=== PATIENT | female | born 1935 | race Caucasian/White ===

== ENCOUNTER 2022-02-28 10:48 | Outpatient (CLI) | payer OTHER, SELFPAY ==
[2022-02-28 15:10] LABS: RBC Urine 25-50 (0-2)
== END 2022-02-28 10:49 | disposition home or self-care (01) ==
PROVIDERS: PCP Family Medicine; Visit Provider Family Medicine
DX: R31.9 Hematuria, unspecified (principal)
CPT/HCPCS: 81015; 87086

== ENCOUNTER 2022-03-13 13:07 | Outpatient (CLI) | payer OTHER, SELFPAY | END 2022-03-13 13:08 | disposition home or self-care (01) | LOC: LONREF 13:08 | PROVIDERS: PCP Family Medicine; Visit Provider Family Medicine | DX: R31.9 Hematuria, unspecified (principal) | CPT/HCPCS: 87086 ==

== ENCOUNTER 2022-03-15 10:27 | Outpatient (CLI) | payer OTHER, SELFPAY ==
--- NOTE | 2022-03-15 10:45 | CRLHL7_ITS ---
For Patients: As a result of the Century Cures Act, medical imaging exams and procedure reports are released immediately into your electronic medical record. You may view this report before your referring provider. If you have questions, please contact your health care provider. CLINICAL HISTORY: Hematuria COMPARISON: none TECHNIQUE: Aleman scale and color Doppler images were acquired of the kidneys and urinary bladder. FINDINGS: Right hydronephrosis is present with the right renal pelvis measuring 1.8 cm. No solid renal mass. Bilobed cyst pole left kidney considered benign measuring 3.1 x 1.9 x 2.6 cm. Renal cortex is normal bilaterally. Right kidney measures 10.0 cm and left kidney measures 11.1 cm. Lobular hyperechoic and vascular bladder masses are present measuring 3.7 x 2.7 x 2.7 cm on the right and 2.0 x 1.9 x 1.7 cm on the left. IMPRESSION: Lobular bladder masses. Urology consultation recommended. Associated right hydronephrosis. Dictated by Anders England MD @ 03/15/2022 12:09:43 PM (Electronically Signed)
== END 2022-03-15 10:28 | disposition home or self-care (01) ==
PROVIDERS: PCP Family Medicine; Visit Provider Family Medicine
DX: R31.9 Hematuria, unspecified (principal); R22.2 Localized swelling, mass and lump, trunk; N13.30 Unspecified hydronephrosis
CPT/HCPCS: 76770

== ENCOUNTER 2022-04-06 10:37 | Outpatient (CLI) | payer OTHER, SELFPAY ==
--- OUTSIDE RECORDS SUMMARY | 2022-04-06 10:51 | XMS_ITS | Encounter Summary ---
:1935 Author Organization [facility] Address [facility] [place] [address] Care Team Providers Name Role Phone Mario Reynolds MD Primary Care Provider Reason for Visit Auth/Cert - Closed Specialty Diagnoses / Procedures Referred By Contact Refer red To Contact Surgery Diagnoses NASAL LACRIMAL OBSTRUCTION Sh Periop Services Procedures DACRYOCYSTORHINOSTOMY DACRYOCYSTORHINOSTOMY [address] [place] [phone] Phone: Referral ID Status Reason Start Date Expiration Date Visits Requ ested Visits Authorized [id number] Closed 1 1 Encounter Details Date Type Department Care Team Description 06/10/2013 Anesthesia Event [facility] Nick Almazan [place] [facility] Claudio truong MD [address] [place] [address] [place] [id number] (Wo rk) Anesthesia Record Procedure Summary Procedure Name Responsible Anesthesia Start Anesthesia Stop Anesthesiologist Time Time RIGHT DACROCYSTORHINOSTOMY Nick Almazan MD 06/10/13 1441 06/10/13 1536 WITH MITOMYCIN (Right Eye) Events Date Time Event Comment 06/10/2013 1259 1441 An Start 1444 An Start Data 1457 AN INCISION 1501 Quick Note O2 off for caute ry 1533 an stop data 1536 An Stop Electronically s igned by Mykel Lozano CRNA on June 10, 2013 3:36 PM Name Total fentaNYL 50 mcg/mL 100 mcg midazolam 1 mg/mL 2 mg ondansetron 2 mg/mL 4 mg propofol 10 mg/mL 30 mg LR 500 mL Agents Name O2 O2 Auxiliary Blood No blood administrations on file. Lines, Drains, and Airways Type Details Placement Removal Peripheral IV 10/24/12; 1117; 22 G; 10/24/12 1117 by Left; Hand; Julianna Plaza RN Chlorhexidine; None; Tolerated well Incision/Surgical Site Bilateral; Eye 10/24/12 1333 by Peripheral IV 06/10/13; 1444; 20 G; 06/10/13 1444 by 06/10/13 1609 by Right; Hand; Alcohol; LozanoMykel, Pam Ward, Injectable; Tolerated ALL AROUND PRESSER JUNIOR COPYWRITER RN well documented in this encounter Social History Tobacco Use Types Packs/Day Years Used Date Never Smoker Alcohol Use Standard Drinks/Week Comments No 0 (1 standard drink = 0.6 oz pure alcoho l) Sex Assigned at Date Recorded Not on file documented as of this encounter OR Notes Anesthesia Postprocedure Evaluation - Nick Almazan MD - 06/10/2013 3:39 PM CST Anesthesia Post-Evaluation Note Patient: Johana Barton Patient location: PACU Procedure(s) Performed: Procedure(s) with comments: DACRYOCYSTORHINOSTOMY - RIGHT DACROCYSTORHINOSTOMY WITH MITOMYCIN Anesthesia type: MAC Post Op Diagnosis: * No post-op diagnosis entered *. Post Op Diagnosis Additional Comments:No value filed. Patient Condition Respiratory Function (RR / SpO2 / Airway Patency): Satisfactory Cardiac Function (HR / Rhythm / BP): Satisfactory Mental Status: Satisfactory Temperature: Satisfactory Pain Control: Satisfactory PONV: None Beta-Ro Therapy: None indicated Hydration Status: Satisfactory Last Vitals: Filed Vitals: 06/10/13 1244 BP: 142/76 Temp: 35.9 ??C (96.6 ??F) Resp: 16 SpO2: 96% Additional Comments: KSHAFT BALANCER Anesthesia Preprocedure Evaluation - Nick Almazan MD - 06/10/2013 12:20 PM CST Anesthesia Evaluation . Pt has had prior anesthetic. No history of anesthetic complications ROS/MED HX ENT/Pulmonary: Neurologic: Cardiovascular: METS/Exercise Tolerance: Hematologic: Musculoskeletal: (+) other musculoskeletal (cervicalgia)- GI/Hepatic: Renal/Genitourinary: Endo: Psychiatric: Infectious Disease: Malignancy: Other: Physical Exam Airway Mallampati: II Neck ROM: limited Dental Cardiovascular Rhythm and rate: regular and normal Pulmonary breath sounds clear to auscultation Anesthesia Plan ASA Score: 2 . Plan for MAC - Routine analgesia and antiemetics to be used for post-operative care. Anesthetic plan, risks, benefits and alternatives discussed with: patient or sales support representative. History & Physical Review History and physical reviewed; no interval change. . DPreop diagnosis: NASAL LACRIMAL OBSTRUCTION Procedure(s): DACRYOCYSTORHINOSTOMY No Known Allergies Current Outpatient Prescriptions on File Prior to Visit: MELOXICAM Active 15 mg daily. multivitamin, therapeutic with minerals (THERA-VIT-M) TABS Active Take 1 tablet by mouth daily. vitamin B complex with vitamin C (VITAMIN B COMPLEX) TABS Active Take 1 tablet by mouth daily. GLUCOSAMINE SULFATE PO Active Take by mouth daily. No results found for this basename: hgb, inr, potassium KSHAFT BALANCER documented in this encounter Miscellaneous Notes Anesthesia Care Transfer Note - Mykel Lozano APRN CRNA - 06/10/2013 3:36 PM CST Anesthesia Care Transfer Note Patient: Johana Barton Transferred to: PACU Patient vital signs: stable Airway: none KSHAFT BALANCER documented in this encounter Plan of Treatment Not on filedocumented as of this encounter Visit Diagnoses Not on filedocumented in this encounter Administered Medications Inactive Administered Medications - up to 3 most recent administrations Medication Order MAR Action Action Date Dose Rate Site fentaNYL (SUBLIMAZE) injection Given 06/10/2013 3:12 PM CRANKSHAFT BALANCER 25 mcg PRN, moderate to severe pain, Starting on Sat06/10/13 at 1446, Anesthesia Intra-op Given 06/10/2013 3:00 PM CRANKSHAFT BALANCER 25 mcg Given 06/10/2013 2:46 PM CRANKSHAFT BALANCER 50 mcg lactated ringers infusion New Bag 06/10/2013 2:44 PM CRANKSHAFT BALANCER mL Intravenous, CONTINUOUS PRN, Anesthesia Intra-op, Starting on Sat06/10/13 at 1444, Until Sat06/10/13 at 1536 midazolam (VERSED) injection Given 06/10/2013 2:45 PM CRANKSHAFT BALANCER 2 mg PRN, anxiety, Starting on Sat06/10/13 at 1445, Anesthesia Intra-op ondansetron (ZOFRAN) injection Given 06/10/2013 2:59 PM CRANKSHAFT BALANCER 4 mg PRN, nausea, vomiting, Administer over 2-5 Minutes, Starting on Sat06/10/13 at 1459, Anesthesia Intra-op propofol (DIPRIVAN) injection Given 06/10/2013 2:46 PM CRANKSHAFT BALANCER 30 mg PRN, Starting on Sat06/10/13 at 1446, Anesthesia Intra-op documented in this encounter Care Teams Machine Printer Hose Relationship Specialty Start Date End Date Mario Reynolds MD PCP - General Family Practice 10/14/12 [facility] [address] [place] [address] documented as of this encounter
--- OUTSIDE RECORDS SUMMARY | 2022-04-06 10:51 | XMS_ITS | Encounter Summary ---
:1935 Author Organization [facility] Address [address] [place] [address]. [place] [address] Care Team Providers Name Role Phone Mario Reynolds MD Primary Care Provider Reason for Visit Rehab Therapy Integrated Services (Routine) - Closed Specialty Diagnoses / Procedures Referred By Contact Refer red To Contact Procedures [facility] [address] [facility] [place] [phone] Phone: Fax: Referral ID Status Reason Start Date Expiration Date Visits V isits Requested Authorized [facility] - Closed 07/26/2017 07/07/2018 365 365 PT/OT/CAB STARTER ([id number]) Encounter Details Date Type Department Care Team Description 08/07/2017 Hospital Encounter [facility] Brennen Hernandez MD [facility] [address] [facility] [address] [place] [address] Rehabilitation Sharri Camacho, CAB STARTER [address] [place], [place] [address] [address] [place] [address] [address] [place] [phone] Social History Tobacco Use Types Packs/Day Years Used Date Never Smoker Alcohol Use Standard Drinks/Week Comments No 0 (1 standard drink = 0.6 oz pure alcoho l) Sex Assigned at Date Recorded Not on file documented as of this encounter Medications at Time of Discharge Medication Sig Dispensed Refills Start Date End Date GLUCOSAMINE SULFATE PO Take by mouth daily. 0 MELOXICAM 15 mg daily. 0 multivitamin, therapeutic Take 1 tablet by 0 with minerals mouth daily. (THERA-VIT-M) TABS vitamin B complex with Take 1 tablet by 0 vitamin C (VITAMIN B mouth daily. COMPLEX) TABS documented as of this encounter Plan of Treatment Not on filedocumented as of this encounter Visit Diagnoses Not on filedocumented in this encounter Care Teams Double Cut Off Saw Operator Relationship Specialty Start Date End Date Mario Reynolds MD PCP - General Family Practice 10/14/12 [facility] [address] [place] [address] documented as of this encounter
--- OUTSIDE RECORDS SUMMARY | 2022-04-06 10:51 | XMS_ITS | Encounter Summary ---
:1935 Author Organization [facility] Address [address] [place] [address]. [place] [address] Care Team Providers Name Role Phone Mario Reynolds MD Primary Care Provider Reason for Visit Rehab Therapy Integrated Services (Routine) - Closed Specialty Diagnoses / Procedures Referred By Contact Refer red To Contact Procedures [facility] [address] [facility] [place] [phone] Phone: Fax: Referral ID Status Reason Start Date Expiration Date Visits V isits Requested Authorized [facility] - Closed 07/26/2017 07/07/2018 365 365 PT/OT/TRUCK RENTAL SERVICE ATTENDANT ([id number]) Encounter Details Date Type Department Care Team Description 08/15/[address] [facility] Brennen Hernandez MD [facility] [address] [facility] [address] [place] [address] Rehabilitation Sharri Camacho, TRUCK RENTAL SERVICE ATTENDANT [address] [place], [place] [address] [address] [place] [address] [address] [place] [phone] Social History Tobacco [...] on filedocumented in this encounter Care Teams Mortgage Or Loan Underwriter Relationship Specialty Start Date End Date Mario Reynolds MD PCP - General Family Practice 10/14/12 [facility] [address] [place] [address] documented as of this encounter
--- OUTSIDE RECORDS SUMMARY | 2022-04-06 10:51 | XMS_ITS | Encounter Summary ---
:1935 Author Organization [place] Address [address] [address] Care Team Providers Name Role Phone Mario Reynolds MD Primary Care Provider Reason for Visit Auth/Cert - Closed Specialty Diagnoses / Procedures Referred By Contact Refer red To Contact Surgery Diagnoses NASAL LACRIMAL OBSTRUCTION Sh Periop Services Procedures DACRYOCYSTORHINOSTOMY DACRYOCYSTORHINOSTOMY [address], [address] [place] [address] Phone: Referral ID Status Reason Start Date Expiration Date Visits Requ ested Visits Authorized [id number] Closed 1 1 Encounter Details Date Type Department Care Team Description 06/10/2013 Hospital Encounter [facility] [place] Phase II [address] [place] OPHTHALMIC PLAST [place] [address] SURG [phone] [address] [place] [address] (Wo rk) Social History Tobacco Use Types Packs/Day Years Used Date Never Smoker Alcohol Use Standard Drinks/Week Comments No 0 (1 standard drink = 0.6 oz pure alcoho l) Sex Assigned at Date Recorded Not on file documented as of this encounter Last Filed Vital Signs Vital Sign Reading Time Taken Comments Blood Pressure 168/97 06/10/2013 4:08 PM [employer] SUPPORT LEAD Pulse - - Temperature 35.9 ??C (96.6 ??F) 06/10/2013 12:44 PM [employer]PPORT [employer]AD Respiratory Rate 16 06/10/2013 4:08 PM [employer] SUPPORT [employer]AD Oxygen Saturation 99% 06/10/2013 4:08 PM [employer]AD Inhaled Oxygen Concentration - - Weight 66.4 kg (146 lb 6.4 oz) 06/10/2013 12:44 PM [employer]PPORT LEAD Height 154.9 cm (5' 1) 06/10/2013 12:44 PM [employer] SUPPORT LEAD Body Mass Index 27.66 06/10/2013 12:44 PM APPLICATION SUPPORT LEAD documented in this encounter Discharge Instructions Discharge InstructionsPam Ward RN - 06/10/2013 3:46 PM CST Images from the original note were not included. Same Day Surgery Discharge Instructions For Sedation and General Anesthesia 1. It is not unusual to feel dizzy, light-headed, or faint, up to 24 hours after surgery or while taking pain medication. If you have these symptoms; sit for a few minutes before standing and have someone assist you when you get up to walk or use bathroom. 2. You should rest and relax for the next 24 hours and must make arrangements to have someone stay with you for at least 24 hours after your discharge. Avoid hazardous and strenuous activities. 3. DO NOT DRIVE any vehicle or operate mechanical equipment for 24 hours following the end of your surgery. Even though you feel normal, your reactions may be affected by the medication you have received. 4. Do not drink alcoholic beverages for 24 hours following your surgery. 5. It is not unusual to feel nauseated and/or vomit after receiving anesthesia. If you develop thesesymptoms, drink clear liquids (apple juice, venecia karissa, broth, 7-up etc.) until you feel better. Slowly progress to your regular diet as you feel able. If your nausea and vomiting persists for 24 hours, please notify your surgeon. 6. All narcotic pain medications, along with inactivity and anesthesia, can cause constipation. Drinking plenty of liquids and increasing fiber intake will help. 7. Any questions of a medical nature, call your physician. 8. Do not make important decisions for 24 hours. 9. You may have a sore throat for a couple of days related to the breathing tube used during surgery. You may use Cepacol lozenges to help with this discomfort. If it worsens or if you develop a fever, contact your surgeon. IC[employer] SUPPORT LEAD documented in this encounter Medications at Time of Discharge Medication Sig Dispensed Refills Start Date End Date GLUCOSAMINE SULFATE PO Take by mouth daily. 0 MELOXICAM 15 mg daily. 0 multivitamin, therapeutic Take 1 tablet by 0 with minerals mouth daily. (THERA-VIT-M) TABS vitamin B complex with Take 1 tablet by 0 vitamin C (VITAMIN B mouth daily. COMPLEX) TABS documented as of this encounter H&P Notes [place] Provider - 06/08/2013 8:09 AM CST IC[employer] SUPPORT LEAD documented in this encounter Nursing Notes Pam Ward RN - 06/10/2013 4:[address] Ang called regarding eye drops that came from surgery with her. Suellen from Dr. Ang's office called back. She is to put in a drop in her right eye 4 times per day for 1 week. ICATION SUPPORT LEAD Pam Ward RN - 06/10/2013 4:[address] Lindsey informed of elevated BP. No tx ordered. ICATION SUPPORT LEAD documented in this encounter Miscellaneous Notes Op Note - Sierra Ang MD - 06/10/2013 3:38 PM CST PREOPERATIVE DIAGNOSIS: Right acquired nasolacrimal duct obstruction. POSTOPERATIVE DIAGNOSIS: Right acquired nasolacrimal duct obstruction. PROCEDURE: Right dacryocystorhinostomy with mitomycin. ANESTHESIA: Local monitored. COMPLICATIONS: None. INDICATIONS FOR PROCEDURE: Johana Barton has a history of right dacryocystorhinostomy for chronic tearing. The patient developed a secondary obstruction and presents for right dacryocystorhinostomy with mitomycin. PROCEDURE: The patient was taken to the operating room and was placed under general anesthesia. The proposed skin incision lines were outlined with a marking pen from approximately 1/2 cm above the medial canthal tendon to approximately 1 cm below the medial canthal tendon. This area was injected with 1% lidocaine with 1:100,000 epinephrine with Wydase. Additional anesthetic was injected through the caruncle into the ethmoid sinuses. The patient was then prepped and draped in the usual sterile fashion. #15 blade was used to incise the skin and then curved Pace scissors were used to bluntly dissect tissue down to the level of the periosteum. Cutting cautery was then used to fully expose the underlying bone and then a [place] elevator was used to lift the periosteum away from the lacrimal fossa. The bone of the lacrimal fossa was then perforated with a curved hemostat and the opening was enlargedwith various sized Kerrison rongeurs until a hole the size of a dime was created. The nasal mucosa was then opened with cutting cautery and an opening was created that was also approximately the size of a dime. A Mccrary probe was then passed through the canaliculus and used to tent up the lacrimal sac. Lacrimal sac was opened with a Barber blade and then the medial wall was removed with Mitali scissors. A Higuera probe and tubing was then passed through the canalicular system into the nose and out through the nares. A second Higuera probe was passed through the inferior canaliculus in a similarfashion. A 1/4 inch Ronen drain was drawn up into the lacrimal sac and sutured in place with two 5-0 Vicryl sutures. The deep tissues were then closed with interrupted 5-0 Vicryl sutures and the subcu ticular tissue was also closed with interrupted 5-0 Vicryl suture. The skin was closed with a running 6-0 chromic suture. The tubing was then spliced and the internal suture was tied on itself and thenthe tubing was tied to the lateral wall of the nose with a 5-0 Prolene suture. At the end of the procedure, there was good hemostasis and a Rhino Rocket was then passed into the area of surgery. A nasal sling was then placed over the nares and a dental roll was applied to the DCR incision site, after Bacitracin ointment had been applied. The dental roll was taped in place. The patient had received 2 gm of Ancef at the beginning of the case and 4 mg of Decadron. The patient left the operating room instable condition. ADDITION: After completion of the ostomy, a pledget soaked in 0.4 mg per mL of mitomycin was appliedto the ostomy for 4 minutes. The area was then irrigated thoroughly. SIERRA ANG MD MT: [id number] Name: JOHANA BARTON Account: [id number] : 1935 Procedure Date: 06/10/2013 Document: [id number] [employer] SUPPORT LEAD Brief Op Note - Sierra Ang MD - 06/10/2013 3:35 PM CST [facility] Brief Operative Note Pre-operative diagnosis: NASAL LACRIMAL OBSTRUCTION Post-operative diagnosis * No post-op diagnosis entered * Procedure: Procedure(s) with comments: DACRYOCYSTORHINOSTOMY - RIGHT DACROCYSTORHINOSTOMY WITH MITOMYCIN Surgeon(s): Surgeon(s) and Role: * Sierra Ang MD - Primary Estimated blood loss: * No values recorded between 06/10/2013 2:57 PM and 06/10/2013 3:33 PM * Specimens: * No specimens in log * Findings: ICATION SUPPORT LEAD documented in this encounter Plan of Treatment Not on filedocumented as of this encounter Procedures Procedure Name Priority Date/Time Associated Diagnosis Comme nts DACRYOCYSTORHINOSTOMY 06/10/2013 2:36 PM APPLICATION SUPPORT LEAD NASAL LAC RIMAL OBSTRUCTION documented in this encounter Visit Diagnoses Not on filedocumented in this encounter Active and Recently Administered Medications Times are shown in APPLICATION SUPPORT LEAD. PRN Medication Order 06/08/2013 06/09/2013 06/10/2013 cocaine 4 % external solution (CANCELED) 1508 (Given - Provider: Sierra Ang MD) PRN, other, Starting Sat06/10/13 at 1508, Apply to , Intra-pr ocedure lidocaine 2%-EPINEPHrine 1:200,000 injection (CANCELED) 1508 (Given - Provider: Sierra Ang MD) PRN, Starting Sat06/10/13 at 1508, Intra-procedure mitoMYcin 2 mg/mL topical solution (CANCELED) 1507 (Given - Provider: Sierra Ang MD - Comment: rinsed with BSS) PRN, Starting Sat06/10/13 at 1507, Intra-procedure meimosag-mqlgdeutw-ngvhdtrtyhiid (MAXITROL) ophthalmic suspensio n (CANCELED) 1508 (Given - Provider: Sierra Ang MD) PRN, Starting Sat06/10/13 at 1508, Intra-procedure documented in this encounter Care Teams Special Education Resource Teacher Relationship Specialty Start Date End Date Mario Reynolds MD PCP - General Family Practice 10/14/12 [facility] [address] [place] [address] documented as of this encounter
--- OUTSIDE RECORDS SUMMARY | 2022-04-06 10:51 | XMS_ITS | Encounter Summary ---
:1935 Author Organization [place] Address [address] [facility] 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, RIGHT UPPER LID LESION, RIGHT NASO Sh Periop Services Procedures REPAIR PTOSIS BILATERAL EXCISE LESION EYELID DACRYOCYSTORHINOSTOMY [address] [place] [address] Phone: Referral ID Status Reason Start Date Expiration Date Visits Requ ested Visits Authorized [id number] Closed 1 1 Encounter Details Date Type Department Care Team Description 10/24/2012 Surgery [facility] Sierra Ang BILATERAL UPPER LID PTOSIS [place] [facility] MD [place] AND MECHANICAL PTOSIS REPAIR, Services [place] OPHTHALMIC EXCISION LEFT UPPER LID [address] PLAST SURG LESION, RIGHT [address] DACRYOCYSTORHINOSTOMY [place] [facility] [address] [id number] [place] [phone] Surgery Details Date/Time Status Location OR Service Patient Case Case Traum a Class Class Type Case? 10/24/12 12:30 Posted EC R [facility] PM Panel 1 Procedure [facility]RB Anes Op Region Wound Class Commen ts BILATERAL UPPER LID PTOSIS AND Bilateral MAC Eye I-Juliano an BILATERAL UPPER MECHANICAL PTOSIS REPAIR, LID PTOSIS AND EXCISION LEFT UPPER LID M ECHANICAL PTOSIS LESION, RIGHT REPAIR, EXC ISION DACRYOCYSTORHINOSTOMY LEF T UPPER LID LESION, RIGHT DACRYOCYSTORHI NOST ANDREW EXCISION, LESION, EYELID Left MAC Eye I-Clean Panel 2 Procedure LRB Anes Op Region Wound Class Commen ts DACRYOCYSTORHINOSTOMY Right MAC Eye I-Clean Surgeon Surgeon Role Service Panel Sierra Ang MD Primary Ophthalmology 1 Sierra Ang MD Primary Ophthalmology 2 documented in this encounter Social History Tobacco Use Types Packs/Day Years Used Date Never Smoker Alcohol Use Standard Drinks/Week Comments No 0 (1 standard drink = 0.6 oz pure alcoho l) Sex Assigned at Date Recorded Not on file documented as of this encounter Last Filed Vital Signs Vital Sign Reading Time Taken Comments Blood Pressure 155/85 10/24/2012 4:00 PM CDT Pulse - - Temperature 36.5 ??C (97.7 ??F) 10/24/2012 11:05 AM CDT Respiratory Rate 18 10/24/2012 4:00 PM CDT Oxygen Saturation 99% 10/24/2012 4:00 PM CDT Inhaled Oxygen Concentration - - Weight 69.4 kg (153 lb) 10/24/2012 11:05 AM CDT Height 157.5 cm (5' 2) 10/23/2012 2:00 PM CDT Body Mass Index 27.98 10/23/2012 2:00 PM CDT documented in this encounter Discharge Instructions Discharge InstructionsNadine Ambriz, MATEO - 10/24/2012 4:01 PM CDT [facility] Discharge Instructions Anesthesia ([facility]) Adult Discharge Instructions For 24 hours after surgery 1. Get plenty of rest. Make arrangements to have a responsible adult stay with you for at least 6 hours after you leave the hospital. 2. Do not drive or use heavy equipment for 24 hours. 3. Do not drink alcohol for 24 hours. 4. Do not sign legal documents or make important decisions for 24 hours. 5. Avoid strenuous or risky activities. You may feel lightheaded. If so, sit for a few minutes before standing. Have someone help you get up. 6. Conscious sedation patients may resume a regular diet.. 7. Any questions of medical nature, call your physician. [facility] Dacryocystorhinostomy Discharge Instructions [facility] Provider SIERRA ANG M.D. [facility] [address] [place], [place] [address] Things to avoid: You should avoid blowing the nose vigorously or sneezing vigorously after silicone intubation. The silicone tubing is frequently left in for as long as six months and care should be taken to avoid blowing the nose vigorously during this time. It is also helpful to close the eyes during sneezing or gentle nose blowing. The tubing may be tied to the side of the nose, and therefore care should be taken to avoid manipulating this area in the nose. It is acceptable to apply a little Vaseline to the inside of the nose if there is any drying or discomfort. You will see a tiny end of the silicone tubing extruding from the cornea of your operated eye(s). Becareful not to disturb this area. The yellow rubber tube inside your nose should fall out on its own in about 4-6 weeks. If it does not, call the office and the doctor can remove it in the office. Activity: Please avoid heavy lifting or vigorous exercise for seven days after surgery. You may resume regularactivities as tolerated. You may carefully shower on the second day after surgery. Medication: If the doctor has given you some medications to take after surgery, please take these according to the instructions on the bottle. Pain medications may make you drowsy so do not drive, operate heavy machinery or use alcohol while taking pain medications. Bleeding: It is normal to have some bloody discharge from the nose after this procedure. This will subside over the first one to two days after surgery. Please contact the doctor if there is excessive bleeding which does not respond to simple pressure on the nose. Questions: Please feel free to contact the office should any questions come up which are not answered above. The phone number is [phone]. [facility] Eyelid/Orbital Surgery Discharge Instructions Sierra Ang M.D. & Francisco Holbrook M.D. ICE COMPRESSES Immediately following surgery, you should begin to apply ice compresses. Apply a cold gel pack, which can be purchased at your drug store, or wrap a clean washcloth around a cup of crushed ice in a plastic bag (a bag of frozen peas also works well) and hold the cold compresses directly against the closed eyelid (s). Do this at least six times per day for 15 minutes, but not while sleeping. Continue cold compresses for the first three days after surgery, or longer if swelling persists. HOT COMPRESSES Starting on the fourth day following surgery or after your swelling has gone down, hot compresses should be applied. Take a clean washcloth and wring it out in hot water (as warm as you can tolerate comfortably). Hold this warm compress against the closed eyelid(s) six times per day for 15 minutes. This should be continued for about two weeks. OINTMENT You may be given some ointment when you leave the hospital. Apply this ointment to the suture line(s) twice a day. Expect some blurring of vision from the ointment. Eye drops Maxitrol one drop each eyethree times a day ACTIVITY Avoid heavy lifting or vigorous exercise for one week after surgery. You may resume regular activities as tolerated. You may shower and wash your hair on the day after surgery; be careful to avoid getting shampoo in your eyes. MEDICATION If the doctor has given you some medications to take after surgery, please take these according to the instructions on the bottle. Pain medications may make you drowsy so do not drive, operate heavy machinery, or use alcohol while taking it. When you feel that you do not need the prescription pain medication, you may substitute Extra Strength Tylenol for mild pain. WHAT TO EXPECT You should expect some slight oozing of blood from the incision site over the first two to three days after surgery. Swelling and bruising will occur for one to two weeks or longer. You may also experience itching and tearing during the first several weeks after surgery. This is part of the normal healing process QUESTIONS Please feel free to contact the office, should you have any questions that are not answered above. The phone number is . Please call immediately if you are unable to establish vision in the operative eye, or if you are experiencing heavy bleeding that will not stop with gentle pressure. [facility] [address] [place] [address] documented in this encounter Medications at Time of Discharge Medication Sig Dispensed Refills Start Date End Date GLUCOSAMINE SULFATE PO Take by mouth daily. 0 MELOXICAM 15 mg daily. 0 multivitamin, Take 1 tablet by mouth 0 therapeutic with daily. minerals (THERA-VIT-M) TABS vitamin B complex with Take 1 tablet by mouth 0 vitamin C (VITAMIN B daily. COMPLEX) TABS HYDROcodone-acetaminop Take 1 tablet by mouth 10 tablet 0 0 10/24/2012 06/10/2013 hen 5-325 MG per every 6 hours as needed tabletIndications: for pain. Maximum of Post-op pain 4000 mg of acetaminophen in 24 hours. documented as of this encounter H&P Notes Sierra Ang MD - 10/23/2012 6:49 AM CDT documented in this encounter Nursing Notes Beata Diehl RN - 10/24/2012 1:[address] ANG EXCISED THE LESION ON THE LEFT UPPER EYELID AND IT WAS DISCARDED PER DR. ANG documented in this encounter Miscellaneous Notes Op Note - Sierra Ang MD - 10/24/2012 3:04 PM CDT Preoperative Diagnosis: Bilateral Upper Eyelid Ptosis Post Operative Diagnosis: Bilateral Upper Eyelid Ptosis and Mechanical Ptosis Operation: Bilateral Upper Lid Ptosis repair and Mechanical Ptosis repair Anesthesia: Local Monitored Complications: None Indications for surgery: Patient has bilateral upper lid ptosis,obstructing the vision and interfering with daily activities. Patient also has excessive skin overhanging the upper eyelids contributing the visual obstruction. Procedure: The patient was taken to the operating room and the upper eyelid creases were marked witha marking pen. The upper eyelids were injected with 2% Lidocaine along both upper eyelid creases. The patient was prepped and draped in the usual sterile fashion. The planned skin incision was outlinedwith a fine tipped marking pen. The incision was then made along the previously marked area. A moderate amount of skin was excised taking care to allow adequate closure and avoid lagophthalmos. A small benign appearing cystic lesion was excised from the left upper eyelid margin. Preoperative Diagnosis Right nasal lacrimal duct obstru ction Postoperative Diagnosis: same Operation Right dacryocystorhinostomy Anesthesia: General Complications: None Indications for Surgery: The patient has had history of dacryocystitis. The patient presented for dacryocystorhinostomy Procedure: The patient was taken to the operating room and was placed under general anesthesia. The proposed skin incision lines were outlined with a marking pen from approximately 1/2 cm above the medial canthal tendon to approximately 1cm below the medical canthal tendon. This area was injected with 1% Lidocaine with 1:100,000 epinephrine with Wydase. Additional anesthetic [...] expose the underlying bone and then a Francis elevator was used to lift the periosteum away from the lacrimal fossa. Abowman probe was then passed through the canaliculus and used to tent up the lacrimal sac. Lacrimal sac was opened with a nuiqsut blade and then the medial wall was removed with mitali scissors.The bone of the lacrimal fossa was then perforated with a curved hermostat and the opening was enlarged with various sized Kerrison rongeurs until a hole the size of a dime was created.The nasal mucosa was then opened with cutting cautery and an opening was created that was also approximately the size of a dime. A villafana probe and tubing was then passed through the canalicular system into the nose and outthrough the nares. A second villafana probe was passed through the inferior canaliculus in the similar fashion. A 1/4 inch earle drain was drawn up into the lacrimal sac and sutured in place with a two 5-0 Vicryl sutures. The deep tissues were then close with a interrupted 5- 0 Vicryl sutures and the subcuticular tissue was also closed with interrupted 5- 0 Vicryl suture. The skin was closed with a running 6-0 chromic suture. The tubing was then spliced and the internal suture was tied on itself and then the tubing was tied to the lateral wall of the nose with a 5-0 Prolene suture. At the end of theprocedure there was good hemostasis. A nasal sling was then placed over the nares and erythromycin ointment was applied. There was no evidence of tumor. The patient had received 1 gm of Ancef at the beginning of the case. The patient left the operating room in stable condition. Mitali scissors were then used to develop a plane over the septum. The septum was opened and a small amount of orbital fatwas removed. Levator aponeurosis was then disinserted from the tarsus and a plane was developed between th aponeurosis and the underlying tarsus and barriga's muscle. A 5-0 Mersilene suture was then passed through the tarsus in a lamellar fashion and externalized through the levator aponeurosis. This was tied off in a temporary fashion and the patient was asked to sit up and the eyelids height and contour evaluated. This was repeated until a satisfactory height and contour were obtained,and two additional sutures were placed lateral to the initial suture.This resulted in a normal contour and heightto the upper eyelids. Attempted overcorrection of 0.5mm was obtained. The redundant levator aponeurosis was then excised and the skin was then closed with running 6-0 fast absorbing suture. The patientleft the operating room in stable condition. Preoperative Diagnosis Right nasal lacrimal duct obstruction Postoperative Diagnosis: same Operation Right dacryocystorhinostomy Anesthesia: General Complications: None Indications for Surgery: The patient has had history of dacryocystitis. The patient presented for dacryocystorhinostomy Procedure: The patient was taken to the operating room and was placed under general anesthesia. The proposed skin incision lines were outlined with a marking pen from approximately 1/2 cm above the medial canthal tendon to approximately 1cm below the medical canthal tendon. This area was injected with 1% Lidocaine with 1:100,000 epinephrine with Wydase. Additional anesthetic [...] expose the underlying bone and then a Francis elevator was used to lift the periosteum away from the lacrimal fossa. Abowman probe was then passed through the canaliculus and used to tent up the lacrimal sac. Lacrimal sac was opened with a nuiqsut blade and then the medial wall was removed with mitali scissors.The bone of the lacrimal fossa was then perforated with a curved hermostat and the opening was enlarged with various sized Kerrison rongeurs until a hole the size of a dime was created.The nasal mucosa was then opened with cutting cautery and an opening was created that was also approximately the size of a dime. A villafana probe and tubing was then passed through the canalicular system into the nose and outthrough the nares. A second villafana probe was passed through the inferior canaliculus in the similar fashion. A 1/4 inch earle drain was drawn up into the lacrimal sac and sutured in place with a two 5-0 Vicryl sutures. The deep tissues were then close with a interrupted 5- 0 Vicryl sutures and the subcuticular tissue was also closed with interrupted 5- 0 Vicryl suture. The skin was closed with a running 6-0 chromic suture. The tubing was then spliced and the internal suture was tied on itself and then the tubing was tied to the lateral wall of the nose with a 5-0 Prolene suture. At the end of theprocedure there was good hemostasis. A nasal sling was then placed over the nares and erythromycin ointment was applied. There was no evidence of tumor. The patient had received 1 gm of Ancef at the beginning of the case. The patient left the operating room in stable condition. documented in this encounter Plan of Treatment Not on filedocumented as of this encounter Procedures Procedure Name Priority Date/Time Associated Diagnosis Comme nts DACRYOCYSTORHINOSTOMY 10/24/2012 12:49 PM BILATERAL UP PER LID CDT PTOSIS AND MECHANICAL PTOSIS, RIGHT UPPER LID LESION, RIGHT NASOLACRIMAL DUCT OBSTRUCTION EXCISION, LESION, EYELID 10/24/2012 12:49 PM BILATERAL UPPER LID CDT PTOSIS AND MECHANICAL PTOSIS, RIGHT UPPER LID LESION, RIGHT NASOLACRIMAL DUCT OBSTRUCTION REPAIR, PTOSIS, BILATERAL 10/24/2012 12:49 PM BILATERA L UPPER LID CDT PTOSIS AND MECHANICAL PTOSIS, RIGHT UPPER LID LESION, RIGHT NASOLACRIMAL DUCT OBSTRUCTION documented in this encounter Visit Diagnoses Not on filedocumented in this encounter Administered Medications Inactive Administered Medications - up to 3 most recent administrations Medication Order MAR Action Action Date Dose Rate Site cocaine 4 % external Given 10/24/2012 1:22 PM 5 mLs Operative solution CDT Site/Surgical S ite PRN, other, Starting on Sat10/24/12 at 1322, Apply to , Intra-procedure erythromycin (ROMYCIN) ophthalmic ointme nt Given 10/24/2012 1:23 PM CDT 1 inch PRN, Starting on Sat10/24/12 at 1323, Apply within 1 hour of . May be delayed until after first ., Intra-procedure lactated ringers infusion New Bag 10/24/2012 2:30 PM CDT mL at 75-100 mL/hr, Intravenous, CONTINUOUS, UNLESS otherwise indicated., Pre-procedure, Starting on Sat10/24/12 at 1045, Until Sat10/24/12 at 1804 New Bag 10/24/2012 11:18 AM CDT 1,000 mLs 75 mL/hr lidocaine 2%-EPINEPHrine Given 10/24/2012 2:15 PM 8 mLs Operative Site/Surgical 1:200,000 injection CDT Site PRN, Starting on Sat10/24/12 at 1323, Intra-procedure Given 10/24/2012 1:58 PM CDT 2 mLs Opera tive Site/Surgical Site Given 10/24/2012 1:23 PM CDT 10 mLs Opera tive Site/Surgical Site lidocaine-EPINEPHrine 1 Given 10/24/2012 2:33 PM 2 mLs Operative %-1:100,000 injection CDT Site/Surgical S ite PRN, Starting on Sat10/24/12 at 1433, Intra-procedure cnakcgmv-seeibsmqr-yhcfluzoggvbg (MAXITROL) Given 10/24/2012 2:35 PM CDT 1 drop ophthalmic suspension PRN, Starting on Sat10/24/12 at 1435, Intra-procedure tetracaine (PONTOCAINE) 0.5 % ophthalmic Given 10/24/2012 1:23 P M CDT 2 drops solution PRN, Starting on Sat10/24/12 at 1323, Intra-procedure documented in this encounter Active and Recently Administered Medications Times are shown in CDT. Continuous Medication Order 10/22/2012 10/23/2012 10/24/2012 lactated ringers infusion (CANCELED) 1118 (New Bag - Provider: Julianna Plaza RN)1259 (Anesthesia Volume Adjustment - Provider: Pham Kelly APRN HEALTH SAFETY INSTRUCTOR)1430 (New Bag - Provider: Pham Kelly APRN HEALTH SAFETY INSTRUCTOR) at 75-100 mL/hr, Intravenous, CONTINUOUS , UNLESS otherwise indicated., Pre-procedure 1454 (Stopped - Prov ider: Pham Kelly APRN HEALTH SAFETY INSTRUCTOR) PRN Medication Order 10/22/2012 10/23/2012 10/24/2012 cocaine 4 % external solution (CANCELED) 1322 (Given - Provider: Sierra Ang MD) PRN, other, Starting Sat10/24/12 at 1322, Apply to , Intra-pr ocedure erythromycin (ROMYCIN) ophthalmic ointment (CANCELED) 1323 (Given - Provider: Sierra Ang MD) PRN, Starting Sat10/24/12 at 1323, Apply within 1 hour of . May be delayed until after first ., Intra-procedure lidocaine 2%-EPINEPHrine 1:200,000 injection (CANCELED) 1323 (Given - Provider: Sierra Ang MD)1358 (Given - Provider: Sierra Ang MD)1415 (Given - Provider: Sierra Ang MD) PRN, Starting Sat10/24/12 at 1323, Intra-procedure lidocaine-EPINEPHrine 1 %-1:100,000 injection (CANCELED) 1433 (Given - Provider: Sierra Ang MD) PRN, Starting Sat10/24/12 at 1433, Intra-procedure gufbbatk-dwrkxvlfw-gmbsrneqejrht (MAXITROL) ophthalmic suspensio n (CANCELED) 1435 (Given - Provider: Sierra Ang MD) PRN, Starting Sat10/24/12 at 1435, Intra-procedure tetracaine (PONTOCAINE) 0.5 % ophthalmic solution (CANCELED) 1323 (Given - Provider: Beata Diehl RN) PRN, Starting Sat10/24/12 at 1323, Intra-procedure documented in this encounter Care Teams Office Copy Selector Relationship Specialty Start Date End Date Mario Reynolds MD PCP - General Family Practice 10/14/12 [facility] [address] [place] [id number] documented as of this encounter
--- OUTSIDE RECORDS SUMMARY | 2022-04-06 10:51 | XMS_ITS | Encounter Summary ---
:1935 Author Organization [place] Address [address] [facility] 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, RIGHT UPPER LID LESION, RIGHT NASO Sh Periop Services Procedures REPAIR PTOSIS BILATERAL EXCISE LESION EYELID DACRYOCYSTORHINOSTOMY [address], [address] [place] [address] Phone: Referral ID Status Reason Start Date Expiration Date Visits Requ ested Visits Authorized [id number] Closed 1 1 Encounter Details Date Type Department Care Team Description 10/24/2012 Anesthesia Event [facility] Smith Arroyo MD [facility] ANESTHESIOLOGIS [address] [place] [id number] [facility] PeriOP Pedro Hickman MD [facility] ANESTHESIOLOGY [address] [place] [address] Services [address], [address] [place] [address] Anesthesia Record Procedure Summary Procedure Name Responsible Anesthesia Start Anesthesia Stop Anesthesiologist Time Time BILATERAL UPPER LID PTOSIS Stanislaw Arroyo MD 10/24/12 1259 10/24/12 1458 AND MECHANICAL PTOSIS REPAIR, EXCISION LEFT UPPER LID LESION, RIGHT DACRYOCYSTORHINOSTOMY (Bilateral Eye) Events Date Time Event Comment 10/24/2012 1135 1259 An Start 1302 An Start Data 1310 Quick Note ETCO2 waveform m onitored throughout the procedure. O2 off intermittent ly while cautery in use. 1456 an stop data 1458 An Stop Electronically s igned by Pham Kelly CRNA on October 3:08 PM Name Total fentaNYL 50 mcg/mL 100 mcg midazolam 1 mg/mL 6 mg ondansetron 2 mg/mL 4 mg propofol 10 mg/mL 30 mg No abx ordered pre-op 1 each lactated ringers infusion 1,050 mL Agents Name O2 Blood No blood administrations on file. Lines, Drains, and Airways Type Details Placement Removal Peripheral IV 10/24/12; 1117; 22 G; Left; 10/24/12 1117 by Susy moeller, Julianna Hand; Chlorhexidine; None; L, RN Tolerated well Incision/Surgical Site Bilateral; Eye 10/24/12 1333 by documented in this encounter Social History Tobacco Use Types Packs/Day Years Used Date Never Smoker Alcohol Use Standard Drinks/Week Comments No 0 (1 standard drink = 0.6 oz pure alcoho l) Sex Assigned at Date Recorded Not on file documented as of this encounter OR Notes Anesthesia Postprocedure Evaluation - Stanislaw Arroyo MD - 10/24/2012 3:12 PM CDT Anesthesia Post-Evaluation Note Patient: Johana Barton Patient location: PACU Procedure(s) Performed: Procedure(s) with comments: REPAIR PTOSIS BILATERAL - BILATERAL UPPER LID PTOSIS AND MECHANICAL PTOSIS REPAIR, EXCISION LEFT UPPER LID LESION, RIGHT DACRYOCYSTORHINOSTOMY EXCISE LESION EYELID DACRYOCYSTORHINOSTOMY Anesthesia type: MAC Patient Condition Respiratory Function (RR / SpO2 / Airway Patency): Satisfactory Cardiac Function (HR / Rhythm / BP): Satisfactory Mental Status: Satisfactory Temperature: Satisfactory Pain Control: Satisfactory PONV: None Beta-Or Therapy: None indicated Hydration Status: Satisfactory Last Vitals: Filed Vitals: 10/24/12 1105 BP: 135/86 Temp: 36.5 ??C (97.7 ??F) Resp: 16 SpO2: 99% Additional Comments: Anesthesia Preprocedure Evaluation - Pedro Hickman MD - 10/24/2012 11:35 AM CDT Anesthesia Evaluation . Pt has had prior anesthetic. No history of anesthetic complications ROS/MED HX Pulmonary: (-) sleep apnea Neurologic: Cardiovascular: METS/Exercise Tolerance: Hematologic: Musculoskeletal: GI/Hepatic: (-) GERD Renal: Endo: Psychiatric: Infectious Disease: Other: Comment: ptosis Physical Exam Normal systems: cardiovascular, pulmonary and dental Airway Mallampati: II TM distance: >3 FB Neck ROM: full Dental Cardiovascular Pulmonary Anesthesia Plan ASA Score 1 . Plan for MAC Routine analgesia and antiemetics to be used for post-operative care. Anesthetic plan, risks, benefits and alternatives discussed with: patient or signs and displays sales representative. History & Physical Review History and physical reviewed; no interval change. . documented in this encounter Miscellaneous Notes Anesthesia Care Transfer Note - Pham Kelly APRN CRNA - 10/24/2012 2:58 PM CDT Anesthesia Care Transfer Note Patient: Johana Barton Transferred to: PACU Patient vital signs: stable Airway: none VSS on room air. Alert with no complaints of pain. Report given to RN. documented in this encounter Plan of Treatment Not on filedocumented as of this encounter Visit Diagnoses Not on filedocumented in this encounter Administered Medications Inactive Administered Medications - up to 3 most recent administrations Medication Order MAR Action Action Date Dose Rate Site fentaNYL (SUBLIMAZE) injection Given 10/24/2012 1:28 PM CDT 25 mcg PRN, moderate to severe pain, Starting on Sat10/24/12 at 1304, Anesthesia Intra-op Given 10/24/2012 1:19 PM CDT 25 mcg Given 10/24/2012 1:04 PM CDT 50 mcg lactated ringers infusion New Bag 10/24/2012 2:30 PM CDT mL at 75-100 mL/hr, Intravenous, CONTINUOUS, UNLESS otherwise indicated., Pre-procedure, Starting on Sat10/24/12 at 1045, Until Sat10/24/12 at 1804 New Bag 10/24/2012 11:18 AM CDT 1,000 mLs 75 mL/hr midazolam (VERSED) injection Given 10/24/2012 2:42 PM CDT 0.5 mg PRN, anxiety, Starting on Sat10/24/12 at 1301, Anesthesia Intra-op Given 10/24/2012 2:39 PM CDT 0.5 mg Given 10/24/2012 2:35 PM CDT 1 mg No abx ordered pre-op Given 10/24/2012 12:59 PM CDT 1 each PRN, Starting on Sat10/24/12 at 1259, Until Sat10/24/12 at 1508, No antibiotics ordered pre-op by surgeon, Anesthesia Intra-op ondansetron (ZOFRAN) injection Given 10/24/2012 1:17 PM CDT 4 mg PRN, nausea, vomiting, Administer over 2-5 Minutes, Starting on Sat10/24/12 at 1317, Anesthesia Intra-op propofol (DIPRIVAN) injection Given 10/24/2012 1:08 PM CDT 10 mg PRN, Starting on Sat10/24/12 at 1308, Anesthesia Intra-op Given 10/24/2012 1:07 PM CDT 20 mg documented in this encounter Care Teams Gasoline Service Attendant Relationship Specialty Start Date End Date Mario Reynolds MD PCP - General Family Practice 10/14/12 [facility] [address] [place] [address] documented as of this encounter
--- OUTSIDE RECORDS SUMMARY | 2022-04-06 10:51 | XMS_ITS | Encounter Summary ---
:1935 Author Organization [place] Address [address] [place] [address]. [place] [address] Care Team Providers Name Role Phone Mario Reynolds MD Primary Care Provider Reason for Visit Rehab Therapy Integrated Services (Routine) - Closed Specialty Diagnoses / Procedures Referred By Contact Refer red To Contact Procedures [facility] [address] [facility] [address] [place] [address] Phone: Fax: Referral ID Status Reason Start Date Expiration Date Visits V isits Requested Authorized [facility] - Closed 07/26/2017 07/07/2018 365 365 PT/OT/STONER HAND ([id number]) Encounter Details Date Type Department Care Team Description 08/13/2017 Hospital Encounter [facility] Brennen Hernandez MD [facility] [address] [facility] [address] [place] [address] Rehabilitation Sharri Camacho, STONER HAND [address] [place], [place] [address] [address] [place] [address] [address] [place] [phone] Social History Tobacco [...] on filedocumented in this encounter Care Teams Unix Analyst Relationship Specialty Start Date End Date Mario Reynolds MD PCP - General Family Practice 10/14/12 [facility] [address] [place] [address] documented as of this encounter
--- OUTSIDE RECORDS SUMMARY | 2022-04-06 10:51 | XMS_ITS | Encounter Summary ---
:1935 Author Organization [place] Address [address] [place] [address]. [place] [address] Care Team Providers Name Role Phone Mario Reynolds MD Primary Care Provider Reason for Visit Rehab Therapy Integrated Services (Routine) - Closed Specialty Diagnoses / Procedures Referred By Contact Refer red To Contact Procedures [facility] [address] [facility] [address] [place] [address] Phone: Fax: Referral ID Status Reason Start Date Expiration Date Visits V isits Requested Authorized [facility] - Closed 07/26/2017 07/07/2018 365 365 PT/OT/MACHINE HAND ([id number]) Encounter Details Date Type Department Care Team Description 08/06/2017 Hospital Encounter [facility] Brennen Hernandez MD [facility] [address] [facility] [address] [place] [address] Rehabilitation Sharri Camacho, MACHINE HAND [address] [place], [place] [address] [address] [place] [address] [address] [place] [phone] Social History Tobacco Use Types Packs/Day Years Used Date Never Smoker Alcohol Use Standard Drinks/Week Comments No 0 (1 standard drink = 0.6 oz pure alcoho l) Sex Assigned at Date Recorded Not on file documented as of this encounter [facility]charge Instructions [facility] Sharri E, MACHINE HAND - 08/06/2017 3:12 PM CST Voice Therapy 08/06/17 ??? Deep, belly/diaphragmatic breathing o Abdomen should inflate when you breathe in and deflate when you breathe out ??? Cup and bubbles exercise (tissue mobilization) o Put 1 in. of water in a cup o Start just blowing bubbles through the straw WITHOUT voice - It should feel easy in your throat o Add voice at a comfortable pitch, making sure that the bubbles stay continuous and your throat is still relaxed o Toggle between two pitches o Do gentle glides o Do repeated accents, like you???re revving the engine of a car o Sing the tune of Happy Birthday or other songs ??? Spacious Speech o For airflow: - Relaxed, belly breath into a yawn space - Breathe out on a sigh, using the different sounds o Pair with gentle massage of the throat (laryngeal massage on the massage sheet) - Focus the massage on the area around the Faizan???s apple (this area will elevate in your throat when you swallow and descend in your throat when you yawn) - Do circles and then horizontal/upii-qu-mera movements - Hold larynx in the downward position as you start to sigh after you yawn - As voice quality starts to improve, phase out the massage while still maintaining the relaxed voice o This should feel relaxed in your throat o Then, try to say the phrases using regular speech, but trying to maintain the same amount of airflow and relaxed feeling in your throat, staying in your optimal pitch range ON PRESSER documented in this encounter Medications at Time [...] on filedocumented in this encounter Care Teams Air Duct Mechanic Relationship Specialty Start Date End Date Mario Reynolds MD PCP - General Family Practice 10/14/12 [facility] MEDICAL [facility] [address] [place] [address] documented as of this encounter
--- OUTSIDE RECORDS SUMMARY | 2022-04-06 10:51 | XMS_ITS | Encounter Summary ---
:1935 Author Organization [place] Address [address] [place] [address] Care Team Providers Name Role Phone Mario Reynolds MD Primary Care Provider Reason for Visit Auth/Cert - Closed Specialty Diagnoses / Procedures Referred By Contact Refer red To Contact Surgery Diagnoses NASAL LACRIMAL OBSTRUCTION Sh Periop Services Procedures DACRYOCYSTORHINOSTOMY DACRYOCYSTORHINOSTOMY [address] [place] [address] Phone: Referral ID Status Reason Start Date Expiration Date Visits Requ ested Visits Authorized [id number] Closed 1 1 Encounter Details Date Type Department Care Team Description 06/10/2013 Surgery [facility] Sierra Ang RIGHT DACR OCYSTORHINOSTOMY [facility] PeriOP MD Antwon WITH MITOMYCIN Services [place] OPHTHALMIC PLAST [address] [place] [address] [address] [place] [phone] (Wo rk) Surgery Details Date/Time Status Location OR Service Patient Case Case Traum a Class Class Type Case? 06/10/13 2:00 Posted Z SH SD SD 22 Ophthalmology Same Day PM Surgery Panel 1 Procedure LRB Anes Op Region Wound Class Commen ts RIGHT DACROCYSTORHINOSTOMY Right MAC Eye I-Clean RIGHT DACROCYSTORHINOSTOMY WITH MITOMYCIN WITH MITOM YCIN Surgeon Surgeon Role Service Panel Sierra Ang MD Primary Ophthalmology 1 documented in this encounter Social History Tobacco Use Types Packs/Day Years Used Date Never Smoker Alcohol Use Standard Drinks/Week Comments No 0 (1 standard drink = 0.6 oz pure alcoho l) Sex Assigned at Date Recorded Not on file documented as of this encounter Last Filed Vital Signs Vital Sign Reading Time Taken Comments Blood Pressure 142/76 06/10/2013 12:44 PM BUTCHER APPRENTICE Pulse - - Temperature 35.9 ??C (96.6 ??F) 06/10/2013 12:44 PM BUTCHER APPRENTICE Respiratory Rate 16 06/10/2013 12:44 PM BUTCHER APPRENTICE Oxygen Saturation 96% 06/10/2013 12:44 PM BUTCHER APPRENTICE Inhaled Oxygen Concentration - - Weight 66.4 kg (146 lb 6.4 oz) 06/10/2013 12:44 PM BUTCHER APPRENTICE Height 154.9 cm (5' 1) 06/10/2013 12:44 PM BUTCHER APPRENTICE Body Mass Index 27.66 06/10/2013 12:44 PM BUTCHER APPRENTICE documented in this encounter Discharge Instructions Discharge [...] you develop a fever, contact your surgeon. HER APPRENTICE documented in this encounter Medications at Time [...] documented as of this encounter H&P Notes Aidan Haynes - 06/08/2013 8:09 AM CST HER APPRENTICE documented in this encounter Nursing Notes Pam Ward RN - 06/10/2013 4:[address] Ang called regarding eye drops that came from surgery with her. Suellen from Dr. Ang's office called back. She is to put in a drop in her right eye 4 times per day for 1 week. HER APPRENTICE Pam Ward RN - 06/10/2013 4:[address] Lindsey informed of elevated BP. No tx ordered. HER APPRENTICE documented in this encounter Miscellaneous Notes Op [...] expose the underlying bone and then a [place] elevator was used to lift the periosteum [...] sac. Lacrimal sac was opened with a [place] blade and then the medial wall was [...] then irrigated thoroughly. SIERRA ANG MD MT: [id number] Name: JOHANA BARTON Account: [id number] : 1935 Procedure Date: 06/10/2013 Document: [id number] HER APPRENTICE Brief Op Note - Sierra Ang MD - 06/10/2013 3:35 PM CST [facility] Brief Operative Note Pre-operative diagnosis: NASAL LACRIMAL OBSTRUCTION Post-operative diagnosis * No post-op diagnosis entered * Procedure: Procedure(s) with comments: DACRYOCYSTORHINOSTOMY - RIGHT DACROCYSTORHINOSTOMY WITH MITOMYCIN Surgeon(s): Surgeon(s) and Role: * Sierra Ang MD - Primary Estimated blood loss: * No values recorded between 06/10/2013 2:57 PM and 06/10/2013 3:33 PM * Specimens: * No specimens in log * Findings: HER APPRENTICE documented in this encounter Plan of Treatment Not on filedocumented as of this encounter Procedures Procedure Name Priority Date/Time Associated Diagnosis Comme nts DACRYOCYSTORHINOSTOMY 06/10/2013 2:36 PM BUTCHER APPRENTICE NASAL LAC RIMAL OBSTRUCTION documented in this encounter Visit Diagnoses Not on filedocumented in this encounter Administered Medications Inactive Administered Medications - up to 3 most recent administrations Medication Order MAR Action Action Date Dose Rate Site cocaine 4 % external Given 06/10/2013 3:08 PM 4 mLs Operative solution BUTCHER APPRENTICE Site/Surgical S ite PRN, other, Starting on Sat06/10/13 at 1508, Apply to , Intra-procedure lidocaine 2%-EPINEPHrine Given 06/10/2013 3:08 PM 2 mLs Operative Site/Surgical 1:200,000 injection BUTCHER APPRENTICE Site PRN, Starting on Sat06/10/13 at 1508, Intra-procedure mitoMYcin 2 mg/mL topical Given 06/10/2013 3:07 PM 1 mL Operative Site/Surgical solution BUTCHER APPRENTICE Site PRN, Starting on Sat06/10/13 at 1507, Intra-procedure ietdhkuc-uwdscmalb-igoilifaivjlt (MAXITROL) Given 06/10/2013 3:08 PM BUTCHER APPRENTICE 1 drop ophthalmic suspension PRN, Starting on Sat06/10/13 at 1508, Intra-procedure documented in this encounter Active and Recently Administered Medications Times are shown in BUTCHER APPRENTICE. PRN Medication Order 06/08/2013 06/09/2013 06/10/2013 cocaine [...] BSS) PRN, Starting Sat06/10/13 at 1507, Intra-procedure flltjkpf-zkduxgpgi-cmvzbvckekpcq (MAXITROL) ophthalmic suspensio n (CANCELED) 1508 (Given - Provider: Sierra Ang MD) PRN, Starting Sat06/10/13 at 1508, Intra-procedure documented in this encounter Care Teams Blade Filer Relationship Specialty Start Date End Date Mario Reynolds MD PCP - General Family Practice 10/14/12 [facility] [address] [place] [address] documented as of this encounter
--- OUTSIDE RECORDS SUMMARY | 2022-04-06 10:51 | XMS_ITS | Clinical Summary ---
:1935 Author Organization [place] Address [address] [place] [address] Care Team Providers Name Role Phone Mario Reynolds MD Primary Care Provider Allergies No known active allergies Medications Medication Sig Dispensed Refills Start Date End Date Status MELOXICAM 15 mg daily. 0 Active multivitamin, Take 1 tablet by 0 Active therapeutic with mouth daily. minerals (THERA-VIT-M) TABS vitamin B complex with Take 1 tablet by 0 Active vitamin C (VITAMIN B mouth daily. COMPLEX) TABS GLUCOSAMINE SULFATE PO Take by mouth 0 Active daily. Social History Tobacco Use Types Packs/Day Years Used Date Never Smoker Alcohol Use Standard Drinks/Week Comments No 0 (1 standard drink = 0.6 oz pure alcoho l) Sex Assigned at Date Recorded Not on file Last Filed Vital Signs Vital Sign Reading Time Taken Comments Blood Pressure 168/97 06/10/2013 4:08 PM BLOWER FEEDER DYED RAW STOCK Pulse - - Temperature 35.9 ??C (96.6 ??F) 06/10/2013 12:44 PM BLOWER FEEDER DYED RAW STOCK Respiratory Rate 16 06/10/2013 4:08 PM BLOWER FEEDER DYED RAW STOCK Oxygen Saturation 99% 06/10/2013 4:08 PM BLOWER FEEDER DYED RAW STOCK Inhaled Oxygen Concentration - - Weight 66.4 kg (146 lb 6.4 oz) 06/10/2013 12:44 PM BLOWER FEEDER DYED RAW STOCK Height 154.9 cm (5' 1) 06/10/2013 12:44 PM BLOWER FEEDER DYED RAW STOCK Body Mass Index 27.66 06/10/2013 12:44 PM BLOWER FEEDER DYED RAW STOCK Plan of Treatment Health Maintenance Due Date Last Done Comments ADVANCE CARE PLANNING 1935 ANNUAL REVIEW OF HM ORDERS 1935 DEXA 1935 COVID-19 Vaccine (#1) 04/17/1936 ZOSTER IMMUNIZATION (1 of 2) 10/17/1987 FALL RISK ASSESSMENT 2002 MEDICARE ANNUAL WELLNESS 2002 VISIT DTAP/TDAP/TD IMMUNIZATION (1 09/25/2003 09/24/2003 - Tdap) PHQ-2 (once per calendar 07/08/2021 year) INFLUENZA VACCINE (#1) 2022 06/18/2017 HEPATITIS B IMMUNIZATION Aged Out 03/14/2004, No long er eligible based 09/24/2003, on patient's age to 08/23/2003 complete this to pic Pneumococcal Vaccine: 65+ Completed 03/13/2016, Years 12/04/2007 IPV IMMUNIZATION Aged Out No longer eligi ble based on patient's age to complete this to pic MENINGITIS IMMUNIZATION Aged Out No longe r eligible based on patient's age to complete this to pic Medical Devices Implanted Type Area Chairman And Ceo Device Shelf Model / Identifier Expiration Serial / Date Lot Eye Kit Lacrimal Intubation Stent [id number] Right: [employer], 07/06/2015 [id number] / Implanted: Qty: 1 on 10/24/2012 by Kael Jansen MD at [facility] [employer] / Duct [id number] Eye Kit Lacrimal Intubation Stent [id number] 10/06/2015 [id number] / Implanted: Qty: 1 on 06/10/2013 by Kael Jansen MD at [facility] / [id number] Insurance Payer Benefit Plan / Subscriber ID Effective Dates Phone Addre ss Type Group HUMANA HUMANA MEDICARE [id number] 2017-Present [address] [address] [place] [address] Care Teams Shot Peen Operator Relationship Specialty Start Date End Date Mario Reynolds MD PCP - General Family Practice 10/14/12 [facility] [address] [place] [address]
--- OUTSIDE RECORDS SUMMARY | 2022-04-06 10:51 | XMS_ITS | Encounter Summary ---
:1935 Author Organization [place] Address [address] [place] [address]. [place] [address] Care Team Providers Name Role Phone Mario Reynolds MD Primary Care Provider Reason for Visit Rehab Therapy Integrated Services (Routine) - Closed Specialty Diagnoses / Procedures Referred By Contact Refer red To Contact Procedures [facility] [address] [facility] [place] [address] Phone: Fax: Referral ID Status Reason Start Date Expiration Date Visits V isits Requested Authorized [facility]SH - Closed 07/26/2017 07/07/2018 365 365 PT/OT/SHIP'S SURVEYOR ([id number]) Encounter Details Date Type Department Care Team Description 08/20/2017 Hospital Encounter [facility] Brennen Hernandez MD [facility] [address] [facility] [address] [place] [address] Rehabilitation Sharri Camacho, SHIP'S SURVEYOR [address] [place], [place] [address] [address] [place] [address] [address] [place] [phone] Social History Tobacco [...] COMPLEX) TABS documented as of this encounter Progress Notes Sharri Delvalle, SHIP'S SURVEYOR - 08/20/2017 11:59 PM CST Outpatient Speech Language Pathology Discharge Note Patient: Johana Barton : 1935 Beginning/End Dates of Reporting Period: 07/31/2017 to 09/02/2017; 6 therapy sessions since evaluation Referring Provider: Dr. Ponce Therapy Diagnosis: Dysphonia Client Self Report: Patient called the clinic on 09/02/2017 to cancel her follow- up appointment, reporting that her voice was doing well and she did not feel that she needed a follow-up. Objective Measurements: not available, patient did not attend a final session Goals: Goal Identifier Massage Goal Description Patient will learn, demonstrate, and implement use of circumlaryngeal massage exercises independently 1-2x per day, every other day, in order to promote reduced laryngeal discomfort and tension. Target Date 10/29/17 Date Met Progress: not available, patient did not attend a final session Goal Identifier Generalization Goal Description Patient will report a week of typical activities in which dysphonia and effort do not exceed a level of 2 out of 10, 90% of the time, so that patient is able to meet her vocal demands. Target Date 12/28/17 Date Met Progress: not available, patient did not attend a final session Goal Identifier Voice quality/volume Goal Description In a 20-minute conversation task, patient will demonstrate appropriate volume with roughness vs glottal cazares, breathiness, and strain that do not exceed a level of 2 out of 10, 90% of the time by SHIP'S SURVEYOR judgment, so that patient is able to meet her voice quality demands. Target Date 12/28/17 Date Met Progress: not available, patient did not attend a final session Progress Toward Goals: Not assessed this period. At her last attended session on 08/20/17, patient was demonstrating a voicequality characterized by intermittent mild-moderate strain and roughness, which worsened with voice use and improved with attention to vocal technique. This represents a significant improvement over her voice quality at her initial evaluation, which was nearly aphonic. Patient feels that she has had significant voice improvement with therapy, and is choosing to discharge from therapy without a follow-up session at this time. Plan: Discharge from therapy. Discharge: Reason for Discharge: Patient chooses to discontinue therapy. Medicare G-code: Patient did not attend a final scheduled session prior to discharge. Unable to determine discharge functional status. Discharge Plan: Patient to continue home program. Sharri Arroyo B.A. (simi)Binu, [facility]-SHIP'S SURVEYOR Speech-Language Pathologist Certificate of Vocology [facility] [phone] ITION SETTER documented in this encounter Plan of Treatment Not on filedocumented as of this encounter Visit Diagnoses Not on filedocumented in this encounter Care Teams Lockmaker Relationship Specialty Start Date End Date Mario Reynolds MD PCP - General Family Practice 10/14/12 [facility] [address] [place] [address] documented as of this encounter
--- OUTSIDE RECORDS SUMMARY | 2022-04-06 10:51 | XMS_ITS | Encounter Summary ---
:1935 Author Organization [facility] Address [address] [place] [address]. [place] [address] Care Team Providers Name Role Phone Mario Reynolds MD Primary Care Provider Reason for Visit Rehab Therapy Integrated Services (Routine) - Closed Specialty Diagnoses / Procedures Referred By Contact Refer red To Contact Procedures [facility] [address] [facility] [place] [address] Phone: Fax: Referral ID Status Reason Start Date Expiration Date Visits V isits Requested Authorized [facility] - Closed 07/26/2017 07/07/2018 365 365 PT/OT/FLOOR RENOVATOR ([id number]) Encounter Details Date Type Department Care Team Description 07/31/2017 Hospital Encounter [facility] Brennen Hernandez MD [facility] [address] [facility] [place] [address] [place] [address] Rehabilitation Sharri Camacho, FLOOR RENOVATOR [address] [place], [place] [id number] [address] [place] [address] [address] [place] [address] Social History Tobacco [...] of this encounter Progress Notes Sharri Delvalle, FLOOR RENOVATOR - 07/31/2017 1:52 PM CST Images from the original note were not included. [facility] OUTPATIENT SPEECH LANGUAGE PATHOLOGY VOICE EVALUATION PLAN OF TREATMENT FOR OUTPATIENT REHABILITATION (COMPLETE FOR INITIAL CLAIMS ONLY) Patient's Last Name, First Name, M.I. Date of : 1935 Johana Barton Provider???s Name: [facility] Onset Date: 07/16/2017 (order date) Start of Care Date: 07/31/2017 Type: ___PT __OT _X_SLP Medical Diagnosis: Dysphonia Speech Language Pathology Diagnosis: Dysphonia Visits from SOC: 1 _ Plan of Treatment/Functional Goals: Voice Goals 1. Goal Identifier: Massage Goal Description: Patient will learn, demonstrate, and implement use of circumlaryngeal massage exercises independently 1-2x per day, every other day, in order to promote reduced laryngeal discomfort and tension. Target Date: 10/29/17 2. Goal Identifier: Generalization Goal Description: Patient will report a week of typical activities in which dysphonia and effort donot exceed a level of 2 out of 10, 90% of the time, so that patient is able to meet her vocal demands. Target Date: 12/28/17 3. Goal Identifier: Voice quality/volume Goal Description: In a 20-minute conversation task, patient will demonstrate appropriate volume with roughness vs glottal cazares, breathiness, and strain that do not exceed a level of 2 out of 10, 90% ofthe time by FLOOR RENOVATOR judgment, so that patient is able to meet her voice quality demands. Target Date: 12/28/17 Frequency and Duration: 2x/week for 2 weeks, then 1x/week for 2 weeks with 3 monthly follow-ups. SUMMER Rosado I CERTIFY THE NEED FOR THESE SERVICES FURNISHED UNDER THIS PLAN OF TREATMENT AND WHILE UNDER MY CARE . Physician Signature Date X Certification Date From: 07/31/17 Certification Date To: 10/29/17 Referring Provider: Brennen Ponce MD Initial Assessment See Epic Evaluation Start of Care ER Sharri Delvalle SLP - 07/31/2017 1:47 PM CST Marianna WOODARD FLOOR RENOVATOR Voice Evaluation 07/31/17 0845 General Information Type Of Visit Initial Start Of Care Date 07/31/17 Referring Physician Brennen Ponce MD (ENT) Orders Evaluate And Treat Medical Diagnosis Functional dysphonia Onset Of Illness/injury Or Date Of Surgery 07/16/17 (Order date) Precautions/Limitations no known precautions/limitations Hearing WFL for 1:1 conversation in session Avocational voice uses Pt 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 She has been unable to participate since the onset of her voice problems. Surgical/Medical history reviewed Yes Pertinent History Of Current Problem 81yo female with Hx of recurring episodes of voice loss throughout her life presenting with voice loss since June 2017. Symptoms began with a cold and bad cough. URI symptoms resolved after a week, but voice remains weak. Pt reports her voice is extremely soft even when trying to project, and that her voice will fatigue and become hoarse with use. Phonation isvery effortful, and her throat will become tired with use, almost feeling like it is swollen. Swallowing is also effortful. She has been clearing her throat a little this past week due to the throat discomfort. She has been having difficulty catching her breath in exertion and at rest during this curre nt dysphonia episode, and she will have to remind herself to breathe deeply. Pt does take medicationfor reflux, but does not feel that her voice symptoms are related to the reflux, as the medication has not helped to improve her voice. She has tried a course of Prednisone, which also did not improve her voice. Voice problems are very frustrating and a source of stress for her, as she is missing out on her social events because of her voice. Pt reports that she did not leave her home for a 2 week period because of her voice. Prior Level of Functioning Same problem relapsing/remitting. Prior Level Of Function Comment Previous dysphonia episodes lasted a few days on average and no longer than 3 weeks; episodes would spontaneously resolve. Patient Role/employment History Retired Living environment [facility] (With support from family) General Observations Pt was accompanied by her daughter, Ora. Pt reports that her voice sounds more hoarse than normal today. Patient/family Goals To get her voice back, to be easily understood by others in her social activities. Personal Rating / Voice Use Rating Describe the amount of typical non-work voice use Moderate Describe the intensity of typical non-work voice use Moderate Comments Pt reports that she is a socially active, talkative person. People have difficulty understanding her because of her voice, especially in background noise and on the phone. Voice problems are very upsetting and frustrating, and she has had to significantly limit her social activities because of her voice. VHI-10: 34/40. Evaluation Results Voice Observations VISIBLE TENSION: neck. PALPATION OF THYROHYOID REGION: firm musculature with reduced thyrohyoid space at rest and additional closure of the thyrohyoid space on phonation. Pt reports tenderness of the right thyrohyoid space and right SCM. Voice Profile during conversation, 1 min monologue and paragraph reading Voice Quality Thin;Airy;Phonation gap;Glottal cazares Voice quality comments SPEECH: Consistent moderate strain with intermittent mild-moderate breathiness, moderate roughness vs glottal cazares, and phonation breaks. Volume is significantly reduced. SINGING:soft volume with consistent mild breathiness and strain, but pt is able to maintain consistent, sustained phonation. VOWEL PROLONGATION: comfortable pitch /a/: Bb3, soft volume and difficulty sustaining, with consistent strain; high pitch /a/: F#4, less strained and effortful, soft volume; low pitch /a/: A3, consistent strain, soft volume, difficulty sustaining. THERAPY PROBES: consistent, less strained voicing achieved with flow mode and semi-occluded vocal tract probes. Voice quality severity rating continuum (1=Severe, 7=WNL) 3 (CAPE-V Overall Severity: 65/100) Breath control Irregular Breath Control comments Excessive thoracic muscle use pattern on inhalation, with shoulder involvement with cued deep inhalation. Inspirations for speech are shallow and occasionally mildly audible. Breath control severity rating continuum (1=Severe, 7=WNL) 4 Voice Use / Effort Pinched / squeezed larynx;Contraction of neck muscles;Throat push Voice Use / Effort comments Pt rates her phonatory effort for speech as 7/10 (10 is maximum effort). Voice use / Effort severity rating continuum (1=Severe, 7=WNL) 4 Fundamental frequency (Hz) (Centered around Ab3) Pitch / Frequency comments Habitual pitch is WNL. Lower pitches are more dysphonic. Pitch / Frequency severity rating continuum (1=Severe, 7=WNL) 5 Volume Too quiet Volume comments Volume for conversational speech is moderately-severely reduced, almost a whisper. Awhisper is normal. Soft phonation is essentially the same as conversational speech, with strain and intermittent roughness. Attempts at loud phonation were higher in pitch, with no significant volume change, and were less strained and rough than conversational speech. Volume severity rating continuum (1=Severe, 7=WNL) 3 Neuromuscular Control Other Neuromuscular Control severity rating continuum (1=Severe, 7=WNL) 6 Neuromuscular comments See adduction/abuction function measure below. Resonance WNL Resonance severity rating continuum (1=Severe, 7=WNL) 7 Comments Moderate-severe dysphonia characterized by strain, breathiness, roughness vs glottal cazares, significantly reduced volume and dynamic range, poor respiratory/phonatory coordination, increased phonatory effort, and tight laryngeal musculature with neck involvement in phonation. Adduction /Abduction Function Laryngeal diadokinetic speed (Slow) Laryngeal diadokinetic strength (Strained and rough) Laryngeal diadokinetic consistency Regular Adduction / Abduction function scale Age 66+, norm per sec: 4 Function of Lengtheners / Shorteners (CT and TA Muscles) Pitch glides Lower pitches more dysphonic;Upper register present (Lowest: F3 into glottal cazares; Highest: C5) Videostroboscopy / Endoscopy Other observations Laryngoscopy completed by Dr. Ponce on 07/16/2017. Significant findings, per report: ...she is abducting her vocal cords during speech but is able to bring them together easily with a cough. Videostroboscopy ordered, will be completed at a future session, PRN. General Therapy Interventions Planned Therapy Interventions Voice Voice Breath flow to sound flow;Voice quality/pitch or volume tasks;Resonant voice techniques;No larynx effort practice Impressions and Recommendations Communication Diagnosis Dysphonia Summary Ms. Barton presents with Moderate-severe dysphonia characterized by strain, breathiness, roughness vs glottal cazares, significantly reduced volume and dynamic range, poor respiratory/phonatory coordination, increased phonatory effort, and tight laryngeal musculature with neck involvement in phonation. Based on laryngoscopy with ENT, dysphonia is accounted for by the hyperfunction and imbalance in the intrinsic and extrinsic laryngeal musculature during phonation characteristic of a muscle tension dysphonia. The pattern of tension described by ENT is consistent with a laryngeal isometric pattern of engagement between the laryngeal adductors and abductors. Dysphonia is very upsetting to Ms. Barton, and is preventing her from engaging in her social activities, as others have significant difficulty understanding her because of her voice. Recommendations A course of skilled speech therapy is recommended in order to optimize vocal technique, improve voice quality and volume, and reduce fatigue, discomfort, and effort so that patient is able to resume her social activities and meet her vocal demands. Videostroboscopy has been ordered andwill be conducted PRN at a future session to obtain additional information regarding vibratory characteristics of the vocal folds if pt does not demonstrate adequate improvement with therapy techniquesfor muscle tension dysphonia. Frequency and Duration 2x/week for 2 weeks, then 1x/week for 2 weeks with 3 monthly follow-ups. Prognosis Good with intervention Risks and Benefits of Treatment have been explained. Yes Patient & /or Caregiver in agreement with plan of care Yes Patient Education FLOOR RENOVATOR provided written and verbal education regarding muscle tension dysphonia causes, mechanism, symptoms, and treatment to pt and daughter. Therapy initiated today. Educational Assessment Barriers to Learning No barriers Preferred Learning Style Listening;Reading;Demonstration;Pictures / Video Voice Goals Voice Goals 1;2;3 Voice Goal 1 Goal Identifier Massage Goal Description Patient will learn, demonstrate, and implement use of circumlaryngeal massage exercises independently 1-2x per day, every other day, in order to promote reduced laryngeal discomfort and tension. Target Date 10/29/17 Voice Goal 2 Goal Identifier Generalization Goal Description Patient will report a week of typical activities in which dysphonia and effort do not exceed a level of 2 out of 10, 90% of the time, so that patient is able to meet her vocal demands. Target Date 12/28/17 Voice Goal 3 Goal Identifier Voice quality/volume Goal Description In a 20-minute conversation task, patient will demonstrate appropriate volume with roughness vs glottal cazares, breathiness, and strain that do not exceed a level of 2 out of 10, 90% of the time by FLOOR RENOVATOR judgment, so that patient is able to meet her voice quality demands. Target Date 12/28/17 Total Session Time Total Session Time 70 Total Evaluation Time 60 Therapy Certification Certification date from 07/31/17 Certification date to 10/29/17 Medical Diagnosis Dysphonia Certification I certify the need for these services furnished under this plan of treatment and whileunder my care. (Physician co-signature of this document indicates review and certification of the therapy plan). Thank you for the referral of this patient. Sharri Arroyo B.A. (simi)Binu, [facility] Speech-Language Pathologist Certificate of Vocology [facility] [phone] ER documented in this encounter Plan of Treatment Not on filedocumented as of this encounter Visit Diagnoses Not on filedocumented in this encounter Care Teams Concessions Manager Relationship Specialty Start Date End Date Mario Reynolds MD PCP - General Family Practice 10/14/12 [facility] [address] [place] [address] documented as of this encounter
--- OUTSIDE RECORDS SUMMARY | 2022-04-06 10:52 | XMS_ITS | Encounter Summary ---
:1935 Author Care Team Providers Name Role Phone Dawit Reynolds MD Primary Care Provider [phone] Reason for Visit Bladder Mass Assessment and Plan 1. Mass of urinary bladder ? urinalysis, dipstick ? transurethral resection of bladder tu mor (SURG) 2. Bill hematuria ? CT, urogram - CT A/P with and without contrast 3. Hydronephrosis Discussion Note Multiple bladder tumors discovered on c ystoscopy, and has right hydro on US. Will need CT urogram and scheduling of TURBT (large), in the OR, with paralysis. We reviewed the goals, risks and limitat ions of this plan, all questions were answered, including daughters who were present. Patient educational handouts: No information available. Plan of Care Reminders Provider Appointments Ct Scan 30 04/09/2022 Ct 11:00AM ? Hospital 90 04/10/2022 [facility] 11:55AM MD [facility] Urinalysis, Dipstick 03/30/2022 [facility] Referral None recorded. ? ? Procedures None recorded. ? ? Surgeries Transurethral Resection of 03/30/2022 ? Bladder Tumor (SURG) Imaging CT, Urogram 03/30/2022 [facility] Medications Name Start Date ? ? famotidine 20 mg tablet ? Take 1 tablet twice a day by oral route. meloxicam 15 mg tablet ? TAKE 1 TABLET BY MOUTH DAILY omeprazole 20 mg capsule,delayed release ? TAKE 1 CAPSULE BY MOUTH DAILY Medications Administered None recorded. Vitals Height Weight BMI 5 ft 140 lbs 27.3 kg/m2 Results Lab Results Date Name Specimen Result Interpretation Description Value Range Status Address ? 03/30/2022 Urinalysis, Urine ? Color-Status Red ? ? [facility]: [address], [place] ? ? Urine ? Clarity-Status Turbid ? ? [facility]: [address], [place] ? ? Urine ? Glucose-Status Negative ? ? [facility]: [address], [place] ? ? Urine ? Bilirubin-Stat Negative ? ? [facility]: [address], [place] ? ? Urine ? Ketones-Status Negative ? ? [facility]: [address], [place] ? ? Urine ? Nitrates-Statu negative ? ? [facility]: [address], [place] ? ? Urine ? Blood-Status Large ? ? [facility] [address], [place] ? ? Urine ? Leuko-Status Negative ? ? [facility]: [address], [place] Allergies Code Code System Name Reaction Severity Onset NKDA ? ? ? Problems None recorded. Procedures Date Name Performed by ? 03/30/2022 CT, Urogram [facility] [address] [place] [address] (Work Place) Vaccine List None recorded. Social History None recorded. Functional Status Unknown. Past Encounters 03/30/2022 Mass of Urinary Bladder; Bill Hematuria ; Hydronephrosis Justino Edwards MD: [address], [place] [address], Ph. History of Present Illness Note: <div>86F with 6 weeks of GH, intermittent, painless, no UTIs detected in interim. RBUS shows mild right hydronephrosis, and filling defects x 2 in bladder, both of which feature an internal flowthat can be detected on Doppler. </div><div>
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 Comprehensive General Adult ROS Reported By: Patient Constitutional: Constitutional: no fever, no chills Eyes: Eyes: no dry eyes, no vision change, no irritation Endocrine: Endocrine: no fatigue, no in creased thirst Cardiovascular: Cardiovascular: no chest luana n, no palpitations Integumentary: Skin: no rashes, no change i n skin color Respiratory: Respiratory: no wheezing, no cough, no shortness of breath Gastrointestinal: Gastrointestinal: GERD Musculoskeletal: Musculoskeletal: no neck luana n, no back pain Neurologic: Neurologic: no tremor, no di zziness, no numbness, no headaches Genitourinary: Genitourinary: no incontinen ce, no difficulty urinating Hematologic/Lymphatic: Hematologic/Lymphatic no swo llen glands, no excessive bleeding Psychiatric: Psych: no hallucinations, (n ormal) sleep disturbances: mismatch of sleep / wake francy edule with lifestyle needs Physical Exam ? Notes: <div>General: No acute distr ess, well developed/well nourished
HEENT: Intact hearing, eyes track s ymmetrically, normal pupil response to light, external features of nose, i ncluding nares are normal
Resp: respirations non labored, no audible whee ze, symmetric expansion
MSK: no gross deformities, ambulatory
N euro: moving all extremities, grossly non focal
Psych: normal mo od and affect, no confusion</div><div>Abd: soft/NT/ND</div><div>
</d iv><div>Preoperative Diagnosis: Gross hematuria
Postoperative D iagnosis: Same
Procedure: Flexible cystoscopy, diagnostic
Surgeon: Eugenie Edwards MD
Female Secretary Specialist: Yes, for entirety of encounter
Ane sthesia: local with 2% lidocaine jelly instilled into urethra

Descript ion of the procedure in detail: After thoroughly explaining the risks and gerardo efits of the procedure, including but not limited to bleeding, infection, and damage to the urethra and/or bladder, informed consent was obtained. The pa tient was placed in the supine position and then prepped and draped in the us ual sterile fashion. 2% lidocaine jelly was instilled into the urethra. I inserted the flexible cystoscope into the urethra and carefully perfor med a full survey.

Findings:
Urethra: Normal urethra, no diverticu la or stenosis encountered
Bladder Neck: Normal
Bladder Wall / Muc carrillo: Three separate pedunculated, but broad based bladder tumors, malignant ap pearing, one encroaching upon the right UO
Ureteral Orifices: Rig ht UO obscured by tumor

The cystoscope was removed without trauma. A mo dified / pelvic exam was formed.

Findings: Normal ext ernal features, atrophic mucosa, non-tender urethra, no anterior vaginal wall masses

Please note, a deep, bimanual adnexal exam was no t performed.

The patient tolerated the procedure well and without c omplication.

Findings: Multifocal discrete bladder tumors

Compli cations: none
EBL: minimal</div>
--- OUTSIDE RECORDS SUMMARY | 2022-04-06 10:52 | XMS_ITS ---
:1935 Author Care Team Providers Name Role Phone ROYA CURRAN MD Primary Care Provider [phone] Allergies Code Code System Name Reaction Severity Status Onset NKDA ? Medications Name Status Start Date Stop Date ? ? ciprofloxacin 250 mg tablet Completed ? 03/09 famotidine 20 mg tablet Active ? Not avai lable Take 1 tablet twice a day by oral route. meloxicam 15 mg tablet Active ? Not avail able omeprazole 20 mg capsule,delayed release Active ? Not available prednisone 20 mg tablet Completed ? 03/30/20 22 TAKE 1 TABLET BY MOUTH DAILY sulfamethoxazole 800 mg-trimethoprim 160 mg tablet Completed ? 03/30/2022 Problems None recorded. Procedures Date Name Performed by ? 03/30/2022 CT, Urogram [facility] [address] [place] [address] (Work Place) Results Lab Results Date Name Specimen Result [...] Urine ? Blood-Status Large ? ? [facility] [address], [place] ? ? Urine ? Leuko-Status Negative ? ? [facility]: [address], [place] Past Encounters 03/30/2022 Mass of Urinary Bladder; Bill Hematuria ; Hydronephrosis Justino Edwards MD: [address], [place] [address], Ph. Social History None recorded. Vaccine List None recorded. Plan of Care Reminders Provider Appointments None recorded. ? ? Lab None recorded. ? ? Referral None recorded. ? ? Procedures None recorded. ? ? Surgeries None recorded. ? ? Imaging None recorded. ? ? Vitals Height Weight BMI 5 ft 140 lbs 27.3 kg/m2
--- OUTSIDE RECORDS SUMMARY | 2022-04-06 10:52 | XMS_ITS | Encounter Summary ---
:1935 Author Organization [place] Address [address] [facility] 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, RIGHT UPPER LID LESION, RIGHT NASO Sh Periop Services Procedures REPAIR PTOSIS BILATERAL EXCISE LESION EYELID DACRYOCYSTORHINOSTOMY [address] [place] [address] Phone: Referral ID Status Reason Start Date Expiration Date Visits Requ ested Visits Authorized [id number] Closed 1 1 Encounter Details Date Type Department Care Team Description 10/24/2012 Hospital Encounter M [facility] Sierra Angeles Post -op pain Bin Kapoor MD (Primary Dx) Preop/Phase II [facility] [address] PLAST SURG [place], [place] [address] [address] [address] [place] [address] Social History Tobacco Use Types Packs/Day Years [...] Ambriz, MATEO - 10/24/2012 4:01 PM CDT [facility] Discharge Instructions [...] questions of medical nature, call your physician. [facility] Dacryocystorhinostomy Discharge Instructions [place] [facility] Supervisor Maintenance And Custodians SIERRA ANGELES M.D. [facility] [address] [place] [address] [address] [place], [place] [address] Things to avoid: You should avoid blowing [...] not answered above. The phone number is [phone]. [facility] Eyelid/Orbital Surgery Discharge Instructions Sierra Angeles M.D. & Francisco Holbrook M.D. ICE COMPRESSES [...] that will not stop with gentle pressure. [place] [facility] [place] [address] [place], [place] [address] documented in this encounter Medications at Time [...] as of this encounter H&P Notes Sierra Angeles MD - 10/23/2012 6:49 AM CDT documented in this encounter Nursing Notes Beata Diehl RN - 10/24/2012 1:[address] ANGELES EXCISED THE LESION ON THE LEFT UPPER EYELID AND IT WAS DISCARDED PER DR. ANGELES documented in this encounter Miscellaneous Notes Op Note - Sierra Angeles MD - 10/24/2012 3:04 PM CDT Preoperative [...] expose the underlying bone and then a [place] elevator was used to lift the periosteum away from the lacrimal fossa. Abowman probe was then passed through the canaliculus and used to tent up the lacrimal sac. Lacrimal sac was opened with a ak chin blade and then the medial wall was [...] expose the underlying bone and then a [place] elevator was used to lift the periosteum away from the lacrimal fossa. Abowman probe was then passed through the canaliculus and used to tent up the lacrimal sac. Lacrimal sac was opened with a ak chin blade and then the medial wall was [...] OBSTRUCTION documented in this encounter Visit Diagnoses Diagnosis Post-op pain - Primary Other acute postoperative pain documented in this encounter Administered Medications Inactive Administered Medications - up to 3 most recent administrations Medication Order MAR Action Action Date Dose Rate Site lactated ringers infusion New Bag 10/24/2012 2:30 PM CDT mL at 75-100 mL/hr, Intravenous, CONTINUOUS, UNLESS otherwise indicated., Pre-procedure, Starting on Sat10/24/12 at 1045, Until Sat10/24/12 at 1804 New Bag 10/24/2012 11:18 AM CDT 1,000 mLs 75 mL/hr documented in this encounter Active and Recently Administered Medications Times are shown in CDT. Continuous Medication Order 10/22/2012 10/23/2012 10/24/2012 lactated ringers infusion (CANCELED) 1118 (New Bag - Provider: Julianna Plaza RN)1259 (Anesthesia Volume Adjustment - Provider: Pham Kelly APRN METAL LEAF LAYER)1430 (New Bag - Provider: Pham Kelly APRN CRNA) at 75-100 mL/hr, Intravenous, CONTINUOUS , UNLESS otherwise indicated., Pre-procedure 1454 (Stopped - Prov ider: Pham Kelly APRN CRNA) PRN Medication Order 10/22/2012 10/23/2012 10/24/2012 cocaine 4 % external solution (CANCELED) 1322 (Given - Provider: Sierra Angeles MD) PRN, other, Starting Sat10/24/12 at 1322, Apply to , Intra-pr ocedure erythromycin (ROMYCIN) ophthalmic ointment (CANCELED) 1323 (Given - Provider: Sierra Angeles MD) PRN, Starting Sat10/24/12 at 1323, Apply within 1 hour of . May be delayed until after first ., Intra-procedure lidocaine 2%-EPINEPHrine 1:200,000 injection (CANCELED) 1323 (Given - Provider: Sierra Angeles MD)1358 (Given - Provider: Sierra Angeles MD)1415 (Given - Provider: Sierra Angeles MD) PRN, Starting Sat10/24/12 at 1323, Intra-procedure lidocaine-EPINEPHrine 1 %-1:100,000 injection (CANCELED) 1433 (Given - Provider: Sierra Angeles MD) PRN, Starting Sat10/24/12 at 1433, Intra-procedure ajarlesb-ektjhhegv-frvzazxaxxpri (MAXITROL) ophthalmic suspensio n (CANCELED) 1435 (Given - Provider: Sierra Angeles MD) PRN, Starting Sat10/24/12 at 1435, Intra-procedure tetracaine (PONTOCAINE) 0.5 % ophthalmic solution (CANCELED) 1323 (Given - Provider: Beata Diehl, MATEO) PRN, Starting Sat10/24/12 at 1323, Intra-procedure documented in this encounter Care Teams Foster Care Worker Relationship Specialty Start Date End Date Mario Reynolds MD PCP - General Family Practice 10/14/12 [facility] [address] [place] [address] documented as of this encounter
[2022-04-06 15:12] LABS: SARS PCR* Negative SARS-CoV-2 (Negative)
[2022-04-06 17:38] LABS: Chloride* 103 mmol/L (96-114); Potassium* 4.7 mmol/L (3.6-5.1); Sodium* 137 mmol/L (135-149)
[2022-04-06 17:41] LABS: Blood Urea Nitrogen* 22 mg/dL (7-30); Calcium* 9.4 mg/dL (8.4-10.6); Carbon Dioxide* 24 mmol/L (20-32); Creatinine* 1.1 mg/dL (0.5-1.5); Estimated Glomerular Filt Rate 50 ml/min; Glucose* 85 mg/dL (60-115)
== END 2022-04-06 10:38 | disposition home or self-care (01) ==
PROVIDERS: PCP Family Medicine; Visit Provider Family Medicine
DX: Z01.818 Encounter for other preprocedural examination (principal); Z20.822 Contact with and (suspected) exposure to COVID-19
CPT/HCPCS: 80048; 87086; 87635

== ENCOUNTER 2022-05-21 08:53 | Outpatient (CLI) | payer OTHER, SELFPAY ==
--- OUTSIDE RECORDS SUMMARY | 2022-05-21 08:55 | XMS_ITS | Encounter Summary ---
:1935 Author Organization [place] Address [address] [place] [address]. [place] [address] Care Team Providers Name Role Phone Mario Reynolds MD Primary Care Provider Reason for Visit Rehab Therapy Integrated Services (Routine) - Closed Specialty Diagnoses / Procedures Referred By Contact Refer red To Contact Procedures [facility] [address] [facility] [place] [address] Phone: Fax: Referral ID Status Reason Start Date Expiration Date Visits V isits Requested Authorized FSH - Closed 07/26/2017 07/07/2018 365 365 PT/OT/MECHANICAL DEVELOPER [place] ([id number]) Encounter Details Date Type Department Care Team Description 08/13/2017 Hospital Encounter [facility] Brennen Hernandez MD [facility] [address] [facility] [address] [place] [address] Rehabilitation Sharri Camacho, MECHANICAL DEVELOPER [place] [address] [place], [place] [address] [address] [place] [address] [address] [place] [address] Social History Tobacco Use Types Packs/Day Years Used Date Smoking Tobacco: Never Alcohol Use Standard Drinks/Week Comments No 0 [...] on filedocumented in this encounter Care Teams Imaging Administrator Relationship Specialty Start Date End Date Mario Reynolds MD PCP - General Family Practice 10/14/12 [facility] [address] [place] [address] documented as of this encounter
--- OUTSIDE RECORDS SUMMARY | 2022-05-21 08:55 | XMS_ITS | Encounter Summary ---
:1935 Author Organization [place] Address [address] [facility] 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, RIGHT UPPER LID LESION, RIGHT NASO Sh Periop Services Procedures REPAIR PTOSIS BILATERAL EXCISE LESION EYELID DACRYOCYSTORHINOSTOMY [address] [place] [address] Phone: Referral ID Status Reason Start Date Expiration Date Visits Requ ested Visits Authorized [id number] Closed 1 1 Encounter Details Date Type Department Care Team Description 10/24/2012 Surgery [facility] Sierra Ang BILATERAL UPPER LID PTOSIS [place] [facility] MD Antwon AND MECHANICAL PTOSIS REPAIR, Services [place] OPHTHALMIC EXCISION LEFT UPPER LID [address] PLAST SURG LESION, RIGHT [address] DACRYOCYSTORHINOSTOMY [place] [facility] [address] [address] [place] [phone] [address] Surgery Details Date/Time Status Location OR Service Patient Case Case Traum a Class Class Type Case? 10/24/12 12:30 Posted [facility] PM Panel [...] in this encounter Discharge Instructions Discharge InstructionsNadine Ambriz RN - 10/24/2012 4:01 PM CDT [facility] Discharge Instructions Anesthesia [...] questions of medical nature, call your physician. [facility] Dacryocystorhinostomy Discharge Instructions [place] [facility] Spindle Carver SIERRA ANG M.D. [facility] [address] [place], [place] [address] Things to avoid: You should avoid blowing [...] not answered above. The phone number is [phone]. [facility] Eyelid/Orbital Surgery Discharge Instructions Sierra Ang M.D. [...] that will not stop with gentle pressure. [place] [facility] [place] [address] [place], [place] [address] documented in this encounter Medications at Time [...] the underlying bone and then a [place] elevator was used to lift the periosteum away from the lacrimal fossa. Abowman probe was then passed through the canaliculus and used to tent up the lacrimal sac. Lacrimal sac was opened with a cold springs blade and then the medial wall was [...] the underlying bone and then a [place] elevator was used to lift the periosteum away from the lacrimal fossa. Abowman probe was then passed through the canaliculus and used to tent up the lacrimal sac. Lacrimal sac was opened with a cold springs blade and then the medial wall was [...] PRN, Starting on Sat10/24/12 at 1433, Intra-procedure wimaohlw-jdvdrpesh-fitwipshdpcns (MAXITROL) Given 10/24/2012 2:35 PM CDT 1 [...] Volume Adjustment - Provider: Pham Kelly APRN DIRECTOR WORK)1430 (New Bag - Provider: Pham Kelly APRN DIRECTOR WORK) at 75-100 mL/hr, Intravenous, CONTINUOUS , UNLESS [...] MD) PRN, Starting Sat10/24/12 at 1433, Intra-procedure xhhekbrk-uthzoykuz-bumrchfdqtmal (MAXITROL) ophthalmic suspensio n (CANCELED) 1435 (Given - Provider: Sierra Ang MD) PRN, Starting Sat10/24/12 at 1435, Intra-procedure tetracaine (PONTOCAINE) 0.5 % ophthalmic solution (CANCELED) 1323 (Given - Provider: Beata Diehl RN) PRN, Starting 10/24/12 at 1323, Intra-procedure documented in this encounter Care Teams Tool And Cutter Grinder Relationship Specialty Start Date End Date Mario Reynolds MD PCP - General Family Practice 10/14/12 [facility] [address] [place] [address] documented as of this encounter
--- OUTSIDE RECORDS SUMMARY | 2022-05-21 08:55 | XMS_ITS | Encounter Summary ---
:1935 Author Organization [place] Address [address] [place] [address]. [place] [address] Care Team Providers Name Role Phone Mario Reynolds MD Primary Care Provider Reason for Visit Rehab Therapy Integrated Services (Routine) - Closed Specialty Diagnoses / Procedures Referred By Contact Refer red To Contact Procedures [facility] [address] [facility] [place] [address] Phone: Fax: Referral ID Status Reason Start Date Expiration Date Visits V isits Requested Authorized FSH - Closed 07/26/2017 07/07/2018 365 365 PT/OT/SAP SECURITY ARCHITECT ([id number]) Encounter Details Date Type Department Care Team Description 08/20/2017 Hospital Encounter [facility] Brennen Hernandez MD [facility] [address] [facility] [address] [place] [address] Rehabilitation Sharri Camacho, SAP SECURITY ARCHITECT [address] [place], [place] [address] [address] [place] [address] [address] [place] [phone] Social History Tobacco [...] of this encounter Progress Notes Sharri Delvalle, SAP SECURITY ARCHITECT - 08/20/2017 11:59 PM CST Outpatient Speech [...] of 10, 90% of the time by SAP SECURITY ARCHITECT judgment, so that patient is able to [...] continue home program. Sharri Arroyo B.A. (simi)Binu, [facility]-SAP SECURITY ARCHITECT Speech-Language Pathologist Certificate of Vocology [facility] [phone] RN ARCHITECT documented in this encounter Plan of Treatment Not on filedocumented as of this encounter Visit Diagnoses Not on filedocumented in this encounter Care Teams Wildlife Biology Internship Relationship Specialty Start Date End Date Mario Reynolds MD PCP - General Family Practice 10/14/12 [facility] [address] [place] [address] documented as of this encounter
--- OUTSIDE RECORDS SUMMARY | 2022-05-21 08:55 | XMS_ITS | Encounter Summary ---
:1935 Author Organization [place] Address [address] [place] [address]. [place] [address] Care Team Providers Name Role Phone Mario Reynolds MD Primary Care Provider Reason for Visit Rehab Therapy Integrated Services (Routine) - Closed Specialty Diagnoses / Procedures Referred By Contact Refer red To Contact Procedures [facility] [address] [facility] [place] [address] Phone: Fax: Referral ID Status Reason Start Date Expiration Date Visits V isits Requested Authorized FSH - Closed 07/26/2017 07/07/2018 365 365 PT/OT/SUPERINTENDENT RENTING MANAGING ([id number]) Encounter Details Date Type Department Care Team Description 08/07/2017 Hospital Encounter [facility] Brennen Hernandez MD [facility] [address] [facility] [address] [place] [address] Rehabilitation Sharri Camacho, SUPERINTENDENT RENTING MANAGING [address] [place], [place] [address] [address] [place] [address] [address] [place] [phone] Social History Tobacco [...] on filedocumented in this encounter Care Teams Openstack Developer Relationship Specialty Start Date End Date Mario Reynolds MD PCP - General Family Practice 10/14/12 [facility] [address] [place] [address] documented as of this encounter
--- OUTSIDE RECORDS SUMMARY | 2022-05-21 08:55 | XMS_ITS | Encounter Summary ---
:1935 Author Organization [place] Address [facility] [place] [address] Care Team Providers Name Role Phone Mario Reynolds MD Primary Care Provider Reason for Visit Auth/Cert - Closed Specialty Diagnoses / Procedures Referred By Contact Refer red To Contact Surgery Diagnoses NASAL LACRIMAL OBSTRUCTION Sh Periop Services Procedures DACRYOCYSTORHINOSTOMY DACRYOCYSTORHINOSTOMY [address] [place] [address] Phone: Referral ID Status Reason Start Date Expiration Date Visits Requ ested Visits Authorized [id number] Closed 1 1 Encounter Details Date Type Department Care Team Description 06/10/2013 Surgery [facility] Sierra Ang RIGHT DACR OCYSTORHINOSTOMY [place] [facility] MD [place]tw[place] WITH MITOMYCIN Services [place] OPHTHALMIC PLAST [address] [place] [address] [address] [place] [phone] [address] (Wo rk) Surgery Details Date/Time Status [...] Comments Blood Pressure 142/76 06/10/2013 12:44 PM DIRECTOR ON AIR Pulse - - Temperature 35.9 ??C (96.6 ??F) 06/10/2013 12:44 PM DIRECTOR ON AIR Respiratory Rate 16 06/10/2013 12:44 PM DIRECTOR ON AIR Oxygen Saturation 96% 06/10/2013 12:44 PM DIRECTOR ON AIR Inhaled Oxygen Concentration - - Weight 66.4 kg (146 lb 6.4 oz) 06/10/2013 12:44 PM DIRECTOR ON AIR Height 154.9 cm (5' 1) 06/10/2013 12:44 PM DIRECTOR ON AIR Body Mass Index 27.66 06/10/2013 12:44 PM DIRECTOR ON AIR documented in this encounter Discharge Instructions Discharge [...] you develop a fever, contact your surgeon. CTOR ON AIR documented in this encounter Medications at Time [...] Aidan Haynes - 06/08/2013 8:09 AM CST CTOR ON AIR documented in this encounter Nursing Notes Pam Ward RN - 06/10/2013 4:[address] Ang called regarding eye drops that came from surgery with her. Suellen from Dr. Ang's office called back. She is to put in a drop in her right eye 4 times per day for 1 week. CTOR ON AIR Pam Ward RN - 06/10/2013 4:[address] Lindsey informed of elevated BP. No tx ordered. CTOR ON AIR documented in this encounter Miscellaneous Notes Op [...] expose the underlying bone and then a [place] elevator was used to lift the periosteum [...] sac. Lacrimal sac was opened with a [place] blade and then the medial wall was [...] then irrigated thoroughly. SIERRA ANG MD MT: #[id number] Name: JOHANA BARTON Account: [id number] : 1935 Procedure Date: 06/10/2013 Document: [id number] CTOR ON AIR Brief Op Note - Sierra Ang MD - 06/10/2013 3:35 PM CST [facility] Brief Operative Note Pre-operative diagnosis: NASAL LACRIMAL OBSTRUCTION Post-operative diagnosis * No post-op diagnosis entered * Procedure: Procedure(s) with comments: DACRYOCYSTORHINOSTOMY - RIGHT DACROCYSTORHINOSTOMY WITH MITOMYCIN Surgeon(s): Surgeon(s) and Role: * Sierra Ang MD - Primary Estimated blood loss: * No values recorded between 06/10/2013 2:57 PM and 06/10/2013 3:33 PM * Specimens: * No specimens in log * Findings: CTOR ON AIR documented in this encounter Plan of Treatment Not on filedocumented as of this encounter Procedures Procedure Name Priority Date/Time Associated Diagnosis Comme nts DACRYOCYSTORHINOSTOMY 06/10/2013 2:36 PM DIRECTOR ON AIR NASAL LAC RIMAL OBSTRUCTION documented in this encounter Visit Diagnoses Not on filedocumented in this encounter Administered Medications Inactive Administered Medications - up to 3 most recent administrations Medication Order MAR Action Action Date Dose Rate Site cocaine 4 % external Given 06/10/2013 3:08 PM 4 mLs Operative solution DIRECTOR ON AIR Site/Surgical S ite PRN, other, Starting on Sat06/10/13 at 1508, Apply to , Intra-procedure lidocaine 2%-EPINEPHrine Given 06/10/2013 3:08 PM 2 mLs Operative Site/Surgical 1:200,000 injection DIRECTOR ON AIR Site PRN, Starting on Sat06/10/13 at 1508, Intra-procedure mitoMYcin 2 mg/mL topical Given 06/10/2013 3:07 PM 1 mL Operative Site/Surgical solution DIRECTOR ON AIR Site PRN, Starting on Sat06/10/13 at 1507, Intra-procedure dbzrncbn-rbtykpmdb-xylkrmijakhud (MAXITROL) Given 06/10/2013 3:08 PM DIRECTOR ON AIR 1 drop ophthalmic suspension PRN, Starting on Sat06/10/13 at 1508, Intra-procedure documented in this encounter Active and Recently Administered Medications Times are shown in DIRECTOR ON AIR. PRN Medication Order 06/08/2013 06/09/2013 06/10/2013 cocaine [...] BSS) PRN, Starting Sat06/10/13 at 1507, Intra-procedure dojuaaxz-kporjvrhe-roxsaaaxozhxs (MAXITROL) ophthalmic suspensio n (CANCELED) 1508 (Given - Provider: Sierra Ang MD) PRN, Starting Sat06/10/13 at 1508, Intra-procedure documented in this encounter Care Teams Radar Mechanic Relationship Specialty Start Date End Date Mario Reynolds MD PCP - General Family Practice 10/14/12 [facility] [address] [place] [address] documented as of this encounter
--- OUTSIDE RECORDS SUMMARY | 2022-05-21 08:55 | XMS_ITS | Encounter Summary ---
:1935 Author Organization [place] Address [address] [place] [address] Care Team Providers Name Role Phone Mario Reynolds MD Primary Care Provider Reason for Visit Auth/Cert - Closed Specialty Diagnoses / Procedures Referred By Contact Refer red To Contact Surgery Diagnoses NASAL LACRIMAL OBSTRUCTION Sh Periop Services Procedures DACRYOCYSTORHINOSTOMY DACRYOCYSTORHINOSTOMY [address] [place] [address] Phone: Referral ID Status Reason Start Date Expiration Date Visits Requ ested Visits Authorized [id number] Closed 1 1 Encounter Details Date Type Department Care Team Description 06/10/2013 Anesthesia Event [facility] Nick Almazan [place] [facility] Claudio truong MD [address] [address] [place] [id number] (Wo rk) Anesthesia Record Procedure Summary Procedure Name Responsible Anesthesia Start Anesthesia Stop Anesthesiologist Time Time RIGHT DACROCYSTORHINOSTOMY Nick Almazan MD 06/10/13 1441 06/10/13 1536 WITH MITOMYCIN (Right: Eye) Events Date Time Event Comment 06/10/2013 [...] by 06/10/13 1609 by Right; Hand; Alcohol; LozanoMykel Frandle, Pamela J, Injectable; Tolerated FISHERMAN HELPER JE RN well documented in this encounter Social [...] ??F) Resp: 16 SpO2: 96% Additional Comments: ELECTRONICS ENGINEER Anesthesia Preprocedure Evaluation - Nick Almazan MD [...] benefits and alternatives discussed with: patient or claims representative. History & Physical Review History and [...] found for this basename: hgb, inr, potassium ELECTRONICS ENGINEER documented in this encounter Miscellaneous Notes Anesthesia Care Transfer Note - Mykel Lozano APRN CRNA - 06/10/2013 3:36 PM CST Anesthesia Care Transfer Note Patient: Johana Barton Transferred to: PACU Patient vital signs: stable Airway: none ELECTRONICS ENGINEER documented in this encounter Plan of Treatment Not on filedocumented as of this encounter Visit Diagnoses Not on filedocumented in this encounter Administered Medications Inactive Administered Medications - up to 3 most recent administrations Medication Order MAR Action Action Date Dose Rate Site fentaNYL (SUBLIMAZE) injection Given 06/10/2013 3:12 PM NANOELECTRONICS ENGINEER 25 mcg PRN, moderate to severe pain, Starting on Sat06/10/13 at 1446, Anesthesia Intra-op Given 06/10/2013 3:00 PM NANOELECTRONICS ENGINEER 25 mcg Given 06/10/2013 2:46 PM NANOELECTRONICS ENGINEER 50 mcg lactated ringers infusion New Bag 06/10/2013 2:44 PM NANOELECTRONICS ENGINEER mL Intravenous, CONTINUOUS PRN, Anesthesia Intra-op, Starting on Sat06/10/13 at 1444, Until Sat06/10/13 at 1536 midazolam (VERSED) injection Given 06/10/2013 2:45 PM NANOELECTRONICS ENGINEER 2 mg PRN, anxiety, Starting on Sat06/10/13 at 1445, Anesthesia Intra-op ondansetron (ZOFRAN) injection Given 06/10/2013 2:59 PM NANOELECTRONICS ENGINEER 4 mg PRN, nausea, vomiting, Administer over 2-5 Minutes, Starting on Sat06/10/13 at 1459, Anesthesia Intra-op propofol (DIPRIVAN) injection Given 06/10/2013 2:46 PM NANOELECTRONICS ENGINEER 30 mg PRN, Starting on Sat06/10/13 at 1446, Anesthesia Intra-op documented in this encounter Care Teams Clinical Research Spec Relationship Specialty Start Date End Date Mario Reynolds MD PCP - General Family Practice 10/14/12 [facility] [address] [place] [address] documented as of this encounter
--- OUTSIDE RECORDS SUMMARY | 2022-05-21 08:55 | XMS_ITS | Encounter Summary ---
:1935 Author Organization [place] Address [address] [place] [address]. [place] [address] Care Team Providers Name Role Phone Mario Reynolds MD Primary Care Provider Reason for Visit Rehab Therapy Integrated Services (Routine) - Closed Specialty Diagnoses / Procedures Referred By Contact Refer red To Contact Procedures [facility] [address] [facility] [place] [address] Phone: Fax: Referral ID Status Reason Start Date Expiration Date Visits V isits Requested Authorized FSH - Closed 07/26/2017 07/07/2018 365 365 PT/OT/PSYCHOLOGICAL TESTS SALES AGENT ([id number]) Encounter Details Date Type Department Care Team Description 08/15/2017 Hospital Encounter [facility] Brennen Hernandez MD [facility] E[facility] [address] [facility] [address] [place] [address] Rehabilitation Sharri Camacho, PSYCHOLOGICAL TESTS SALES AGENT [address] [place], [place] [address] [address] [place] [address] [address] [place] [phone] Social History Tobacco [...] on filedocumented in this encounter Care Teams Digital Coordinator Relationship Specialty Start Date End Date Mario Reynolds MD PCP - General Family Practice 10/14/12 [facility] [address] [place] [address] documented as of this encounter
--- OUTSIDE RECORDS SUMMARY | 2022-05-21 08:55 | XMS_ITS | Encounter Summary ---
:1935 Author Organization [place] Address [address] [place] [address]. [place] [address] Care Team Providers Name Role Phone Mario Reynolds MD Primary Care Provider Reason for Visit Rehab Therapy Integrated Services (Routine) - Closed Specialty Diagnoses / Procedures Referred By Contact Refer red To Contact Procedures [facility] [address] [facility] [place] [phone] Phone: Fax: Referral ID Status Reason Start Date Expiration Date Visits V isits Requested Authorized [facility] - Closed 07/26/2017 07/07/2018 365 365 PT/OT/CONTINUOUS WAVE OPERATOR ([id number]) Encounter Details Date Type Department Care Team Description 07/31/[address] [facility] Brennen Hernandez MD [facility] [address] [facility] [address] [place] [address] Rehabilitation Sharri Camacho, CONTINUOUS WAVE OPERATOR [address] [place], [place] [address] [address] [place] [address] [address] [place] [phone] Social History Tobacco [...] of this encounter Progress Notes Sharri Delvalle, CONTINUOUS WAVE OPERATOR - 07/31/2017 1:52 PM CST Images from the original note were not included. [facility] OUTPATIENT SPEECH LANGUAGE PATHOLOGY VOICE EVALUATION PLAN OF TREATMENT FOR OUTPATIENT REHABILITATION (COMPLETE FOR INITIAL CLAIMS ONLY) Patient's Last Name, First Name, M.I. Date of : 1935 Johana Barton Provider???s Name: [facility] Onset Date: 07/16/2017 (order date) Start of [...] out of 10, 90% ofthe time by CONTINUOUS WAVE OPERATOR judgment, so that patient is able to [...] Assessment See Epic Evaluation Start of Care MENTAL MACHINE OPERATOR Sharri Delvalle SLP - 07/31/2017 1:47 PM CST [employer] CONTINUOUS WAVE OPERATOR Voice Evaluation 07/31/17 0845 General Information Type Of Visit Initial Start Of Care Date 07/31/17 Referring Physician Brennen Ponce MD (ENT) Orders Evaluate And Treat Medical Diagnosis Functional dysphonia Onset Of Illness/injury Or Date Of Surgery 07/16/17 (Order date) Precautions/Limitations no known precautions/limitations Hearing WFL for 1:1 conversation in session Avocational voice uses 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 She has been unable to participate since [...] resolve. Patient Role/employment History Retired Living environment [facility] (With support from family) General Observations Pt [...] with plan of care Yes Patient Education CONTINUOUS WAVE OPERATOR provided written and verbal education regarding muscle [...] of 10, 90% of the time by CONTINUOUS WAVE OPERATOR judgment, so that patient is able to [...] of this patient. Sharri Arroyo B.A. (simi)Binu, [facility]-CONTINUOUS WAVE OPERATOR Speech-Language Pathologist Certificate of Vocology [facility] [phone] MENTAL MACHINE OPERATOR documented in this encounter Plan of Treatment Not on filedocumented as of this encounter Visit Diagnoses Not on filedocumented in this encounter Care Teams Cooking Chef Relationship Specialty Start Date End Date Mario Reynolds MD PCP - General Family Practice 10/14/12 [facility] [address] [place] [address] documented as of this encounter
--- OUTSIDE RECORDS SUMMARY | 2022-05-21 08:55 | XMS_ITS | Encounter Summary ---
:1935 Author Organization [place] Address [address] [place] [address]. [place] [address] Care Team Providers Name Role Phone Mario Reynolds MD Primary Care Provider Reason for Visit Rehab Therapy Integrated Services (Routine) - Closed Specialty Diagnoses / Procedures Referred By Contact Refer red To Contact Procedures [facility] [address] [facility] [place] [address] Phone: Fax: Referral ID Status Reason Start Date Expiration Date Visits V isits Requested Authorized [facility]SH - Closed 07/26/2017 07/07/2018 365 365 PT/OT/CLINICAL RESEARCH MANAGEMENT ASSOCIATE ([id number]) Encounter Details Date Type Department Care Team Description 08/06/2017 Hospital Encounter [facility] Brennen Hernandez MD [facility] [address] [facility] [address] [place] [address] Rehabilitation Sharri Camacho, CLINICAL RESEARCH MANAGEMENT ASSOCIATE [address] [place], [place] [address] [address] [place] [address] [address] [place] [phone] Social History Tobacco Use Types Packs/Day Years Used Date Smoking Tobacco: Never Alcohol Use Standard Drinks/Week Comments No 0 (1 standard drink = 0.6 oz pure alcoho l) Sex Assigned at Date Recorded Not on file documented as of this encounter Discharge Instructions Discharge InstructionsSharri Delvalle, CLINICAL RESEARCH MANAGEMENT ASSOCIATE - 08/06/2017 3:12 PM CST Voice Therapy [...] you yawn) - Do circles and then horizontal/rbzj-mr-oviq movements - Hold larynx in the downward [...] throat, staying in your optimal pitch range ERY MATER documented in this encounter Medications at Time [...] on filedocumented in this encounter Care Teams Pottery Decoration Designer Relationship Specialty Start Date End Date Rodolfo, Mario C, MD PCP - General Family Practice 10/14/12 [facility] [address] [place] [address] documented as of this encounter
--- OUTSIDE RECORDS SUMMARY | 2022-05-21 08:55 | XMS_ITS | Clinical Summary ---
:1935 Author Organization [place] Address [address] [place] [address] Care Team Providers Name Role Phone Mario [...] Comments Blood Pressure 168/97 06/10/2013 4:08 PM WAX BALL KNOCK OUT WORKER Pulse - - Temperature 35.9 ??C (96.6 ??F) 06/10/2013 12:44 PM WAX BALL KNOCK OUT WORKER Respiratory Rate 16 06/10/2013 4:08 PM WAX BALL KNOCK OUT WORKER Oxygen Saturation 99% 06/10/2013 4:08 PM WAX BALL KNOCK OUT WORKER Inhaled Oxygen Concentration - - Weight 66.4 kg (146 lb 6.4 oz) 06/10/2013 12:44 PM WAX BALL KNOCK OUT WORKER Height 154.9 cm (5' 1) 06/10/2013 12:44 PM WAX BALL KNOCK OUT WORKER Body Mass Index 27.66 06/10/2013 12:44 PM WAX BALL KNOCK OUT WORKER Plan of Treatment Health Maintenance Due Date Last Done Comments ADVANCE CARE PLANNING 1935 ANNUAL REVIEW OF HM ORDERS 1935 DEXA 1935 COVID-19 Vaccine (#1) 04[birth year]17/1936 ZOSTER IMMUNIZATION (1 of 2) 10/17/1987 FALL RISK ASSESSMENT 2002 MEDICARE ANNUAL WELLNESS 2002 VISIT DTAP/TDAP/TD IMMUNIZATION (1 09/25/2003 09/24/2003 - Tdap) PHQ-2 (once per calendar 07/08/2021 year) INFLUENZA VACCINE (#1) 2022 06/18/2017 HEPATITIS B IMMUNIZATION Completed 03/14/2004, 09/24/2003, 08/23/2003 Pneumococcal Vaccine: 65+ Completed 03/13/2016, Years 12/04/2007 IPV IMMUNIZATION Aged Out No longer eligi ble based on patient's age to complete this to pic MENINGITIS IMMUNIZATION Aged Out No longe r eligible based on patient's age to complete this to pic Medical Devices Implanted Type Area Tester Waste Disposal Leakage Device Shelf Model / Identifier Expiration Serial / Date Lot Eye Kit Lacrimal Intubation Stent [id number] Right: [employer], 07/06/2015 [id number] / Implanted: Qty: 1 on 10/24/2012 by Kael Jansen MD at [facility] [employer] / Duct [id number] Eye Kit Lacrimal Intubation Stent [id number] 10/06/2015 [id number] / Implanted: Qty: 1 on 06/10/2013 by Kael Jansen MD at [facility] / [id number] Insurance Payer Benefit Plan / Subscriber ID Effective Dates Phone Addre ss Type Group HUMANA HUMANA MEDICARE [id number] 2017-Present [address] [address] [place] [address] Care Teams Welfare Director Relationship Specialty Start Date End Date Mario Reynolds MD PCP - General Family Practice 10/14/12 [facility] [address] [place] [address]
--- OUTSIDE RECORDS SUMMARY | 2022-05-21 08:55 | XMS_ITS | Clinical Summary ---
:1935 Author Organization [employer] [facility] [place] [address] Care Team Providers Name Role Phone Dawit Reynolds MD Primary Care Provider Allergies No known active allergies Medications Medication Sig Dispensed Refills Start Date End Date Status B-complex with vitamin Take 1 Capsule by 0 Active C (VITAMIN B COMPLEX mouth once daily. WITH C ORAL) famotidine (PEPCID) 20 Take 20 mg by 0 Active mg tablet mouth at bedtime. ferrous sulfate 325 mg Take 325 mg by 0 Active delayed release tablet mouth once every other day. Glucosamine HCl 500 mg Take by mouth. 0 Active tablet meloxicam 15 mg tablet Take 15 mg by 0 Active mouth once daily. multivitamin (MVI) Take 1 Tablet by 0 Active tablet mouth once daily. omeprazole (PRILOSEC) Take 20 mg by 0 Active 20 mg Delayed-Release mouth once daily capsule before a meal. trimethoprim-sulfametho Take 1 Tablet by 0 Active xazole, 160-800 mg, mouth two times (BACTRIM DS, SEPTRA DS) daily. tab Active Problems No known active problems Encounters Date Type Specialty Care Team Description 04/10/2022 Surgery Justino Edwards CYSTOSCO PY, TRANSURETHRAL MD Stanislaw RESECTION OF BL ADDER TUMOR,BILATERAL URETERAL STENT PLACEMENT . 04/10/2022 Anesthesia Event Justino Tovar MD Beulke, Steven William, JE 04/10/2022 Hospital Encounter Justino Edwards MD 04/10/2022 Travel 04/09/2022 Travel from Last 3 Months Social History Tobacco Use Types Packs/Day Years Used Date Never Smoker Smokeless Tobacco: Never Used Alcohol Use Standard Drinks/Week Comments Yes 0 (1 standard drink = 0.6 oz pure alcoho l) 1x per month Alcohol Habits Answer Date Recorded How often do you have a drink containing alcohol? Not asked How many drinks containing alcohol do you have on a Not aske d typical day when you are drinking? How often do you have six or more drinks on one occasion? No t asked Comment: 1x per month 04/09/2022 Sex Assigned at Date Recorded Not on file Obstetrics History Last Filed Vital Signs Vital Sign Reading Time Taken Comments Blood Pressure 154/87 04/10/2022 3:00 PM CDT Pulse 106 04/10/2022 3:00 PM CDT Temperature 36.2 ??C (97.2 ??F) 04/10/2022 1:26 PM CDT Respiratory Rate 16 04/10/2022 1:26 PM CDT Oxygen Saturation 96% 04/10/2022 3:00 PM CDT Inhaled Oxygen Concentration - - Weight 62.4 kg (137 lb 9.6 oz) 04/10/2022 9:30 AM CDT Height 152.4 cm (5') 04/10/2022 9:30 AM CDT Body Mass Index 26.87 04/10/2022 9:30 AM CDT Plan of Treatment Upcoming Encounters Date Type Specialty Care Team Description 05/23/2022 Hospital Encounter Justino Edwards MD [address] [place] [address] (Wo rk) 05/23/2022 Surgery Justino Edwards CYSTOSCO PY AND MD [place] TRANSURETHRAL RESECTION [address] BLADDER TUMOR [place] [address] (Wo rk) Scheduled Procedures Name Priority Associated Diagnoses Date/Time CYSTOSCOPY RESECTION Elective BLADDER TUMOR 05/23/2022 9:00 AM FURNACE HAND TRANSURETHRA BLADDER TUMOR Health Maintenance Due Date Last Done Comments COVID-19 vaccine series (#1) 04/17/1936 Tdap 1948 Depression screening for age 12+ 1949 BMI (ht and wt on same day) for age 18+ 10/17/1955 Tetanus booster 1957 Zoster (shingles) series for age 50+ (1 of 2) 10/17/1987 DEXA/DXA scan for age 65+ 2002 Pneumococcal series for age 65+ (1 - PCV) 2002 Influenza for age 65+ 03/08/2022 Medical Devices Implanted Type Area Solid Tire Tuber Machine Operator Device Shelf Model / Identifier Expiration Serial / Lot Date Stent Uret [id number] Contour - [id number] Left: BSC Urolo gy 01/25/2025 [id number] / Implanted: Qty: 1 on 04/10/2022 by Justino Modi MD at [facility] [employer]ter / [id number] Procedures Procedure Name Priority Date/Time Associated Comments Diagnosis SCAN CORRESP-EKG 05/21/2022 5:23 Results for this RESULTS AM FURNACE HAND procedure are i n the results section. EKG 12 LEAD STAT 04/10/2022 2:03 Results for this PM CDT procedure are i n the results section. PATH TISSUE EXAM Today 04/10/2022 12:08 Results for this PM CDT procedure are i n the results section. XR RETROGRADE Routine 04/10/2022 11:59 Results fo r this PYELOGRAM W/WO KUB AM CDT procedure are in the results section. ENDOTRACHEAL TUBE Routine 04/10/2022 11:13 Result s for this AM CDT procedure are i n the results section. ENDOTRACHEAL TUBE Routine 04/10/2022 11:13 Result s for this AM CDT procedure are i n the results section. SUPRAGLOTTIC-LMA Routine 04/10/2022 11:04 Results for this AM CDT procedure are i n the results section. PLACEMENT URETERAL Class E Urgent 04/10/2022 10:30 Mass of urinary STENT AM CDT bladder CYSTOSCOPY RESECTION Class E Urgent 04/10/2022 10:30 Mass of urinar y TRANSURETHRA BLADDER AM CDT bladder TUMOR SCAN-CARDIAC STRIP 04/10/2022 12:00 Resul ts for this AM CDT procedure are i n the results section. SCAN 04/09/2022 12:00 Results for this CORRESP-LABORATORY AM CDT procedure are in RESULTS the results section. SCAN 04/09/2022 12:00 Results for this CORRESP-LABORATORY AM CDT procedure are in RESULTS the results section. SCAN 04/09/2022 12:00 Results for this CORRESP-LABORATORY AM CDT procedure are in RESULTS the results section. SCAN 04/09/2022 12:00 Results for this CORRESP-LABORATORY AM CDT procedure are in RESULTS the results section. SCAN 04/09/2022 12:00 Results for this CORRESP-LABORATORY AM CDT procedure are in RESULTS the results section. from Last 3 Months Results SCAN CORRESP-EKG RESULTS (05/21/2022 5:23 AM FURNACE HAND) Narrative 05/21/2022 5:23 AM FURNACE HAND This result has an attachment that is no t available. Ordered by an unspecified provider. Other Clinical Staff OTHER EKG 12 LEAD (04/10/2022 2:03 PM CDT) Component Value Ref Range Test Analysis Performed [facility] t Method Time At [facility] Interpretation Sinus rhythm with frequent P remature ventricular complexes in a pattern of BEYOND NOW bigeminy Nonspecific ST and T wave abnormality Prolonged QT Abnormal ECG No previous ECGs available Ventricular Rate 73 BPM BEYOND NOW Atrial Rate 73 BPM BEYOND NOW P-R Interval 160 ms BEYOND NOW QRS Duration 74 ms BEYOND NOW QT 438 ms BEYOND NOW QTc 482 ms BEYOND NOW P Union 70 degrees BEYOND NOW R Union -24 degrees BEYOND NOW T Union 35 degrees BEYOND NOW Specimen Anatomical Collection Method Collection Time Receive d Time (Source) Location / / Volume Laterality 04/10/2022 2:03 PM 5:16 CDT PM CDT Justino Tovar MD EKG ORD Performing Organization Address City/State/ZIP Code Phon e Number [place], [place] PATH TISSUE EXAM (04/10/2022 12:08 PM CDT) Component Value Ref Test Analysis Performed At [facility] gist Range Method Time Signature Case Report Pathology Report ?Case: [id number] ? 04/12/2022 JOVANA Authorizing Provider: ??Over Justino rodriguez ?Collected: ? 04/10/2022 1208 ? 12:55 PM HEAL TH ? MD Stanislaw ? CDT LABORATORY-C Ordering Location: ? [facility] ?Received: ?04/10/2022 1234 ? EN TRAL ? Hospital ? LABORATORY Pathologist: ? Abdiaziz Bah MD ? Specimen: ?Bladder, Blad derrick tumor ? Final A) URINARY BLADDER, MULTIPLE SITES, TRANSURETHRAL RESECTIO N: 04/12/2022 [facility] Electronically Diagnosis 1. Invasive urothelial carcinoma, high grade 12:55 PM HEALTH signed by Taras, ?? a. Depth of invasion: Lamina propria CDT LABORATORY-C Yuan Alvarez, ?? b. Scant muscularis propria is present and is negative f or tumor ENTRAL MD for ?? c. Angio-lymphatic invasion: Absent LABORATORY Tadavarthy, Abdiaziz 2. Associated carcinoma in situ: Absent MD Issa on 3. 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 Focal invasion into the lamina propria is noted. 04/12/2022 [facility] 12:55 PM HEALTH Case seen in consultation with Dr. Grajead. CDT LABORATORY-C ENTRAL LABORATORY Clinical Bladder tumor 04/12/2022 [facility] Information 12:55 PM HEALTH CDT LABORATORY-C ENTRAL LABORATORY Gross A) Received fresh, labeled w ith the patient's name and bladder tumor, is a 2 x 1.8 x 0.6 cm aggregate of multiple brice-pink, cauterized, friable tissue fragments. ??The specimen is wrapped and entirely submitted in 1 cassette. 04/12/2022 [facility] Description 12:55 PM HEALTH Time and date in formalin: 1245 on 04/10/2022 CDT LABORATORY-C ENTRAL RAL 04/10/2022 LABORATORY Microscopic The final 04/12/2022 [facility] Description diagnosis is 12:55 PM HEALTH based on CDT LABORATORY-C microscopic ENTRAL examination of LABORATORY appropriate sections of all specimens. Additional 04/12/2022 [facility] Information Interpreted at [facility] [employer], Central Laboratory - [address], [place] [address] 12:55 PM HEALTH CDT LABORATORY-C ENTRAL LABORATORY Specimen Anatomical Collection Method Collection Time Receive d Time (Source) Location / / Volume Laterality Tissue SPECIMEN FROM 04/10/2022 12:08 04/10/2022 URINARY BLADDER / PM CDT 12:34 PM C DT Unknown Justino Edwards MD PATHOLOGY/CYTOLOGY Performing Organization Address City/State/ZIP Code Phon e Number Veronica [address] [place] [address] LABORATORY-CENTRAL 2000 LABORATORY XR RETROGRADE PYELOGRAM W/WO KUB (04/10/2022 11:59 AM CDT) Anatomical Region Laterality Modality KIDNEYS, Abdomen Digital Radiography Specimen (Source) Anatomical Location Collection Method / Collectio n Time Received Time / Laterality Volume Narrative 04/10/2022 12:00 PM CDT 31 seconds fluoroscopy time was provided. ??See operative/procedure report for further information. Justino Edwards MD GENERAL IMAGING HCHG TUBE PR1, HCHG STYLET PR1 (04/10/2022 11:13 AM CDT) Narrative Luis Shi CRNA - 2 11:13 AM CDT Luis Shi CRNA ? 04/10/2022 11:16 AM Procedure: ETT Patient location during procedure: OR ETT Properties Mask Ventilation: easy Final Technique: direct laryngoscopy Type: straight Location: oral Cuffed: yes Tube Size: 6.5 mm Stylet: yes Laryngoscope Blade: Moody Blade Size: 2 Cormack-Lehane Grade View: 2 Insertion Attempts: 1 Placement Verification: auscultation, en d tidal CO2 and symmetrical chest wall movement Assessment: pharynx clear, atraumatic an d dentition unchanged Secured at: 21 Measured From: lips Difficulty: 0 (not difficult) Electronically signed by Luis Shi CRNA ? Justino Tovar MD ANESTHESIA PX NOTE ORDERABLE S HCHG MASK PR5 (04/10/2022 11:04 AM CDT) Narrative Luis Shi CRNA - 2 11:04 AM CDT Luis Shi CRNA ? 04/10/2022 11:04 AM Procedure: Supraglottic Patient location during procedure: OR Supraglottic Airway Properties Mask Ventilation: easy Type: unique Tube Size: 4 Insertion Attempts: 1 and 2 Placement Verification: auscultation and CO2 detection Assessment Assessment: atraumatic and dentition unc hanged Airway Intervention: secured Electronically signed by Luis Shi CRNA ? Justino Tovar MD ANESTHESIA PX NOTE ORDERABLE S SCAN-CARDIAC STRIP (04/10/2022 12:00 AM CDT) Narrative 04/10/2022 12:00 AM CDT This result has an attachment that is no t available. Ordered by an unspecified provider. Other Clinical Staff OTHER SCAN CORRESP-LABORATORY RESULTS (04/09/2022 12:00 AM CDT)Only the most recent of 5 resultswithin the time period is included. Narrative 04/09/2022 12:00 AM CDT This result has an attachment that is no t available. Ordered by an unspecified provider. Other Clinical Staff OTHER from Last 3 Months Insurance Payer Benefit Plan / Subscriber ID Effective Dates Phone Addre ss Type Group MEDICARE PART A MEDICARE PART A [id number] 2002-Present ATTN: CLAIMS - HB USE ONLY HB ONLY [address] [place] [address] HUMANA GOLD [place] HUMANA CHOICE [id number] 2020-Present [address] [address] [place] [address] Advance Directives Latest Code Status on File Code Status Date Activated Date Inactivated Comments Full Code 04/10/2022 9:03 AM 04/10/2022 6:41 PM Code Status Discussion: Unable to Assess Preferences, Provid er to review later Care Teams Brusher Relationship Specialty Start Date End Date Dawit Reynolds MD PCP - General Family Practice 04/10/22 [address] [facility] [place] [address]
--- OUTSIDE RECORDS SUMMARY | 2022-05-21 08:55 | XMS_ITS | Encounter Summary ---
:1935 Author Organization [place] Address [address] [place] [address] Care Team Providers Name Role Phone Mario Reynolds MD Primary Care Provider Reason for Visit Auth/Cert - Closed Specialty Diagnoses / Procedures Referred By Contact Refer red To Contact Surgery Diagnoses NASAL LACRIMAL OBSTRUCTION Sh Periop Services Procedures DACRYOCYSTORHINOSTOMY DACRYOCYSTORHINOSTOMY [address] [place] [address] Phone: Referral ID Status Reason Start Date Expiration Date Visits Requ ested Visits Authorized [id number] Closed 1 1 Encounter Details Date Type Department Care Team Description 06/10/2013 Hospital Encounter [facility] Sierra Ang [place] Phase II [address] [place] OPHTHALMIC PLAST [place] [address] SURG [phone] [address] [place] [address] [...] Comments Blood Pressure 168/97 06/10/2013 4:08 PM SCRUM PRODUCT OWNER Pulse - - Temperature 35.9 ??C (96.6 ??F) 06/10/2013 12:44 PM SCRUM PRODUCT OWNER Respiratory Rate 16 06/10/2013 4:08 PM SCRUM PRODUCT OWNER Oxygen Saturation 99% 06/10/2013 4:08 PM S[employer]UM PRODUCT OWNER Inhaled Oxygen Concentration - - Weight 66.4 kg (146 lb 6.4 oz) 06/10/2013 12:44 PM SCRUM PRODUCT OWNER Height 154.9 cm (5' 1) 06/10/2013 12:44 PM SCRUM PRODUCT OWNER Body Mass Index 27.66 06/10/2013 12:44 PM SCRUM PRODUCT OWNER documented in this encounter Discharge Instructions Discharge [...] you develop a fever, contact your surgeon. M PRODUCT OWNER documented in this encounter Medications at Time [...] [place] Provider - 06/08/2013 8:09 AM CST M PRODUCT OWNER documented in this encounter Nursing Notes Pam Ward RN - 06/10/2013 4:[address] Ang called regarding eye drops that came from surgery with her. Suellen from Dr. Ang's office called back. She is to put in a drop in her right eye 4 times per day for 1 week. M PRODUCT OWNER Pam Ward RN - 06/10/2013 4:[address] Lindsey informed of elevated BP. No tx ordered. M PRODUCT OWNER documented in this encounter Miscellaneous Notes Op [...] expose the underlying bone and then a [place] elevator was used to lift the periosteum [...] sac. Lacrimal sac was opened with a [place] blade and then the medial wall was removed with Mitali scissors. A Higu[place] probe and tubing was then passed through the canalicular system into the nose and out through the nares. A second Higuera probe was passed through the inferior canaliculus in a similarfashion. A 1/4 inch [place] drain was drawn up into the lacrimal [...] ANG MD MT: [id number] Name: JOHANA BARTON MRN: [id number] Account: [id number] : 1935 Procedure Date: 06/10/2013 Document: [id number] M PRODUCT OWNER Brief Op Note - Sierra Ang MD - 06/10/2013 3:35 PM CST [facility] Brief Operative Note Pre-operative diagnosis: NASAL LACRIMAL OBSTRUCTION Post-operative diagnosis * No post-op diagnosis entered * Procedure: Procedure(s) with comments: DACRYOCYSTORHINOSTOMY - RIGHT DACROCYSTORHINOSTOMY WITH MITOMYCIN Surgeon(s): Surgeon(s) and Role: * Sierra Ang MD - Primary Estimated blood loss: * No values recorded between 06/10/2013 2:57 PM and 06/10/2013 3:33 PM * Specimens: * No specimens in log * Findings: M PRODUCT OWNER documented in this encounter Plan of Treatment Not on filedocumented as of this encounter Procedures Procedure Name Priority Date/Time Associated Diagnosis Comme nts DACRYOCYSTORHINOSTOMY 06/10/2013 2:36 PM SCRUM PRODUCT OWNER NASAL LAC RIMAL OBSTRUCTION documented in this encounter Visit Diagnoses Not on filedocumented in this encounter Active and Recently Administered Medications Times are shown in SCRUM PRODUCT OWNER. PRN Medication Order 06/08/2013 06/09/2013 06/10/2013 cocaine 4 % external solution (CANCELED) 1508 (Given - Provider: Sierra Agn MD) PRN, other, Starting Sat06/10/13 at 1508, Apply to , Intra-pr ocedure lidocaine 2%-EPINEPHrine 1:200,000 injection (CANCELED) 1508 (Given - Provider: Sierra Ang MD) PRN, Starting Sat06/10/13 at 1508, Intra-procedure mitoMYcin 2 mg/mL topical solution (CANCELED) 1507 (Given - Provider: Sierra Ang MD - Comment: rinsed with BSS) PRN, Starting Sat06/10/13 at 1507, Intra-procedure wqjkrync-lmbiahggp-fntbqkrvnwjrh (MAXITROL) ophthalmic suspensio n (CANCELED) 1508 (Given - Provider: Sierra Ang MD) PRN, Starting Sat06/10/13 at 1508, Intra-procedure documented in this encounter Care Teams Cook Box Filler Relationship Specialty Start Date End Date Mario Reynolds MD PCP - General Family Practice 10/14/12 [facility] [address] [place] [address] documented as of this encounter
--- OUTSIDE RECORDS SUMMARY | 2022-05-21 08:55 | XMS_ITS | Encounter Summary ---
:1935 Author Organization [place] Address [facility] [place] [address] Care Team Providers Name Role Phone Mario Reynolds MD Primary Care Provider Reason for Visit Auth/Cert - Closed Specialty Diagnoses / Procedures Referred By Contact Refer red To Contact Surgery Diagnoses BILATERAL UPPER LID PTOSIS AND MECHANICAL PTOSIS, RIGHT UPPER LID LESION, RIGHT NASO Sh Periop Services Procedures REPAIR PTOSIS BILATERAL EXCISE LESION EYELID DACRYOCYSTORHINOSTOMY [address], [address] [place] [address] Phone: Referral ID Status Reason Start Date Expiration Date Visits Requ ested Visits Authorized [id number] Closed 1 1 Encounter Details Date Type Department Care Team Description 10/24/2012 Anesthesia Event [facility] Smith Arroyo MD [facility] ANESTHESIOLOGIS [address] [place] [id number] [facility] PeriOP Pedro Hickman MD [facility] ANESTHESIOLOGY [address] [place] [id number] Services [address], [address] [place] [address] Anesthesia Record Procedure Summary Procedure Name Responsible Anesthesia Start Anesthesia Stop Anesthesiologist Time Time BILATERAL UPPER LID PTOSIS Stanislaw Arroyo MD 10/24/12 1259 10/24/12 1458 AND MECHANICAL PTOSIS REPAIR, EXCISION LEFT UPPER LID LESION, RIGHT DACRYOCYSTORHINOSTOMY (Bilateral: Eye) Events Date Time Event Comment 10/24/2012 [...] benefits and alternatives discussed with: patient or renewals representative. History & Physical Review History and [...] mg documented in this encounter Care Teams Planishing Press Operator Relationship Specialty Start Date End Date Mario Reynolds MD PCP - General Family Practice 10/14/12 [facility] [address] [place] [address] documented as of this encounter
--- OUTSIDE RECORDS SUMMARY | 2022-05-21 08:56 | XMS_ITS | Encounter Summary ---
:1935 Author Organization [place] Address [facility] [place] [address] Care Team Providers Name Role Phone Mario Reynolds MD Primary Care Provider Reason for Visit Auth/Cert - Closed Specialty Diagnoses / Procedures Referred By Contact Refer red To Contact Surgery Diagnoses BILATERAL UPPER LID PTOSIS AND MECHANICAL PTOSIS, RIGHT UPPER LID LESION, RIGHT NASO Sh Periop Services Procedures REPAIR PTOSIS BILATERAL EXCISE LESION EYELID DACRYOCYSTORHINOSTOMY [address] [place] [address] Phone: Referral ID Status Reason Start Date Expiration Date Visits Requ ested Visits Authorized [id number] Closed 1 1 Encounter Details Date Type Department Care Team Description 10/24/2012 Hospital Encounter [facility] Sierra Angeles Post -op pain Bin Kapoor MD (Primary Dx) Preop/Phase II [place]PH[place] [address] PLAST SURG [place], [place] [address] [address] [address] [place] [address] Social History Tobacco Use Types [...] this encounter Discharge Instructions Discharge InstructionsNadine Ambriz, RN - 10/24/2012 4:01 PM CDT [facility] Discharge [...] questions of medical nature, call your physician. [facility] Dacryocystorhinostomy Discharge Instructions [facility] [employer] SIERRA ANGELES M.D. [facility] [address] [place], [place] [address] Things to avoid: You should avoid blowing [...] not answered above. The phone number is [phone]. [facility] Eyelid/Orbital Surgery Discharge Instructions Sierra Angeles M.D. [...] that will not stop with gentle pressure. [facility] [address] [place], [place] [address] documented in this encounter Medications at Time [...] expose the underlying bone and then a [place] elevator was used to lift the periosteum away from the lacrimal fossa. [place] probe was then passed through the canaliculus and used to tent up the lacrimal sac. Lacrimal sac was opened with a kiowa tribe blade and then the medial wall was [...] expose the underlying bone and then a [place] elevator was used to lift the periosteum away from the lacrimal fossa. [place] probe was then passed through the canaliculus and used to tent up the lacrimal sac. Lacrimal sac was opened with a kiowa tribe blade and then the medial wall was [...] Volume Adjustment - Provider: Pham Kelly APRN COPY ROOM TECHNICIAN)1430 (New Bag - Provider: Pham Kelly APRN COPY ROOM TECHNICIAN) at 75-100 mL/hr, Intravenous, CONTINUOUS , UNLESS [...] MD) PRN, Starting Sat10/24/12 at 1433, Intra-procedure ioabtlnj-uresvmheb-sksyormjrwggi (MAXITROL) ophthalmic suspensio n (CANCELED) 1435 (Given - Provider: Sierra Angeles MD) PRN, Starting Sat10/24/12 at 1435, Intra-procedure tetracaine (PONTOCAINE) 0.5 % ophthalmic solution (CANCELED) 1323 (Given - Provider: Beata Diehl, MATEO) PRN, Starting Sat10/24/12 at 1323, Intra-procedure documented in this encounter Care Teams Oim Consultant Relationship Specialty Start Date End Date Mario Reynolds MD PCP - General Family Practice 10/14/12 [facility] [address] [place] [address] documented as of this encounter
--- OUTSIDE RECORDS SUMMARY | 2022-05-21 08:56 | XMS_ITS | Encounter Summary ---
:1935 Author Care Team Providers Name Role Phone Dawit Reynolds MD Primary Care Provider [phone] Reason for Visit None recorded. Assessment and Plan 1. Malignant tumor of urinary bladder ? transurethral resection of bladder tu mor (SURG) Discussion Note Pathology report reviewed in detail todomenic orozco. I recommend re-staging TURBT given that I suspect she could harbor MIBC that was n ot demonstrated on first resection. Will aim for deep margin bites, as well as aggres sive debulking given diagnosis and age, unclear what her best course of action i f MIBC is detected, debulking will be important. Patient educational handouts: No information available. Plan of Care Reminders Provider Appointments [place] [phone] 05/23/2022 uJstino Dover 9:30AM MD [facility] None recorded. ? ? Referral None recorded. ? ? Procedures None recorded. ? ? Surgeries Transurethral Resection of 04/19/2022 ? Bladder Tumor (SURG) Imaging None recorded. ? ? Medications Name Start Date ? ? famotidine 20 mg tablet ? Take 1 tablet twice a day by oral route. meloxicam 15 mg tablet ? TAKE 1 TABLET BY MOUTH DAILY omeprazole 20 mg capsule,delayed release ? TAKE 1 CAPSULE BY MOUTH DAILY sulfamethoxazole 800 mg-trimethoprim 160 mg tablet ? Medications Administered None recorded. Vitals Height Weight BMI 5 ft 140 lbs 27.3 kg/m2 Results Lab Results None recorded. Allergies Code Code System Name Reaction Severity Onset NKDA ? ? ? Problems None recorded. Procedures Date Name Performed by ? 03/30/2022 CT, Urogram [facility] [address] [place] [address] (Work Place) Vaccine List None recorded. Social History Tobacco Smoking Status Never Smoker What is your level of alcohol consumption? None Has tobacco cessation counseling been provided? N Preferred Language Omani What was the date of your most recent tobacco screening? Ethnicity Not / What is your level of caffeine consumption? None Do you or have you ever used any other forms of tobacco or N nicotine? Do you use any illicit or recreational drugs? N Race white Functional Status Unknown. Past Encounters 04/19/2022 Malignant Tumor of Urinary Bladder Justino Edwards MD: [address], [address], [place] [address], Ph. 03/30/2022 Mass of Urinary Bladder; Bill Hematuria ; Hydronephrosis Justino Edwards MD: [address], [place] [address], Ph. History of Present Illness Note: <div>86F with multifocal bladder tumors found on workup, now 1 week s/p large volume TURBT, bilateral stent placement, due today for Smith removal.</div><div>
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
</div><div>
</div> Review of Systems ? Comprehensive General Adult [...] cough, no shortness of breath Gastrointestinal: Gastrointestinal: no abdomin al pain, no nausea, no vomiting, no constipation, no GERD Musculoskeletal: Musculoskeletal: no neck luana n, no back pain Neurologic: Neurologic: no tremor, no di zziness, no numbness, no headaches Genitourinary: Genitourinary: no incontinen ce, no difficulty urinating; bladder spasms, urge to urin ate with catheter ENMT: Ears: no ear pain. Mouth/Thr oat: no sore throat Allergic/Immunologic: Allergy/Immunologic: no itch ing, no hives Hematologic/Lymphatic: Hematologic/Lymphatic no swo llen glands, no [...]
Psych: normal mo od and affect, no confusion</div>
--- OUTSIDE RECORDS SUMMARY | 2022-05-21 08:56 | XMS_ITS | Encounter Summary ---
:1935 Author Care Team Providers Name Role Phone Dawit Reynolds MD Primary Care Provider [phone] Reason for Visit Bladder Mass Assessment and [...] available. Plan of Care Reminders Provider Appointments [place] [phone] 05/23/2022 Justino Dover 9:30AM MD [facility] Urinalysis, Dipstick 03/30/2022 [facility] Referral None recorded. ? ? Procedures None recorded. ? ? Surgeries Transurethral Resection of 03/30/2022 ? Bladder Tumor (SURG) Imaging CT, Urogram 03/30/2022 Nader Chan Medications Name Start Date ? ? famotidine [...] Name Performed by ? 03/30/2022 CT, Urogram [facility] [address] [place] [address] (Work Place) Vaccine List None recorded. Social History Tobacco Smoking Status Never Smoker What is your level of alcohol consumption? None Has tobacco cessation counseling been provided? N Preferred Language Ugandan What was the date of your most recent tobacco screening? Ethnicity Not / What is your level of caffeine consumption? None Do you or have you ever used any other forms of tobacco or N nicotine? Do you use any illicit or recreational drugs? N Race white Functional Status Unknown. Past Encounters 03/30/2022 Mass of Urinary Bladder; Bill Hematuria ; Hydronephrosis Justino Edwards MD: [address], [place] [address], Ph. History of Present Illness Note: <div>86F with 6 weeks of GH, intermittent, painless, no UTIs detected in interim. RBUS shows mild right hydronephrosis, and filling defects x 2 in bladder, both of which feature an internal flowthat can be detected on Doppler. </div><div>
</div><div>No prior GUhistory, no /HAND WORKER care since her last child was born.</div> [...] cystoscopy, diagnostic
Surgeon: Eugenie Edwards MD
Female Greeter: Yes, for entirety of encounter
Ane sthesia: [...]
--- OUTSIDE RECORDS SUMMARY | 2022-05-21 08:56 | XMS_ITS ---
:1935 Author Care Team Providers Name Role Phone ROYA CURRAN MD Primary Care Provider [phone] Allergies Code Code System Name Reaction Severity [...] DAILY sulfamethoxazole 800 mg-trimethoprim 160 mg tablet Active ? Not available Problems None recorded. Procedures Date Name Performed by ? 03/30/2022 CT, Urogram [facility] [address] [place] [id number] (Work Place) Results Lab Results Date Name [...] [address], Mic s 03/30/2022 Urinalysis, ? No observation ? ? ? Dipstick recorded. Past Encounters 04/19/2022 Malignant Tumor of Urinary Bladder Justino Edwards MD: [address] [facility] [place] [facility], [address], [place] [address], Ph. 03/30/2022 Mass of Urinary Bladder; Bill Hematuria ; Hydronephrosis Justino Edwards MD: [address], [place] [address], Ph. Social History Tobacco Smoking Status Never Smoker Vaccine List None recorded. Plan of Care Reminders Provider Appointments None recorded. ? ? Lab None recorded. ? ? Referral None recorded. ? ? Procedures None recorded. ? ? Surgeries None recorded. ? ? Imaging None recorded. ? ? Vitals 04/19/2022 10:30AM ESTABLISHED 10 Height Weight BMI 5 ft 140 lbs 27.3 kg/m2 03/30/2022 09:30AM NEW PATIENT 20 Height Weight BMI 5 ft 140 lbs 27.3 kg/m2
[2022-05-21 14:13] LABS: SARS PCR* Negative SARS-CoV-2 (Negative)
== END 2022-05-21 08:54 | disposition home or self-care (01) ==
LOC: LONREF 08:53
PROVIDERS: PCP Family Medicine; Visit Provider Family Medicine
DX: Z20.822 Contact with and (suspected) exposure to COVID-19 (principal)
CPT/HCPCS: 87635

== ENCOUNTER 2022-05-24 01:43 | Emergency (ER) | payer OTHER, SELFPAY ==
[2022-05-24 01:53] VITALS: BP 201/106; PULSE 81; RESP 16; O2SAT 96; BMI 26.4
--- NOTE | 2022-05-24 02:27 | ED.FEMALEGU ---
HPI - Female Genitourinary General Chief complaint: Urogenital Problems, Female Stated complaint: post surgery - blood clot Time Seen by Provider: 05/24/22 02:10 History of Present Illness HPI Narrative: 86-year-old woman presents with 2 daughters helping as caregivers with concern of catheter malfunction and lower abdominal discomfort. Today had resection once again of bladder tumor after initial apparently 6 weeks ago. Evidently this was a rather extensive procedure taking longer than anticipated with more ?scraping? than hoped. Has been having bypassing or flowing around the catheter. Increasing lower abdominal discomfort/pain. No fever. By the time I am seeing Ms. Barton nursing has swapped tubing and cleared catheter of large clots. Ms. Barton feels better. Related Data Home Medications Medication Instructions Recorded Confirmed B-complex with vitamin C 1 cap PO QDAY 03/05/22 04/06/22 ferrous sulfate 325 mg (65 mg 325 mg PO .Everyother Day 03/05/22 04/06/22 iron) tablet glucosamine HCl 500 mg tablet 500 mg PO QDAY 03/05/22 04/06/22 meloxicam 15 mg tablet 15 mg PO DAILY 03/05/22 04/06/22 multivitamin (Multiple Vitamins 1 tab PO QDAY 03/05/22 04/06/22 tablet) omeprazole 20 mg capsule,delayed 20 mg PO DAILY 03/05/22 04/06/22 release Previous Rx's Medication Instructions Recorded famotidine 20 mg tablet 20 mg PO .Bedtime #30 tabs 05/04/22 Allergies Allergy/AdvReac Type Severity Reaction Status Date / Time No Known Allergies Allergy Unknown Unverified 04/06/22 10:36 Review of Systems Status of ROS: Reports: 6 or more systems reviewed and unremarkable except as noted in History and below [facility] Medical History Health care directive on file Surgical History Status post blepharoplasty Status post bunionectomy (10/12/09) Status post cystoscopy Status post tonsillectomy Social History Smoking Status: Never smoker How often do you have a drink containing alcohol: never AUDIT-C Alcohol total score: 0 Non-prescribed substance use: denies use Exam Narrative: Exam Narrative: Very pleasant. Breathing easily. Talkative. Cardiovascular with regular rate and rhythm. Abdomen is soft without peritoneal signs. Sensitive suprapubic area. Dark red urine in Smith. Urine flowing. Normoactive bowel sounds. Moving all extremities without difficulty. Well perfused. No edema. Const: Vital Signs, click to edit/add: Vital Signs - 24 hr 05/24/22 01:53 05/24/22 03:10 Pulse Rate [Left P ulse Oximeter] 81 68 Respiratory Rate 16 16 Blood Pressure [Le ft Upper Arm] 201/106 H 166/94 H Pulse Oximetry 96 Oxygen Delivery Me thod Room Air Documenting provider has reviewed patient's vital signs: yes Course Vital Signs Vital signs: Initial Vital Signs Temperature Source Temporal Artery Scan 05/24/22 01:53 Pulse Rate 81 05/24/22 01:53 Pulse Rhythm 05/24/22 01:53 Respiratory Rate 16 05/24/22 01:53 Blood Pressure 201/106 H 05/24/22 01:53 Blood Pressure Mean 137 05/24/22 01:53 Blood Pressure Position Sitting 05/24/22 01:53 Pulse Oximetry 96 05/24/22 01:53 Oxygen Delivery Method 05/24/22 01:53 Vital Signs Pulse Rate 81 05/24/22 01:53 Respiratory Rate 16 05/24/22 01:53 Blood Pressure 201/106 H 05/24/22 01:53 Pulse Oximetry 96 05/24/22 01:53 Oxygen Delivery Method 05/24/22 01:53 Pulse Rate 68 05/24/22 03:10 Respiratory Rate 16 05/24/22 03:10 Blood Pressure 166/94 H 05/24/22 03:10 Pulse Oximetry 96 05/24/22 01:53 Oxygen Delivery Method 05/24/22 01:53 MDM - Female Genitourinary MDM Narrative Medical decision making narrative: Assisted with catheter management. Degree of bleeding appears to be expected at this time. No secondary signs of excessive blood loss. Blood pressure improved on recheck. Medical Records Attestation: I reviewed the patient's medical records. Discharge Plan Discharge Clinical Impression: Smith catheter problem Patient Disposition: Home w/ Parent or Adult Condition: Improved Additional Instructions: Have your feeling better. Flush/irrigate and strip tubing as demonstrated. Follow-up as needed. Report any fever. Prescriptions: No Action omeprazole 20 mg capsule,delayed release(DR/EC) 20 mg PO DAILY meloxicam 15 mg tablet 15 mg PO DAILY multivitamin [Multiple Vitamins] Tablet 1 tab PO QDAY ferrous sulfate 325 mg (65 mg iron) tablet 325 mg PO .Everyother Day Rx Instructions: Only takes when donating blood. glucosamine HCl 500 mg tablet 500 mg PO QDAY Rx Instructions: administer with a meal B-complex with vitamin C Capsule 1 cap PO QDAY famotidine 20 mg tablet 20 mg PO .Bedtime Qty: 30 0RF Follow Up/Referrals: Dawit Reynolds MD [Primary Care Provider] - Stand Alone Forms: [employer] Info Instructions
--- OUTSIDE RECORDS SUMMARY | 2022-05-24 02:37 | XMS_ITS | Encounter Summary ---
:1935 Author Organization [place] Address [facility] [place] [address] Care Team Providers Name Role Phone Mario Reynolds MD Primary Care Provider Reason for Visit Auth/Cert - Closed Specialty Diagnoses / Procedures Referred By Contact Refer red To Contact Surgery Diagnoses NASAL LACRIMAL OBSTRUCTION Sh Periop Services Procedures DACRYOCYSTORHINOSTOMY DACRYOCYSTORHINOSTOMY [address] [place] [address] Phone: Referral ID Status Reason Start Date Expiration Date Visits Requ ested Visits Authorized [id number] Closed 1 1 Encounter Details Date Type Department Care Team Description 06/10/2013 Surgery [facility] Sierra Ang RIGHT DACR OCYSTORHINOSTOMY [place] PeriOP MD [place] WITH MITOMYCIN Services [place] OPHTHALMIC PLAST [address] [place] [address] [address] [place] [phone] (Wo rk) Surgery Details Date/Time Status [...] Comments Blood Pressure 142/76 06/10/2013 12:44 PM NECKTIE MAKER Pulse - - Temperature 35.9 ??C (96.6 ??F) 06/10/2013 12:44 PM NECKTIE MAKER Respiratory Rate 16 06/10/2013 12:44 PM NECKTIE MAKER Oxygen Saturation 96% 06/10/2013 12:44 PM NECKTIE MAKER Inhaled Oxygen Concentration - - Weight 66.4 kg (146 lb 6.4 oz) 06/10/2013 12:44 PM NECKTIE MAKER Height 154.9 cm (5' 1) 06/10/2013 12:44 PM NECKTIE MAKER Body Mass Index 27.66 06/10/2013 12:44 PM NECKTIE MAKER documented in this encounter Discharge Instructions Discharge [...] you develop a fever, contact your surgeon. TIE MAKER documented in this encounter Medications at Time [...] Aidan Haynes - 06/08/2013 8:09 AM CST TIE MAKER documented in this encounter Nursing Notes Pam Ward RN - 06/10/2013 4:[address] Ang called regarding eye drops that came from surgery with her. Suellen from Dr. Ang's office called back. She is to put in a drop in her right eye 4 times per day for 1 week. TIE MAKER Pam Ward RN - 06/10/2013 4:[address] Lindsey informed of elevated BP. No tx ordered. TIE MAKER documented in this encounter Miscellaneous Notes Op [...] expose the underlying bone and then a [place] elevator was used to lift the periosteum [...] sac. Lacrimal sac was opened with a Cranberry blade and then the medial wall was [...] MD MT: #[id number] Name: JOHANA BARTON Account: [id number] : 1935 Procedure Date: 06/10/2013 Document: [id number] TIE MAKER Brief Op Note - Sierra Ang MD - 06/10/2013 3:35 PM CST [facility] Brief Operative Note Pre-operative diagnosis: NASAL LACRIMAL OBSTRUCTION Post-operative diagnosis * No post-op diagnosis entered * Procedure: Procedure(s) with comments: DACRYOCYSTORHINOSTOMY - RIGHT DACROCYSTORHINOSTOMY WITH MITOMYCIN Surgeon(s): Surgeon(s) and Role: * Sierra Ang MD - Primary Estimated blood loss: * No values recorded between 06/10/2013 2:57 PM and 06/10/2013 3:33 PM * Specimens: * No specimens in log * Findings: TIE MAKER documented in this encounter Plan of Treatment Not on filedocumented as of this encounter Procedures Procedure Name Priority Date/Time Associated Diagnosis Comme nts DACRYOCYSTORHINOSTOMY 06/10/2013 2:36 PM NECKTIE MAKER NASAL LAC RIMAL OBSTRUCTION documented in this encounter Visit Diagnoses Not on filedocumented in this encounter Administered Medications Inactive Administered Medications - up to 3 most recent administrations Medication Order MAR Action Action Date Dose Rate Site cocaine 4 % external Given 06/10/2013 3:08 PM 4 mLs Operative solution NECKTIE MAKER Site/Surgical S ite PRN, other, Starting on Sat06/10/13 at 1508, Apply to , Intra-procedure lidocaine 2%-EPINEPHrine Given 06/10/2013 3:08 PM 2 mLs Operative Site/Surgical 1:200,000 injection NECKTIE MAKER Site PRN, Starting on Sat06/10/13 at 1508, Intra-procedure mitoMYcin 2 mg/mL topical Given 06/10/2013 3:07 PM 1 mL Operative Site/Surgical solution NECKTIE MAKER Site PRN, Starting on Sat06/10/13 at 1507, Intra-procedure cgqkgcjk-jarmtlhka-zforweumsntrh (MAXITROL) Given 06/10/2013 3:08 PM NECKTIE MAKER 1 drop ophthalmic suspension PRN, Starting on Sat06/10/13 at 1508, Intra-procedure documented in this encounter Active and Recently Administered Medications Times are shown in NECKTIE MAKER. PRN Medication Order 06/08/2013 06/09/2013 06/10/2013 cocaine [...] BSS) PRN, Starting Sat06/10/13 at 1507, Intra-procedure liykkntw-dsbfqiwwu-pflsjwzemhepf (MAXITROL) ophthalmic suspensio n (CANCELED) 1508 (Given - Provider: Sierra Ang MD) PRN, Starting Sat06/10/13 at 1508, Intra-procedure documented in this encounter Care Teams Side Seam Envelope Machine Operator Relationship Specialty Start Date End Date Mario Reynolds MD PCP - General Family Practice 10/14/12 [facility] [address] [place] [address] documented as of this encounter
--- OUTSIDE RECORDS SUMMARY | 2022-05-24 02:37 | XMS_ITS | Encounter Summary ---
:1935 Author Organization [place] Address [address] [place] [address]. [place] [address] Care Team Providers Name Role Phone Mario Reynolds MD Primary Care Provider Reason for Visit Rehab Therapy Integrated Services (Routine) - Closed Specialty Diagnoses / Procedures Referred By Contact Refer red To Contact Procedures [facility] [address] [facility] [place] [address] Phone: Fax: Referral ID Status Reason Start Date Expiration Date Visits V isits Requested Authorized [facility] - Closed 07/26/2017 07/07/2018 365 365 PT/OT/TIME BROKER ([id number]) Encounter Details Date Type Department Care Team Description 08/06/2017 Hospital Encounter [facility] Brennen Hernandez MD [facility] [address] [facility] [address] [place] [address] Rehabilitation Sharri Camacho, TIME BROKER [address] [place], [place] [address] [address] [place] [address] [address] [place] [phone] Social History Tobacco Use Types Packs/Day Years Used Date Smoking Tobacco: Never Alcohol Use Standard Drinks/Week Comments No 0 (1 standard drink = 0.6 oz pure alcoho l) Sex Assigned at Date Recorded Not on file documented as of this encounter Discharge Instructions Discharge InstructionsSharri Delvalle, TIME BROKER - 08/06/2017 3:12 PM CST Voice Therapy [...] you yawn) - Do circles and then horizontal/ezye-us-uvjt movements - Hold larynx in the downward [...] throat, staying in your optimal pitch range S FLOOR MANAGER documented in this encounter Medications at Time [...] on filedocumented in this encounter Care Teams Form Tamper Relationship Specialty Start Date End Date Rodolfo, Mario C, MD PCP - General Family Practice 10/14/12 [facility] [address] [place] [address] documented as of this encounter
--- OUTSIDE RECORDS SUMMARY | 2022-05-24 02:37 | XMS_ITS | Encounter Summary ---
:1935 Author Care Team Providers Name Role Phone Dawit Reynolds MD Primary Care Provider [phone] Reason for Visit None recorded. Assessment and [...] available. Plan of Care Reminders Provider Appointments None recorded. ? ? Lab None recorded. ? ? Referral None recorded. ? ? Procedures None recorded. ? ? Surgeries Transurethral Resection of Bladder Tumor 04/19 ? (SURG) Imaging None recorded. ? ? Medications [...] Name Performed by ? 03/30/2022 CT, [facility] [address] [place], [place] [address] (Work Place) Vaccine List None recorded. Social History Tobacco Smoking Status Never Smoker What is your level of alcohol consumption? None Has tobacco cessation counseling been provided? N Preferred Language Thai What was the date of your most recent tobacco screening? Ethnicity Not / What is your level of caffeine consumption? None Do you or have you ever used any other forms of tobacco or N nicotine? Do you use any illicit or recreational drugs? N Race white Functional Status Unknown. Past Encounters 04/19/2022 Malignant Tumor of Urinary Bladder Justino Edwards MD: [address], [address], [place] [address], Ph. 03/30/2022 Mass of Urinary Bladder; Bill Hematuria ; Hydronephrosis Justino Edwards MD: [address], [place] [address], Ph. History of Present Illness Note: <div>86F [...]
--- OUTSIDE RECORDS SUMMARY | 2022-05-24 02:37 | XMS_ITS | Encounter Summary ---
:1935 Author Organization [place] Address [facility] 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, RIGHT UPPER LID LESION, RIGHT NASO Sh Periop Services Procedures REPAIR PTOSIS BILATERAL EXCISE LESION EYELID DACRYOCYSTORHINOSTOMY [address] [place] [address] Phone: Referral ID Status Reason Start Date Expiration Date Visits Requ ested Visits Authorized [id number] Closed 1 1 Encounter Details Date Type Department Care Team Description 10/24/2012 Anesthesia Event [facility] Smith Arroyo MD [facility] ANESTHESIOLOGIS [address] [place] [address] [facility] PeriOP Pedro Hickman MD [facility] ANESTHESIOLOGY [address] [place] [id number] Services [address] [place] [...] benefits and alternatives discussed with: patient or office services representative. History & Physical Review History and [...] mg documented in this encounter Care Teams Agile Scrum Coach Relationship Specialty Start Date End Date Mario Reynolds MD PCP - General Family Practice 10/14/[address] [facility] [facility] [address] [place] [address] documented as of this encounter
--- OUTSIDE RECORDS SUMMARY | 2022-05-24 02:37 | XMS_ITS | Encounter Summary ---
:1935 Author Organization [place] Address [address] [place] [address]. [place] [address] Care Team Providers Name Role Phone Mario Reynolds MD Primary Care Provider Reason for Visit Rehab Therapy Integrated Services (Routine) - Closed Specialty Diagnoses / Procedures Referred By Contact Refer red To Contact Procedures [facility] [address] [facility] [place] [address] Phone: Fax: Referral ID Status Reason Start Date Expiration Date Visits V isits Requested Authorized [facility] - Closed 07/26/2017 07/07/2018 365 365 PT/OT/MINI BAR ATTENDANT ([id number]) Encounter Details Date Type Department Care Team Description 07/31/2017 Hospital Encounter [facility] Brennen Hernandez MD [facility] [address] [facility] [address] [place] [address] Rehabilitation Sharri Camacho, MINI BAR ATTENDANT [address] [place], [place] [address] [address] [place] [address] [address] [place] [phone] Social History Tobacco [...] of this encounter Progress Notes Sharri Delvalle, MINI BAR ATTENDANT - 07/31/2017 1:52 PM CST Images from the original note were not included. [facility] OUTPATIENT SPEECH LANGUAGE PATHOLOGY VOICE EVALUATION PLAN OF TREATMENT FOR OUTPATIENT REHABILITATION (COMPLETE FOR INITIAL CLAIMS ONLY) Patient's Last Name, First Name, M.I. Date of : 1935 Johana Barton Provider???s Name: [facility] Onset Date: 07/16/2017 (order date) Start of [...] out of 10, 90% ofthe time by MINI BAR ATTENDANT judgment, so that patient is able to [...] Assessment See Epic Evaluation Start of Care RECORD CLERK Sharri Delvalle SLP - 07/31/2017 1:47 PM CST [facility] MINI BAR ATTENDANT Voice Evaluation 07/31/17 0845 General Information Type Of Visit Initial Start Of Care Date 07/31/17 Referring Physician Brennen Ponce MD (ENT) Orders Evaluate And Treat Medical Diagnosis Functional dysphonia Onset Of Illness/injury Or Date Of Surgery 07/16/17 (Order date) Precautions/Limitations no known precautions/limitations Hearing WFL for 1:1 conversation in session Avocational voice uses Pt sings in a 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 She has been unable to participate since [...] resolve. Patient Role/employment History Retired Living environment [facility] (With support from family) General Observations [...] with plan of care Yes Patient Education MINI BAR ATTENDANT provided written and verbal education regarding muscle [...] of 10, 90% of the time by MINI BAR ATTENDANT judgment, so that patient is able to [...] Sharri Arroyo B.A. (simi)Binu, [facility]-MINI BAR ATTENDANT Speech-Language Pathologist Certificate of Vocology [facility] Services [phone] RECORD CLERK documented in this encounter Plan of Treatment Not on filedocumented as of this encounter Visit Diagnoses Not on filedocumented in this encounter Care Teams Helminthologist Relationship Specialty Start Date End Date Mario Reynolds MD PCP - General Family Practice 10/14/12 [facility] [address] [place] [address] documented as of this encounter
--- OUTSIDE RECORDS SUMMARY | 2022-05-24 02:37 | XMS_ITS | Clinical Summary ---
:1935 Author Organization [facility] [place] [address] Care Team Providers Name Role Phone Dawit Reynolds MD Primary Care Provider Allergies No known active allergies Medications Medication Sig Dispensed Refills Start Date End Date Status B-complex with Take 1 Capsule by 0 Active vitamin C (VITAMIN mouth once daily. B COMPLEX WITH C ORAL) famotidine (PEPCID) Take 20 mg by mouth 0 Active 20 mg tablet at bedtime. ferrous sulfate 325 Take 325 mg by 0 Active mg delayed release mouth once every tablet other day. Glucosamine HCl 500 Take by mouth. 0 Active mg tablet meloxicam 15 mg Take 15 mg by mouth 0 Active tablet once daily. multivitamin (MVI) Take 1 Tablet by 0 Active tablet mouth once daily. omeprazole Take 20 mg by mouth 0 Active (PRILOSEC) 20 mg once daily before a Delayed-Release meal. capsule trimethoprim-sulfam Take 1 Tablet by 0 Active ethoxazole, 160-800 mouth two times mg, (BACTRIM DS, daily. SEPTRA DS) tab HYDROcodone-acetami Take 1 Tablet by 12 Tablet 0 05/23/2022 Active nophen (NORCO) mouth every 6 hours 5-325 mg per if needed for Pain. tabletIndications: Max acetaminophen Malignant neoplasm dose: 4000 mg in 24 of urinary bladder, hrs. unspecified site (HC) cephalexin (KEFLEX) Take 1 Capsule (500 21 Capsule 0 2 05/30/2022 Active 500 mg mg) by mouth three capsuleIndications: times daily for 7 Malignant neoplasm days. of urinary bladder, unspecified site (HC) Active Problems No known active problems Encounters Date Type Specialty Care Team Description 05/23/2022 Anesthesia Event Gunnar Santacruz MD Etten, Jocelyn, CRNA Student 05/23/2022 Surgery Justino Edwards CYSTOSCO PY AND MD [place] TRANSURETHRAL R ESECTION BLADDER TUMOR 05/23/2022 Hospital Encounter Justino Edwards Ma lignant neoplasm of MD [place] urinary bladder , unspecified sit e (HC) (Primary Dx) 05/23/2022 Travel 04/10/2022 Surgery Justino Edwards CYSTOSCO PY, TRANSURETHRAL MD [place] RESECTION OF BL ADDER TUMOR,BILATERAL URETERAL STENT PLACEMENT . 04/10/2022 Anesthesia Event Justino Tovar MD Beulke, Steven William, CRNA 04/10/2022 Hospital Encounter Justino Edwards MD 04/10/2022 Travel 04/09/2022 Travel from Last 3 Months Immunizations Name Administration Dates Next Due COVID-19 vaccine (Quibb 06/26/2021, 09/06/2020, 30mcg/0.3mL) PFMDV Social History Tobacco Use Types Packs/Day Years Used Date Never Smoker Smokeless Tobacco: Never Used Alcohol Use Standard Drinks/Week Comments Yes 0 (1 standard drink = 0.6 oz pure alcoho l) rare Alcohol Habits Answer Date Recorded How often do you have a drink containing alcohol? Not asked How many drinks containing alcohol do you have on a typical Not asked day when you are drinking? How often do you have six or more drinks on one occasion? No t asked Comment: rare 05/22/2022 Sex Assigned at Date Recorded Not on file Travel History Travel Start Travel End [place] 05/11/2022 05/18/2022 COVID-19 Exposure Response Date Recorded In the last 10 days, have you been in contact with No / Unsu re 05/23/2022 7:04 AM ADVERTISING OPERATIONS MANAGER someone who was confirmed or suspected to have Coronavirus/COVID-19? Obstetrics History Last Filed Vital Signs Vital Sign Reading Time Taken Comments Blood Pressure 158/97 05/23/2022 12:33 PM ADVERTISING OPERATIONS MANAGER Pulse 75 05/23/2022 12:33 PM ADVERTISING OPERATIONS MANAGER Temperature 36.1 ??C (97 ??F) 05/23/2022 12:33 PM ADVERTISING OPERATIONS MANAGER Respiratory Rate 16 05/23/2022 12:33 PM ADVERTISING OPERATIONS MANAGER Oxygen Saturation 99% 05/23/2022 12:33 PM ADVERTISING OPERATIONS MANAGER Inhaled Oxygen Concentration - - Weight 61.8 kg (136 lb 4.8 oz) 05/23/2022 8:30 AM ADVERTISING OPERATIONS MANAGER Height 152.4 cm (5') 05/23/2022 8:30 AM ADVERTISING OPERATIONS MANAGER Body Mass Index 26.62 05/23/2022 8:30 AM ADVERTISING OPERATIONS MANAGER Plan of Treatment Health Maintenance Due Date Last Done Comments Tdap 1948 Depression screening for age 12+ 1949 BMI (ht and wt on same day) for age 0410/17/1955 18+ Tetanus booster 1957 Zoster (shingles) series for age 50+ 10/17/1987 (1 of 2) DEXA/DXA scan for age 65+ 2002 Pneumococcal series for age 65+ (1 - 2002 PCV) COVID-19 vaccine series (4 - Booster 08/21/2021 06/26/2021, 09/06/2020, for Pfizer series) 08/16/2020 Influenza for age 65+ 03/08/2022 Medical Devices Implanted Type Area Legal Billing Coordinator Device Shelf Model / Identifier Expiration Serial / Lot Date Stent Uret [id number] Contour - [id number] Left: BSC Urolo gy 01/25/2025 [id number] / Implanted: Qty: 1 on 04/10/2022 by Justino Modi MD at [facility] Ureter / [id number] Procedures Procedure Name Priority Date/Time Associated Comments Diagnosis ENDOTRACHEAL TUBE Routine 05/23/2022 9:26 Results for this AM ADVERTISING OPERATIONS MANAGER procedure are i n the results section. ENDOTRACHEAL TUBE Routine 05/23/2022 9:26 Results for this AM ADVERTISING OPERATIONS MANAGER procedure are i n the results section. ENDOTRACHEAL TUBE Routine 05/23/2022 9:26 Results for this AM ADVERTISING OPERATIONS MANAGER procedure are i n the results section. TYPE & SCREEN Today 05/23/2022 8:54 Results for this AM ADVERTISING OPERATIONS MANAGER procedure are i n the results section. SCAN CORRESP-EKG 05/22/2022 10:47 Results for this RESULTS AM ADVERTISING OPERATIONS MANAGER procedure are i n the results section. SCAN 05/22/2022 12:00 Results for this CORRESP-LABORATORY AM ADVERTISING OPERATIONS MANAGER procedure are in RESULTS the results section. SCAN CORRESP-EKG 05/21/2022 5:23 Results for this RESULTS AM ADVERTISING OPERATIONS MANAGER procedure are i n the results section. [...] results section. from Last 3 Months Results HCHG TUBE PR1, HCHG INSTRUMENT DISP PR10, HCHG STYLET PR1 (05/23/2022 9:26 AM ADVERTISING OPERATIONS MANAGER) Narrative Cheyenne Raymond CRNA - 05/23/2022 9:26 AM ADVERTISING OPERATIONS MANAGER Cheyenne Raymond CRNA ? 05/23/2022 ??9:26 AM Procedure: ETT Patient location during procedure: OR ETT Properties Mask Ventilation: easy Final Technique: video laryngoscopy Type: straight Location: oral Cuffed: yes Tube Size: 7.0 mm Stylet: yes Laryngoscope Blade: Glidescope Blade Size: 3 Cormack-Lehane Grade View: 1 Insertion Attempts: 1 Placement Verification: auscultation, en d tidal CO2, symmetrical chest wall movement, fiber optic visualization and cuff palpation Assessment: dentition unchanged, atrauma tic and pharynx clear Secured at: 22 Measured From: teeth Difficulty: 0 (not difficult) Electronically signed by Torie Raymond CRNA ? Gunnar Santacruz MD ANESTHESIA PX NOTE ORDERABLE S TYPE & SCREEN (05/23/2022 8:54 AM ADVERTISING OPERATIONS MANAGER) [facility] gist Method Time Signature ABORH A Rh 05/23/2022 [facility] Positive 9:42 AM ADVERTISING OPERATIONS MANAGER LAB-CENTRAL LAB BLOOD BANK ANTIBODY Negative Negative 05/23/2022 [employer] [employer] Sales SCREEN 9:42 AM ADVERTISING OPERATIONS MANAGER LAB-CENTRAL LAB BLOOD BANK SPECIMEN 05/26/22 05/23/2022 [employer] EXPIRATION 23:59 9:42 AM ADVERTISING OPERATIONS MANAGER LAB-CENTRAL DATE/TIME LAB BLOOD BANK Specimen Anatomical Collection Method / Collection Time Recei mark Time (Source) Location / Volume Laterality Blood BLOOD SPECIMEN / Venipuncture / 05/23/2022 8:54 2021 9:01 Unknown Unknown AM ADVERTISING OPERATIONS MANAGER AM ADVERTISING OPERATIONS MANAGER Giovanni [facility] BLOOD BANK Performing Organization Address City/State/ZIP Code Phon e Number [facility] LAB-CENTRAL LAB [address] [place] [address] [phone] BLOOD BANK SCAN CORRESP-EKG RESULTS (05/22/2022 10:47 AM ADVERTISING OPERATIONS MANAGER)Only the most recent of2 resultswithin the time period is included. Narrative 05/22/2022 10:47 AM ADVERTISING OPERATIONS MANAGER This result has an attachment that is no t available. Ordered by an unspecified provider. Other Clinical Staff OTHER SCAN CORRESP-LABORATORY RESULTS (05/22/2022 12:00 AM ADVERTISING OPERATIONS MANAGER)Only the most recent of 6 resultswithin the time period is included. Narrative 05/22/2022 12:00 AM ADVERTISING OPERATIONS MANAGER This result has an attachment that is no t available. Ordered by an unspecified provider. Other Clinical Staff OTHER EKG 12 LEAD (04/10/2022 2:03 PM CDT) Component Value Ref Range Test Analysis Performed Pathologis t Method Time At Signature Interpretation Sinus rhythm with frequent P remature [...] NOW QTc 482 ms BEYOND NOW P [place] 70 degrees BEYOND NOW R [place] -24 degrees BEYOND NOW T [place] 35 degrees BEYOND NOW Specimen Anatomical Collection Method Collection Time Receive d Time (Source) Location / / Volume Laterality 04/10/2022 2:03 PM 2 5:16 CDT PM CDT Justino Tovar MD EKG ORD Performing Organization Address City/State/ZIP Code Phon e Number BEYOND NOW [place], [place] PATH TISSUE EXAM (04/10/2022 12:08 PM CDT) Component Value Ref Test Analysis Performed At [facility] gist Range Method Time Signature Case Report Pathology Report ?Case: [id number] ? 04/12/2022 JOVANA Authorizing Provider: ??Over Justino rodriguez ?Collected: ? 04/10/2022 1208 ? 12:55 PM HEAL TH ? MD [place] ? CDT LABORATORY-C Ordering Location: ? [facility] [place] [facility] ?Received: ?04/10/2022 1234 ? EN [...] for ?? c. Angio-lymphatic invasion: Absent LABORATORY Abdiaziz Bah 2. Associated carcinoma in situ: Absent MD Issa on 3. 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 Focal invasion into the lamina propria is noted. 04/12/2022 [facility] 12:55 PM HEALTH Case seen in consultation with Dr. Grajeda. CDT LABORATORY-C ENTRAL LABORATORY Clinical Bladder tumor [...] specimens. Additional 04/12/2022 [facility] Information Interpreted at [facility], Central Laboratory - [address], [place] [address] 12:55 PM HEALTH CDT LABORATORY-C ENTRAL LABORATORY Specimen Anatomical Collection Method Collection Time Receive d Time (Source) Location / / Volume Laterality Tissue SPECIMEN FROM 04/10/2022 12:08 04/10/2022 URINARY BLADDER / PM CDT 12:34 PM C DT Unknown Justino Edwards MD PATHOLOGY/CYTOLOGY Performing Organization Address City/State/ZIP Code Phon e Number [facility] [address] [place] [address] LABORATORY-CENTRAL 2000 LABORATORY XR RETROGRADE PYELOGRAM W/WO [...] Group MEDICARE PART A MEDICARE PART A [id number] 2002-Present ATTN: CLAIMS - HB USE ONLY HB ONLY [address] [place] [address] [employer] GOLD [employer] CHOICE [id number] 2020-Present [address] [address] [place] [address] Advance Directives Latest Code Status on File Code Status Date Activated Date Inactivated Comments Full Code 05/23/2022 8:25 AM 05/23/2022 4:11 PM Code Status Discussion: Unable to Assess Preferences, Provid er to review later Full Code 04/10/2022 9:03 AM 04/10/2022 6:41 PM Code Status Discussion: Unable to Assess Preferences, Provid er to review later Care Teams Chairman & Ceo Relationship Specialty Start Date End Date Dawit Reynolds MD PCP - General Family Practice 04/10/[address] [place] [address]
--- OUTSIDE RECORDS SUMMARY | 2022-05-24 02:37 | XMS_ITS | Encounter Summary ---
:1935 Author Organization [place] Address [address] [place] [address]. [place] [address] Care Team Providers Name Role Phone Mario Reynolds MD Primary Care Provider Reason for Visit Rehab Therapy Integrated Services (Routine) - Closed Specialty Diagnoses / Procedures Referred By Contact Refer red To Contact Procedures [facility] [address] [facility] [place] [address] Phone: Fax: Referral ID Status Reason Start Date Expiration Date Visits V isits Requested Authorized [facility] - Closed 07/26/2017 07/07/2018 365 365 PT/OT/CRIMPER OPERATOR ([id number]) Encounter Details Date Type Department Care Team Description 08/13/2017 Hospital Encounter [facility] Brennen Hernandez MD [facility] [address] [facility] [address] [place] [address] Rehabilitation Sharri Camacho, CRIMPER OPERATOR [address] [place], [place] [address] [address] [place] [address] [address] [place] [phone] Social History Tobacco Use Types [...] on filedocumented in this encounter Care Teams Marketing Writer Relationship Specialty Start Date End Date Mario Reynolds MD PCP - General Family Practice 10/14/12 [facility] [address] [place] [address] documented as of this encounter
--- OUTSIDE RECORDS SUMMARY | 2022-05-24 02:37 | XMS_ITS | Encounter Summary ---
:1935 Author Organization [place] Address [address] [place] [address]. [place] [address] Care Team Providers Name Role Phone Mario Reynolds MD Primary Care Provider Reason for Visit Rehab Therapy Integrated Services (Routine) - Closed Specialty Diagnoses / Procedures Referred By Contact Refer red To Contact Procedures [facility] [address] [facility] [place] [address] Phone: Fax: Referral ID Status Reason Start Date Expiration Date Visits V isits Requested Authorized [facility]SH - Closed 07/26/2017 07/07/2018 365 365 PT/OT/RAIL WALKER ([id number]) Encounter Details Date Type Department Care Team Description 08/15/2017 Hospital Encounter [facility] Brennen Hernandez MD G[facility]ARD [facility] E[facility] [address] [facility] [address] [place] [address] Rehabilitation Sharri Camacho, RAIL WALKER [address] [place], [place] [address] [address] [place] [address] [address] [place] [phone] Social History Tobacco [...] on filedocumented in this encounter Care Teams Powerhouse Helper Relationship Specialty Start Date End Date Mario Reynolds MD PCP - General Family Practice 10/14/12 [facility] [address] [place] [address] documented as of this encounter
--- OUTSIDE RECORDS SUMMARY | 2022-05-24 02:37 | XMS_ITS | Encounter Summary ---
:1935 Author Organization [place] Address [address] [facility] [place] [address] Care Team Providers Name Role Phone Mario Reynolds MD Primary Care Provider Reason for Visit Auth/Cert - Closed Specialty Diagnoses / Procedures Referred By Contact Refer red To Contact Surgery Diagnoses NASAL LACRIMAL OBSTRUCTION Sh Periop Services Procedures DACRYOCYSTORHINOSTOMY DACRYOCYSTORHINOSTOMY [address] [place] [address] Phone: Referral ID Status Reason Start Date Expiration Date Visits Requ ested Visits Authorized [id number] Closed 1 1 Encounter Details Date Type Department Care Team Description 06/10/2013 Hospital Encounter [facility] Sierra Ang [place] Phase II [address] [place] OPHTHALMIC [place]LAST [place] [phone] SURG [phone] [address] [place] [address] [...] Comments Blood Pressure 168/97 06/10/2013 4:08 PM BRANCH SERVICE LEADER Pulse - - Temperature 35.9 ??C (96.6 ??F) 06/10/2013 12:44 PM BRANCH SERVICE LEADER Respiratory Rate 16 06/10/2013 4:08 PM BRANCH SERVICE LEADER Oxygen Saturation 99% 06/10/2013 4:08 PM BRANCH SERVICE LEADER Inhaled Oxygen Concentration - - Weight 66.4 kg (146 lb 6.4 oz) 06/10/2013 12:44 PM BRANCH SERVICE LEADER Height 154.9 cm (5' 1) 06/10/2013 12:44 PM BRANCH SERVICE LEADER Body Mass Index 27.66 06/10/2013 12:44 PM BRANCH SERVICE LEADER documented in this encounter Discharge Instructions Discharge [...] you develop a fever, contact your surgeon. CH SERVICE LEADER documented in this encounter Medications at Time [...] [place] Provider - 06/08/2013 8:09 AM CST CH SERVICE LEADER documented in this encounter Nursing Notes Pam Ward RN - 06/10/2013 4:[address] Ang called regarding eye drops that came from surgery with her. Suellen from Dr. Ang's office called back. She is to put in a drop in her right eye 4 times per day for 1 week. CH SERVICE LEADER Pam Ward RN - 06/10/2013 4:[address] Lindsey informed of elevated BP. No tx ordered. CH SERVICE LEADER documented in this encounter Miscellaneous Notes Op [...] expose the underlying bone and then a Blanchard elevator was used to lift the periosteum [...] sac. Lacrimal sac was opened with a Native blade and then the medial wall was removed with Mitali scissors. A Higuera probe and tubing was then passed through the canalicular system into the nose and out through the nares. A second Higuera probe was passed through the inferior canaliculus in a similarfashion. A 1/4 inch [place] drain was drawn up into the lacrimal [...] JIM#[id number] Name: JOHANA BARTON MRN: [id number] Account: [id number] : 1935 Procedure Date: 06/10/2013 Document: [id number] CH SERVICE LEADER Brief Op Note - Sierra Ang MD - 06/10/2013 3:35 PM CST [facility] Brief Operative Note Pre-operative diagnosis: NASAL LACRIMAL OBSTRUCTION Post-operative diagnosis * No post-op diagnosis entered * Procedure: Procedure(s) with comments: DACRYOCYSTORHINOSTOMY - RIGHT DACROCYSTORHINOSTOMY WITH MITOMYCIN Surgeon(s): Surgeon(s) and Role: * Sierra Ang MD - Primary Estimated blood loss: * No values recorded between 06/10/2013 2:57 PM and 06/10/2013 3:33 PM * Specimens: * No specimens in log * Findings: CH SERVICE LEADER documented in this encounter Plan of Treatment Not on filedocumented as of this encounter Procedures Procedure Name Priority Date/Time Associated Diagnosis Comme nts DACRYOCYSTORHINOSTOMY 06/10/2013 2:36 PM BRANCH SERVICE LEADER NASAL LAC RIMAL OBSTRUCTION documented in this encounter Visit Diagnoses Not on filedocumented in this encounter Active and Recently Administered Medications Times are shown in BRANCH SERVICE LEADER. PRN Medication Order 06/08/2013 06/09/2013 06/10/2013 cocaine [...] BSS) PRN, Starting Sat06/10/13 at 1507, Intra-procedure gdggrljk-opvaueqzq-kuaicsuzmmhzv (MAXITROL) ophthalmic suspensio n (CANCELED) 1508 (Given - Provider: Sierra Ang MD) PRN, Starting Sat06/10/13 at 1508, Intra-procedure documented in this encounter Care Teams Marketing Finance Specialist Relationship Specialty Start Date End Date Mario Reynolds MD PCP - General Family Practice 10/14/12 [facility] [address] [place] [address] documented as of this encounter
--- OUTSIDE RECORDS SUMMARY | 2022-05-24 02:37 | XMS_ITS | Encounter Summary ---
:1935 Author Organization [place] Address [facility] 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, RIGHT UPPER LID LESION, RIGHT NASO Sh Periop Services Procedures REPAIR PTOSIS BILATERAL EXCISE LESION EYELID DACRYOCYSTORHINOSTOMY [address] [place] [address] Phone: Referral ID Status Reason Start Date Expiration Date Visits Requ ested Visits Authorized [id number] Closed 1 1 Encounter Details Date Type Department Care Team Description 10/24/2012 Hospital Encounter [facility] Sierra [place] Post -op pain Bin Kapoor MD (Primary Dx) Preop/Phase II [place] [facility] [address] PLAST SURG [place], [place] [address] [phone] [address] [place] [address] Social History Tobacco Use Types [...] Ambriz, RN - 10/24/2012 4:01 PM CDT [facility] Discharge [...] questions of medical nature, call your physician. [facility] Dacryocystorhinostomy Discharge Instructions [facility] SIERRA ANGELES M.D. [facility] [address] [place], [place] [address] Things to avoid: You should avoid blowing [...] not answered above. The phone number is [phone]. [facility] Eyelid/Orbital Surgery Discharge Instructions Sierra Angeles M.D. [...] that will not stop with gentle pressure. [facility] [address] [place], [place] [address] documented in this encounter Medications at Time [...] expose the underlying bone and then a Onyx elevator was used to lift the periosteum away from the lacrimal fossa. Abowman probe was then passed through the canaliculus and used to tent up the lacrimal sac. Lacrimal sac was opened with a [place] blade and then the medial wall was [...] expose the underlying bone and then a Onyx elevator was used to lift the periosteum away from the lacrimal fossa. Abowman probe was then passed through the canaliculus and used to tent up the lacrimal sac. Lacrimal sac was opened with a [place] blade and then the medial wall was [...] Volume Adjustment - Provider: Pham Kelly APRN SALES AMBASSADOR)1430 (New Bag - Provider: Pham Kelly APRN SALES AMBASSADOR) at 75-100 mL/hr, Intravenous, CONTINUOUS , UNLESS [...] MD) PRN, Starting Sat10/24/12 at 1433, Intra-procedure hjfrlovj-emncvimjf-epuphlwvrtpuz (MAXITROL) ophthalmic suspensio n (CANCELED) 1435 (Given - Provider: Sierra Angeles MD) PRN, Starting Sat10/24/12 at 1435, Intra-procedure tetracaine (PONTOCAINE) 0.5 % ophthalmic solution (CANCELED) 1323 (Given - Provider: Beata Diehl, MATEO) PRN, Starting Sat10/24/12 at 1323, Intra-procedure documented in this encounter Care Teams Quality Control Lead Relationship Specialty Start Date End Date Mario Reynolds MD PCP - General Family Practice 10/14/12 [facility] [address] [place] [address] documented as of this encounter
--- OUTSIDE RECORDS SUMMARY | 2022-05-24 02:37 | XMS_ITS | Encounter Summary ---
:1935 Author Organization [place] Address [address] [place] [address]. [place] [address] Care Team Providers Name Role Phone Mario Reynolds MD Primary Care Provider Reason for Visit Rehab Therapy Integrated Services (Routine) - Closed Specialty Diagnoses / Procedures Referred By Contact Refer red To Contact Procedures [facility] [address] [facility] [place] [address] Phone: Fax: Referral ID Status Reason Start Date Expiration Date Visits V isits Requested Authorized FSH - Closed 07/26/2017 07/07/2018 365 365 PT/OT/ENGINEERING TECHNOLOGY INSTRUCTOR ([id number]) Encounter Details Date Type Department Care Team Description 08/20/2017 Hospital Encounter [facility] Brennen Hernandez MD [facility] [address] [facility] [address] [place] [address] Rehabilitation Sharri Camacho, ENGINEERING TECHNOLOGY INSTRUCTOR [address] [place], [place] [address] [address] [place] [address] [address] [place] [phone] Social History Tobacco [...] of this encounter Progress Notes Sharri Delvalle, ENGINEERING TECHNOLOGY INSTRUCTOR - 08/20/2017 11:59 PM CST Outpatient Speech [...] of 10, 90% of the time by ENGINEERING TECHNOLOGY INSTRUCTOR judgment, so that patient is able to [...] continue home program. Sharri Arroyo B.A. (simi)Binu, [facility]-ENGINEERING TECHNOLOGY INSTRUCTOR Speech-Language Pathologist Certificate of Vocology [facility] [phone] PLANNER documented in this encounter Plan of Treatment Not on filedocumented as of this encounter Visit Diagnoses Not on filedocumented in this encounter Care Teams Paper Cone Machine Tender Relationship Specialty Start Date End Date Mario Reynolds MD PCP - General Family Practice 10/14/12 [facility] [address] [place] [address] documented as of this encounter
--- OUTSIDE RECORDS SUMMARY | 2022-05-24 02:37 | XMS_ITS ---
:1935 Author Care Team Providers Name Role Phone ROYA CURRAN MD Primary Care Provider [phone] Allergies Code Code System Name Reaction Severity [...] Name Performed by ? 03/30/2022 CT, Urogram [facility] [address] [place] [phone] (Work Place) Results Lab Results Date Name [...] Tumor of Urinary Bladder Justino Edwards MD: [address] [facility], [address], [place] [address], Ph. 03/30/2022 Mass of Urinary Bladder; Bill Hematuria ; Hydronephrosis Justino Edwards MD: [address] [place] [address], Ph. Social History Tobacco Smoking Status Never [...]
--- OUTSIDE RECORDS SUMMARY | 2022-05-24 02:37 | XMS_ITS | Encounter Summary ---
:1935 Author Organization [place] Address [address] [place] [address]. [place] [address] Care Team Providers Name Role Phone Mario Reynolds MD Primary Care Provider Reason for Visit Rehab Therapy Integrated Services (Routine) - Closed Specialty Diagnoses / Procedures Referred By Contact Refer red To Contact Procedures [facility] [address] [facility] [place] [address] Phone: Fax: Referral ID Status Reason Start Date Expiration Date Visits V isits Requested Authorized [facility] - Closed 07/26/2017 07/07/2018 365 365 PT/OT/CHECKER/STOCKER ([id number]) Encounter Details Date Type Department Care Team Description 08/07/2017 Hospital Encounter [facility] Brennen Hernandez MD [facility] [address] [facility] [address] [place] [address] Rehabilitation Sharri Camacho, CHECKER/STOCKER [address] [place], [place] [address] [address] [place] [address] [address] [place] [address] Social History Tobacco [...] on filedocumented in this encounter Care Teams Flat Surfacer Relationship Specialty Start Date End Date Mario Reynolds MD PCP - General Family Practice 10/14/12 [facility] [address] [place] [address] documented as of this encounter
--- OUTSIDE RECORDS SUMMARY | 2022-05-24 02:37 | XMS_ITS | Encounter Summary ---
:1935 Author Organization [place] Address [address] [place] [address] Care Team Providers Name Role Phone Mario Reynolds MD Primary Care Provider Reason for Visit Auth/Cert - Closed Specialty Diagnoses / Procedures Referred By Contact Refer red To Contact Surgery Diagnoses NASAL LACRIMAL OBSTRUCTION Sh Periop Services Procedures DACRYOCYSTORHINOSTOMY [facility] [address] [place] [address] Phone: Referral ID Status Reason Start Date Expiration Date Visits Requ ested Visits Authorized [id number] Closed 1 1 Encounter Details Date Type Department Care Team Description 06/10/2013 Anesthesia Event M [facility] Nick Almazan [facility] [facility] Claudio truong MD [address] [address] [place] [id number] (Wo rk) Anesthesia Record Procedure Summary Procedure [...] Alcohol; LozanoMykel Frandle, Pamela J, Injectable; Tolerated CHILDCARE ADMINISTRATOR JE RN well documented in this encounter [...] ??F) Resp: 16 SpO2: 96% Additional Comments: MAKER Anesthesia Preprocedure Evaluation - Nick Almazan MD [...] benefits and alternatives discussed with: patient or dairy supplies sales representative. History & Physical Review History [...] found for this basename: hgb, inr, potassium MAKER documented in this encounter Miscellaneous Notes Anesthesia Care Transfer Note - Mykel Lozano APRN CRNA - 06/10/2013 3:36 PM CST Anesthesia Care Transfer Note Patient: Johana Barton Transferred to: PACU Patient vital signs: stable Airway: none MAKER documented in this encounter Plan of Treatment Not on filedocumented as of this encounter Visit Diagnoses Not on filedocumented in this encounter Administered Medications Inactive Administered Medications - up to 3 most recent administrations Medication Order MAR Action Action Date Dose Rate Site fentaNYL (SUBLIMAZE) injection Given 06/10/2013 3:12 PM FRIT MAKER 25 mcg PRN, moderate to severe pain, Starting on Sat06/10/13 at 1446, Anesthesia Intra-op Given 06/10/2013 3:00 PM FRIT MAKER 25 mcg Given 06/10/2013 2:46 PM FRIT MAKER 50 mcg lactated ringers infusion New Bag 06/10/2013 2:44 PM FRIT MAKER mL Intravenous, CONTINUOUS PRN, Anesthesia Intra-op, Starting on Sat06/10/13 at 1444, Until Sat06/10/13 at 1536 midazolam (VERSED) injection Given 06/10/2013 2:45 PM FRIT MAKER 2 mg PRN, anxiety, Starting on Sat06/10/13 at 1445, Anesthesia Intra-op ondansetron (ZOFRAN) injection Given 06/10/2013 2:59 PM FRIT MAKER 4 mg PRN, nausea, vomiting, Administer over 2-5 Minutes, Starting on Sat06/10/13 at 1459, Anesthesia Intra-op propofol (DIPRIVAN) injection Given 06/10/2013 2:46 PM FRIT MAKER 30 mg PRN, Starting on Sat06/10/13 at 1446, Anesthesia Intra-op documented in this encounter Care Teams Library Director Relationship Specialty Start Date End Date Mario Reynolds MD PCP - General Family Practice 10/14/12 [facility] [address] [place] [address] documented as of this encounter
--- OUTSIDE RECORDS SUMMARY | 2022-05-24 02:37 | XMS_ITS | Encounter Summary ---
:1935 Author Organization [place] Address [address] [facility] 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, RIGHT UPPER LID LESION, RIGHT NASO Sh Periop Services Procedures REPAIR PTOSIS BILATERAL EXCISE LESION EYELID DACRYOCYSTORHINOSTOMY [address] [place] [address] Phone: Referral ID Status Reason Start Date Expiration Date Visits Requ ested Visits Authorized [id number] Closed 1 1 Encounter Details Date Type Department Care Team Description 10/24/2012 Surgery [facility] Sierra Ang BILATERAL UPPER LID PTOSIS [place] [facility] MD Antwon AND MECHANICAL PTOSIS REPAIR, Services [place] OPHTHALMIC EXCISION LEFT UPPER LID [address] PLAST SURG LESION, RIGHT [address] DACRYOCYSTORHINOSTOMY [place] [facility] [address] [address] [place] [phone] Surgery Details Date/Time Status Location OR Service Patient Case Case Traum a Class Class Type Case? 10/24/12 12:30 Posted [facility] PM Panel [...] Ambriz RN - 10/24/2012 4:01 PM CDT [facility] Discharge Instructions [...] questions of medical nature, call your physician. [facility] Dacryocystorhinostomy Discharge Instructions [place] [facility] SIERRA ANG M.D. [facility] [address] [place], [place] [address] Things to avoid: You should avoid blowing [...] not answered above. The phone number is [phone]. [facility] Eyelid/Orbital Surgery Discharge Instructions Sierra Ang M.D. [...] that will not stop with gentle pressure. [facility] [place] [address] [place], [place] [address] documented in this encounter Medications at Time [...] expose the underlying bone and then a [place] elevator was used to lift the periosteum away from the lacrimal fossa. Abowman probe was then passed through the canaliculus and used to tent up the lacrimal sac. Lacrimal sac was opened with a atka blade and then the medial wall was [...] expose the underlying bone and then a [place] elevator was used to lift the periosteum away from the lacrimal fossa. Abowman probe was then passed through the canaliculus and used to tent up the lacrimal sac. Lacrimal sac was opened with a atka blade and then the medial wall was [...] PRN, Starting on Sat10/24/12 at 1433, Intra-procedure denugygm-ryqdimlyd-ditvcyqkgmezo (MAXITROL) Given 10/24/2012 2:35 PM CDT 1 [...] Volume Adjustment - Provider: Pham Kelly APRN PUMP OILER)1430 (New Bag - Provider: Pham Kelly APRN PUMP OILER) at 75-100 mL/hr, Intravenous, CONTINUOUS , UNLESS [...] MD) PRN, Starting Sat10/24/12 at 1433, Intra-procedure viloaxlw-gphxsrver-kcguerenetwqm (MAXITROL) ophthalmic suspensio n (CANCELED) 1435 (Given - Provider: Sierra Ang MD) PRN, Starting Sat10/24/12 at 1435, Intra-procedure tetracaine (PONTOCAINE) 0.5 % ophthalmic solution (CANCELED) 1323 (Given - Provider: Beata Diehl RN) PRN, Starting 10/24/12 at 1323, Intra-procedure documented in this encounter Care Teams Political Consultant Relationship Specialty Start Date End Date Mario Reynolds MD PCP - General Family Practice 10/14/12 [facility] [address] [place] [address] documented as of this encounter
--- OUTSIDE RECORDS SUMMARY | 2022-05-24 02:37 | XMS_ITS | Clinical Summary ---
:1935 Author Organization [place] Address [address] [place] [address] Care Team Providers Name Role Phone Mario [...] Comments Blood Pressure 168/97 06/10/2013 4:08 PM COLORS CUSTODIAN Pulse - - Temperature 35.9 ??C (96.6 ??F) 06/10/2013 12:44 PM COLORS CUSTODIAN Respiratory Rate 16 06/10/2013 4:08 PM COLORS CUSTODIAN Oxygen Saturation 99% 06/10/2013 4:08 PM COLORS CUSTODIAN Inhaled Oxygen Concentration - - Weight 66.4 kg (146 lb 6.4 oz) 06/10/2013 12:44 PM COLORS CUSTODIAN Height 154.9 cm (5' 1) 06/10/2013 12:44 PM COLORS CUSTODIAN Body Mass Index 27.66 06/10/2013 12:44 PM COLORS CUSTODIAN Plan of Treatment Health Maintenance Due Date [...] to pic Medical Devices Implanted Type Area Cadastral Engineer Device Shelf Model / Identifier Expiration Serial / Date Lot Eye Kit Lacrimal Intubation Stent [id number] Right: [employer], 07/06/2015 [id number] / Implanted: Qty: 1 on 10/24/2012 by Kael Jansen MD at [facility] [employer] / Duct [id number] Eye Kit Lacrimal Intubation Stent [id number] 10/06/2015 [id number] / Implanted: Qty: 1 on 06/10/2013 by Kael Jansen MD at [facility] / [id number] Insurance Payer Benefit Plan / Subscriber ID Effective Dates Phone Addre ss Type Group HUMANA HUMANA MEDICARE [id number] 2017-Present [address] [address] [place] [address] Care Teams Feed In Worker Relationship Specialty Start Date End Date Mario Reynolds MD PCP - General Family Practice 10/14/12 [facility] [address] [place] [address]
--- OUTSIDE RECORDS SUMMARY | 2022-05-24 02:38 | XMS_ITS | Encounter Summary ---
:1935 Author Care Team Providers Name Role Phone Dawit Reynolds MD Primary Care Provider [phone] Reason for Visit Bladder Mass Assessment and [...] Provider Appointments None recorded. ? ? Lab Urinalysis, Dipstick 03/30/2022 [facility] Referral None recorded. ? ? Procedures None recorded. ? ? Surgeries Transurethral Resection of 03/30/2022 ? Bladder Tumor (SURG) Imaging CT, Urogram 03/30/2022 [facility] Medications Name Start Date ? ? famotidine [...] [address] [place] [address] (Work Place) Vaccine List None recorded. Social History Tobacco Smoking Status Never Smoker What is your level of alcohol consumption? None Has tobacco cessation counseling been provided? N Preferred Language Ethiopian What was the date of your most [...] Edwards MD: [address], [place] [address], Ph. History of Present Illness Note: <div>86F with 6 weeks of GH, intermittent, painless, no UTIs detected in interim. RBUS shows mild right hydronephrosis, and filling defects x 2 in bladder, both of which feature an internal flowthat can be detected on Doppler. </div><div>
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
Surgeon: Eugenie Edwards MD
Female Personnel Representative: Yes, for entirety of encounter
Ane sthesia: [...]
[2022-05-24 03:10] VITALS: BP 166/94; PULSE 68; RESP 16
--- NOTE | 2022-05-24 05:12 | ED.NURSE ---
pt catheter leaking around outside, bladder scanned for 200cc, flushed 20cc saline into cath, large clot evacuated, urine 200cc dark blood flowing. MD thrasher updated. prior to discharge education on flushing catheter with luer lock, 10NS flushes sent with pt and etoh wipes, pt family demonstrated back appropriately.
== END 2022-05-24 03:10 | disposition home or self-care (01) ==
LOC: ED 02:35
PROVIDERS: Emergency Provider Family Medicine; PCP Family Medicine
DX: T83.098A Other mechanical complication of other urinary catheter, initial encounter (principal)
CPT/HCPCS: 99283

== ENCOUNTER 2022-07-13 09:26 | Outpatient (CLI) | payer OTHER, SELFPAY | END 2022-07-13 09:27 | disposition home or self-care (01) | LOC: AMB 10:40 | PROVIDERS: PCP Family Medicine; Visit Provider Family Medicine | DX: M25.551 Pain in right hip (principal); R10.9 Unspecified abdominal pain | CPT/HCPCS: A0425; A0427 ==

== ENCOUNTER 2022-07-13 10:03 | Emergency (ER) | payer OTHER, SELFPAY ==
[2022-07-13] VITALS (29 sets, daily range): BP systolic 140–239; BP diastolic 87–119; PULSE 66–116; RESP 20; TEMP 36.3; O2SAT 96–99; BMI 27.3
--- NOTE | 2022-07-13 11:00 | ED.NURSE ---
pt was requesting a catheter due to having pain with any movement. daughter is very concerned and active in her cares and is anxious about them. did place a #14 [place] with egress of dilute urine. initially tried a #16 and this was not able to place-vaginal orifice. scant blood noted when removed ,
--- NOTE | 2022-07-13 11:27 | CRLHL7_ITS ---
For Patients: As a result of the 21st Century Cures Act, medical imaging exams and procedure reports are released immediately into your electronic medical record. You may view this report before your referring provider. If you have questions, please contact your health care provider. Indication: Bladder cancer, back pain Technique: Noncontrast axial CT of the lumbar spine with coronal and sagittal reformats. Comparison: No relevant comparison studies available at this institution. Findings: Thoracolumbar levo curvature, apex at approximately L1. Preserved lordosis. Grade 1 retrolisthesis at T11-12. No acute fracture. No suspicious lytic or blastic osseous lesion. Unremarkable SI joints. No suspicious findings in the prevertebral or paraspinal soft tissues. However, approximately 2 cm hypodense lesion within the right hepatic lobe, incompletely assessed. Aortoiliac atherosclerosis. Bilateral ureteral stents. T11-T12: Retrolisthesis, disc bulge, facet arthropathy. Mild right foraminal narrowing. No left foraminal or spinal canal stenosis. T12-L1: Facet arthropathy. No significant foraminal or spinal canal stenosis. L1-L2: Disc-osteophyte complex, facet arthropathy. Mild right foraminal narrowing. No left foraminal or spinal canal stenosis. L2-L3: Disc-osteophyte complex, facet arthropathy. Moderate left foraminal stenosis. No right foraminal stenosis. Mild spinal canal narrowing. L3-L4: Disc bulge, facet arthropathy. Mild-moderate left foraminal narrowing. No right foraminal stenosis. Mild spinal canal narrowing. L4-L5: Disc-osteophyte complex, facet arthropathy. No significant foraminal or spinal canal stenosis. L5-S1: Disc-osteophyte complex, facet arthropathy. Mild-moderate right, moderate left foraminal stenosis. No spinal canal stenosis. Impression: 1. No evidence of acute osseous abnormality. No suspicious bone lesions to suggest osseous metastases. 2. Lumbar spondylosis, with thoracolumbar levocurvature, and degenerative grade 1 retrolisthesis at T11-12. 3. At L2-3, moderate left foraminal stenosis and mild spinal canal narrowing. 4. At L3-4, mild-moderate left foraminal narrowing and mild spinal canal narrowing. 5. At L5-S1, mild-moderate right and moderate left foraminal stenosis. 6. Nonspecific hypodense 2 cm lesion within the right hepatic lobe, possibly a cyst but incompletely assessed. Please note that all CT scans at this facility use dose modulation, iterative reconstruction, and/or weight-based dosing when appropriate to reduce radiation dose to as low as reasonably achievable. Dictated by Lay Miles MD @ 07/13/2022 1:29:27 PM (Electronically Signed)
[2022-07-13 12:01] LABS: Basophils Absolute Auto 0.01 K/uL (0.00-0.30); Basophils Percent Auto 0.1 % (0.0-3.0); Hematocrit 42.1 % (33.0-51.0); Hemoglobin* 14.1 gm/dL (12.0-16.0); Immature Granulocytes Abs Auto 0.01 K/uL (0.00-0.30); Immature Granulocytes Pct Auto 0.1 %; Mean Corpuscular HGB Conc 34 gm/dL (32-36); Mean Corpuscular Hemoglobin 28 pg (26-34); Mean Corpuscular Volume 84 fL (80-100); Monocytes Percent Auto 5.3 % (0.0-11.0); Neutrophils Percent Auto 84.5 % (42.0-72.0); Platelet Count* 225 K/uL (140-440); RDW Coefficient of Variation % 14.3 % (11.5-15.5); Red Blood Count 5.04 m/uL (4.00-5.20); White Blood Count* 7.89 K/uL (4.50-11.00)
[2022-07-13 12:03] LABS: Slide Review Reflex No
[2022-07-13] MEDS: HYDROCODONE-ACETAMIN 5-325 MG 1 TAB PO (12:27)
[2022-07-13 12:29] LABS: Appearance Urine Clear (Clear); Bilirubin Urine Negative (Negative); Blood Urine 2+ (Negative); Color Urine Yellow (Yellow); Glucose Urine Negative (Negative); Ketones Urine Negative (Negative); Leukocyte Esterase Urine Trace (Negative); Nitrite Urine Negative (Negative); Protein Urine Trace (Negative); Specific Gravity Urine 1.025 (1.000-1.030); Urobilinogen Urine 0.2 (0.2-1.0)
[2022-07-13 12:49] LABS: Albumin* 4.6 g/dL (3.3-5.0); Chloride* 106 mmol/L (96-114)
[2022-07-13 12:50] LABS: Potassium* 4.8 mmol/L (3.6-5.1); Sodium* 138 mmol/L (135-149)
[2022-07-13 12:52] LABS: Aspartate Amino Transferase* 28 U/L (12-35); Bilirubin Direct* 0.3 mg/dL (0.0-0.5); Bilirubin Total* 0.6 mg/dL (0.1-1.5); Carbon Dioxide* 25 mmol/L (20-32); Creatinine* 0.7 mg/dL (0.5-1.5); Est. Creatinine Clearance* 30.08; Estimated Glomerular Filt Rate 85 ml/min; Total Protein* 8.1 g/dL (6.0-8.3)
[2022-07-13 12:53] LABS: Alanine Aminotransferase* 18 U/L (4-35); Alkaline Phosphatase* 88 U/L (40-150); Blood Urea Nitrogen* 16 mg/dL (7-30); Calcium* 9.3 mg/dL (8.4-10.6); Glucose* 93 mg/dL (60-115)
[2022-07-13 12:55] LABS: C Reactive Protein* 0.8 mg/dL (0.5-1.0)
[2022-07-13 13:00] LABS: Bacteria Urine Few; Squamous Epithelial Cell Urine Few (None-Few)
[2022-07-13 13:01] LABS: Erythrocyte SedimentationRate* 13 mm/hr (2-20)
--- NOTE | 2022-07-13 13:08 | ED_ITS ---
HPI - General Adult General Date Seen: 07/13/22 Chief complaint: Hip Injury/Pain Stated complaint: Right hip pain Time Seen by Provider: 07/13/22 11:01 Source: patient and family History of Present Illness HPI narrative: Patient is an 86-year-old here with her daughter for evaluation of pain in her right hip and right back which has been getting worse for the past couple of weeks. Of note, she is getting BCG treatments for bladder cancer. She was told to expect some pain with this treatment, and that it would get worse over time. She just had her 4th of 6 treatments. She has not tried anything at home for pain. She has had problems with back pain for quite some time but nothing like this current pain. She sees a chiropractor and adjustments typically help but in the past couple of days nothing has been helping. She was not able to get up today and almost called the ambulance but then called her daughter. She does have Vicodin at home from after her recent bladder surgery but has not used any today. She has not had significant dysuria but has had some mild dysuria as is to be expected with the BCG treatment. She has not had any fever or significant radicular pain. She has not had any new weakness or numbness. She has not had significant abdominal pain. No vomiting but she did have some nausea today and tried to make herself vomit unsuccessfully. She had an ultrasound for bladder initially, and is scheduled to get a CT urogram apparently in September, but has not had other imaging according to her daughter. Related Data Home Medications Medication Instructions Recorded Confirmed B-complex with vitamin C 1 cap PO QDAY 03/05/22 07/13/22 glucosamine HCl 500 mg tablet 500 mg PO QDAY 03/05/22 07/13/22 meloxicam 15 mg tablet 15 mg PO DAILY 03/05/22 07/13/22 multivitamin (Multiple Vitamins 1 tab PO QDAY 03/05/22 04/06/22 tablet) Previous Rx's Medication Instructions Recorded famotidine 20 mg tablet 20 mg PO .Bedtime #30 tabs 05/04/22 omeprazole 20 mg capsule,delayed See Rx Instructions .Route 06/04/22 release .COMPLEX #60 caps Allergies Allergy/AdvReac Type Severity Reaction Status Date / Time No Known Allergies Allergy Unknown Unverified 04/06/22 10:36 Review of Systems Status of ROS: Reports: 10 or more systems reviewed and unremarkable except as noted in History and below [facility] Medical History Health care directive on file Surgical History Status post blepharoplasty Status post bunionectomy (10/12/09) Status post cystoscopy Status post tonsillectomy Social History Smoking Status: Never smoker Do you use any of these nicotine containing products: None How often do you have a drink containing alcohol: never AUDIT-C Alcohol total score: 0 Non-prescribed substance use: denies use Exam Narrative: Exam Narrative: Vital signs as noted above. In general, an alert, nontoxic elderly woman. She looks comfortable lying in bed. Head: Normocephalic, atraumatic. Eyes: Pupils are equal reactive. Extraocular movements are full. Conjunctivae are normal. ENT: Mucous membranes are moist. Throat is normal. Neck: Supple without lymphadenopathy. Heart: Regular rate and rhythm. No murmur or rub. Lungs: Clear bilaterally. No increased work of breathing, crackles or wheezes. Abdomen: Soft and nontender. No organomegaly. Back: Nontender to palpation. Atraumatic. She was not able to sit up in bed due to pain in her back/hip, but is able to roll to the side. Extremities: Well perfused. No edema. No calf tenderness. Pulses intact. Free range of motion of the right hip, nontender to palpation over the trochanter and lateral hip. No pain with range of motion. Neurologic: Patient is alert and oriented to person and place. Speech is fluent. Face is symmetric. Moves all extremities equally. Affect: Normal. Skin: Warm and dry. Well perfused. Const: Vital Signs, click to edit/add: Vital Signs - 24 hr 07/13/22 10:10 07/13/22 10:34 07/13/22 10:35 Temperature 97.3 F L Pulse Rate 75 85 Pulse Rate [Pulse Oximeter] 74 Respiratory Rate 20 Blood Pressure 180/102 H Blood Pressure [Ri ght Upper Arm] 199/110 H Pulse Oximetry 98 97 97 Oxygen Delivery Me thod Room Air 07/13/22 10:45 07/13/22 11:00 07/13/22 11:02 Temperature Pulse Rate 76 90 89 Pulse Rate [Pulse Oximeter] Respiratory Rate Blood Pressure 239/119 H Blood Pressure [Ri ght Upper Arm] Pulse Oximetry [address]od 07/13/22 11:08 07/13/22 11:15 07/13/22 11:30 Temperature Pulse Rate 83 82 80 Pulse Rate [Pulse Oximeter] Respiratory Rate Blood Pressure 217/109 H Blood Pressure [Ri ght Upper Arm] Pulse Oximetry [address] thod 07/13/22 11:32 07/13/22 11:45 07/13/22 12:00 Temperature Pulse Rate 74 87 79 Pulse Rate [Pulse Oximeter] Respiratory Rate Blood Pressure 176/109 H Blood Pressure [Ri ght Upper Arm] Pulse Oximetry 97 98 [facility] 12[facility]02 07/13/22 12:20 07/13/22 12:30 Temperature Pulse Rate 82 84 87 Pulse Rate [Pulse Oximeter] Respiratory Rate Blood Pressure 159/89 H Blood Pressure [Ri ght Upper Arm] Pulse Oximetry 96 96 98 [facility] 07[facility]22 12:32 07/13/22 12:45 07/13/22 13:00 Temperature Pulse Rate 88 66 74 Pulse Rate [Pulse Oximeter] Respiratory Rate Blood Pressure 176/97 H Blood Pressure [Ri ght Upper Arm] Pulse Oximetry 97 97 98 [facility] 07[facility] 13:02 07/13/22 13:15 07/13/22 13:30 Temperature Pulse Rate 73 99 Pulse Rate [Pulse Oximeter] Respiratory Rate Blood Pressure 171/95 H Blood Pressure [Ri ght Upper Arm] Pulse Oximetry 96 97 [facility] 07/[facility]/22 13:32 07/13/22 13:45 07/13/22 14:00 Temperature Pulse Rate 90 116 H 95 Pulse Rate [Pulse Oximeter] Respiratory Rate Blood Pressure 140/87 H Blood Pressure [Ri ght Upper Arm] Pulse Oximetry 97 98 97 [facility] 07/13/22 14:02 07/13/22 14:15 07/13/22 14:30 Temperature Pulse Rate 88 97 67 Pulse Rate [Pulse Oximeter] Respiratory Rate Blood Pressure 184/95 H Blood Pressure [Ri ght Upper Arm] Pulse Oximetry 97 98 96 [facility] 07/13/22 14:32 07/13/22 14:45 Temperature Pulse Rate 72 81 Pulse Rate [Pulse Oximeter] Respiratory Rate Blood Pressure 176/105 H Blood Pressure [Ri ght Upper Arm] Pulse Oximetry 98 97 Oxygen Delivery Me thod Documenting provider has reviewed patient's vital signs: yes Course Course Hospital Course: I elected to image her back given the history of bladder cancer and lack of previous imaging. Labs show normal white blood cell count, platelets of [id number], normal hemoglobin. LFTs are normal, metabolic panel is entirely within normal limits. Urinalysis says here is a cath specimen as she was not able to get up to go to the bathroom at the beginning of her stay. This showed 2-5 red cells and 2-5 white cells, I think fairly unremarkable given the current treatment. Sed rate is 13, CRP is pending at this time. CRP was likewise normal. Patient felt significantly better after Vicodin and was able to be ambulatory. Catheter was discontinued. CT lumbar spine was read as follows: Grade 1 retrolisthesis at T11-12. No acute fracture. No suspicious lytic or blastic osseous lesion. Unremarkable SI joints. No suspicious findings in the prevertebral or paraspinal soft tissues. However, approximately 2 cm hypodense lesion within the right hepatic lobe, incompletely assessed. Aortoiliac atherosclerosis. Bilateral ureteral stents. T11-T12: Retrolisthesis, disc bulge, facet arthropathy. Mild right foraminal narrowing. No left foraminal or spinal canal stenosis. T12-L1: Facet arthropathy. No significant foraminal or spinal canal stenosis. L1-L2: Disc-osteophyte complex, facet arthropathy. Mild right foraminal narrowing. No left foraminal or spinal canal stenosis. L2-L3: Disc-osteophyte complex, facet arthropathy. Moderate left foraminal stenosis. No right foraminal stenosis. Mild spinal canal narrowing. L3-L4: Disc bulge, facet arthropathy. Mild-moderate left foraminal narrowing. No right foraminal stenosis. Mild spinal canal narrowing. L4-L5: Disc-osteophyte complex, facet arthropathy. No significant foraminal or spinal canal stenosis. L5-S1: Disc-osteophyte complex, facet arthropathy. Mild-moderate right, moderate left foraminal stenosis. No spinal canal stenosis. In review of the possible side effects of her BCG treatment, both online and in the paperwork that they were given, significant arthralgias and myalgias can be noted. Given that these symptoms have been progressive over the past couple of weeks, in the time frame that she has been getting these treatments, I think that her pain is probably related to side effects from her treatment, and retrospectively, her daughter thinks this is probably the case as well. She did have Vicodin at home, but apparently her other daughter who is a police and fire dispatcher through these away when she finished her recovery from her surgery. I will go ahead and prescribe more these for her. I think for the next week or so while she is completing her treatment she may need to treat this pain with stronger pain medications. Return at any time for severe uncontrolled pain, or new symptoms such as fever, vomiting, etc.. CT scan also shows a 2 cm hypodense lesion in the right hepatic lobe, incompletely assessed. Unclear to me whether this requires further evaluation, given her bladder cancer. In review of her records, it seems as if this is felt to be early stage, but I am not clear as to whether or not additional staging evaluation was done or indicated. Referring this back to primary care. Vital Signs Vital signs: Initial Vital Signs Temperature 97.3 F L 07/13/22 10:10 Temperature Source Temporal Artery Scan 07/13/22 10:10 Pulse Rate 74 07/13/22 10:10 Respiratory Rate 20 07/13/22 10:10 Blood Pressure 199/110 H 07/13/22 10:10 Blood Pressure Mean 139 07/13/22 10:10 Blood Pressure Position Semi-Fowlers 07/13/22 10:10 Pulse Oximetry 98 07/13/22 10:10 Oxygen Delivery Method 07/13/22 10:10 Vital Signs Temperature 97.3 F L 07/13/22 10:10 Pulse Rate 74 07/13/22 10:10 Respiratory Rate 20 07/13/22 10:10 Blood Pressure 199/110 H 07/13/22 10:10 Pulse Oximetry 98 07/13/22 10:10 Oxygen Delivery Method 07/13/22 10:10 Temperature 97.3 F L 07/13/22 10:10 Pulse Rate 81 07/13/22 14:45 Respiratory Rate 20 07/13/22 10:10 Blood Pressure 176/105 H 07/13/22 14:32 Pulse Oximetry 97 01/06/23 14:45 Oxygen Delivery Method 07/13/22 10:10 Medical Decision Making Lab Data Labs: Lab Results 07/13/22 07/13/22 07/13/22 Range/Units 11:28 11:50 11:50 WBC 7.89 (4.50-11.00) K/uL RBC 5.04 (4.00-5.20) m/uL Hgb 14.1 (12.0-16.0) gm/dL Hct 42.1 (33.0-51.0) % MCV 84 (80-100) fL MCH 28 (26-34) pg MCHC 34 (32-36) gm/dL RDW Coeff of Pati 14.3 (11.5-15.5) % Plt Count 225 (140-440) K/uL Neut % (Auto) 84.5 H (42.0-72.0) % Lymph % (Auto) 10.0 L (20-44) % Rowan % (Auto) 5.3 (0.0-11.0) % Eos % (Auto) 0.0 (0.0-7.0) % Baso % (Auto) 0.1 (0.0-3.0) % Neut # (Auto) 6.70 (1.7-7.0) K/uL Lymph # (Auto) 0.80 L (0.90-2.90) K/uL Rowan # (Auto) 0.40 (0.00-0.90) K/UL Eos # (Auto) 0.00 (0.00-0.50) K/uL Baso # (Auto) 0.01 (0.00-0.30) K/uL ESR 13 (2-20) mm/hr Sodium (135-149) mmol/L Potassium (3.6-5.1) mmol/L Chloride (96-114) mmol/L Carbon Dioxide (20-32) mmol/L BUN (7-30) mg/dL Creatinine (0.5-1.5) mg/dL Estimated Creat Clear Estimated GFR ml/min Glucose (60-115) mg/dL Calcium (8.4-10.6) mg/dL Total Bilirubin (0.1-1.5) mg/dL Direct Bilirubin (0.0-0.5) mg/dL AST (12-35) U/L ALT (4-35) U/L Alkaline Phosphatase (40-150) U/L C-Reactive Protein (0.5-1.0) mg/dL Total Protein (6.0-8.3) g/dL Albumin (3.3-5.0) g/dL Urine Color Yellow (Yellow) Urine Appearance Clear (Clear) Urine pH 7.0 (5.0-8.5) Ur Specific [place] 1.025 (1.000-1.030) Urine Protein Trace A (Negative) Urine Glucose (UA) Negative (Negative) Urine Ketones Negative (Negative) Urine Blood 2+ A (Negative) Urine Nitrite Negative (Negative) Urine Bilirubin Negative (Negative) Urine Urobilinogen 0.2 (0.2-1.0) Ur Leukocyte Esterase Trace A (Negative) Urine RBC 2-5 A (0-2) Urine WBC 2-5 (0-5) Ur Squamous Epith Cells Few (None-Few) Urine Bacteria Few A (None) 07/13/22 Range/Units 12:28 WBC (4.50-11.00) K/uL RBC (4.00-5.20) m/uL Hgb (12.0-16.0) gm/dL Hct (33.0-51.0) % MCV (80-100) fL MCH (26-34) pg MCHC (32-36) gm/dL RDW Coeff of Pati (11.5-15.5) % Plt Count (140-440) K/uL Neut % (Auto) (42.0-72.0) % Lymph % (Auto) (20-44) % Rowan % (Auto) (0.0-11.0) % Eos % (Auto) (0.0-7.0) % Baso % (Auto) (0.0-3.0) % Neut # (Auto) (1.7-7.0) K/uL Lymph # (Auto) (0.90-2.90) K/uL Rowan # (Auto) (0.00-0.90) K/UL Eos # (Auto) (0.00-0.50) K/uL Baso # (Auto) (0.00-0.30) K/uL ESR (2-20) mm/hr Sodium 138 (135-149) mmol/L Potassium 4.8 (3.6-5.1) mmol/L Chloride 106 (96-114) mmol/L Carbon Dioxide 25 (20-32) mmol/L BUN 16 (7-30) mg/dL Creatinine 0.7 (0.5-1.5) mg/dL Estimated Creat Clear 30.08 Estimated GFR 85 ml/min Glucose 93 (60-115) mg/dL Calcium 9.3 (8.4-10.6) mg/dL Total Bilirubin 0.6 (0.1-1.5) mg/dL Direct Bilirubin 0.3 (0.0-0.5) mg/dL AST 28 (12-35) U/L ALT 18 (4-35) U/L Alkaline Phosphatase 88 (40-150) U/L C-Reactive Protein 0.8 (0.5-1.0) mg/dL Total Protein 8.1 (6.0-8.3) g/dL Albumin 4.6 (3.3-5.0) g/dL Urine Color (Yellow) Urine Appearance (Clear) Urine pH (5.0-8.5) Ur Specific [place] (1.000-1.030) Urine Protein (Negative) Urine Glucose (UA) (Negative) Urine Ketones (Negative) Urine Blood (Negative) Urine Nitrite (Negative) Urine Bilirubin (Negative) Urine Urobilinogen (0.2-1.0) Ur Leukocyte Esterase (Negative) Urine RBC (0-2) Urine WBC (0-5) Ur Squamous Epith Cells (None-Few) Urine Bacteria (None) Discharge Plan Discharge Clinical Impression: Arthralgia Patient Disposition: Home, Self-Care Condition: Improved Instructions: Arthralgia (ED) Additional Instructions: Hydrocodone as needed for pain. Follow-up as planned for further treatments. Return as needed for severe uncontrolled pain, fevers, vomiting, or other worsening. Prescriptions: No Action meloxicam 15 mg tablet 15 mg PO DAILY multivitamin [Multiple Vitamins] Tablet 1 tab PO QDAY glucosamine HCl 500 mg tablet 500 mg PO QDAY Rx Instructions: administer with a meal B-complex with vitamin C Capsule 1 cap PO QDAY famotidine 20 mg tablet 20 mg PO .Bedtime Qty: 30 0RF omeprazole 20 mg capsule,delayed release(DR/EC) See Rx Instructions .ROUTE .COMPLEX Qty: 60 5RF Dose Instruction: TAKE 1 CAPSULE BY MOUTH DAILY Rx Instructions: TAKE 1 CAPSULE BY MOUTH DAILY Follow Up/Referrals: Dawit Reynolds MD [Primary Care Provider] - Stand Alone Forms: [employer] Info Instructions
== END 2022-07-13 15:13 | disposition home or self-care (01) ==
PROVIDERS: Emergency Provider Emergency Medicine; PCP Family Medicine
DX: M25.551 Pain in right hip (principal)
CPT/HCPCS: 36415; 72131; 80048; 80076; 81001; 85025; 85651; 86140; 87086; 99284; A9270

== ENCOUNTER 2023-06-07 12:57 | Outpatient (CLI) | payer OTHER, SELFPAY | END 2023-06-07 12:58 | disposition home or self-care (01) | LOC: LKVREF 12:59 | PROVIDERS: PCP Family Medicine; Visit Provider Family Medicine | DX: C67.9 Malignant neoplasm of bladder, unspecified (principal) | CPT/HCPCS: 80053 ==

== ENCOUNTER 2024-04-22 21:04 | Outpatient (CLI) | payer OTHER, SELFPAY ==
--- OUTSIDE RECORDS SUMMARY | 2024-05-06 23:59 | XMS_ITS | Continuity of Care Document ---
Author Organization [facility] Address [address] [place] [id number] Phone Care Team Providers Care Phlebotomist Prn Name Role Phone Will MD WALTERS, Francisco Unavailable Unavailabl e Advance Directives Directive Yes / No Effective Date File Name No Information Encounters Encounter Description Practice Location Reason(s) For Visit Diagnoses Date Provider Providers Copied on Encounter [facility], [address] [place] [address] [place], [place], [id number], [place] tel:[phone] [facility] No Information Will Francisco. [address] [facility] [place], [place], [id number], [place]. tel:[phone] Family History Family Member Type Diagnosis Age [...]
--- OUTSIDE RECORDS SUMMARY | 2024-05-06 23:59 | XMS_ITS | Data Portability ---
Author Organization [facility], [facility] Address [address] [place] [address] Care Team Providers Care General Manager Farm Name Role Phone ROYA CURRAN Primary Care Provider Assessment No assessment recorded. Plan of Treatment Reminders Order Date Submit Date Provider Last Modified By Organization Details Last Modified Time Details Appointments ESTABLISH ED 10 2024 09:50A M Justino north MD Not available Not available Not available Lab urinalysi s, dipstick 2023 024 [email or web address] [facility], [address], [place], [address], 08/21/2023 11:28:20 urinalysi s, dipstick 2023 024 [email or web address] [facility], [address], [place], [address], 08/28/2023 11:10:49 urinalysi s, dipstick 2023 024 [email or web address] [facility], [address], [place], [address], 09/04/2023 12:36:12 urinalysi s, dipstick 2023 024 [email or web address] [facility], [address], [place], [address], 11/05/2023 11:11:03 urinalysi s, dipstick 2023 024 [email or web address] [facility], [address], [place], [address], 03/06/2024 10:41:54 Referral None recorded. Procedures None recorded. Surgeries None recorded. Imaging None recorded. Medication Orders Michelle BCG 50 mg intravesi lissa suspensio n 2023 024 [facility], [address], [place], [place], [id number], 08/21/2023 11:26:36 Michelle BCG 50 mg intravesi lissa suspensio n 2023 024 [address] [facility], [address], [place], [place], [id number], 08/28/2023 11:11:20 Patient TargetsNo targets recorded. Patient Instructions Encounter Date Encounter Id Patient Instructions Last Modified By Organization Details Last Modified Time 09/04/2023 [id number] Home instruction s wer given, has follow up appt. [email or web address] Not available 09/04/2023 12:36:58 11/05/2023 [id number] DAILY, with me in 4 months for cystoscopy. No more maint BCG for now. Not available 11/05/2023 13:19:09 03/06/2024 [id number] DAILY, remarkable, she'll see me in Aug 2024 for cystoscopy, and eligible for maint BCG spring 2024 if BCG is available. Not available 03/06/2024 11:32:01 Reason for Referral None Reported. Results Created Date Observation Date Name Description Value Unit Range Abnormal Flag Note LastModifiedBy Organization Detail LastModifiedTime 08/21/1908/21/2023 urina lysis , dipst ick Color-Status Yellow Not Available [facility] [address], [place], [address], 08/21/2023 11:24:24 08/21/19 24 08/21/2023 urina lysis , dipst ick Clarity-Stat us Clear Not Available [facility] [address], [place], [address], 08/21/2023 11:24:24 08/21/19 24 08/21/2023 urina lysis , dipst ick Glucose-Stat us Negati ve Not Available [facility] [address], [place], [address], 08/21/2023 11:24:24 08/21/19 24 08/21/2023 urina lysis , dipst ick Bilirubin-St atus Negati ve Not Available [facility] [address], [place], [address], 08/21/2023 11:24:24 08/21/19 24 08/21/2023 urina lysis , dipst ick Ketones-Stat us Negati ve Not Available [facility] [address], [place], [address], 08/21/2023 11:24:24 08/21/19 24 08/21/2023 urina lysis , dipst ick Sp Juniata-Stat us >=1.03 0 Not Available [facility] [address], [place], [address], 08/21/2023 11:24:24 08/21/19 24 08/21/2023 urina lysis , dipst ick pH-Status 5.5 Not Available [facility] [address], [place], [address], 08/21/2023 11:24:24 08/21/19 24 08/21/2023 urina lysis , dipst ick Urobilinogen -Status 0.2 Not Available [facility] [address], [place], [address], 08/21/2023 11:24:24 08/21/19 24 08/21/2023 urina lysis , dipst ick Nitrates-Sta tus negati ve Not Available [facility] [address], [place], [address], 08/21/2023 11:24:24 08/21/19 24 08/21/2023 urina lysis , dipst ick Blood-Status Trace Not Available [facility] [address], [place], [address], 08/21/2023 11:24:24 08/21/19 24 08/21/2023 urina lysis , dipst ick Leuko-Status Negati ve Not Available [facility] [address], [place], [address], 08/21/2023 11:24:24 08/21/19 24 08/21/2023 urina lysis , dipst ick Specimen Type Voided Not Available [facility] [address], [place], [address], 08/21/2023 11:24:24 08/21/19 24 08/21/2023 urina lysis , dipst ick Performed by Katie Spivey RN Not Available [facility] [address], [place], [address], 08/21/2023 11:24:24 08/28/19 24 08/28/2023 urina lysis , dipst ick Color-Status Yellow Not Available [facility] [address], [place], [address], 08/28/2023 11:10:02 08/28/19 24 08/28/2023 urina lysis , dipst ick Clarity-Stat us Clear Not Available [facility] [address], [place], [address], 08/28/2023 11:10:02 08/28/19 24 08/28/2023 urina lysis , dipst ick Glucose-Stat us Negati ve Not Available [facility] [address], [place], [address], 08/28/2023 11:10:02 08/28/19 24 08/28/2023 urina lysis , dipst ick Bilirubin-St atus Negati ve Not Available [facility] [address], [place], [address], 08/28/2023 11:10:02 08/28/19 24 08/28/2023 urina lysis , dipst ick Ketones-Stat us 5 Not Available [facility] [address], [place], [address], 08/28/2023 11:10:02 08/28/19 24 08/28/2023 urina lysis , dipst ick Sp Juniata-Stat us 1.025 Not Available [facility] [address], [place], [address], 08/28/2023 11:10:02 08/28/19 24 08/28/2023 urina lysis , dipst ick pH-Status 5.0 Not Available [facility] [address], [place], [address], 08/28/2023 11:10:02 08/28/19 24 08/28/2023 urina lysis , dipst ick Urobilinogen -Status 0.2 Not Available [facility] [address], [place], [address], 08/28/2023 11:10:02 08/28/19 24 08/28/2023 urina lysis , dipst ick Nitrates-Sta tus negati ve Not Available [facility] [address], [place], [address], 08/28/2023 11:10:02 08/28/19 24 08/28/2023 urina lysis , dipst ick Blood-Status Negati ve Not Available [facility] [address], [place], [address], 08/28/2023 11:10:02 08/28/19 24 08/28/2023 urina lysis , dipst ick Leuko-Status Negati ve Not Available [facility] [address], [place], [address], 08/28/2023 11:10:02 08/28/19 24 08/28/2023 urina lysis , dipst ick Specimen Type Voided Not Available [facility] [address], [place], [address], 08/28/2023 11:10:02 09/04/19 24 09/04/2023 urina lysis , dipst ick Color-Status Yellow Not Available [facility] [address], [place], [address], 09/04/2023 12:35:05 09/04/19 24 09/04/2023 urina lysis , dipst ick Clarity-Stat us Clear Not Available [facility] [address], [place], [address], 09/04/2023 12:35:05 09/04/19 24 09/04/2023 urina lysis , dipst ick Sp Juniata-Stat us 1.020 Not Available [facility] [address], [place], [address], 09/04/2023 12:35:05 09/04/19 24 09/04/2023 urina lysis , dipst ick Nitrates-Sta tus negati ve Not Available [facility] [address], [place], [address], 09/04/2023 12:35:05 09/04/19 24 09/04/2023 urina lysis , dipst ick Blood-Status Negati ve Not Available [facility] [address], [place], [address], 09/04/2023 12:35:05 09/04/19 24 09/04/2023 urina lysis , dipst ick Leuko-Status Negati ve Not Available [facility] [address], [place], [address], 09/04/2023 12:35:05 09/04/19 24 09/04/2023 urina lysis , dipst ick Specimen Type Voided Not Available [facility] [address], [place], [address], 09/04/2023 12:35:05 09/04/19 24 09/04/2023 urina lysis , dipst ick Performed by [employer] Not Available [facility] [address], [place], [address], 09/04/2023 12:35:05 11/05/19 24 11/05/2023 urina lysis , dipst ick Color-Status Yellow Not Available [facility] [address], [place], [address], 11/05/2023 11:10:36 11/05/19 24 11/05/2023 urina lysis , dipst ick Clarity-Stat us Clear Not Available [facility] [address], [place], [address], 11/05/2023 11:10:36 11/05/19 24 11/05/2023 urina lysis , dipst ick pH-Status 6.0 Not Available [facility] [address], [place], [address], 11/05/2023 11:10:36 11/05/19 24 11/05/2023 urina lysis , dipst ick Nitrates-Sta tus negati ve Not Available [facility] [address], [place], [address], 11/05/2023 11:10:36 11/05/19 24 11/05/2023 urina lysis , dipst ick Blood-Status Negati ve Not Available [facility] [address], [place], [address], 11/05/2023 11:10:36 11/05/19 24 11/05/2023 urina lysis , dipst ick Leuko-Status Small Not Available [facility] [address], [place], [address], 11/05/2023 11:10:36 11/05/19 24 11/05/2023 urina lysis , dipst ick Specimen Type Voided Not Available [facility] [address], [place], [address], 11/05/2023 11:10:36 03/06/20 24 03/06/2024 urina lysis , dipst ick BLOOD Negati ve Not Available [facility] [address], [place], [address], 03/06/2024 10:41:18 03/06/20 24 03/06/2024 urina lysis , dipst ick BILIRUBIN Negati ve Not Available [facility] [address], [place], [address], 03/06/2024 10:41:18 03/06/20 24 03/06/2024 urina lysis , dipst ick UROBILINOGEN 0.2 mg/dL (Norm) Not Available [facility] [address], [place], [address], 03/06/2024 10:41:18 03/06/20 24 03/06/2024 urina lysis , dipst ick KETONES Negati ve Not Available [facility] [address], [place], [address], 03/06/2024 10:41:18 03/06/20 24 03/06/2024 urina lysis , dipst ick PROTEIN Negati ve Not Available [facility] [address], [place], [address], 03/06/2024 10:41:18 03/06/20 24 03/06/2024 urina lysis , dipst ick NITRITES Negati ve Not Available [facility] [address], [place], [address], 03/06/2024 10:41:18 03/06/20 24 03/06/2024 urina lysis , dipst ick GLUCOSE Negati ve Not Available [facility] [address], [place], [address], 03/06/2024 10:41:18 03/06/20 24 03/06/2024 urina lysis , dipst ick p.H. 5.5 Not Available [facility] [address], [place], [address], 03/06/2024 10:41:18 03/06/20 24 03/06/2024 urina lysis , dipst ick S.G. (Specific Juniata) 1.020 Not Available [facility] [address], [place], [address], 03/06/2024 10:41:18 03/06/20 24 03/06/2024 urina lysis , dipst ick LEUKOCYTES Trace (10 WBC/uL ) Not Available [facility] [address], [place], [address], 03/06/2024 10:41:18 Result Notes None recorded. Problems Name Problem SNOMED Code Status Onset Date Resolution Date Notes Provider Name and Address Organization Details Recorded Time Malignant neoplasm of urinary bladder 132927470 Active 023 Nataliia mendez, [facility] 16:33:09 Problem Notes None recorded. Procedures Surgical History Date Name Laterality Status Provider Name and Address Organization Details Recorded Time 024 Cystoscopy- female completed Justino Edwards MD [address] [place] [address],[facility] [address], [place], [address], [facility] 03/06/2024 11:32:15 024 Keflex post Cysto completed Denice Cowart [facility] 03/06/2024 11:06:59 024 Urinalysis completed Ida Ram [facility] 03/06/2024 10:41:13 024 COMPLEX VISIT completed Justino Edwards MD [address] [place] [address],[address] [facility], [place], [address], [facility] 11/05/2023 13:18:40 024 CystoscopyFemale completed Justino Edwards MD [address] [place] [address],[place] [address], [place], [address], [facility] 11/05/2023 13:18:50 024 Keflex post Cysto completed Denice Cowart [facility] 11/05/2023 11:34:16 024 BCG Full Dose Tx 50mg completed Nadia Vuong [facility] 09/04/2023 12:34:52 024 BCG Full Dose Tx 50mg completed Katie Spivey [facility] 08/28/2023 11:09:58 024 BCG Full Dose Tx 50mg completed Katie Spivey [facility] 08/21/2023 11:26:56 024 CystoscopyFemale completed Justino Edwards MD [address] [place] [address],[address], [address], [facility] 07/12/2023 12:24:45 023 CystoscopyFemale completed Justino Edwards MD [address] [place] [address],[address], [place], [address], [facility] 04/05/2023 10:21:13 023 CystoscopyFemale completed Justino Edwards MD [address] [place] [address],[address], [place], [address], [facility] 12/25/2022 15:07:45 023 BCG Full Dose Tx 50mg completed Melita Finney [facility] 11/06/2022 10:13:57 023 BCG Full Dose Tx 50mg completed Melita Finney [facility] 10/30/2022 10:33:32 023 BCG Full Dose Tx 50mg completed Nataliia Barba [facility] 10/23/2022 10:37:02 023 MANASA Stent Removal completed Justino Edwards MD [address] [place] [address],[address], [place], [address], [facility] 10/01/2022 15:09:05 023 MANASA Stent Removal completed Justino Edwards MD [address] [place] [address],[address], [place], [address], [facility] 09/14/2022 13:16:10 023 BCG Full Dose Tx 50mg completed Melita Finney [facility] 07/25/2022 16:20:49 023 BCG Full Dose Tx 50mg completed Nataliia Barba [facility] 07/18/2022 16:39:52 023 BCG Full Dose Tx 50mg completed Terrie Brooks [facility] 07/11/2022 14:13:26 022 BCG Full Dose Tx 50mg completed Terrie Gneiting [facility] 07/04/2022 16:32:46 022 BCG Full Dose Tx 50mg completed Terrie Gnbeverley [facility] 06/27/2022 14:34:58 BCG Full Dose Tx 50mg completed Terrie Rosabeverley [facility] 06/21/2022 16:33:51 Catheter Removal completed Aracleimartin Soriano [facility] 05/30/2022 11:34:56 transurethral excision of neoplasm of urinary bladder completed Jonna Briceno [facility] 06/08/2022 14:55:48 Cystoscopy- female completed Justino Edwards MD [address], [place], [address], [facility] 03/30/2022 10:42:57 Imaging Results None recorded. Procedure Notes None recorded. Medical Equipment None Reported. Allergies No known drug allergies Medications Name Sig Start Date Stop Date Status Note LastModified by Organization Details LastModified Time fluconazole 150 mg tablet 09/14 completed Not Available Not Available Not Available hydrocodone 5 mg-acetamin ophen 325 mg tablet 09/14 completed Not Available Not Available Not Available meloxicam 15 mg tablet TAKE 1 TABLET BY MOUTH DAILY active Not Available Not Available No t Available prednisone 20 mg tablet TAKE 1 TABLET BY MOUTH DAILY 03/30 completed Not Available Not Available Not Available ciprofloxac in 250 mg tablet 03/30 completed Not Available Not Available Not Available sulfamethox azole 800 mg-trimetho prim 160 mg tablet 06/08 completed Not Available Not Available Not Available Michelle BCG 50 mg intravesica l suspension Instill 50 mg by intravesi lissa route. 2023 active Not Available Not Available Not Avai lable famotidine 20 mg tablet Take 1 tablet twice a day by oral route. 09/14 completed Not Available Not Available Not Available cephalexin 500 mg capsule 03/06 completed Not Available Not Available Not Available omeprazole 20 mg capsule,del ayed release TAKE 1 CAPSULE BY MOUTH DAILY 03/06 completed Not Available Not Available Not Available Vitals Date Recorded Body height Body mass index (BMI) Body weight Provider Name and Address Organization Details Last Updated DateTime 11/05/2023 152.4 cm 27.7 kg/m2 62996.12 g Jonna Briceno [facility] 11/05/2023 11:11:20 Date Recorded Body height Body mass index (BMI) Body weight Provider Name and Address Organization Details Last Updated DateTime 03/06/2024 152.4 cm 27.7 kg/m2 79668.12 g Ida Leanna [place] [facility] 03/06/2024 10:40:25 Social History Question Answer Notes LastModified by Organizat ion Details LastModified Time Tobacco Smoking Status Never Smoker Pham mendez [facility] 04/19/2022 11:02:51 What Is Your Level Of Alcohol Consumption? None Information not available 04/19/2022 What Is Your Level Of Caffeine Consumption? None Information not available 04/19/2022 Race White Information no t available 04/19/2022 Ethnicity Not /Lat dulce Information not available 04/19/2022 Preferred Language Afghan Information not available 04/19/2022 What Was The Date Of Your Most Recent Tobacco Screening? 03/06/2024 [email or web address] Information not available 03/06/2024 Do You Use Any Illicit Or Recreational Drugs? No Information not available 04/19/2022 Has Tobacco Cessation Counseling Been Provided? No Information not available 04/19/2022 Do You Or Have You Ever Used Any Other Forms Of Tobacco Or Nicotine? No Information not available 04/19/2022 Sex: Unknown Functional Status None recorded. Mental Status None recorded. Family History Relationship Description Onset Age of this Age Resolved Age Notes LastModified by Organization Details LastModified Time Brother Family history of cancer of colon [email or web address] Not available 2022 14:43:15 Brother Family history of cardiac disorder [email or web address] Not available 2022 14:44:06 Medical History Condition Response Diabetes N Sexually Transmitted Infection N Other N Bleeding Disorder N High Blood Pressure N Kidney Stones N Cancer Y Lung Disease N Depression N High Cholesterol N GERD/Acid Reflux Y Heart Disease N Gynecological HistoryNo gynecological history recorded. Obstetrics History GPAL:G 0 P 0 0 0 0 Past Encounters Encounter ID Performer Location Encounter Start Date Encounter Closed Date Diagnosis/Indication Diagnosis SNOMED-CT Code Diagnosis ICD10 Code [id number] Katie leal [facility] [address] [place] [id number] 03/30/2022 09:42:00 04/09/2022 10:54:28 Mass of urinary bladder 457238804 N32.89 Bill hematuria 59107603 5 R31.0 Hydronephrosis 63150950 N13.30 [id number] MD JESSICA [facility] [address] [place] [address] 04/19/2022 10:52:35 05/21/2022 14:41:59 Malignant neoplasm of urinary bladder 070076683 C67.9 [id number] Araceli Soriano [facility] [address] [place] [id number] 05/30/2022 10:49:36 06/05/2022 03:52:56 Malignant neoplasm of urinary bladder 670546393 C67.9 [id number] Justino Edwards MD [facility] [address] [place] [id number] 06/08/2022 14:43:23 06/11/2022 15:40:43 Malignant neoplasm of urinary bladder 374020998 C67.9 [id number] Terrie Gneiting [facility] [address] [place] [id number] 06/20/2022 13:58:21 06/25/2022 08:35:55 Malignant neoplasm of urinary bladder 073383521 C67.9 [id number] Terrie Gneiting [facility] [address] [place] [id number] 06/27/2022 13:31:28 06/29/2022 11:58:54 Malignant neoplasm of urinary bladder 640113153 C67.9 [id number] Terrie Gneiting [facility] [address] [place] [id number] 07/04/2022 15:42:00 07/05/2022 14:30:08 Malignant neoplasm of urinary bladder 773526554 C67.9 [id number] Terrie Gneiting [facility] [address] [place] [id number] 07/11/2022 13:12:56 07/13/2022 12:03:51 Malignant neoplasm of urinary bladder 179048993 C67.9 [id number] Araceli Soriano [facility] [address] [place] [address] 07/18/2022 15:14:35 07/20/2022 12:00:03 Malignant neoplasm of urinary bladder 183476592 C67.9 [id number] Melitafredrick Finney [facility] [address] [place] [address] 07/25/2022 15:33:26 07/27/2022 09:40:39 Malignant neoplasm of urinary bladder 818995577 C67.9 [id number] Justino Edwards MD [facility] [address] [place] [address] 09/14/2022 11:27:19 09/17/2022 19:13:49 Malignant neoplasm of urinary bladder 100580380 C67.9 [id number] Justino Edwards MD [facility] [address] [place] [address] 10/01/2022 14:39:47 10/04/2022 17:29:49 Malignant neoplasm of urinary bladder 983158935 C67.9 [id number] Nataliia Megancornelia [facility] [address] [place] [id number] 10/23/2022 09:44:37 10/24/2022 14:38:47 Malignant neoplasm of urinary bladder 166884804 C67.9 [id number] Melita [facility] [address] [place] [address] 10/30/2022 09:39:22 10/31/2022 15:56:45 Malignant neoplasm of urinary bladder 114782786 C67.9 [id number] Melita Reg [facility] [address] [place] [address] 11/06/2022 09:44:46 11/08/2022 16:02:41 Malignant neoplasm of urinary bladder 868509763 C67.9 [id number] Justino Edwards MD [facility] [address] [place] [address] 12/25/2022 14:20:18 12/27/2022 09:38:14 Malignant neoplasm of urinary bladder 440774181 C67.9 [id number] [facility] [address] [place] [address] 04/05/2023 09:44:09 04/11/2023 09:50:03 Malignant neoplasm of urinary bladder 015471777 C67.9 [id number] Justino Edwards MD [facility] [address] [place] [address] 07/12/2023 11:29:25 07/18/2023 15:58:22 Malignant neoplasm of urinary bladder 130189743 C67.9 [id number] Katie Spivey [facility] [address] [place] [address] 08/21/2023 09:47:26 08/21/2023 15:18:06 Malignant neoplasm of urinary bladder 861829353 C67.9 [id number] Katie Spivey [facility] [address] [place] [address] 08/28/2023 09:51:46 09/02/2023 16:52:30 Malignant neoplasm of urinary bladder 058660487 C67.9 [id number] Nadia Vuong [facility] [address] [place] [address] 09/04/2023 10:00:43 09/05/2023 08:30:55 Malignant neoplasm of urinary bladder 354032945 C67.9 [id number] Justino Edwards MD [facility] [address] [place] [address] 11/05/2023 10:39:13 11/05/2023 14:17:33 Malignant neoplasm of urinary bladder 579539260 C67.9 [id number] [facility] [address] [place] [address] 03/06/2024 10:14:44 03/16/2024 16:36:44 Malignant neoplasm of urinary bladder 609554954 C67.9 Health Concerns Section Related Observation LastModified by Organization Detai ls LastModified Time None Recorded Concern Status LastModified by Organization Details LastModified Time None Recorded Advance Directives Directive None Recorded Payers Encounter Date Sequence Insurance Name Policy Number Policy Morin Covered Member ID Morin Member ID Guarantor Name 08/21/2023 1 [employer] (MEDICARE REPLACEMENT/A DVANTAGE - PPO) [id number] Johana Nicole Malebelle [id number] Olimpo Corey Malebelle 08/28/2023 1 [employer] (MEDICARE REPLACEMENT/A DVANTAGE - PPO) [id number] Olimpo Corey Malebelle [id number] Olimpo Corey Malebelle 09/04/2023 1 [employer] (MEDICARE REPLACEMENT/A DVANTAGE - PPO) [id number] Olimpo Corey Malebelle [id number] Johana Corey Malebelle 11/05/2023 1 [employer] (MEDICARE REPLACEMENT/A DVANTAGE - PPO) [id number] Johana Nicole Malebelle [id number] Olimpo Corey Malebelle 03/06/2024 1 [employer] (MEDICARE REPLACEMENT/A DVANTAGE - PPO) [id number] Johana Barton [id number] Johana Barton Notes Date Note Type Note Provider Name and Address Organization Details Recorded Time 08/21/2023 text/html HPI Notes: 87 YO F here for #1 BCG maintenance - SO patient Katie mendez [facility] 08/21/2023 11:28:34 08/28/2023 text/html HPI Notes: 87 YO F here for BCG #2/3 0rdered 07/12/23 per SO- no PA needed. Medication double checked by Jonna mendez [facility] 08/28/2023 11:12:19 09/04/2023 text/html HPI Notes: A 87 yr old female arrived for her #3/3 BCG dose. Nadia mendez [facility] 09/04/2023 12:37:03 11/05/2023 text/html HPI Notes: 88F s /p re-staging TURBT for large bladder tumor, DAILY since, here for surveillance cysto. Grossly resected. Final pathology: T1 HG, muscle present in multiple locales, negative for invasion into muscle. Has healed well, and at present, has no evidence of disease on surveillance. Both ureteral stents removed. Patient is doing well, no LUTS, no complaints. Completed induction BCG Jul 2022. Completed maintenance Oct 2022, Aug 2023. CT urogram 12/25/2022 - both stents removed, no hydro, no filling defects, well appearing. No issues into 2023. Justino Edwards MD [address] [place] [address],[address], [place], [id number], [facility] 11/05/2023 13:19:21 03/06/2024 text/html HPI Notes: 88F presents for bladder cancer follow up . She is remotely s/p re-staging TURBT for large bladder tumor, DAILY since, here for surveillance cysto. Grossly all was resected. Final pathology: T1 HG, muscle present in multiple locales, negative for invasion into muscle. Healed well, and at present, has no evidence of disease on surveillance. Both ureteral stents were subsequently removed. Patient is doing well, no LUTS, no complaints. Completed induction BCG Jul 2022. Completed maintenance Oct 2022, Aug 2023. CT urogram 12/25/2022 - both stents removed, no hydro, no filling defects, well appearing. No issues into 2023. Justino Edwards MD [address] [place] [address],[address], [place], [id number], [facility] 03/06/2024 11:32:25 OBGyn Episode No OBEpisode recorded.
--- OUTSIDE RECORDS SUMMARY | 2024-05-06 23:59 | XMS_ITS | Referral Summary ---
Author Organization [facility] Address [address] [place] [id number] Care Team Providers Care Intelligence Chief Name Role Phone Mario Reynolds MD Primary Care Provider [phone] Allergies No known active allergies Medications MELOXICAM 15 mg daily. Active multivitamin, therapeutic with minerals (THERA-VIT-M) TABS Take 1 tablet by mouth daily. Active vitamin B complex with vitamin C (VITAMIN B COMPLEX) TABS Take 1 tablet by mouth daily. Active GLUCOSAMINE SULFATE PO Take by mouth daily. Active Social History Tobacco Use Types Packs/Day Years Used Date Smoking Tobacco: Never Alcohol Use Standard Drinks/Week Comments No 0 (1 standard drink = 0.6 oz pur e alcohol) Comments No Sex and Gender Information Value Date Recorded Sex Assigned at Not on file Legal Sex Female 4:30 AM MISSION ASSESSMENT SPECIALIST Gender Identity Not on file Sexual Orientation Not on file Last Filed Vital Signs Vital Sign Reading Time Taken Comments Blood Pressure 168/97 06/10/2013 4:08 PM MISSION ASSESSMENT SPECIALIST Pulse - - Temperature 35.9 ??C (96.6 ??F) 06/10/2013 12:[address] Respiratory Rate 16 06/10/2013 4:08 PM MISSION ASSESSMENT SPECIALIST Oxygen Saturation 99% 06/10/2013 4:08 PM MISSION ASSESSMENT SPECIALIST Inhaled Oxygen Concentration - - Weight 66.4 kg (146 lb 6.4 oz) 06/10/2013 12:44 PM MISSION ASSESSMENT SPECIALIST Height 154.9 cm (5' 1) 06/10/2013 12:44 PM MISSION ASSESSMENT SPECIALIST Body Mass Index 27.66 06/10/2013 12:44 PM MISSION ASSESSMENT SPECIALIST Plan of Treatment Not on file Medical Devices Implanted Type Area Transit Manager Device Identifier Shelf Expiration Date Model / Serial / Lot Eye Kit Lacrimal Intubation Stent [id number] Implanted:Qty: 1 on 10/24/2012 by Kael Ang MD at [facility] Right: Lacrimal Duct [employer] 07/06/2015 [id number] / / [id number] Eye Kit Lacrimal Intubation Stent [id number] Implanted:Qty: 1 on 06/10/2013 by Kael Ang MD at [facility] 10/06/2015 [id number] / / [id number] Insurance [facility] MEDICARE ADVANTAGE Care Teams Intelligence Chief Relationship Specialty Start Date End Date Mario Reynolds MD PCP - General Family Practice 10/14/12
--- OUTSIDE RECORDS SUMMARY | 2024-05-06 23:59 | XMS_ITS | Clinical Summary ---
Author Organization [facility] Address [address] [place] [id number] Care Team Providers Care Journeyman Apprentice Electricians Name Role Phone Mario Reynolds MD Primary Care Provider [phone] Allergies No known active allergies Medications MELOXICAM [...] on file Legal Sex Female 4:30 AM REIMBURSEMENT REP Gender Identity Not on file Sexual Orientation Not on file Last Filed Vital Signs Vital Sign Reading Time Taken Comments Blood Pressure 168/97 06/10/2013 4:08 PM REIMBURSEMENT REP Pulse - - Temperature 35.9 ??C (96.6 ??F) 06/10/2013 12:[address] Respiratory Rate 16 06/10/2013 4:08 PM REIMBURSEMENT REP Oxygen Saturation 99% 06/10/2013 4:08 PM REIMBURSEMENT REP Inhaled Oxygen Concentration - - Weight 66.4 kg (146 lb 6.4 oz) 06/10/2013 12:44 PM REIMBURSEMENT REP Height 154.9 cm (5' 1) 06/10/2013 12:44 PM REIMBURSEMENT REP Body Mass Index 27.66 06/10/2013 12:44 PM REIMBURSEMENT REP Plan of Treatment Not on file Medical Devices Implanted Type Area Production Artist Device Identifier Shelf Expiration Date Model / Serial / Lot Eye Kit Lacrimal Intubation Stent [id number] Implanted:Qty: 1 on 10/24/2012 by Kael Ang MD at [facility] Right: Lacrimal Duct [employer] 07/06/2015 [id number] / / [id number] Eye Kit Lacrimal Intubation Stent [id number] Implanted:Qty: 1 on 06/10/2013 by Kael Ang MD at [facility] 10/06/2015 [id number] / / [id number] Insurance [facility] MEDICARE ADVANTAGE Care Teams Journeyman Apprentice Electricians Relationship Specialty Start Date End Date Mario Reynolds MD PCP - General Family Practice 10/14/12
--- OUTSIDE RECORDS SUMMARY | 2024-05-06 23:59 | XMS_ITS | Clinical Summary ---
Author Organization [facility] Address [place], [place] [address] Care Team Providers Care Congressional Aide Name Role Phone Pcp, No Primary Care Provider Unavailabl e Allergies No known active allergies Medications Medication Sig Dispensed Refills Start Date End Date Status B-complex with vitamin C (VITAMIN B COMPLEX WITH C ORAL) Take 1 Capsule by mouth once daily. Active meloxicam 15 mg tablet Take 15 mg by mouth once daily. Active multivitamin (MVI) tablet Take 1 Tablet by mouth once daily. Active verapamiL (VERELAN) 240 mg Controlled-Release capsuleIndications: Ventricular tachyarrhythmia (HC) Take 1 Capsule (240 mg) by mouth once daily in the morning. 30 Capsule 11 04/27/20 24 Active famotidine (PEPCID) 20 mg tablet Take 20 mg by mouth at bedtime. 024 Discontinued( Pharmacist change per medication history (E-cancel not sent)) ferrous sulfate 325 mg delayed release tablet Take 325 mg by mouth once every other day. 024 Discontinued( Pharmacist change per medication history (E-cancel not sent)) Glucosamine HCl 500 mg tablet Take by mouth. 024 Discontinued( Pharmacist change per medication history (E-cancel not sent)) omeprazole (PRILOSEC) 20 mg Delayed-Release capsule Take 20 mg by mouth once daily before a meal. 024 Discontinued( Pharmacist change per medication history (E-cancel not sent)) trimethoprim-sulfam ethoxazole, 160-800 mg, (BACTRIM DS, SEPTRA DS) tab Take 1 Tablet by mouth two times daily. 024 Discontinued( Pharmacist change per medication history (E-cancel not sent)) HYDROcodone-acetami nophen (NORCO) 5-325 mg per tabletIndications:M alignant neoplasm of urinary bladder, unspecified site (HC) Take 1 Tablet by mouth every 6 hours if needed for Pain. Max acetaminophen dose: 4000 mg in 24 hrs. 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 [address] [place] [address] Jerry Brady MD [facility], [facility], MD Genaro Ellison Timothy Joseph Ngui, MD Ventricular tachyarrhythmia (HC) (Primary Dx); Wide-complex tachycardia Discharge Disposition: Home Self Care 04/22/[address] [facility] [address] [place] [address] Vinay Smith MD from Last 3 Months Immunizations Name Administration Dates Next Due COVID-19 vaccine (ZafinBio NTech 30mcg/0.3mL) ELIANE BRIGGS 06/26/2021,09/06/2020,08/16/2020 Social History Tobacco Use Types Packs/Day Years Used Date Smoking Tobacco: Never Smokeless Tobacco: Never Alcohol Use Standard Drinks/Week Comments Yes 0 (1 standard drink = 0.6 oz pur e alcohol) rare Social Connections Answer Date Recorded Do you often feel lonely or isolated from those around you? 0 04/23/2024 Financial Resource Strain Answer Date R ecorded Difficulty of Paying Living Expenses 3 04/23/2024 Difficulty of Paying Living Expenses Not on file 04/23/2024 Food Insecurity Answer Date Recorded Do you worry your food will run out before you are able to buy more? 1 04/23/2024 Transportation Needs Answer Date Record ed Does lack of transportation keep you from medica l appointments? 1 04/23/2024 Does lack of transportation keep you from work, meetings or getting things that you need? 1 04/23/2024 Housing Stability Answer Date Recorded What is your housing situation today? 1 04/23/2024 Sex and Gender Information Value Date Recorded Sex Assigned at Not on file Gender Identity Not on file Sexual Orientation Not on file Obstetrics History Last Filed Vital Signs Vital Sign Reading Time Taken Comments Blood Pressure 123/74 04/26/2024 8:00 AM CDT Pulse 79 04/26/2024 8:00 AM CDT Temperature 36.6 ??C (97.9 ??F) 04/26/2024 8:00 AM CD T Respiratory Rate 16 04/26/2024 8:00 AM CDT Oxygen Saturation 96% 04/26/2024 8:00 AM CDT Inhaled Oxygen Concentration - - Weight 60.2 kg (132 lb 13.2 oz) 04/26/2024 4:00 AM CDT Height 162.6 cm (5' 4) 04/22/2024 10:2 0 PM CDT Body Mass Index 22.8 04/22/2024 10:20 PM CDT Plan of Treatment Upcoming Encounters Date Type Department Care Team (Late st Contact Info) Description 06/16/2024 10:00 AM FLOAT PHLEBOTOMIST Office Visit [facility] [address] [place] [address] Alesia Hubbard MD [address] [facility] [address] [place] [address] Health Maintenance Due Date Last Done Comments Pneumococcal series for age 65+ (1 of 2 - PCV) 10/17/1943 Tdap 1948 Depression screening for age 12+ 1949 BMI (ht and wt on same day) for age 18+ 10/17/1955 Zoster (shingles) series for age 50+ (1 of 2) 1956 Tetanus booster 1957 DEXA/DXA scan for age 65+ 2002 RSV vaccine for adults or pr egnancy (1 - 1-dose 75+ series) 2012 COVID-19 vaccine series ( season) 2024 06/26/2021, 09/06/2020, 08/16/2020 Influenza for age 65+ 03/08/2024 Medical Devices Implanted Type Area Pizzamaker Device Identifier Shelf Expiration Date Model / Serial / Lot Stent Uret [id number] Contour - [id number] Implanted:Qty: 1 on 04/10/2022 by Justino Edwards MD at [facility] Right: Ureter [facility] 05/02/2024 [id number] / / [id number] Stent Uret [id number] Contour - [id number] Implanted:Qty: 1 on 04/10/2022 by Justino Edwards MD at [facility] Left: Ureter [facility] 01/25/2025 [id number] / / [id number] Procedures Procedure Name Priority Date/Time Associated Diagnosis Comments MR CARDIAC WWO Routine 04/26/2024 10:01 AM CDT MAGNESIUM Early AM 04/26/2024 8:10 AM CDT BASIC METABOLIC PANEL Early AM 04/26/2024 8:10 AM CDT SCAN-CARDIAC STRIP 04/25/2024 11 :42 PM CDT SCAN-CARDIAC STRIP 04/25/2024 4: 09 PM CDT POTASSIUM Early AM 04/25/2024 5:55 AM CDT SCAN-CARDIAC STRIP 04/25/2024 1: 29 AM CDT MAGNESIUM Timed 04/24/2024 10:40 PM CDT SCAN-CARDIAC STRIP 04/24/2024 7: 32 AM CDT MAGNESIUM BRYANT 04/24/2024 6:44 AM CDT POTASSIUM Early AM 04/24/2024 6:44 AM CDT SCAN-CARDIAC STRIP 04/23/2024 7: [address] CARDIAC MORPHOLOGY W DUAL READ Routine 04/23/2024 2:[address] CARDIAC CORONARY ARTERIES DUAL READ Routine 04/23/2024 2:25 PM CDT POTASSIUM Timed 04/23/2024 1:46 PM CDT SCAN-CARDIAC STRIP 04/23/2024 12 :53 PM CDT ECHO TTE COMPLETE W CONTRAST Routine 04/23/2024 10:04 AM CDT SCAN-CARDIAC STRIP 04/23/2024 9: 16 AM CDT MAGNESIUM Early AM 04/23/2024 7:04 AM CDT LIPID PANEL Early AM 04/23/2024 7:04 AM CDT HEPATIC FUNCTION PANEL Early AM 04/23/2024 7:04 AM CDT TROPONIN T (HS) ONE TIME STAT 04/23/2024 7:04 AM CDT HEMATOCRIT BRYANT 04/23/2024 7:04 AM CDT HEMOGLOBIN BRYANT 04/23/2024 7:04 AM CDT PLATELET COUNT BRYANT 04/23/2024 7:04 AM CDT APTT BRYANT 04/23/2024 7:04 AM CDT PROTIME-INR BRYANT 04/23/2024 7:04 AM CDT BASIC METABOLIC PANEL Early AM 04/23/2024 7:04 AM CDT SCAN-CARDIAC STRIP 04/23/2024 2: 59 AM CDT SCAN-CARDIAC STRIP 04/23/2024 1: 36 AM CDT TROPONIN T (HS) ONE TIME Timed 04/23/2024 12:42 AM CDT EKG 12 LEAD STAT 04/22/2024 10:33 PM CDT T4,FREE BRYANT 04/22/2024 10:24 PM CDT PROTIME-INR STAT 04/22/2024 10:24 PM CDT PRO-BNP STAT 04/22/2024 10:24 PM CDT TSH STAT 04/22/2024 10:24 PM CDT MAGNESIUM STAT 04/22/2024 10:24 PM CDT TROPONIN T (HS) ACUTE W/2HR REFLEX STAT 04/22/2024 10:24 PM CDT BASIC METABOLIC PANEL STAT 04/22/2024 10:24 PM CDT CBC W PLT NO DIFF STAT 04/22/2024 10: 24 PM CDT EKG 12 LEAD STAT 04/22/2024 10:19 PM CDT BEDSIDE US STUDY ARCHIVE Routine 04/22/2024 10:16 PM CDT from Last 3 Months Results * MR CARDIAC WWO (04/26/2024 10:01 AM CDT) Anatomical Region Laterality Modality HEART, THORAX Magnetic Resonan ce 04/26/2024 9:02 AM CDT Narrative 04/26/2024 10:41 AM CDT ?[facility] ? CMR Report ??MRN: ?[id number] ?Name: ? MALECHA, JOHANA M ?: ? 1936-Apr-11 ?Scan Date: ?Accession Number: ?[id number] ?Status: ?Final ? Electronically signed by Nick Colin 10:41:26 VITALS ===== HEIGHT: 64 in ?(163 cm) WEIGHT: 132 lbs ?(60 kgs) BSA: 1.64 m^2 FINAL IMPRESSION ===== 1. ?? Normal left ventricular systolic function, LVEF 66%. ?A. ?? Moderate concentric LVH with myocardial mass at the upper limit of normal 52 g/m2 (33-56 g/m2) and maximal wall thickness 14 mm in the basilar anteroseptum. ?B. ?? Normal LV volumes and wall motion (no discreet akinetic segment. ?C. ?? No myocardial edema. ?D. ?? No hypertrophic cardiomyopathy. 2. ?? Low normal right ventricular systolic function, RVEF 52%. 3. ?? 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 4. ?? No amyloidosis with a normal ECV 27%. 5. ?? Normal lungs. 6. ?? Normal pericardium. SUMMARY ===== LEFT VENTRICLE: Quantitative LVEF 66 %. Maximal wall thickness in the basilar anteroseptum 14 mm. Mass at the upper limit of normal 52 g/m2 (33-56 g/m2) VIABILITY: LV scar size is 1 %. RIGHT VENTRICLE: Quantitative RVEF 52 %. LV/RV SEPTUM: The LV/RV septum is normal. LA/RA SEPTUM: The LA/RA septum is normal. LEFT ATRIUM: The left atrium is normal. RIGHT ATRIUM: The right atrium is normal. PERICARDIUM: The pericardium is normal. PLEURAL EFFUSION: There is no pleural effusion. AORTIC VALVE: The aortic valve is normal. MITRAL VALVE: Anterior mitral leaflet 24 mm without systolic anterior motion. AORTIC ROOT: The aortic root is normal. OTHER FINDINGS: Hepatic cyst 21 x 21 mm. Normal T2 mapping - no edema. CORE EXAM ===== MEASUREMENTS ----- --- ?VOLUMETRIC ANALYSIS ? . . ? LV Reference RV ?? Reference +------+--------+----+ +-----+ + EDV ?? ml ? 87 ? 115 ? ml/m^2 53 ?70 ? ESV ?? ml ? 30 ?55 ? ml/m^2 18 ?34 ? CO ? MASS g ? 85 ? g/m^2 ?? 52 ? SV ?? ml ? 57 ?60 ? ml/m^2 35 ?37 ? EF ?? % ? 66 ?52 ? '------+--------+----+ +-----+ ' ?EXTRACELLULAR VOLUME MEASUREMENT ?PRE-CONTRAST T1 MYOCARDIUM: ??1049 msec ?ECV: ??27 % 17 SEGMENT ----- --- . ----- -----. Segments ? Wall Motion Hyperenhancement Stress Perfusion Interpretation + + + + +------ ----- -----+ Base Anterior ? Base Anteroseptal ? Base Inferoseptal ? Base Inferior ? Base Inferolateral ? Base Anterolateral ? 1-25% ? Sub-Endo UT ? Mid Anterior ? Mid Anteroseptal ? Mid Inferoseptal ? Mid Inferior ? Mid Inferolateral ? Mid Anterolateral ? Apical Anterior ? Apical Septal ? Apical Inferior ? Apical Lateral ? [place] ? + + + + +------ ----- -----+ RV Segments ? Wall Motion Hyperenhancement ? Interpretation + + + + +------ ----- -----+ RV Basal Anterior ? RV Basal Inferior ? RV Mid ? RV Apical ? ' + + + +------ ----- -----' ?FINDINGS ?LV SCAR SIZE (17 SEGMENT): ??1 % SCAN INFO ===== GENERAL ----- --- ?SCANNER ?OFFICE ENGINEER: ??SIEMENS ?MODEL: ??Aera ?CONTRAST AGENT ?TYPE: ??Gadavist ?GD CONCENTRATION: ??1.0 M ?SETUP ?REASON(S) FOR SCAN: ??HCM (known/suspect) ?ATTENDING PHYSICIAN: ??ROCAEL ARRIAGA ===== Patient Account ?[id number] Report generated by [employer], a product of [employer] Procedure Note Nick Colin MD - 04/26/2024 [facility] CMR Report Name: JOHANA GILLESPIE : Scan Date: Accession Number: [id number] Status: Final Electronically signed by Nick Colin 10:41:26 VITALS ===== HEIGHT: 64 in (163 cm) WEIGHT: 132 lbs (60 kgs) BSA: 1.64 m^2 FINAL IMPRESSION ===== 1. Normal left ventricular systolic function, LVEF 66%. A. Moderate concentric LVH with myocardial mass at the upper limitof normal 52 g/m2 (33-56 g/m2) and maximal wall thickness 14 mm in the basilar anteroseptum. B. Normal LV volumes and wall motion (no discreet akineticsegment. C. No myocardial edema. D. No hypertrophic cardiomyopathy. 2. Low normal right ventricular systolic function, RVEF 52%. 3. Tiny discreet basilar anterolateral UT consistent with a tiny embolicinfarct. 4. No amyloidosis with a normal ECV 27%. 5. Normal lungs. 6. Normal pericardium. SUMMARY ===== LEFT VENTRICLE: Quantitative LVEF 66 %. Maximal wall thickness in thebasilar anteroseptum 14 mm. Mass at the upper limit of normal 52 g/m2 (33-56 g/m2) VIABILITY: LV scar size is 1 %. RIGHT VENTRICLE: Quantitative RVEF 52 %. LV/RV SEPTUM: The LV/RV septum is normal. LA/RA SEPTUM: The LA/RA septum is normal. LEFT ATRIUM: The left atrium is normal. RIGHT ATRIUM: The right atrium is normal. PERICARDIUM: The pericardium is normal. PLEURAL EFFUSION: There is no pleural effusion. AORTIC VALVE: The aortic valve is normal. MITRAL VALVE: Anterior mitral leaflet 24 mm without systolic anteriormotion. AORTIC ROOT: The aortic root is normal. OTHER FINDINGS: Hepatic cyst 21 x 21 mm. Normal T2 mapping - no edema. CORE EXAM ===== MEASUREMENTS ----- --- VOLUMETRIC ANALYSIS . . LV Reference RV Reference +------+--------+----+ +-----+ + EDV ml 87 115 ml/m^2 53 70 ESV ml 30 55 ml/m^2 18 34 CO MASS g 85 g/m^2 52 SV ml 57 60 ml/m^2 35 37 EF % 66 52 '------+--------+----+ +-----+ ' EXTRACELLULAR VOLUME MEASUREMENT PRE-CONTRAST T1 MYOCARDIUM: 1049 msec ECV: 27 % 17 SEGMENT ----- --- . ----- -----. Segments Wall Motion Hyperenhancement Stress Perfusion Interpretation + + + + +------ ----- -----+ Base Anterior Base Anteroseptal Base Inferoseptal Base Inferior Base Inferolateral Base Anterolateral 1-25% Sub-Endo UT Mid Anterior Mid Anteroseptal Mid Inferoseptal Mid Inferior Mid Inferolateral Mid Anterolateral Apical Anterior Apical Septal Apical Inferior Apical Lateral [place] + + + + +------ ----- -----+ RV Segments Wall Motion Hyperenhancement Interpretation + + + + +------ ----- -----+ RV Basal Anterior RV Basal Inferior RV Mid RV Apical ' + + + +------ ----- -----' FINDINGS LV SCAR SIZE (17 SEGMENT): 1 % SCAN INFO ===== GENERAL ----- --- SCANNER OFFICE ENGINEER: SIEMENS MODEL: Aera CONTRAST AGENT TYPE: Gadavist GD CONCENTRATION: 1.0 M SETUP REASON(S) FOR SCAN: HCM (known/suspect) ATTENDING PHYSICIAN: ROCAEL ARRIAGA ===== Patient Account [id number] Report generated by OKK[employer], a product of [employer] Edgardo Ashton MD MR * Magnesium AM (04/26/2024 8:10 AM CDT) Only the most recent of5 resultswithin the time period is included. Pathologist [facility] MAGNESIUM 2.1 1.6 - 2.4 mg/dL 04/26/2024 10:10 AM CDT [facility] Blood BLOOD SPECIMEN / Unknown Venipuncture / Unknown 04/26/2024 8:10 AM CDT 04/26/2024 8:27 AM CDT Rocael Lam MD CHEMISTRY [facility] [address] [address], * (ABNORMAL) Basic metabolic panel AM (04/26/2024 8:10 AM CDT) Only the most recent of3 resultswithin the time period is included. SODIUM 140 136 - 145 mmol/L 04/26/2024 8:55 AM CDT [facility] POTASSIUM 4.5 3.5 - 5.1 mmol/L 04/26/2024 8:55 AM CDT [facility] CHLORIDE 107 98 - 107 mmol/L 04/26/2024 8:55 AM CDT [facility] CO2,TOTAL 23 22 - 29 mmol/L 04/26/2024 8:55 AM CDT [facility] ANION GAP 10 5 - 18 04/26/2024 8:55 AM CDT [facility] GLUCOSE 93 70 - 99 mg/dL 04/26/2024 8:55 AM CDT [facility] CALCIUM 8.8 8.8 - 10.2 mg/dL 04/26/2024 8:55 AM CDT [facility] BUN 21 8 - 23 mg/dL 04/26/2024 8:55 AM CDT [facility] CREATININE 0.86 0.50 - 0.90 mg/dL 04/26/2024 8:55 AM CDT [facility] BUN/CREAT RATIO 24(H) 8:55 AM CDT [facility] eGFR 66(L) >90 mL/min/1.7 3m2 04/26/2024 8:55 AM CDT [facility] Comment:As of 2021, eG FR is calculated by the CKD-EPI creatinine equation without race adjustment. ??eGFR can be influenced by muscle mass, exercise, and diet. ??The reported eGFR is an estimation only and is only applicable if the renal function is stable. Blood BLOOD SPECIMEN / Unknown Venipuncture / Unknown 04/26/2024 8:10 AM CDT 04/26/2024 8:27 AM CDT Rocael Lam MD CHEMISTRY [facility] [address] [place] [address], * SCAN-CARDIAC STRIP (04/25/2024 11:42 PM CDT) Scanner OTHER * SCAN-CARDIAC STRIP (04/25/2024 4:09 PM CDT) Scanner OTHER * POTASSIUM (04/25/2024 5:55 AM CDT) Only the most recent of3 resultswithin the time period is included. POTASSIUM 4.1 3.5 - 5.1 mmol/L 04/25/2024 6:28 AM CDT [facility] Blood BLOOD SPECIMEN / Unknown Venipuncture / Unknown 04/25/2024 5:55 AM CDT 04/25/2024 6:07 AM CDT Rocael Lam MD CHEMISTRY [facility] [address] [place] [address], * SCAN-CARDIAC STRIP (04/25/2024 1:29 AM CDT) Scanner OTHER * SCAN-CARDIAC STRIP (04/24/2024 7:32 AM CDT) Scanner OTHER * SCAN-CARDIAC STRIP (04/23/2024 7:16 PM CDT) Scanner OTHER * CT CARDIAC CORONARY ARTERIES DUAL READ (04/23/2024 2:25 PM CDT) Anatomical Region Laterality Modality HEART Computed Tomogra phy 04/23/2024 2:27 PM CDT Impressions 05/01/2024 10:25 AM CDT 1. Please see dedicated cardiac imaging report. 2. Incidental pulmonary nodule left lower lobe. Optional follow-up CT scan in the presence of any significant risk factor (i.e. history of smoking or previous neoplasm). 3. No additional acute or suspicious extracardiac imaging abnormality. Please note that all CT scans at this facility use dose modulation, iterative reconstruction, and/or weight-based dosing when appropriate to reduce radiation dose to as low as reasonably achievable. Dictated by: Justino Stewart MD @ 04/24/2024 18:41:45 (Electronic Signature) Narrative 05/01/2024 10:25 AM CDT ?[facility] ? Cardiac CT Report ??MRN: ?[id number] ?Name: ? MALECHA, JOHANA M ?: ? 1936-Apr-11 ?Scan Date: ?Accession Number: ?[id number] ?Status: ?Final ? Electronically signed by Claudio Bose 16:29:46 VITALS HEIGHT: 64 in ?(163 cm) WEIGHT: 134 lbs ?(61 kgs) BSA: 1.65 m^2 BMI: 23 kg/m^2 BP: 185 / 96 mmHg HEART RHYTHM: Normal Sinus Rhythm FINAL IMPRESSION 1. Nonobstructive coronary artery disease in the LAD and the LCx. 2. Apical wall hypertrophy and an apical diverticulum raise the concern for apical hypertrophic cardiomyopathy - consider cardiac MRI. 3. Normal thoracic aorta. STUDY QUALITY: Study quality is good. CAD-RADS: CAD-RADS Classification 1 (<25% stenosis). CALCIUM SCORING: Total coronary artery calcium score 68. [place] percentile based on age, gender, and race is out of range. DOMINANCE: Right dominant coronary artery system. LM: The LM is normal. LAD: The proximal LAD has calcified atherosclerosis. There is a <25% proximal LAD stenosis. The mid LAD has partially calcified atherosclerosis. There is a <25% mid LAD stenosis. The distal LAD has non-calcified atherosclerosis. There is a <25% distal LAD stenosis. D1: The first diagonal is normal. D2: The second diagonal is normal. RAMUS: The ramus is normal. LCX: The proximal LCx has calcified atherosclerosis. There is a <25% proximal LCx stenosis. There is no mid LCx stenosis. There is no distal LCx stenosis. OM1: The first obtuse marginal is normal. RCA: The proximal RCA has non-calcified atherosclerosis. There is a <25% proximal RCA stenosis. There is no mid RCA stenosis. There is no distal RCA stenosis. RIGHT PDA: The right PDA is normal. RIGHT PLB: The right posterolateral branch is normal. OTHER FINDINGS: Aortic sinus maximum cusp-cusp: 37 x 36 x 36 mm. Ascending aorta maximum diameters: 33 x 32 mm. Descending thoracic aorta maximum diameters: 22 x 22 mm. Pericardium: No effusion. Left atrium: Normal contrast opacification. Atrial septum: No evidence of shunt. Pulmonary veins: Normal anatomy. CALCIUM SCORING TABLE . . ? Number of Lesions Pattern of Calcium Volume Total Score +-------+ + +--------+ + LM ? 0 LAD ?63 LCx ? 5 RCA ? 0 Ramus ? '-------+ + +--------+ ' SCAN INFO TEST TYPE: ??Calcium score, Coronary CT Angiography SCANNER OFFICE ENGINEER: ??SIEMENS SCANNER MODEL: ??SOMATGiftxoxo DOSE REDUCTION ALGORITHM: ??Helical with dose modulation PHASE UNITS: ??% START PHASE: ??67 % END PHASE: ??72 % EKG GATED: ??Yes PRE-CONTRAST: ??Yes POST-CONTRAST: ??Yes 3D RECONSTRUCTION: ??Yes GENERAL ?CONTRAST AGENT ?CONTRAST AGENT USED?: ??Yes ?TYPE: ??Omnipaque 350 ?DOSE: ??76 ml ?RATE: ??6.0 ml/s ?ROUTE: ??IV ?ARM: ??Right ?BOLUS TECHNIQUE: ??Biphasic ?SERUM CREATININE: ??0.74 mg/dL ?GFR: ??79.09 ml/min/1.73m^2 ?CREATININE DATE: ?CT CONTRAST REACTION: ??None ?MEDICATION ADMINISTERED DURING SCAN ?TYPE: ??Nitroglycerin, sublingual, B-Blockers ?NITROGLYCERIN, TOTAL DOSE: ??0.8 mg ?B-DELIA TYPE: ??Oral, IV ?B-DELIA NAME, ORAL: ??Metoprolol tartrate ?B-DELIA NAME, IV: ??Metoprolol tartrate ?B-BLOCKERS, ORAL DOSE: ??100 mg ?B-BLOCKERS, IV DOSE: ??10 mg ?NUMBER OF DOSES: ??1 ?SETUP ?PATIENT TYPE: ??Inpatient ?REASON(S) FOR SCAN: ??Chest pain ?ATTENDING PHYSICIAN: ??ROCAEL LAM ?TECHNOLOGIST: ??Claritza Kingsley BILLING Patient Account ?[id number] Report generated by [employer], a product of [employer] For Patients: As a result of the Cures Act, medical imaging exams and procedure reports are released immediately into your electronic medical record. ??You may view this report before your referring provider. ?? If you have questions, please contact your health care provider. OVER-READ ? OVER-READ ?OVER-READ OVER-READ: DETAILED RADIOLOGY EXTRACARDIAC OVER-READ OF CARDIAC CT 04/23/2024 TECHNIQUE: ??Please see cardiology report for technical information. ??76 cc Omnipaque 350. INDICATION: Chest pain/anginal equiv, ECGs or troponins abnormal~coronary and function, ? apical infarct- suspect diverticuli. ??Cardiac over-read. This exam is being performed in conjunction with the services provided by the [facility] ([facility]). FINDINGS: Mediastinal structures: Unremarkable with no suspicious adenopathy. Pulmonary arteries: Bolus timing limits evaluation, no definite filling defects. Lungs and pleura: No consolidation or pleural fluid. 4 mm nodule in the left lower lobe series 3 image 13. Incidental pectus excavatum. A few linear pulmonary scars are present. Edgardo Ashton MD CT * CT CARDIAC MORPHOLOGY W DUAL READ (04/23/2024 2:25 PM CDT) Anatomical Region Laterality Modality HEART Computed Tomogra phy 04/23/2024 2:27 PM CDT Narrative 05/01/2024 10:25 AM CDT ?[facility] ? Cardiac CT Report ??MRN: ?[id number] ?Name: ? MALECHA, JOHANA M ?: ? 1936-Apr-11 ?Scan Date: ?Accession Number: ?[id number] ?Status: ?Final ? Electronically signed by Claudio Bose 16:29:46 VITALS HEIGHT: 64 in ?(163 cm) WEIGHT: 134 lbs ?(61 kgs) BSA: 1.65 m^2 BMI: 23 kg/m^2 BP: 185 / 96 mmHg HEART RHYTHM: Normal Sinus Rhythm FINAL IMPRESSION 1. Nonobstructive coronary artery disease in the LAD and the LCx. 2. Apical wall hypertrophy and an apical diverticulum raise the concern for apical hypertrophic cardiomyopathy - consider cardiac MRI. 3. Normal thoracic aorta. STUDY QUALITY: Study quality is good. CAD-RADS: CAD-RADS Classification 1 (<25% stenosis). CALCIUM SCORING: Total coronary artery calcium score 68. [place] percentile based on age, gender, and race is out of range. DOMINANCE: Right dominant coronary artery system. LM: The LM is normal. LAD: The proximal LAD has calcified atherosclerosis. There is a <25% proximal LAD stenosis. The mid LAD has partially calcified atherosclerosis. There is a <25% mid LAD stenosis. The distal LAD has non-calcified atherosclerosis. There is a <25% distal LAD stenosis. D1: The first diagonal is normal. D2: The second diagonal is normal. RAMUS: The ramus is normal. LCX: The proximal LCx has calcified atherosclerosis. There is a <25% proximal LCx stenosis. There is no mid LCx stenosis. There is no distal LCx stenosis. OM1: The first obtuse marginal is normal. RCA: The proximal RCA has non-calcified atherosclerosis. There is a <25% proximal RCA stenosis. There is no mid RCA stenosis. There is no distal RCA stenosis. RIGHT PDA: The right PDA is normal. RIGHT PLB: The right posterolateral branch is normal. OTHER FINDINGS: Aortic sinus maximum cusp-cusp: 37 x 36 x 36 mm. Ascending aorta maximum diameters: 33 x 32 mm. Descending thoracic aorta maximum diameters: 22 x 22 mm. Pericardium: No effusion. Left atrium: Normal contrast opacification. Atrial septum: No evidence of shunt. Pulmonary veins: Normal anatomy. CALCIUM SCORING TABLE . . ? Number of Lesions Pattern of Calcium Volume Total Score +-------+ + +--------+ + LM ? 0 LAD ?63 LCx ? 5 RCA ? 0 Ramus ? '-------+ + +--------+ ' SCAN INFO TEST TYPE: ??Calcium score, Coronary CT Angiography SCANNER OFFICE ENGINEER: ??SIEMENS SCANNER MODEL: ??[employer] DOSE REDUCTION ALGORITHM: ??Helical with dose modulation PHASE UNITS: ??% START PHASE: ??67 % END PHASE: ??72 % EKG GATED: ??Yes PRE-CONTRAST: ??Yes POST-CONTRAST: ??Yes 3D RECONSTRUCTION: ??Yes GENERAL ?CONTRAST AGENT ?CONTRAST AGENT USED?: ??Yes ?TYPE: ??Omnipaque 350 ?DOSE: ??76 ml ?RATE: ??6.0 ml/s ?ROUTE: ??IV ?ARM: ??Right ?BOLUS TECHNIQUE: ??Biphasic ?SERUM CREATININE: ??0.74 mg/dL ?GFR: ??79.09 ml/min/1.73m^2 ?CREATININE DATE: ?CT CONTRAST REACTION: ??None ?MEDICATION ADMINISTERED DURING SCAN ?TYPE: ??Nitroglycerin, sublingual, B-Blockers ?NITROGLYCERIN, TOTAL DOSE: ??0.8 mg ?B-DELIA TYPE: ??Oral, IV ?B-DELIA NAME, ORAL: ??Metoprolol tartrate ?B-DELIA NAME, IV: ??Metoprolol tartrate ?B-BLOCKERS, ORAL DOSE: ??100 mg ?B-BLOCKERS, IV DOSE: ??10 mg ?NUMBER OF DOSES: ??1 ?SETUP ?PATIENT TYPE: ??Inpatient ?REASON(S) FOR SCAN: ??Chest pain ?ATTENDING PHYSICIAN: ??ROCAEL LAM ?TECHNOLOGIST: ??Claritza Kingsley BILLING Patient Account ?[id number] Report generated by [employer], a product of [employer] Edgardo Ashton MD CT * SCAN-CARDIAC STRIP (04/23/2024 12:53 PM CDT) Scanner OTHER * ECHO TTE COMPLETE W CONTRAST (04/23/2024 10:04 AM CDT) AORTIC VALVE MEAN PG 4 mmHg EJECTION FRACTION 66 % LVEDD 3.4 cm EJECTION FRACTION 60 - 65% Anatomical Region Laterality Modality Ultrasound 04/23/2024 8:52 AM CDT Narrative 04/23/2024 10:41 AM CDT ECHOCARDIOGRAM JOHANA GILLESPIE ? Accession#: ?? [id number] : ?1935 88 years Study Date: ?? 04/23/2024 8:52:08 AM Gender: F ?BP: ? 185/96 mmHg Height: 163.00 cm ?BSA: ?1.66 m? ? ? Weight: 61.00 kg ? Tech: ? OLL / VKW ? Referring MD: SHARI SANTIAGO Site: ? [facility] [place] Location: [facility] IP Patient Location: Inpatient. Procedure: 2D w/ Contrast, Spectral Doppler and Color Doppler. Indication for study: CP Cardiac Rhythm: Regular.Study quality: Fair. Final Impressions: 1. Normal LV size, mildly increased wall thickness, estimated EF of 60 - 65%. 2. Very small discrete area of apical akinesis. 3. Normal RV size and systolic function. 4. Moderately enlarged left atrium. 5. No significant valve disease. 6. No pericardial effusion. 7. Echo contrast was administered to enhance visualization of all left ventricular segments. Comparison There are no prior studies on this patient for comparison purposes. Chamber Sizes and Function Normal left ventricular size, mildly increased wall thickness, normal global systolic function with an estimated EF of 60 - 65%. Left atrial size is moderately enlarged. Right ventricular cavity size is normal, global systolic RV function is normal. The right atrium is moderately enlarged. The pulmonary artery is of normal size and origin. The sinus of Valsalva is normal sized. The ascending aorta is normal sized. Valves, RV Pressures and Diastolic Function The aortic valve is normal in structure and trileaflet, no stenosis and trivial regurgitation. The mitral valve is normal in structure, trace mitral regurgitation. Normal diastolic function. The tricuspid valve is normal in structure. Tricuspid regurgitation is mild regurgitation. The pulmonic valve is not well visualized. Trace pulmonary regurgitation. Masses, Effusion, Shunts There is no pericardial effusion. The inferior vena cava is normal sized, respiratory size variation greater than 50%. No left to right shunting was detected by limited color flow Doppler interrogation of the interatrial septum. MEASUREMENTS AND CALCULATIONS 2-D Measurements and LV Function: LVID (d) 3.4 cm LV FS% (2D) ?? 47 % LVID (s) 1.8 cm LVOT diameter 2.2 cm IVS (d) ??1.2 cm HR ?78 bpm LVPW (d) 1.1 cm LA Vol index ??43 ml/m2 Ao Sinus 3.1 cm Asc Ao ?? 3.6 cm Diastology: Mitral ?Tissue Doppler E Peak 0.9 m/s ??e', Septum ? 0.08 m/s A Peak 0.6 m/s ??e', Lateral ?0.09 m/s E/A ?1.5 ?E/e' Average ?? 10.40 DT ? 159 msec Aortic Valve: Vmax ? 1.2 m/s ??JULI (V) ?? 2.59 cm? ? ? VTI ?0.26 m ?? JULI (I) ?? 2.37 cm? ? ? LVOT V max 0.8 m/s ??Max PG ?6 mmHg LVOT VTI ?? 0.16 m ?? Mean PG ?? 4 mmHg SV ? 62 ml ?Dim Index 0.62 SV index ?? 38 ml/m? ? ? CO ?4.9 l/min ?CI ?2.9 l/min/m? ? ? Mitral Valve: MVA ?4.8 cm? ? ? MV P 1/2 46 msec Tricuspid Valve and estimated PA pressures: TAPSE 2.0 cm Contrast documentation: 2 ml diluted Definity, lot #[id number], [facility]# [id number] was administered peripherally to enhance visualization of all left ventricular segments. . This study was interpreted by an [facility] accredited facility. ??Final ?? Procedure Note Michael Vaz MD - 04/23/2024 ECHOCARDIOGRAM JOHANA GILLESPIE : 1935 88 years Study Date: 04/23/2024 8:52:08 AM Gender: F BP: 185/96 mmHg Height: 163.00 cm BSA: 1.66 m? ? ? Weight: 61.00 kg Tech: OLL / RITUW Referring MD: SHARI SANTIAGO Site: [facility] [place] Location: [facility] IP Patient Location: Inpatient. Procedure: 2D w/ Contrast, Spectral Doppler and Color Doppler. Indication for study: CP Cardiac Rhythm: Regular.Study quality: Fair. Final Impressions: 1. Normal LV size, mildly increased wall thickness, estimated EF of 60 -65%. 2. Very small discrete area of apical akinesis. 3. Normal RV size and systolic function. 4. Moderately enlarged left atrium. 5. No significant valve disease. 6. No pericardial effusion. 7. Echo contrast was administered to enhance visualization of all leftventricular segments. Comparison There are no prior studies on this patient for comparison purposes. Chamber Sizes and Function Normal left ventricular size, mildly increased wall thickness, normalglobal systolic function with an estimated EF of 60 - 65%. Left atrialsize is moderately enlarged. Right ventricular cavity size is normal,global systolic RV function is normal. The right atrium is moderatelyenlarged. The pulmonary artery is of normal size and origin. The sinus ofValsalva is normal sized. The ascending aorta is normal sized. Valves, RV Pressures and Diastolic Function The aortic valve is normal in structure and trileaflet, no stenosis andtrivial regurgitation. The mitral valve is normal in structure, tracemitral regurgitation. Normal diastolic function. The tricuspid valve isnormal in structure. Tricuspid regurgitation is mild regurgitation. Thepulmonic valve is not well visualized. Trace pulmonary regurgitation. Masses, Effusion, Shunts There is no pericardial effusion. The inferior vena cava is normal sized,respiratory size variation greater than 50%. No left to right shunting wasdetected by limited color flow Doppler interrogation of the interatrialseptum. MEASUREMENTS AND CALCULATIONS 2-D Measurements and LV Function: LVID (d) 3.4 cm LV FS% (2D) 47 % LVID (s) 1.8 cm LVOT diameter 2.2 cm IVS (d) 1.2 cm HR 78 bpm LVPW (d) 1.1 cm LA Vol index 43 ml/m2 Ao Sinus 3.1 cm Asc Ao 3.6 cm Diastology: Mitral Tissue Doppler E Peak 0.9 m/s e', Septum 0.08 m/s A Peak 0.6 m/s e', Lateral 0.09 m/s E/A 1.5 E/e' Average 10.40 DT 159 msec Aortic Valve: Vmax 1.2 m/s JULI (V) 2.59 cm? ? ? VTI 0.26 m JULI (I) 2.37 cm? ? ? LVOT V max 0.8 m/s Max PG 6 mmHg LVOT VTI 0.16 m Mean PG 4 mmHg SV 62 ml Dim Index 0.62 SV index 38 ml/m? ? ? CO 4.9 l/min CI 2.9 l/min/m? ? ? Mitral Valve: MVA 4.8 cm? ? ? MV P 1/2 46 msec Tricuspid Valve and estimated PA pressures: TAPSE 2.0 cm Contrast documentation: 2 ml diluted Definity, lot #[id number], [facility]#[id number] was administered peripherally to enhance visualization of allleft ventricular segments. . This study was interpreted by an [facility] accredited facility. Final Shari Santiago MD ECHO ORD * SCAN-CARDIAC STRIP (04/23/2024 9:16 AM CDT) Scanner OTHER * (ABNORMAL) TROPONIN T (HS) ONE TIME (04/23/2024 7:04 AM CDT) Only the most recent of2 resultswithin the time period is included. TROPONIN T HS 222(H) 6-10 ng/L ng/L 04/23/2024 7:55 AM CDT [facility] Blood BLOOD SPECIMEN / Unknown Non-Lab Venipuncture / Unknown 04/23/2024 7:04 AM CDT 04/23/2024 7:20 AM CDT Narrative [facility] - 04/23/2024 7:55 AM CDT hs-cTnT (Elecsys Troponin T Gen 5) concentration (s) above the sex-specific 99th percentile (16 ng/L or greater for males or 11 ng/L or greater for females) are indicative of myocardial injury. If initial hs-cTnT <=100 ng/L at presentation, a 0h/2h ABSOLUTE (ng/L) delta change (rising or falling) of >=10 ng/L suggests a significant change, whereas a 0h/2h delta change <=3 ng/L suggests no significant change. If initial hs-cTnT >100 ng/L at presentation, a 0h/2h/ RELATIVE (percent, %) delta change of 20% is suggested to distinguish patients with acute vs. chronic myocardial injury. There are multiple etiologies that can cause hs-cTnT increases above the 99th percentile (myocardial injury) other than acute myocardial infarction. Clinical context and careful clinical evaluation are critical for diagnosis and risk-stratification. The diagnosis of acute myocardial infarction requires a rising and/or falling pattern in hs-cTnT concentrations with at least one value above the sex-specific 99th percentile PLUS at least one of the following clinical criteria: ischemic symptoms, new or presumed new significant ST-T wave changes or new LBBB, development of pathological Q waves, imaging evidence of new loss of viable myocardium or new regional wall motion abnormality, or identification of intracoronary atherothrombosis or an acute angiographic culprit on coronary angiography. In appropriate low-risk patients with a non-ischemic electrocardiogram without active chest pain with a symptom onset >3-hours without recurrence, a single initial hs-cTnT<6 ng/L identifies patient with a very low risk in emergency department patient population. Sonia Turner NP CHEMISTRY [facility] [address] [place] [address], * PLATELET COUNT (04/23/2024 7:04 AM CDT) [facility] PLATELET COUNT 193 140 - 440 thou/cu mm 04/23/2024 7:29 AM CDT [facility] MPV 9.9 6.5 - 11.0 fL 04/23/2024 7:29 AM CDT [facility] Blood BLOOD SPECIMEN / Unknown Non-Lab Venipuncture / Unknown 04/23/2024 7:04 AM CDT 04/23/2024 7:20 AM CDT Narrative [facility] - 04/23/2024 7:29 AM CDT Obtain before initiating IV heparin therapy if not done within previous 24 hours. Obtain before initiating IV heparin therapy if not done within previous 24 hours. Obtain before initiating IV heparin therapy if not done within previous 24 hours. Sonia Turner NP HEMATOLOGY Performing Organization Address City/State/[facility] Co de Phone Number [facility] [address] [place] [id number], [place] * HEMOGLOBIN (04/23/2024 7:04 AM CDT) HEMOGLOBIN 13.9 12.0 - 16.0 g/dL 04/23/2024 7:29 AM CDT [facility] MCV 86 80 - 100 fL 04/23/2024 7:29 AM CDT [facility] Blood BLOOD SPECIMEN / Unknown Non-Lab Venipuncture / Unknown 04/23/2024 7:04 AM CDT 04/23/2024 7:20 AM CDT Narrative [facility] - 04/23/2024 7:29 AM CDT Obtain before initiating IV heparin therapy if not done within previous 24 hours. Obtain before initiating IV heparin therapy if not done within previous 24 hours. Obtain before initiating IV heparin therapy if not done within previous 24 hours. Sonia Turner NP HEMATOLOGY [facility] [address] [place] [address], [place] * HEMATOCRIT (04/23/2024 7:04 AM CDT) HEMATOCRIT 40.6 33.0 - 51.0 % 04/23/2024 7:29 AM CDT [facility] Blood BLOOD SPECIMEN / Unknown Non-Lab Venipuncture / Unknown 04/23/2024 7:04 AM CDT 04/23/2024 7:20 AM CDT Narrative [facility] - 04/23/2024 7:29 AM CDT Obtain before initiating IV heparin therapy if not done within previous 24 hours. Obtain before initiating IV heparin therapy if not done within previous 24 hours. Obtain before initiating IV heparin therapy if not done within previous 24 hours. Sonia Turner NP HEMATOLOGY [facility] [address] * APTT (04/23/2024 7:04 AM CDT) APTT 29 25 - 36 sec 04/23/2024 7:33 AM CDT [facility] Blood BLOOD SPECIMEN / Unknown Non-Lab Venipuncture / Unknown 04/23/2024 7:04 AM CDT 04/23/2024 7:20 AM CDT Narrative [facility] - 04/23/2024 7:33 AM CDT Therapeutic Range: 59-89 seconds Sonia Turner NP HEMATOLOGY Performing Organization Address City/State/[facility] Co de Phone Number [facility] [address] * PROTIME-INR (04/23/2024 7:04 AM CDT) Only the most recent of2 resultswithin the time period is included. INR 1.0 <1.3 04/23/2024 7:33 AM CDT [facility] PROTIME 11.5 10.6 - 12.4 sec 04/23/2024 7:33 AM CDT [facility] Blood BLOOD SPECIMEN / Unknown Non-Lab Venipuncture / Unknown 04/23/2024 7:04 AM CDT 04/23/2024 7:20 AM CDT Narrative [facility] - 04/23/2024 7:33 AM CDT ?Therapeutic Range 2.0-3.0 for most anticoagulated patients 2.5-3.5 or 4.0 for high risk patients The INR is only used for patients on stable oral anticoagulant therapy. It makes no significant contribution to the diagnosis or treatment of patients whose Protime is prolonged for other reasons. INR results are increased when heparin levels exceed 1.0 U/mL, which corresponds to an aPTT >125 seconds if the patient is on UFH. Sonia Turner NP HEMATOLOGY [facility] [address] [place] [address], * (ABNORMAL) HEPATIC FUNCTION PANEL (04/23/2024 7:04 AM CDT) [facility] ALBUMIN 3.9(L) 4.0 - 4.9 g/dL 04/23/2024 7:55 AM CDT [facility] PROTEIN,TOTAL 6.7 6.0 - 8.0 g/dL 04/23/2024 7:55 AM CDT [facility] BILIRUBIN,TOTAL 0.6 0.0 - 1.2 mg/dL 04/23/2024 7:55 AM CDT [facility] BILIRUBIN,DIRECT 0.2 0.0 - 0.2 mg/dL 04/23/2024 7:55 AM CDT [facility] BILIRUBIN,INDIRE CT 0.4 0.2 - 0.8 mg/dL 04/23/2024 7:55 AM CDT [facility] ALK PHOSPHATASE 62 35 - 104 IU/L 04/23/2024 7:55 AM CDT [facility] ALT (SGPT) 21 10 - 35 IU/L 04/23/2024 7:55 AM CDT [facility] AST (SGOT) 53(H) 10 - 35 IU/L 04/23/2024 7:55 AM CDT [facility] Blood BLOOD SPECIMEN / Unknown Non-Lab Venipuncture / Unknown 04/23/2024 7:04 AM CDT 04/23/2024 7:20 AM CDT Sonia Turner NP CHEMISTRY [facility] [address] [place] [id number], * (ABNORMAL) LIPID PANEL (04/23/2024 7:04 AM CDT) CHOLESTEROL,TOTAL 210(H) 100 - 199 mg/dL 04/23/2024 7:55 AM CDT [facility] Comment: Cholesterol, Total Reference Ranges Desirable <200 mg/dL Borderline 200-239 mg/dL High >=240 mg/dL TRIGLYCERIDES 76 <150 mg/dL 04/23/2024 7:55 AM CDT [facility] HDL CHOLESTEROL 53 >40 mg/dL 7:55 AM CDT [facility] NON-HDL CHOLESTEROL 157(H) <145 mg/dl 04/23/2024 7:55 AM CDT [facility] CHOL/HDL RATIO 3.96 <4.50 04/23/2024 7:55 AM CDT [facility] LDL CHOLESTEROL 142(H) <=130 mg/dL 04/23/2024 7:55 AM CDT [facility] VLDL CHOLESTEROL 15 <=30 mg/dL 04/23/2024 7:55 AM CDT [facility] PROVIDER ORDERED STATUS RANDOM 04/23/2024 7:55 AM CDT [facility] Blood BLOOD SPECIMEN / Unknown Non-Lab Venipuncture / Unknown 04/23/2024 7:04 AM CDT 04/23/2024 7:20 AM CDT Sonia Turner NP CHEMISTRY [facility] [address] [place] [address], [place] * SCAN-CARDIAC STRIP (04/23/2024 2:59 AM CDT) Scanner OTHER * SCAN-CARDIAC STRIP (04/23/2024 1:36 AM CDT) Scanner OTHER * EKG 12 LEAD (04/22/2024 10:33 PM CDT) Only the most recent of2 resultswithin the time period is included. Interpretation Normal sinus rhythm Left axis deviation Nonspecific ST abnormality QTcB >= 480 msec Abnormal ECG Compared to ekg of 22-APR-2024 No STEMI BEYOND NOW Ventricular Rate 85 BPM BEYOND NOW Atrial Rate 85 BPM BEYOND NOW P-R Interval 176 ms BEYOND NOW QRS Duration 72 ms BEYOND NOW QT 408 ms BEYOND NOW QTc 485 ms BEYOND NOW P [place] 52 degrees BEYOND NOW R [place] -42 degrees BEYOND NOW T [place] 26 degrees BEYOND NOW 04/22/2024 10:3 3 PM CDT 04/22/2024 11:07 PM CDT Jerry Brady MD EKG ORD BEYOND NOW [place], [place] * (ABNORMAL) TROPONIN T (HS) ACUTE W/2HR REFLEX (04/22/2024 10:24 PM CDT) Pathologist [facility] TROPONIN T HS 65(H) 6-10 ng/L ng/L 04/22/2024 11:01 PM CDT [facility] Blood BLOOD SPECIMEN / Unknown Butterfly / Unknown 04/22/2024 10:24 PM CDT 04/22/2024 10:31 PM CDT Narrative [facility] - 04/22/2024 11:01 PM CDT hs-cTnT (Elecsys Troponin T Gen 5) concentration (s) above the sex-specific 99th percentile (16 ng/L or greater for males or 11 ng/L or greater for females) are indicative of myocardial injury. If initial hs-cTnT <=100 ng/L at presentation, a 0h/2h ABSOLUTE (ng/L) delta change (rising or falling) of >=10 ng/L suggests a significant change, whereas a 0h/2h delta change <=3 ng/L suggests no significant change. If initial hs-cTnT >100 ng/L at presentation, a 0h/2h/ RELATIVE (percent, %) delta change of 20% is suggested to distinguish patients with acute vs. chronic myocardial injury. There are multiple etiologies that can cause hs-cTnT increases above the 99th percentile (myocardial injury) other than acute myocardial infarction. Clinical context and careful clinical evaluation are critical for diagnosis and risk-stratification. The diagnosis of acute myocardial infarction requires a rising and/or falling pattern in hs-cTnT concentrations with at least one value above the sex-specific 99th percentile PLUS at least one of the following clinical criteria: ischemic symptoms, new or presumed new significant ST-T wave changes or new LBBB, development of pathological Q waves, imaging evidence of new loss of viable myocardium or new regional wall motion abnormality, or identification of intracoronary atherothrombosis or an acute angiographic culprit on coronary angiography. In appropriate low-risk patients with a non-ischemic electrocardiogram without active chest pain with a symptom onset >3-hours without recurrence, a single initial hs-cTnT<6 ng/L identifies patient with a very low risk in emergency department patient population. Dagmar Cedeño MD CHEMISTRY [facility] [address] [place] [address], * (ABNORMAL) TSH (04/22/2024 10:24 PM CDT) TSH 6.66(H) 0.27 - 4.20 uIU/mL 04/22/2024 11:01 PM CDT [facility] Blood BLOOD SPECIMEN / Unknown Butterfly / Unknown 04/22/2024 10:24 PM CDT 04/22/2024 10:[address] [facility] - 04/22/2024 11:01 PM CDT In Adults, TSH values between 5.00 and 10.00 uIU/ml do not necessarily indicate the presence of Hypothyroidism. Correlation with clinical findings such as presence of goiter and/or Thyroperoxidase (TPO) Antibody may be helpful. For more information please refer to KENZIE 2004; 291: 228-238. Dagmar Cedeño MD CHEMISTRY [facility] [address] [place] [address], * CBC W PLT NO DIFF (04/22/2024 10:24 PM CDT) WHITE BLOOD COUNT 10.5 4.5 - 11.0 thou/cu mm 04/22/2024 10:35 PM CDT [facility] RED BLOOD COUNT 4.60 4.00 - 5.20 mil/cu mm 04/22/2024 10:35 PM CDT [facility] HEMOGLOBIN 13.7 12.0 - 16.0 g/dL 04/22/2024 10:35 PM CDT [facility] HEMATOCRIT 40.5 33.0 - 51.0 % 04/22/2024 10:35 PM CDT [facility] MCV 88 80 - 100 fL 04/22/2024 10:35 PM CDT [facility] MCH 29.8 26.0 - 34.0 pg 04/22/2024 10:35 PM CDT [facility] MCHC 33.8 32.0 - 36.0 g/dL 04/22/2024 10:35 PM CDT [facility] RDW 13.2 11.5 - 15.5 % 04/22/2024 10:35 PM CDT [facility] PLATELET COUNT 197 140 - 440 thou/cu mm 04/22/2024 10:35 PM CDT [facility] MPV 10.1 6.5 - 11.0 fL 04/22/2024 10:35 PM CDT [facility] NRBC 0.0 % 04/22/2024 10:35 PM CDT [facility] ABS NRBC 0.0 thou /cu mm 04/22/2024 10:35 PM CDT [facility] Blood BLOOD SPECIMEN / Unknown Butterfly / Unknown 04/22/2024 10:24 PM CDT 04/22/2024 10:31 PM CDT Dagmar Cedeño MD HEMATOLOGY Performing Organization Address [facility] Co de Phone Number [facility] [address] [place] [address], * T4,FREE (04/22/2024 10:24 PM CDT) T4,FREE 1.28 0.93 - 1.70 ng/dL 04/22/2024 11:47 PM CDT [facility] Blood BLOOD SPECIMEN / Unknown Butterfly / Unknown 04/22/2024 10:24 PM CDT 04/22/2024 10:31 PM CDT Jerry Brady MD CHEMISTRY Performing Organization Address [facility] de Phone Number [facility] [address] [place] [address], * PRO-BNP (04/22/2024 10:24 PM CDT) PRO-BNP 342 <450 pg/mL 04/22/2024 11:02 PM CDT [facility] Blood BLOOD SPECIMEN / Unknown Butterfly / Unknown 04/22/2024 10:24 PM CDT 04/22/2024 10:31 PM CDT Narrative [facility] - 04/22/2024 11:02 PM CDT The following cut-points have been suggested for the use of proBNP for the diagnostic evaluation of heart failure (HF) in patient with acute dyspnea. Patients with eGFR >= 60 Diagnosis (rule in CHF) ? <50 Years Old ?450 pg/mL 50 - 75 Years Old ?900 pg/mL >75 Years Old ? 1800 pg/mL Exclusion (rule out CHF) Age Independent ?300 pg/mL A cutoff of 1200 pg/mL for patients with an eGFR <60 yields a diagnostic sensitivity of 89% and specificity of 72% for acute congestive heart failure. ? Dagmar Cedeño MD SEND OUTS [facility] [address] [place] [address], from Last 3 Months Advance Directives * Full Code (Latest Code Status on File) Date Activated Date Inactivated Comments 04/23/2024 6:51 PM 04/26/2024 5:23 PM Reviewed p references with daughterOra at 6:51 PM on 04/23/24. Question Answer Comments Code Status Discussion: Reviewed Preferences * Partial Code Date Activated Date Inactivated Comments 04/23/2024 1:26 AM 04/23/2024 6:51 PM Patient is open to defibrillation/cardioversion, Question Answer Comments Cardio Resuscitation: No Chest Compressions Ventilation: No Restrictions Drug Protocol: No Restrictions * Full Code Date Activated Date Inactivated Comments 05/23/2022 8:25 AM 05/23/2022 4:11 PM Question Answer Comments Code Status Discussion: Unable to Assess Preferences, Provider to review later * Full Code Date Activated Date Inactivated Comments 04/10/2022 9:03 AM 04/10/2022 6:41 PM Question Answer Comments Code Status Discussion: Unable to Assess Preferences, Provider to review later Care Teams Congressional Aide Relationship Specialty Start Date End Date Pcp, No . PCP - General 04/23/24
--- OUTSIDE RECORDS SUMMARY | 2024-05-07 | XMS_ITS | Continuity of Care Document ---
Author Organization [facility], [facility] Address [address] [place] [address] Care Team Providers Care Html Web Developer Name Role Phone ROYA CURRAN Primary Care Provider [phone] Assessment No assessment recorded. Plan of Treatment Reminders Order Date Submit Date Provider Last Modified By Organization Details Last Modified Time Details Appointments ESTABLISH ED 10 2024 09:50A M Justino north MD Not available Not available Not available Lab urinalysi s, dipstick 2023 024 hprim [facility], [address], [place], [address], 03/06/2024 10:41:54 Referral None recorded. Procedures None recorded. Surgeries None recorded. Imaging None recorded. Medication Orders None recorded. Patient TargetsNo targets recorded. Patient Instructions Encounter Date Encounter Id Patient Instructions Last Modified By Organization Details Last Modified Time 03/06/2024 [id number] DAILY, remarkable, she'll see me in Aug 2024 for cystoscopy, and eligible for maint BCG spring 2024 if BCG is available. [email or web address] Not available 03/06/2024 11:32:01 Reason for Referral None Reported. Results Created Date Observation Date Name Description Value Unit Range Abnormal Flag Note LastModifiedBy Organization Detail LastModifiedTime 03/06/20 24 03/06/2024 urina lysis , dipst ick BLOOD Negati ve Not Available [facility] [address], [place], [address], 03/06/2024 10:41:18 03/06/20 24 03/06/2024 urina lysis , dipst ick BILIRUBIN Negati ve Not Available [facility] [address], [place], [address], 03/06/2024 10:41:18 03/06/20 24 03/06/2024 urina lysis , dipst ick UROBILINOGEN 0.2 mg/dL (Norm) Not Available [facility] [address], [place], [address], 03/06/2024 10:41:18 03/06/20 24 03/06/2024 urina lysis , dipst ick KETONES Negati ve Not Available [facility] [address], [place], [address], 03/06/2024 10:41:18 03/06/20 24 03/06/2024 urina lysis , dipst ick PROTEIN Negati ve Not Available [facility] [address], [place], [address], 03/06/2024 10:41:18 03/06/20 24 03/06/2024 urina lysis , dipst ick NITRITES Negati ve Not Available [facility] [address], [place], [address], 03/06/2024 10:41:18 03/06/20 24 03/06/2024 urina lysis , dipst ick GLUCOSE Negati ve Not Available [facility] [address], [place], [address], 03/06/2024 10:41:18 03/06/20 24 03/06/2024 urina lysis , dipst ick p.H. 5.5 Not Available [facility] [address], [place], [address], 03/06/2024 10:41:18 03/06/20 24 03/06/2024 urina lysis , dipst ick S.G. (Specific [place]) 1.020 Not Available [facility] [address], [place], [address], 03/06/2024 10:41:18 03/06/20 24 03/06/2024 urina lysis , dipst ick LEUKOCYTES Trace (10 WBC/uL ) Not Available [facility] [address], [place], [address], 03/06/2024 10:41:18 Result Notes None recorded. Problems Name Problem SNOMED Code Status Onset Date Resolution Date Notes Provider Name and Address Organization Details Recorded Time Malignant neoplasm of urinary bladder 495135404 Active 023 Nataliia mendez, [facility] 16:33:09 Problem Notes None recorded. Procedures Surgical History Date Name Laterality Status Provider Name and Address Organization Details Recorded Time 024 Cystoscopy- female completed Justino Edwards MD [address] [place] [address],[address], [address], [facility] 03/06/2024 11:32:15 024 Keflex post Cysto completed Denice Cowart [facility] 03/06/2024 11:06:59 024 Urinalysis completed Ida Ram [facility] 03/06/2024 10:41:13 024 COMPLEX VISIT completed Justino Edwards MD [address] [place] [address],[address], [address], [facility] 11/05/2023 13:18:40 024 CystoscopyFemale completed Justino Edwards MD [address] [place] [address],[address], [address], [facility] 11/05/2023 13:18:50 024 Keflex post Cysto completed Denice Cowart [facility] 11/05/2023 11:34:16 024 BCG Full Dose Tx 50mg completed Nadia Yevgeniy [facility] 09/04/2023 12:34:52 024 BCG Full Dose Tx 50mg completed Katie Patric [facility] 08/28/2023 11:09:58 024 BCG Full Dose Tx 50mg completed Katie Spivey [facility] 08/21/2023 11:26:56 024 CystoscopyFemale completed Justino Edwards MD [address] [place] [address],[address], [place], [address], [facility] 07/12/2023 12:24:45 023 CystoscopyFemale completed Justino Edwards MD [address] [place] [address],[address], [place], [address], [facility] 04/05/2023 10:21:13 023 CystoscopyFemale completed Justino Edwards MD [address] [place] [address],[address], [place], [address], [facility] 12/25/2022 15:07:45 023 BCG Full Dose Tx 50mg completed Melita Finney [facility] 11/06/2022 10:13:57 023 BCG Full Dose Tx 50mg completed Melita Finney [facility] 10/30/2022 10:33:32 023 BCG Full Dose Tx 50mg completed Nataliia Barba [facility] 10/23/2022 10:37:02 023 MANASA Stent Removal completed Justino Edwards MD [address] [place] [address],[address], [place], [address], [facility] 10/01/2022 15:09:05 023 MANASA Stent Removal completed Justino Edwards MD [address] [place] [address],[address], [place], [address], [facility] 09/14/2022 13:16:10 023 BCG Full Dose Tx 50mg completed Melita Finney [facility] 07/25/2022 16:20:49 023 BCG Full Dose Tx 50mg completed Nataliia Megancornelia [facility] 07/18/2022 16:39:52 023 BCG Full Dose Tx 50mg completed Terrie Rosabeverley [facility] 07/11/2022 14:13:26 022 BCG [facility] Tx [facility] 16:32:46 022 BCG [facility] D[facility] Tx [facility] 14:34:58 022 BCG Full D[facility]x [facility] 16:33:51 022 Catheter Removal completed Aracelimartin Soriano [facility] 05/30/2022 11:34:56 022 transurethral excision of neoplasm of urinary bladder completed Jonna Briceno [facility] 06/08/2022 14:55:48 022 Cystoscopy- female completed Justino Edwards MD [address] [facility],[address], [place], [address], [facility] 03/30/2022 10:42:57 Imaging Results None recorded. [...] completed Not Available Not Available Not Available [place] BCG 50 mg intravesica l suspension Instill [...] Updated DateTime 03/06/2024 152.4 cm 27.7 kg/m2 54295.12 g Ida Leanna [facility] 03/06/2024 10:40:25 Social History Question Answer Notes LastModified by Organizat ion Details LastModified Time Tobacco Smoking Status [facility] 04/19[facility]2022 11:02:51 What Is Your Level Of Alcohol Consumption? None Information not available 04/19/2022 What Is Your Level Of Caffeine Consumption? None Information not available 04/19/2022 Race White Information no t available 04/19/2022 Ethnicity Not /Lat dulce Information not available 04/19/2022 Preferred Language Malagasy Information not available 04/19/2022 What Was The [...] available 2022 14:44:06 Medical History Condition Response Sexually Transmitted Infection N Diabetes N Other N Bleeding Disorder N High Blood Pressure N Kidney Stones N High Cholesterol N GERD/Acid Reflux Y Heart Disease N Cancer Y Depression N Lung Disease N Gynecological HistoryNo gynecological history recorded. Obstetrics History GPAL:G 0 P 0 0 0 0 Past Encounters Encounter ID Performer Location Encounter Start Date Encounter Closed Date Diagnosis/Indication Diagnosis SNOMED-CT Code Diagnosis ICD10 Code [id number] Justino Edwrads MD [facility] [address] [address] 03/06/2024 10:14:44 03/16/2024 16:36:44 Malignant neoplasm of urinary bladder 362109719 C67.9 Health Concerns Section Related Observation LastModified by Organization Detai ls LastModified Time None Recorded Concern Status LastModified by Organization Details LastModified Time None Recorded Payers Encounter Date Sequence Insurance Name Policy Number Policy Morin Covered Member ID Morin Member ID Guarantor Name 03/06/2024 1 [employer] (MEDICARE REPLACEMENT/A DVANTAGE - PPO) [id number] Johana Barton [id number] Raviniakaryn Barton Notes Date Note Type Note Provider Name and Address Organization Details Recorded Time 03/06/2024 text/html HPI Notes: 88F presents for [...] No issues into 2023. Justino Edwards MD [address] [facility] [address], [place], [address], [facility] 03/06/2024 11:32:25 OBGyn Episode No OBEpisode recorded.
== END 2024-04-22 21:05 | disposition home or self-care (01) ==
LOC: AMB 05-06 23:57
PROVIDERS: PCP Family Medicine; Visit Provider Emergency Medicine Emergency Medical Services
DX: R42 Dizziness and giddiness (principal); R53.1 Weakness; R06.02 Shortness of breath; R53.83 Other fatigue
CPT/HCPCS: A0425; A0427

== ENCOUNTER 2024-08-06 13:18 | Outpatient (CLI) | payer OTHER, SELFPAY | END 2024-08-06 13:19 | disposition home or self-care (01) | PROVIDERS: PCP Family Medicine; Visit Provider Family Medicine | DX: R53.83 Other fatigue (principal); I10 Essential (primary) hypertension | CPT/HCPCS: 80053; 82607; 84439; 84443 ==

== ENCOUNTER 2025-02-24 18:10 | Inpatient (IN) | payer OTHER, SELFPAY ==
--- OUTSIDE RECORDS SUMMARY | 2021-08-24 11:14 | XMS_ITS | Continuity of Care Document ---
Author Organization [facility] Cli [facility] Address [address] [place] [phone] Phone Care Team Providers Care Locomotive Pipe Fitter Name Role Phone Will MD WALTERS, Francisco Unavailable Unavailabl e Advance Directives Directive Yes / No Effective Date File Name No Information Encounters Encounter Description Practice Location Reason(s) For Visit Diagnoses Date Provider Providers Copied on Encounter [facility], [address] [place] [place] [address] [place], [place], [id number], [place] tel:[phone] [facility] No Information Will Francisco. [address] [facility] [place], [place], [id number], [place]. tel:[phone] Family History Family Member Type Diagnosis Age [...]
--- OUTSIDE RECORDS SUMMARY | 2025-02-24 18:12 | XMS_ITS | Clinical Summary ---
Author Organization [facility] Address [address] [place] [address] Care Team Providers Care Shallot Cleaner Name Role Phone Pcp, No Primary Care Provider Unavailabl e Allergies No known active allergies Medications B-complex with vitamin C (VITAMIN B COMPLEX WITH C ORAL) Take 1 Capsule by mouth once daily. Active meloxicam 15 mg tablet Take 15 mg by mouth once daily. Active multivitamin (MVI) tablet Take 1 Tablet by mouth once daily. Active verapamiL (VERELAN) 180 mg Controlled-Rele ase capsule Take 180 mg by mouth once daily in the morning. 06/01/2024 Active metoprolol succinate (TOPROL XL) 25 mg Sustained-Relea se tabletIndicatio ns:SVT (supraventricul ar tachycardia) (HC) Take 1 Tablet (25 mg) by mouth once daily. In the evening. 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 1 04/23/2024 Interpersonal Safety Answer Date Record ed Are you being hit, kicked, p ushed or yelled at (see row info)? No 04/22/2024 Interpersonal Safety Abuse 12 - 18 Not on file 04/22/2024 Interpersonal Safety Ambulatory Vulnerability No t on file 04/22/2024 Utilities Answer Date Recorded Do you have trouble paying f or utilities (for example, heat, electricity, water, phone)? 1 04/23/2024 Comments No Sex and Gender Information Value Date Recorded Sex Assigned at Not on file Legal Sex Female 5:18 AM [employer]CE[employer] Gender Identity Not on file Sexual Orientation Not on file Obstetrics History Last Filed Vital Signs Vital Sign Reading Time Taken Comments Blood Pressure 132/77 06/16/2024 10:08 AM [employer] Pulse 79 06/16/2024 9:30 AM [employer] Temperature 36.6 C (97.9 F) 04/26/2024 8:00 AM CDT Respiratory Rate 16 04/26/2024 8:00 AM CDT Oxygen Saturation 97% 06/16/2024 9:30 AM [employer] AND [employer]CE[employer]IGNER Inhaled Oxygen Concentration - - Weight 61.6 kg (135 lb 14.4 oz) 06/16/2024 9:30 AM [employer]CE[employer] Height 162.6 cm (5' 4) 04/22/2024 10:2 0 PM CDT Body Mass Index 23.33 04/22/2024 10:20 PM CDT Plan of Treatment Health Maintenance Due Date Last Done Comments Tetanus booster 1948 Depression screening for age 12+ 1949 BMI (ht and wt on same day) for age 18+ 10/17/1955 Pneumococcal series for age 50+ (1 of 2 - PCV) 1956 Zoster (shingles) series for age 50+ (1 of 2) 10/17/1987 DEXA/DXA scan for age 65+ 2002 Medicare Wellness for age 65+ 2002 RSV vaccine for adults or (1 - 1-dose 75+ series) 2012 COVID-19 vaccine series (2023- season) 2024 06/26/2021, 09/06/2020, 08/16/2020 Influenza Vaccine (#1) 2025 Hepatitis B series for 19+ Aged Out N o longer eligible based on patient's age to complete this topic Medical Devices Implanted Type Area Seal Mixer Device Identifier Shelf Expiration Date Model / Serial / Lot Stent Uret [id number] Contour - [id number] Implanted:Qty: 1 on 04/10/2022 by Justino Edwards MD at [facility] Right: [facility] 05/02/2024 [id number] / / [id number] Stent Uret [id number] Contour - [id number] Implanted:Qty: 1 on 04/10/2022 by Justino Edwards MD at [facility] Left: [employer] 01/25/2025 [id number] / / [id number] Insurance MEDICARE PART A HB ONLY [employer] CHOICE PPO MR Advance Directives * Full Code (Latest Code [...] Preferences, Provider to review later Care Teams Shallot Cleaner Relationship Specialty Start Date End Date Pcp, No . PCP - General 04/23/24
[2025-02-24 18:38] VITALS: BP 190/98; PULSE 86; RESP 16; TEMP 36.6; O2SAT 98; BMI 23.8
--- NOTE | 2025-02-24 20:04 | ED.ABDPAIN ---
HPI - Abdominal Pain General Date Seen: 02/24/25 Chief Complaint: Abdominal Pain Stated Complaint: sent from [facility] imaging Time Seen by Provider: 02/24/25 19:57 History of Present Illness HPI narrative: 89-year-old female who is referred to the ER from urgent care today for evaluation of abdominal pain with concern for small bowel obstruction. She does have a distant history of a tubal ligation which was done by a periumbilical approach many years ago. Per medical record she has a history of SVT, hypertrophic cardiomyopathy, bladder cancer (treated with BCG infusions but no radiation and no surgery. Thought to be in remission), GERD, basal cell, pulmonary nodule. Per records from Urgent Care she has had abdominal pain for 1 week. It has been a constant dull ache below the belly button. She has been increasingly bloated. Poor appetite. She has a history of constipation so has been taking Colace every day. She has been stooling and did have a bowel movement today. No diarrhea. No fever. No nausea or vomiting. Urination has normal. Labs from Urgent Care include white count of 7.47, hemoglobin 14.2, platelet count 145. Differential on the white count was 70.8% neutrophils, 14% lymphocytes. Abdominal x-ray showed nonspecific bowel gas pattern with prominent air-filled loops of small and large bowel. Recommended CT to evaluate for possible SBO. Related Data Home Medications ?Medication ?Instructions ?Recorded ?Confirmed multivitamin (Multiple Vitamins 1 tab PO DAILY 03/05/22 02/25/25 tablet) docusate sodium 100 mg capsule 100 mg PO HS 02/24/25 02/25/25 (Colace) acetaminophen 500 mg tablet 500 mg PO HS PRN 02/25/25 02/25/25 (Acetaminophen Pain Relief) biotin 1 mg capsule 1 mg PO DAILY 02/25/25 02/25/25 metoprolol succinate 100 mg 100 mg PO DAILY 02/25/25 02/25/25 tablet,extended release 24 hr Previous Rx's ?Medication ?Instructions ?Recorded meloxicam 15 mg tablet 15 mg PO DAILY #90 tabs 05/29/24 Allergies Allergy/AdvReac Type Severity Reaction Status Date / Time No Known Allergies Allergy Unknown Verified 02/24/25 20:55 PFSH PFSH Medical History Hypertension ?I10 - Essential (primary) hypertension (ICD-10) SVT (supraventricular tachycardia) ?I47.10 - Supraventricular tachycardia, unspecified (ICD-10) History of ventricular tachycardia ?Z86.79 - Personal history of other diseases of the circulatory system (ICD-10) Bladder cancer ?C67.9 - Malignant neoplasm of bladder, unspecified (ICD-10) Gastroesophageal reflux disease ?K21.9 - Gastro-esophageal reflux disease without esophagitis (ICD-10) Basal cell carcinoma of skin ?C44.91 - Basal cell carcinoma of skin, unspecified (ICD-10) DJD (degenerative joint disease) of cervical spine ?M47.812 - Spondylosis without myelopathy or radiculopathy, cervical region (ICD-10) Pulmonary nodule ?R91.1 - Solitary pulmonary nodule (ICD-10) DJD (degenerative joint disease) of knee ?M17.9 - Osteoarthritis of knee, unspecified (ICD-10) Dysphonia ?R49.0 - Dysphonia (ICD-10) Health care directive on file ?Z78.9 - Other specified health status (ICD-10) Surgical History (Updated 02/28/25 @ 11:41 by Anisa Bustamante MD) Status post cystoscopy ?Z98.890 - Other specified postprocedural states (ICD-10) Status post blepharoplasty ?Z98.890 - Other specified postprocedural states (ICD-10) Status post tonsillectomy ?Z90.89 - Acquired absence of other organs (ICD-10) Status post bunionectomy (10/12/09) ?Z98.890 - Other specified postprocedural states (ICD-10) Social History Smoking Status: Never smoker Do you use any of these nicotine containing products: None How often do you have a drink containing alcohol: never AUDIT-C Alcohol total score: 0 Non-prescribed substance use: denies use Exam Narrative: Exam Narrative: Constitutional: Appears well-developed and well-nourished. Alert. Conversant. Non toxic. Very polite. HENT: Head: Atraumatic. Nose: Nose normal. Mouth/Throat: Oral mucosa is clear and moist. no trismus. Pharynx normal. Tonsils symmetric. No tonsillar enlargement, erythema, or exudate. Eyes: Conjunctivae normal. EOM normal. Pupils equal, round, and reactive to light. No scleral icterus. Neck: Normal range of motion. Neck supple. No tracheal deviation present. Cardiovascular: Normal rate, regular rhythm. No gallop. No friction rub. No murmur heard. Symmetric radial artery pulses Pulmonary/Chest: Effort normal. No stridor. No respiratory distress. No wheezes. No rales. No rhonchi . No tenderness. Abdominal: Soft. Bowel sounds somewhat hyperactive but not tinkling and rushing. She is distended. Mildly tympanic. Tender in the periumbilical and suprapubic> right lower quadrant and left lower quadrant regions. Healed incision in the midline adjacent to her umbilicus which is apparently from her tubal ligation. No rebound. No guarding. No peritoneal findings. No pulsatile mass. Musculoskeletal: RUE: Normal range of motion. No tenderness. No deformity LUE: Normal range of motion. No tenderness. No deformity RLE: Normal range of motion. No edema. No tenderness. No deformity LLE: Normal range of motion. No edema. No tenderness. No deformity Neurological: Alert and oriented to person, place, and time. Normal strength. CN II-VII intact. No sensory deficit. GCS eye subscore is 4. GCS verbal subscore is 5. GCS motor subscore is 6. Normal coordination Skin: Skin is warm and dry. No rash noted. No pallor. Normal capillary refill. Psychiatric: Normal mood. Normal affect. Const: Vital Signs, click to edit/add: Vital Signs - 24 hr 02/24/25 18:38 02/24/25 22:17 Temperature 97.9 F 97.6 F Pulse Rate [Pulse Oximeter] 86 85 Respiratory Rate 16 18 Blood Pressure [Ri t Upper Arm] 190/98 H 185/105 H Pulse Oximetry 98 98 Oxygen Delivery Me thod Room Air Room Air Course Course ED Course: Reviewed CT report from Radiology and place consult to surgery, Dr. Shaffer. Vital Signs Vital signs: Initial Vital Signs Temperature 97.9 F 02/24/25 18:38 Temperature Source Temporal Artery Scan 02/24/25 18:38 Pulse Rate 86 02/24/25 18:38 Respiratory Rate 16 02/24/25 18:38 Blood Pressure 190/98 H 02/24/25 18:38 Blood Pressure Mean 128 H 02/24/25 18:38 Pulse Oximetry 98 02/24/25 18:38 Oxygen Delivery Method Room Air 02/24/25 18:38 Vital Signs Temperature 97.9 F 02/24/25 18:38 Pulse Rate 86 02/24/25 18:38 Respiratory Rate 16 02/24/25 18:38 Blood Pressure 190/98 H 02/24/25 18:38 Pulse Oximetry 98 02/24/25 18:38 Oxygen Delivery Method Room Air 02/24/25 18:38 Temperature 97.4 F L 03/01/25 02:47 Pulse Rate 75 03/01/25 07:28 Respiratory Rate 16 03/01/25 02:47 Blood Pressure 166/93 H 03/01/25 02:47 Pulse Oximetry 95 03/01/25 02:47 Oxygen Delivery Method Room Air 03/01/25 02:47 Oxygen Flow Rate 1 02/25/25 11:00 Medications Administered Medications: Generic Name Dose Route Start Last Admin Trade Name Freq PRN Reason Stop Dose Admin Benzocaine/Menthol 1 each 02/25/25 17:41 02/27/25 00:02 Benzocaine/Menthol 1 Each Lozenge MUCOUS MEM 1 each Q1H PRN Administration sore/dry throat Enoxaparin Sodium 40 mg 02/27/25 21:00 02/28/25 20:32 Enoxaparin 40 Mg/0.4 Ml Inj SUBCUT 40 mg HS ADDIS Administration Hydromorphone HCl 0.1 - 0.5 mg 02/25/25 03:23 02/26/25 15:41 Hydromorphone 0.5 Mg/0.5 Ml Inj IVP 0.3 mg Q1H PRN Administration Pain Lactated Ringer's 1,000 mls @ 50 mls/hr 02/27/25 09:49 03/01/25 04:18 Lactated Ringers 1000 Ml IV 50 mls/hr .Q20H ADDIS Administration Metoprolol Succinate 100 mg 02/28/25 09:00 02/28/25 08:08 Metoprolol Succinate (Xl) 100 Mg Tab PO 100 mg DAILY ADDIS Administration Pantoprazole Sodium 40 mg 02/26/25 09:00 02/28/25 08:09 Pantoprazole Sodium 40 Mg Inj IVP 40 mg DAILY ADDIS Administration Phenol 1 spray 02/25/25 17:41 02/26/25 22:36 Phenol 1.4 % Throat [place] MUCOUS MEM 1 spray Q2H PRN Administration Sodium Chloride 5 ml 02/25/25 17:41 02/26/25 03:54 Sodium Chloride 0.9 % (Flush) 10 Ml Syringe IVF 5 ml .FLUSH PRN Administration Discontinued Medications Generic Name Dose Route Start Last Admin Trade Name Freq PRN Reason Stop Dose Admin Fentanyl 50 mcg 02/25/25 01:57 02/25/25 02:42 Fentanyl 100 Mcg/2 Ml Inj IVP 50 mcg Q5M PRN Administration Hydroxyzine Pamoate 25 mg 02/25/25 01:57 02/25/25 03:44 Hydroxyzine Pamoate 25 Mg Capsule PO 02/25/25 01:58 Not Given ONCE ONE Piperacillin Sod/Tazobactam 100 mls @ 200 mls/hr 02/25/25 02:02 02/25/25 03:38 Sod 3.375 gm/ Sodium Chloride IVPB 02/25/25 02:03 Infused ONCE ONE Infusion Lactated Ringer's 1,000 mls @ 125 mls/hr 02/25/25 02:05 02/28/25 23:23 Lactated Ringers 1000 Ml IV Infused .Q8H ADDIS Infusion Lactated Ringer's 1,000 mls @ 100 mls/hr 02/25/25 03:23 02/26/25 04:09 Lactated Ringers 1000 Ml IV Not Given .Q10H ADDIS Potassium Chloride 10 meq in 100 mls @ 100 mls/hr 02/25/25 10:07 02/25/25 21:57 Potassium Chloride IVPB 02/25/25 11:06 Infused ONCE ONE Infusion Lactated Ringer's 1,000 mls @ 75 mls/hr 02/25/25 13:30 02/27/25 07:55 Lactated Ringers 1000 Ml IV Infused .[id number] ADDIS Infusion Magnesium Sulfate/Dextrose 1 gm in 100 mls @ 100 mls/hr 02/28/25 09:23 02/28/25 11:08 Magnesium Sulf 1 G/100 Ml IVPB 02/28/25 10:22 Infused ONCE ONE Infusion Metoprolol Succinate 100 mg 02/27/25 09:49 02/27/25 10:37 Metoprolol Succinate (Xl) 100 Mg Tab PO 02/27/25 09:50 100 mg ONCE ONE Administration Metoprolol Tartrate 5 mg 02/25/25 10:00 02/26/25 03:54 Metoprolol Tartrate 1 Mg/Ml Inj IVP 5 mg Q6H ADDIS Administration Metoprolol Tartrate 5 mg 02/26/25 08:00 02/27/25 08:44 Metoprolol Tartrate 1 Mg/Ml Inj IVP 5 mg Q4H ADDIS Administration Ondansetron HCl 4 mg 02/25/25 01:57 02/25/25 03:44 Ondansetron 2 Mg/Ml Inj IVP 02/25/25 01:58 Not Given ONCE ONE Pantoprazole Sodium 40 mg 02/25/25 10:05 02/25/25 10:31 Pantoprazole Sodium 40 Mg Inj IVP 02/25/25 10:06 40 mg ONCE ONE Administration Potassium Chloride 20 meq 02/28/25 09:23 02/28/25 10:32 Potassium Chloride 10 Meq Capsule Er PO 02/28/25 09:24 20 meq ONCE ONE Administration MDM - Abdominal Pain MDM Narrative Medical decision making narrative: Very pleasant 89-year-old female referred to the ER today because of abdominal pain with abnormal x-ray showing dilated loops of small bowel and possibly a bowel obstruction. Differential here includes small bowel obstruction. Past surgical history apparently only includes tubal ligation although she does have a midline incision. Differential would also include colitis, diverticulitis, abscess, perforation, atypical presentation of appendicitis, ischemia. Less likely would be pancreatitis or cholecystitis since most of her pain is lower in her abdomen. She is distended mildly tympanic and tender but not peritoneal. Laboratory workup is generally reassuring. CBC from Urgent Care was normal. Normal LFTs and lipase. Venous lactic acid is normal at 1.4. CT report from Radiology suggest the presence of a small bowel obstruction which may be high-grade close loop obstruction. There is slight haziness in the mesentery suggesting possible ischemia. Discussed with general surgery, who reviewed her presentation in imaging. General surgery recommends operation tonight because of potential bowel ischemia in the setting a close loop obstruction. Discussed this with the patient, and her daughter surely by phone, and they verbalized their agreement with the plan for surgery tonight. Discussed with our hospitalist, Dr. Dickerson who agree to manage medical needs postoperatively. Lab Data Labs: Lab Results 08/20/25 08/20/25 Range/Units 20:36 Unknown Sodium 135 (135-149) mmol/L Potassium 4.4 (3.6-5.1) mmol/L Chloride 103 (96-114) mmol/L Carbon Dioxide 26 (20-32) mmol/L Anion Gap 6 L (7-15) mEq/L BUN 23 (7-30) mg/dL Creatinine 0.8 (0.5-1.5) mg/dL Estimated Creat Clear 29.91 Estimated GFR 71 ml/min Glucose 102 (60-115) mg/dL Lactate 1.4 (0.5-1.9) mmol/L Calcium 9.9 (8.4-10.6) mg/dL Total Bilirubin 0.7 (0.1-1.5) mg/dL AST 28 (12-35) U/L ALT 12 (4-35) U/L Alkaline Phosphatase 56 (40-150) U/L Total Protein 7.6 (6.0-8.3) g/dL Albumin 4.4 (3.3-5.0) g/dL Lipase 65 (23-300) U/L Urine Color Yellow (Yellow) Urine Appearance Clear (Clear) Urine pH 5.5 (5.0-8.5) Ur Specific [place] 1.025 (1.000-1.030) Urine Protein Negative (Negative) Urine Glucose (UA) Negative (Negative) Urine Ketones 1+ A (Negative) Urine Blood Trace-intact A (Negative) Urine Nitrite Negative (Negative) Urine Bilirubin Negative (Negative) Urine Urobilinogen 0.2 (0.2-1.0) Ur Leukocyte Esterase Trace A (Negative) Urine RBC 0-2 (0-2) Urine WBC 5-10 A (0-5) Ur Squamous Epith Cells None (None-Few) Urine Bacteria None (None) POC Creatinine 0.9 (0.6-1.3) mg/dl Imaging Data CT scan - abdomen: Attestation: I have reviewed the pertinent imaging results. Radiologist's impression: IMPRESSIONS: 1. A loop of fluid-filled and dilated small bowel seen in the left lower quadrant measuring up to 3.8 cm in diameter with a transition point in the anterior periumbilical region. Findings are likely due to high-grade closed loop small bowel obstruction. 2. Mild hazy edema is present within the mesentery raising the suspicion of ischemic changes. ECG Data Attestation: I personally reviewed and interpreted this ECG as follows: Interpretation: Normal sinus rhythm Rate 78 SC interval 178 Left axis QRS deviation No acute ST segment elevation or depression. QTC of 398/QTC 45 3 Discharge Plan Discharge Clinical Impression: Small intestine obstruction Patient Disposition: XFER to OR Condition: Guarded
--- NOTE | 2025-02-24 20:06 | CRLHL7_ITS ---
For Patients: As a result of the Century Cures Act, medical imaging exams and procedure reports are released immediately into your electronic medical record. You may view this report before your referring provider. If you have questions, please contact your health care provider. INDICATION: Abdominal pain. Bloating, abdominal pain, bloating TECHNIQUE: CT Abdomen and pelvis with i.v. contrast. Coronal and sagittal reformats were obtained. CONTRAST: 62 mL Isovue 370 COMPARISON: 03/15/2022 FINDINGS: Lower chest: Unremarkable. Liver: There is a cyst in the right posterior segment of the liver measuring 2.3 cm. Spleen: Unremarkable. Pancreas: Unremarkable. Gallbladder: Unremarkable. Kidney: Bilateral renal cysts are present, measuring up to 4 cm. Adrenal: Unremarkable. Bowel: A loop of fluid-filled and dilated small bowel seen in the left lower quadrant measuring up to 3.8 cm in diameter with a transition point in the anterior periumbilical region. The appendix is not identified. Vascular: Unremarkable. Lymph: Unremarkable. Peritoneum: Unremarkable. Mild hazy edema is present within the mesentery raising the suspicion of ischemic changes. No pneumoperitoneum is seen. No significant ascites is noted. Pelvis: Calcified fibroid is present along the left aspect of the uterus measuring 2.4 cm. Soft tissue: Unremarkable. Bone: Moderate levoscoliosis is noted with associated facet arthritis and degenerative disc disease. IMPRESSIONS: 1. A loop of fluid-filled and dilated small bowel seen in the left lower quadrant measuring up to 3.8 cm in diameter with a transition point in the anterior periumbilical region. Findings are likely due to high-grade closed loop small bowel obstruction. 2. Mild hazy edema is present within the mesentery raising the suspicion of ischemic changes. Dictated by Radhames Marie MD @ 02/24/2025 9:06:45 PM Please note that all CT scans at this facility use dose modulation, iterative reconstruction, and/or weight-based dosing when appropriate to reduce radiation dose to as low as reasonably achievable. Dictated by: Radhames Marie MD @ 02/24/2025 21:07:08 (Electronically Signed)
[2025-02-24 20:40] LABS: Creatinine, Point-of-Care* 0.9 mg/dl (0.6-1.3)
[2025-02-24 20:51] LABS: Appearance Urine Clear (Clear)
[2025-02-24 21:13] LABS: Albumin* 4.4 g/dL (3.3-5.0); Chloride* 103 mmol/L (96-114); Potassium* 4.4 mmol/L (3.6-5.1); Sodium* 135 mmol/L (135-149)
[2025-02-24 21:15] LABS: Alanine Aminotransferase* 12 U/L (4-35); Aspartate Amino Transferase* 28 U/L (12-35); Blood Urea Nitrogen* 23 mg/dL (7-30); Creatinine* 0.8 mg/dL (0.5-1.5); Est. Creatinine Clearance* 29.91; Estimated Glomerular Filt Rate 71 ml/min
[2025-02-24 21:16] LABS: Alkaline Phosphatase* 56 U/L (40-150); Anion Gap 6 mEq/L (7-15); Bilirubin Total* 0.7 mg/dL (0.1-1.5); Calcium* 9.9 mg/dL (8.4-10.6); Carbon Dioxide* 26 mmol/L (20-32); Glucose* 102 mg/dL (60-115); Total Protein* 7.6 g/dL (6.0-8.3)
--- OUTSIDE RECORDS SUMMARY | 2025-02-24 21:18 | XMS_ITS | Clinical Summary ---
Author Organization [facility] Address [address] [place] [id number] Care Team Providers Care Literacy Specialist Name Role Phone Mario Reynolds MD Primary Care Provider [phone] Allergies No known active allergies Medications MELOXICAM [...] on file Legal Sex Female 4:30 AM [employer] Gender Identity Not on file Sexual Orientation Not on file Last Filed Vital Signs Vital Sign Reading Time Taken Comments Blood Pressure 168/97 06/10/2013 4:08 PM [employer] Pulse - - Temperature 35.9 C (96.6 F) 06/10/2013 12:44 PM [employer] Respiratory Rate 16 06/10/2013 4:08 PM [employer] Oxygen Saturation 99% 06/10/2013 4:08 PM [employer]CR[employer] Inhaled Oxygen Concentration - - Weight 66.4 kg (146 lb 6.4 oz) 06/10/2013 12:44 PM [employer]CR[employer] Height 154.9 cm (5' 1) 06/10/2013 12:44 PM [employer]CR[employer] Body Mass Index 27.66 06/10/2013 12:44 PM [employer]CR[employer] Plan of Treatment Not on file Medical Devices Implanted Type Area Nursing Service Director Device Identifier Shelf Expiration Date Model / Serial / Lot Eye Kit Lacrimal Intubation Stent [id number] Implanted:Qty: 1 on 10/24/2012 by Kael Ang MD at [facility] Right: Lacrimal Duct [employer] 07/06/2015 [id number] / / [id number] Eye Kit Lacrimal Intubation Stent [id number] Implanted:Qty: 1 on 06/10/2013 by Kael Ang MD at [facility] 10/06/2015 [id number] / / [id number] Insurance [employer] MED[employer]ARE [employer]VANTAGE Care Teams Literacy Specialist Relationship Specialty Start Date End Date Mario Reynolds MD PCP - General Family Practice 10/14/12
[2025-02-24 22:03] LABS: Lactate* 1.4 mmol/L (0.5-1.9)
[2025-02-24 22:17] VITALS: BP 185/105; PULSE 85; RESP 18; TEMP 36.4; O2SAT 98
--- NOTE | 2025-02-24 22:54 | PM.IMCN1 ---
Date of Consult Patient: [facility] Patient Consult date: 02/24/25 Requesting Physician: General Surgery Primary Care Provider: Dawit Reynolds MD Consult Narrative Reason for consult: Postop management of HTN, SVT, NSVT, hypertrophic cardiomyopathy Narrative: Johana Barton is a 89 year old woman presents to the emergency department for assessment of abdominal pain and is found to have closed loop small-bowel obstruction. She will be brought to the operating room shortly. Review of Systems Status of ROS: Reports: 6 or more systems reviewed and unremarkable except as noted in History and below Narrative: Known to have hypertrophic cardiomyopathy and hypertensive cardiomyopathy, with history of SVT and nonsustained ventricular tachycardia. Has gone through various medication adjustments and more recently has been stable on metoprolol succinate 75-100 mg daily and losartan 100 mg daily. Denies chest heaviness, pressure, tightness, pain. Denies dyspnea at rest, paroxysmal nocturnal dyspnea, orthopnea. Denies syncope or near-syncope. Denies palpitations or chest fluttering. The constipation she suffered from when she was on verapamil has resolved after switching to metoprolol. Blood pressure is better controlled with increasing doses of losartan. PFSH PFSH Medical History Hypertension ?I10 - Essential (primary) hypertension (ICD-10) SVT (supraventricular tachycardia) ?I47.10 - Supraventricular tachycardia, unspecified (ICD-10) History of ventricular tachycardia ?Z86.79 - Personal history of other diseases of the circulatory system (ICD-10) Hypertrophic cardiomyopathy ?I42.2 - Other hypertrophic cardiomyopathy (ICD-10) Bladder cancer ?C67.9 - Malignant neoplasm of bladder, unspecified (ICD-10) Gastroesophageal reflux disease ?K21.9 - Gastro-esophageal reflux disease without esophagitis (ICD-10) Basal cell carcinoma of skin ?C44.91 - Basal cell carcinoma of skin, unspecified (ICD-10) DJD (degenerative joint disease) of cervical spine ?M47.812 - Spondylosis without myelopathy or radiculopathy, cervical region (ICD-10) Pulmonary nodule ?R91.1 - Solitary pulmonary nodule (ICD-10) DJD (degenerative joint disease) of knee ?M17.9 - Osteoarthritis of knee, unspecified (ICD-10) Dysphonia ?R49.0 - Dysphonia (ICD-10) Health care directive on file ?Z78.9 - Other specified health status (ICD-10) Surgical History Status post cystoscopy ?Z98.890 - Other specified postprocedural states (ICD-10) Status post blepharoplasty ?Z98.890 - Other specified postprocedural states (ICD-10) Status post tonsillectomy ?Z90.89 - Acquired absence of other organs (ICD-10) Status post bunionectomy (10/12/09) ?Z98.890 - Other specified postprocedural states (ICD-10) Social History Smoking Status: Never smoker Do you use any of these nicotine containing products: None How often do you have a drink containing alcohol: never AUDIT-C Alcohol total score: 0 Non-prescribed substance use: denies use Meds Home Medications and Allergies Home Medications ?Medication ?Instructions ?Recorded ?Confirmed ?Type multivitamin (Multiple Vitamins 1 tab PO QDAY 03/05/22 02/24/25 History tablet) meloxicam 15 mg tablet 15 mg PO DAILY #90 tabs 05/29/24 02/24/25 Rx nystatin 100,000 unit/gram topical 1 applic topical BID #60 grams 05/29/24 02/24/25 Rx powder metoprolol succinate 50 mg 75 mg (1.5 x 50 mg) PO QDAY #135 10/26/24 02/24/25 Rx tablet,extended release 24 hr tabs losartan 25 mg tablet 100 mg PO DAILY 11/02/24 02/24/25 History magnesium 100 mg capsule 100 mg PO QDAY 11/02/24 02/24/25 History metoprolol succinate 100 mg 100 mg PO QDAY #90 tabs 11/02/24 02/24/25 Rx tablet,extended release 24 hr prednisone 10 mg tablet See Rx Instructions PO QDAY #18 11/02/24 02/24/25 Rx tabs tramadol 50 mg tablet 50 mg PO Q6H PRN pain #60 tabs 11/02/24 02/24/25 Rx docusate sodium 100 mg capsule 100 mg PO DAILY 02/24/25 02/24/25 History (Colace) Allergies Allergy/AdvReac Type Severity Reaction Status Date / Time No Known Allergies Allergy Unknown Verified 02/24/25 20:55 Exam Narrative: Exam Narrative: Examined patient in the emergency department. Laying comfortably on the exam bed with head of bed elevated at 30? and legs outstretched in front of her. Vision and hearing are adequate. Alert and oriented x4. Friendly, articulate, cooperative. No icterus. Normal conjunctiva. Conjugate gaze. Midline nasal septum. Dentition in good repair. Moist buccal mucosa. Neck is supple. No head neck lymphadenopathy. No JVD. Lungs are clear to auscultation without wheezing, rhonchi, rales. Chest wall excursions are full. No CVA tenderness. Abdomen is quiet, distended. No rebound or guarding. Extremities without edema. Moves all 4 extremities. Skin is warm, dry, intact. No rashes, cyanosis, jaundice, petechiae. Const: Vital Signs, click to edit/add: Vital Signs - 24 hr 02/24/25 18:38 02/24/25 22:17 Temperature 97.9 F 97.6 F Pulse Rate [Pulse Oximeter] 86 85 Respiratory Rate 16 18 Blood Pressure [Ri ght Upper Arm] 190/98 H 185/105 H Pulse Oximetry 98 98 Oxygen Delivery Me thod Room Air Room Air Labs Labs: BMP 02/24/25 20:36 Sodium 135 Potassium 4.4 Chloride 103 Carbon Dioxide 26 BUN 23 Creatinine 0.8 Glucose 102 Calcium 9.9 Liver Function 02/24/25 Range/Units 20:36 Total Bilirubin 0.7 (0.1-1.5) mg/dL AST 28 (12-35) U/L ALT 12 (4-35) U/L Alkaline Phosphatase 56 (40-150) U/L Albumin 4.4 (3.3-5.0) g/dL Urine 02/24/25 Range/Units Unknown Urine Color Yellow (Yellow) Urine Appearance Clear (Clear) Urine pH 5.5 (5.0-8.5) Ur Specific [place] 1.025 (1.000-1.030) Urine Protein Negative (Negative) Urine Glucose (UA) Negative (Negative) ECG Attestation: I personally reviewed and interpreted this ECG as follows: Interpretation: Normal sinus rhythm. Imaging CT scan of abdomen and pelvis: Attestation: I have reviewed the pertinent imaging results. Radiologist's impression: FINDINGS: Lower chest: Unremarkable. Liver: There is a cyst in the right posterior segment of the liver measuring 2.3 cm. Spleen: Unremarkable. Pancreas: Unremarkable. Gallbladder: Unremarkable. Kidney: Bilateral renal cysts are present, measuring up to 4 cm. Adrenal: Unremarkable. Bowel: A loop of fluid-filled and dilated small bowel seen in the left lower quadrant measuring up to 3.8 cm in diameter with a transition point in the anterior periumbilical region. The appendix is not identified. Vascular: Unremarkable. Lymph: Unremarkable. Peritoneum: Unremarkable. Mild hazy edema is present within the mesentery raising the suspicion of ischemic changes. No pneumoperitoneum is seen. No significant ascites is noted. Pelvis: Calcified fibroid is present along the left aspect of the uterus measuring 2.4 cm. Soft tissue: Unremarkable. Bone: Moderate levoscoliosis is noted with associated facet arthritis and degenerative disc disease. IMPRESSIONS: 1. A loop of fluid-filled and dilated small bowel seen in the left lower quadrant measuring up to 3.8 cm in diameter with a transition point in the anterior periumbilical region. Findings are likely due to high-grade closed loop small bowel obstruction. 2. Mild hazy edema is present within the mesentery raising the suspicion of ischemic changes. Assessment and Plan Assessment and plan (1) Small intestine obstruction: Problem comment: - Dr. Escobar, general surgeon, is bringing patient to the OR - hospital service will follow patient while in hospital as appropriate Status: Acute (2) Hypertension: Problem comment: - will ask Pharmacy to review her medications and confirm her current doses for metoprolol and losartan - will reinitiate these postoperatively as appropriate Status: Acute (3) SVT (supraventricular tachycardia): Problem comment: - monitor on telemetry postop Status: Acute (4) History of ventricular tachycardia: Problem comment: - nonsustained ventricular tachycardia April 2024 received amiodarone bolus and DC cardioversion - EP consult: Favor outflow tract tachycardia. Started with verapamil daily. Could consider ablation in the future - echo 04/2024: Apical hypokinesis - CT angiogram April 2024: Nonobstructive coronary artery disease. Apical wall hypertrophy and apical diverticulum raise concern for apical hypertrophic cardiomyopathy. - cardiac MRI 04/2024: EF 66%. Moderate concentric LVH with myocardial mass at the upper limits of normal. No hypertrophic cardiomyopathy. No amyloid. 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 - was following with [facility] but in process of switching to [facility] due to insurance coverage Status: Acute (5) Lumbar spinal stenosis: Problem comment: Neuroforaminal stenosis multiple levels Status: Acute (6) Radicular pain of left lower extremity: Status: Acute (7) Gastroesophageal reflux disease: Status: Acute (8) Bladder cancer: Problem comment: - Dx 04/2022, resected by cystoscopy - completed BCG - no evidence of recurrent disease on surveillance with [facility] Status: Acute Plan 1. Reviewed impression, plans, recommendations with patient and her daughter 2. Answered their questions to their satisfaction 3. They are agreeable with above stated plans and recommendations Total Time Spent Total Time Spent: 65 minutes
--- NOTE | 2025-02-24 23:02 | PM.GSCN ---
History of Present Illness Consult details Date Seen: 02/24/25 Consult date: 02/25/25 Narrative: 89-year-old female presented to emergency room with abdominal pain and I was asking Dr. Andrews to see her in consultation. Patient states that she first started to experience abdominal pain last Saturday. On the pain became more severe and patient made herself vomit. Her pain improved. Patient has been having some food throughout the last few days but did not eat much. She continued to have loose bowel movements and had 2 bowel movements today. She states that today the pain was more severe and was not going away. Patient presented to urgent care and then was referred to emergency room. I personally reviewed her workup in the emergency room. She was found to have normal WBC. An abdominal CT was obtained that showed a dilated loop of small intestine in the left lower quadrant. Radiology report is concern for closed loop obstruction. There is also mild mesenteric edema that is concerning for ischemia. Review of Systems Narrative: General: no fevers HENT: no problems swallowing CV: no shortness of breath Resp: no cough GI: No nausea, vomiting, abdominal pain : no dysuria, no increased urinary frequency, no hematuria Skin: no new rashes Musculoskeletal: no back pain Neuro: no muscle weakness Psyche: no depression, no anxiety PFSH PFSH Medical History Hypertension ?I10 - Essential (primary) hypertension (ICD-10) SVT (supraventricular tachycardia) ?I47.10 - Supraventricular tachycardia, unspecified (ICD-10) History of ventricular tachycardia ?Z86.79 - Personal history of other diseases of the circulatory system (ICD-10) Hypertrophic cardiomyopathy ?I42.2 - Other hypertrophic cardiomyopathy (ICD-10) Bladder cancer ?C67.9 - Malignant neoplasm of bladder, unspecified (ICD-10) Gastroesophageal reflux disease ?K21.9 - Gastro-esophageal reflux disease without esophagitis (ICD-10) Basal cell carcinoma of skin ?C44.91 - Basal cell carcinoma of skin, unspecified (ICD-10) DJD (degenerative joint disease) of cervical spine ?M47.812 - Spondylosis without myelopathy or radiculopathy, cervical region (ICD-10) Pulmonary nodule ?R91.1 - Solitary pulmonary nodule (ICD-10) DJD (degenerative joint disease) of knee ?M17.9 - Osteoarthritis of knee, unspecified (ICD-10) Dysphonia ?R49.0 - Dysphonia (ICD-10) Health care directive on file ?Z78.9 - Other specified health status (ICD-10) Surgical History Status post cystoscopy ?Z98.890 - Other specified postprocedural states (ICD-10) Status post blepharoplasty ?Z98.890 - Other specified postprocedural states (ICD-10) Status post tonsillectomy ?Z90.89 - Acquired absence of other organs (ICD-10) Status post bunionectomy (10/12/09) ?Z98.890 - Other specified postprocedural states (ICD-10) Social History Smoking Status: Never smoker Do you use any of these nicotine containing products: None How often do you have a drink containing alcohol: never AUDIT-C Alcohol total score: 0 Non-prescribed substance use: denies use Meds Home Medications and Allergies Home Medications ?Medication ?Instructions ?Recorded ?Confirmed ?Type multivitamin (Multiple Vitamins 1 tab PO QDAY 03/05/22 02/24/25 History tablet) meloxicam 15 mg tablet 15 mg PO DAILY #90 tabs 05/29/24 02/24/25 Rx nystatin 100,000 unit/gram topical 1 applic topical BID #60 grams 05/29/24 02/24/25 Rx powder metoprolol succinate 50 mg 75 mg (1.5 x 50 mg) PO QDAY #135 10/26/24 02/24/25 Rx tablet,extended release 24 hr tabs losartan 25 mg tablet 100 mg PO DAILY 11/02/24 02/24/25 History magnesium 100 mg capsule 100 mg PO QDAY 11/02/24 02/24/25 History metoprolol succinate 100 mg 100 mg PO QDAY #90 tabs 11/02/24 02/24/25 Rx tablet,extended release 24 hr prednisone 10 mg tablet See Rx Instructions PO QDAY #18 11/02/24 02/24/25 Rx tabs tramadol 50 mg tablet 50 mg PO Q6H PRN pain #60 tabs 11/02/24 02/24/25 Rx docusate sodium 100 mg capsule 100 mg PO DAILY 02/24/25 02/24/25 History (Colace) Allergies Allergy/AdvReac Type Severity Reaction Status Date / Time No Known Allergies Allergy Unknown Verified 02/24/25 20:55 Exam Narrative: Exam Narrative: General appearance: Alert, cooperative, and in no distress Pulmonary: Chest symmetric, lungs clear bilaterally Cardiovascular Heart: Regular rate and rhythm, S1, S2, no murmurs/rubs/gallops Gastrointestinal Abdominal: soft, distended, tender to palpation in left lower quadrant with localized peritonitis and left lower quadrant, no tenderness to percussion anywhere else in the abdomen. Skin: Normal skin color, texture, and turgor. No rashes or lesions. Psychiatric: Alert, cooperative, normal affect. Const: Vital Signs, click to edit/add: Vital Signs - 24 hr 02/24/25 18:38 02/24/25 22:17 Temperature 97.9 F 97.6 F Pulse Rate [Pulse Oximeter] 86 85 Respiratory Rate 16 18 Blood Pressure [Ri ght Upper Arm] 190/98 H 185/105 H Pulse Oximetry 98 98 Oxygen Delivery Me thod Room Air Room Air Results Labs Labs: Abnormal lab results 02/24/25 02/24/25 Range/Units 20:36 Unknown Anion Gap 6 L (7-15) mEq/L Urine Ketones 1+ A (Negative) Urine Blood Trace-intact A (Negative) Ur Leukocyte Esterase Trace A (Negative) Urine WBC 5-10 A (0-5) Diabetes panel 02/24/25 Range/Units 20:36 Sodium 135 (135-149) mmol/L Potassium 4.4 (3.6-5.1) mmol/L Chloride 103 (96-114) mmol/L Carbon Dioxide 26 (20-32) mmol/L BUN 23 (7-30) mg/dL Creatinine 0.8 (0.5-1.5) mg/dL Glucose 102 (60-115) mg/dL Calcium 9.9 (8.4-10.6) mg/dL AST 28 (12-35) U/L ALT 12 (4-35) U/L Alkaline Phosphatase 56 (40-150) U/L Total Protein 7.6 (6.0-8.3) g/dL Albumin 4.4 (3.3-5.0) g/dL Calcium panel 02/24/25 Range/Units 20:36 Calcium 9.9 (8.4-10.6) mg/dL Albumin 4.4 (3.3-5.0) g/dL Pituitary panel 02/24/25 Range/Units 20:36 Sodium 135 (135-149) mmol/L Potassium 4.4 (3.6-5.1) mmol/L Chloride 103 (96-114) mmol/L Carbon Dioxide 26 (20-32) mmol/L BUN 23 (7-30) mg/dL Creatinine 0.8 (0.5-1.5) mg/dL Glucose 102 (60-115) mg/dL Calcium 9.9 (8.4-10.6) mg/dL Adrenal panel 02/24/25 Range/Units 20:36 Sodium 135 (135-149) mmol/L Potassium 4.4 (3.6-5.1) mmol/L Chloride 103 (96-114) mmol/L Carbon Dioxide 26 (20-32) mmol/L BUN 23 (7-30) mg/dL Creatinine 0.8 (0.5-1.5) mg/dL Glucose 102 (60-115) mg/dL Calcium 9.9 (8.4-10.6) mg/dL Total Bilirubin 0.7 (0.1-1.5) mg/dL AST 28 (12-35) U/L ALT 12 (4-35) U/L Alkaline Phosphatase 56 (40-150) U/L Total Protein 7.6 (6.0-8.3) g/dL Albumin 4.4 (3.3-5.0) g/dL All other labs normal. Imaging EKG: report reviewed and image reviewed (EKG with normal sinus rhythm with no ST elevations.) Progress Note:A&P Assessment and plan (1) Small intestine obstruction: Status: Acute Plan 89-year-old female presents with abdominal pain that is concerning for closed loop obstruction. I discussed with the patient and her daughter her laboratory and CT findings. Patient's CT shows dilated segment of small intestine with possible 2 transition points concerning for closed loop obstruction. There is mild mesenteric edema. I discussed with the patient that I would recommend to proceed with exploratory laparotomy. The procedure was discussed in detail. The risks associated procedure including infection, bleeding, injury to other organs, and the need for additional procedures, as well as cardiopulmonary complications were all discussed with the patient, and she agreed to proceed.
[2025-02-25] VITALS (28 sets, daily range): BP systolic 130–183; BP diastolic 70–98; PULSE 65–100; RESP 14–19; TEMP 36.1–36.8; O2SAT 85–100
[2025-02-25] MEDS: LACTATED RINGERS 1000 ML 1,000 ML 125 ML IV (00:24)
[2025-02-25] MEDS: PIPERACILLIN/TAZOBACTAM 3.375 GM in 0.9 % SODIUM CHLORIDE Mini-bag 100 ML IVPB (00:35)
--- NOTE | 2025-02-25 01:58 | W.PM.NB ---
Nerve Block Nerve Block Time Seen by Provider: 00:35 Date Seen: 02/25/25 Type of block requested by surgeon for post-operative analgesia: TAP Side: bilateral Time out performed: Yes Verification of patient name: Yes Verification of date of : Yes Name of person performing procedure: Lm Vallejo Continuous monitoring Was continuous monitoring of O2 sat, B/P, court recording monitor, recorded every 15 minutes?: Yes Procedure Ultrasound guided. Images saved: Yes Medications given in 5ml increments after negative aspiration: Marcaine %: 0.25 mL: 30 and Exparel mL: 10 Needle gauge: 20 Patient tolerated procedure well: Yes Block Charges Block Charge (with Pro Fee): TAP Bilateral Use of Ultrasound Machine for Block: Yes- US Guidance/pain block
--- NOTE | 2025-02-25 02:31 | SUR.OPER ---
Family update at 01:59
--- NOTE | 2025-02-25 02:36 | P.GSOP_ITS ---
Operative Note Date of procedure: 02/25/25 Pre-op diagnosis: 1. Small-bowel obstruction concerning for a closed loop obstruction. Post-op diagnosis: 1. Small-bowel mass/stricture with proximal small-bowel dilation. Type of Procedure: 1. Exploratory laparotomy. 2. Small bowel resection. Indications: 89-year-old female presented to emergency room with worsening abdominal pain. Patient's pain initially started last week and she had an episode of severe pain that improved after she vomited. She then continued to have abdominal pain and had decreased appetite. She was having regular bowel movements. Patient's pain worsened again on Saturday and throughout the day of her presentation to the emergency room the pain was persistent and not go away. Patient had 2 bowel movements on the day of presentation. Upon her workup in the emergency room she was found to have normal WBC. An abdominal CT was obtained that showed a dila gianfranco loop of small bowel with 2 transition points concerning for closed loop obstruction. There was also mesenteric edema concerning for ischemia. On clinical exam patient had tenderness to palpation in the left lower quadrant with localized peritonitis. Given patient's clinical history and her CT findings, exploratory laparotomy was recommended. The procedure was discussed in detail. The risks associated procedure including infection, bleeding, injury to intra-abdominal organs, cardiopulmonary complications, and the need for additional procedures were all discussed with the patient, she agreed to proceed. Procedure Description: After discussing the risks and benefits of the procedure, the patient signed informed consent.? The operative site was marked and the patient was brought to the operating room and placed on the operating table in supine position.? Care was taken to pad the patient's pressure points.?? The patient was then intubated by anesthesia.??Smith catheter was placed under sterile conditions. The operative site was then prepped and draped in the usual sterile fashion.? A time-out was then performed. A lower midline laparotomy incision was made with a scalpel excising an existing well-healed surgical scar from patient's prior tubal ligation. This incision was just below the umbilicus. Subcutaneous fat was divided with cautery down to the anterior fascia. Anterior fascia was then grasped with Meryl clamps and incised with suture scissors. Peritoneum and posterior fascia was then grasped with Huma clamps and incised with Metzenbaum scissors. Abdomen was entered. The fascial incision was then extended superiorly and inferiorly but stayed just below the umbilicus. Sonia wound protector was placed into the incision. Omental adhesions were noted in the superior abdomen, and those were lysed with cautery. The small bowel was eviscerated and a dilated segment of proximal terminal ileum was noted. No adhesions were noted which were the culprit of dilated small bowel segment. The small bowel was then examined from the ligament of Treitz to the terminal ileum and no adhesions or necrotic areas were seen. The small bowel mesentery was edematous. The dilated segment of small bowel was then closely examined and palpated. Just distal to the dilated area there was a short segment of small intestine measuring approximately 1 cm that was thickened to palpation with the narrow lumen palpated with the small bowel lumen slightly tapering into this thickening. This was thought to be the leonardo rit of dilation of the proximal small bowel. Given the thickening of the small intestine, I elected to proceed with small bowel resection. Small bowel lumen was divided with a blue load of AMRITA stapler 6 cm proximal and distal to this area of thickening. The small bowel mesentery was then divided with clamps and ties trying to include the feeding small bowel vasculature with the specimen. The specimen was labeled with a stitch at the area of thickening and passed off the field. The small bowel anastomosis was then created. The cut ends of the small intestine were lined up with a stay stitch. An enterotomy was made in the distal and proximal ends of the small bowel and side to side functional end-to-end anastomosis was created with a blue load of AMRITA stapler stapling the small intestine on the anti-mesenteric side. The staple line was examined from the inside and no active bleeding was seen. The common enterotomy was then closed with interrupted 3-0 silk Lembert sutures. The small bowel anastomosis was palpated and was patent and well perfused. Two crotch stitches were placed with 3-0 silk suture. The small bowel mesenteric defect was closed with a running 3-0 Vicryl suture. At this time all the dirty instruments and previously placed towels covering the patient's abdomen were removed. Surgeon and assistants changed gloves. The anastomosis was placed into the abdomen. The pelvis was examined and revealed a left julissa tubular cyst measuring approximately 2.5 cm. This had clear fluid in the cyst. The cyst was left undisturbed. The NG tube that was placed by Anesthesia was palpated in the stomach and was secured in place. Omentum was placed over the small intestine. The peritoneum was then reapproximated with 2 running 0-0 Vicryl sutures. The anterior fascia was closed with 2 running 0-0 PDS sutures. The skin of the lower laparotomy incision was then closed with kerri. Sterile dressings were placed over the incision, and those were secured in place with tape. All counts were correct at the end of the case. ? The patient was then woken and transported to the recovery area in stable condition. ? The patient tolerated the procedure well. Findings: Dilated segment of small intestine was identified but no adhesions were noted to cause small bowel obstruction. There was no evidence of closed loop obstruction. However, there was a thickened 1 cm segment of small intestine that was causing dilation of proximal small intestine. Anesthesia: GETA Surgeon: Bernadette Escobar MD Estimated blood loss (mL): 10 Additional Specimen Information: 1. Small bowel segment with a stitch marking small bowel thickening. Condition: stable Disposition: PACU
--- NOTE | 2025-02-25 02:42 | P.ANES_ITS ---
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
--- NOTE | 2025-02-25 02:42 | W.ANESCHARGE ---
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
[2025-02-25] MEDS: LACTATED RINGERS 1000 ML 1,000 ML 100 ML IV (03:37)
--- NOTE | 2025-02-25 06:39 | PC.NURSE ---
The patient arrived to the unit post bowel resection. The patient arrived in stable condition, VS are noted to be hypertensive. Requiring 1 L of to maintain >90% due to narcotic pain medications. Midline abdominal incision is CDI and covered. Tele is NSR w/ prolonged QT. The patient is cognisant, although quite tired. SCDS are on and the bear hugger is still on due to temp @ 97.0. Call light within reach and the patients daughter is at the bedside. Sonia GALINDO BSN
[2025-02-25 06:41] LABS: Hematocrit* 41.3 % (33.0-51.0); Hemoglobin* 14.0 gm/dL (12.0-16.0); Immature Granulocytes Abs Auto 0.01 K/uL (0.00-0.30); Immature Granulocytes Pct Auto 0.1 %; Mean Corpuscular HGB Conc 34 gm/dL (32-36); Mean Corpuscular Hemoglobin 29 pg (26-34); Mean Corpuscular Volume 86 fL (80-100); RDW Coefficient of Variation % 12.3 % (11.5-15.5); Red Blood Count* 4.82 m/uL (4.00-5.20); White Blood Count* 10.31 K/uL (4.50-11.00)
[2025-02-25 06:46] LABS: Lymphocytes Absolute Auto 0.50 K/uL (0.90-2.90); Slide Review Reflex No
[2025-02-25 06:58] LABS: Chloride* 99 mmol/L (96-114)
[2025-02-25 06:59] LABS: Potassium* 3.5 mmol/L (3.6-5.1); Sodium* 133 mmol/L (135-149)
[2025-02-25 07:01] LABS: Blood Urea Nitrogen* 17 mg/dL (7-30); Creatinine* 0.7 mg/dL (0.5-1.5); Est. Creatinine Clearance* 29.91; Estimated Glomerular Filt Rate 84 ml/min
[2025-02-25 07:02] LABS: Anion Gap 10 mEq/L (7-15); Calcium* 9.0 mg/dL (8.4-10.6); Carbon Dioxide* 24 mmol/L (20-32); Glucose* 160 mg/dL (60-115)
--- NOTE | 2025-02-25 09:27 | PM.IMPN1 ---
Assessment and Plan Assessment and plan (1) Small intestine obstruction: Problem comment: - s/p exploratory laparotomy and small bowel resection with Dr. Escobar of General Surgery on 02/25/25 - NG tube in place Status: Acute (2) Hypertension: Problem comment: - on Metoprolol, will treat with IV Metoprolol until tolerating po medications Status: Acute (3) History of ventricular tachycardia: Problem comment: - nonsustained ventricular tachycardia April 2024, treated with amiodarone bolus and DC cardioversion - EP consult: Favor outflow tract tachycardia. Started with verapamil daily. Could consider ablation in the future - TTE 04/2024: Apical hypokinesis - CT angiogram April 2024: Nonobstructive CAD. 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 Moderate concentric LVH with myocardial mass at upper limits of normal, no hypertrophic CM or amyloid, tiny discrete basilar anterior lateral MS consistent with tiny embolic infarction - was following with [facility] [place] but in process of switching to [facility] due to insurance coverage Status: Acute (4) Bladder cancer: Problem comment: - Dx 04/2022, resected by cystoscopy - completed BCG - no evidence of recurrent disease on surveillance with [facility] Status: Acute (5) Gastroesophageal reflux disease: Problem comment: - uses prn Tums as an outpatient Status: Acute (6) DJD (degenerative joint disease) of cervical spine: Problem comment: - typically on Meloxicam as an outpatient, will use Lidocaine patches prn, Tylenol with tolerating po intake - also on prn narcotics postoperatively Status: Acute Plan - per above - postoperative po intake managed per General Surgery - daughter Ora updated bedside, questions answered Subjective Date Seen: 02/25/25 Interval history: Johana is an 89 yo female who presented to the ER in the evening of 02/24/25 with abdominal pain; ER imaging revealed a high grade closed loop SBO. She is s/p exploratory laparotomy and small bowel resection with Dr. Escobar of General Surgery on 02/25/25. Hospitalist team has been consulted given comorbidities: Essential HTN, SVT, nonsustained Vtach (04/2024, s/p treatment with Amiodarone and d/c Cardioversion), mild concentric LVH (noted on cardiac MRI 04/2024, no evidence of hypertrophic cardiomyopathy or amyloid), bladder cancer (04/2022, s/p resection via cystoscopy and BCG treatments), GERD. Overnight, patient remained hemodynamically stable. NG and Smith are in place. This morning, has mild hypokalemia with normal Magnesium. WBC 10 with mild PMN predominance. Exam Narrative: Exam Narrative: GEN: Alert HEENT: Normal external ears, EOMIs bilaterally, no scleral icterus CV: RRR, No concerning murmurs, rubs, or gallops R: LCTA bilaterally without concerning wheezing, rales, or rhonchi Ext: wwp, no concerning edema Skin: No concerning skin lesions or rashes on exposed skin Neuro: Nonfocal Psych: Appropriate Const: Vital Signs, click to edit/add: Vital Signs - 24 hr 02/24/25 18:38 02/24/25 22:17 02/25/25 02:40 Temperature 97.9 F 97.6 F 97 F L Pulse Rate 74 Pulse Rate [Pulse Oximeter] 86 85 Pulse Rate [Right Pulse Oximeter] Respiratory Rate 16 18 16 Blood Pressure 183/86 H Blood Pressure [Ri ght Arm] Blood Pressure [Ri ght Upper Arm] 190/98 H 185/105 H Pulse Oximetry 98 98 100 Oxygen Delivery Me thod Room Air Room Air Room Air Oxygen Flow Rate 02/25/25 02:45 02/25/25 02:50 02/25/25 02:55 Temperature Pulse Rate 68 69 65 Pulse Rate [Pulse Oximeter] Pulse Rate [Right Pulse Oximeter] Respiratory Rate 17 19 17 Blood Pressure 166/81 H 155/74 H 164/78 H Blood Pressure [Ri ght Arm] Blood Pressure [Ri ght Upper Arm] Pulse Oximetry 90 98 99 Oxygen Delivery Me thod Nasal Cannula Oxygen Flow Rate 5 02/25/25 03:00 02/25/25 03:05 02/25/25 03:10 Temperature 97.5 F L Pulse Rate 67 65 66 Pulse Rate [Pulse Oximeter] Pulse Rate [Right Pulse Oximeter] Respiratory Rate 18 16 18 Blood Pressure 161/78 H 165/81 H 162/78 H Blood Pressure [Ri ght Arm] Blood Pressure [Ri ght Upper Arm] Pulse Oximetry 99 99 99 Oxygen Delivery Me thod Room Air Oxygen Flow Rate 2 02/25/25 03:23 02/25/25 03:38 02/25/25 03:53 Temperature 96.9 F L 96.9 F L 97.2 F L Pulse Rate Pulse Rate [Pulse Oximeter] Pulse Rate [Right Pulse Oximeter] 75 72 72 Respiratory Rate 14 16 16 Blood Pressure Blood Pressure [Ri ght Arm] 164/81 H 161/80 H 172/88 H Blood Pressure [Ri ght Upper Arm] Pulse Oximetry 93 93 93 Oxygen Delivery Me thod Nasal Cannula Nasal Cannula Nasal Cannula Oxygen Flow Rate 1 1 1 02/25/25 03:58 02/25/25 03:58 02/25/25 04:00 Temperature 96.9 F L Pulse Rate 70 Pulse Rate [Pulse Oximeter] Pulse Rate [Right Pulse Oximeter] 75 Respiratory Rate 14 14 Blood Pressure Blood Pressure [Ri ght Arm] 167/85 H Blood Pressure [Ri ght Upper Arm] Pulse Oximetry 95 95 Oxygen Delivery Me thod Nasal Cannula Nasal Cannula Oxygen Flow Rate 1 1 02/25/25 04:08 02/25/25 04:38 02/25/25 04:40 Temperature 97.5 F L 97.3 F L Pulse Rate Pulse Rate [Pulse Oximeter] Pulse Rate [Right Pulse Oximeter] 70 77 Respiratory Rate 16 16 16 Blood Pressure Blood Pressure [Ri ght Arm] 168/88 H 140/70 H Blood Pressure [Ri ght Upper Arm] Pulse Oximetry 90 85 L 85 L Oxygen Delivery Me thod Room Air Room Air Room Air Oxygen Flow Rate 02/25/25 04:45 02/25/25 05:10 02/25/25 06:08 Temperature 97.3 F L 97.5 F L Pulse Rate Pulse Rate [Pulse Oximeter] Pulse Rate [Right Pulse Oximeter] 84 74 Respiratory Rate 16 16 16 Blood Pressure Blood Pressure [Ri ght Arm] 141/80 H 130/82 Blood Pressure [Ri ght Upper Arm] Pulse Oximetry 90 94 95 Oxygen Delivery Me thod Nasal Cannula Nasal Cannula Nasal Cannula Oxygen Flow Rate 2 1 1 02/25/25 07:00 02/25/25 07:08 02/25/25 08:23 Temperature 97.8 F Pulse Rate 91 Pulse Rate [Pulse Oximeter] Pulse Rate [Right Pulse Oximeter] 88 Respiratory Rate Blood Pressure Blood Pressure [Ri ght Arm] 140/98 H Blood Pressure [Ri ght Upper Arm] Pulse Oximetry 96 96 Oxygen Delivery Me thod Nasal Cannula Nasal Cannula Oxygen Flow Rate 1 1 Labs Labs: Laboratory Results - last 24 hr 02/24/25 02/24/25 02/25/25 20:36 Unknown 06:19 WBC 10.31 RBC 4.82 Hgb 14.0 Hct 41.3 MCV 86 MCH 29 MCHC 34 RDW Coeff of Pati 12.3 Plt Count 180 Neut % (Auto) 88.8 H Lymph % (Auto) 4.8 L [place] % (Auto) 6.2 Eos % (Auto) 0.0 Baso % (Auto) 0.1 Neut # (Auto) 9.20 H Lymph # (Auto) 0.50 L [place] # (Auto) 0.60 Eos # (Auto) 0.00 Baso # (Auto) 0.01 Abs Immat Gran (auto) 0.01 Imm/Tot Granulo (auto) 0.1 Sodium 135 133 L Potassium 4.4 3.5 L Chloride 103 99 Carbon Dioxide 26 24 Anion Gap 6 L 10 BUN 23 17 Creatinine 0.8 0.7 Estimated Creat Clear 29.91 29.91 Estimated GFR 71 84 Glucose 102 160 H Lactate 1.4 Calcium 9.9 9.0 Total Bilirubin 0.7 AST 28 ALT 12 Alkaline Phosphatase 56 C-Reactive Protein Total Protein 7.6 Albumin 4.4 Lipase 65 Urine Color Yellow Urine Appearance Clear Urine pH 5.5 Ur Specific [place] 1.025 Urine Protein Negative Urine Glucose (UA) Negative Urine Ketones 1+ A Urine Blood Trace-intact A Urine Nitrite Negative Urine Bilirubin Negative Urine Urobilinogen 0.2 Ur Leukocyte Esterase Trace A Urine RBC 0-2 Urine WBC 5-10 A Ur Squamous Epith Cells None Urine Bacteria None POC Creatinine 0.9 02/25/25 07:10 WBC RBC Hgb Hct MCV MCH MCHC RDW Coeff of Pati Plt Count Neut % (Auto) Lymph % (Auto) [place] % (Auto) Eos % (Auto) Baso % (Auto) Neut # (Auto) Lymph # (Auto) [place] # (Auto) Eos # (Auto) Baso # (Auto) Abs Immat Gran (auto) Imm/Tot Granulo (auto) Sodium Potassium Chloride Carbon Dioxide Anion Gap BUN Creatinine Estimated Creat Clear Estimated GFR Glucose Lactate Calcium Total Bilirubin AST ALT Alkaline Phosphatase C-Reactive Protein 0.9 Total Protein Albumin Lipase Urine Color Urine Appearance Urine pH Ur Specific [place] Urine Protein Urine Glucose (UA) Urine Ketones Urine Blood Urine Nitrite Urine Bilirubin Urine Urobilinogen Ur Leukocyte Esterase Urine RBC Urine WBC Ur Squamous Epith Cells Urine Bacteria POC Creatinine
[2025-02-25] MEDS: PANTOPRAZOLE SODIUM 40 MG INJ IVP (10:31)
[2025-02-25] MEDS: METOPROLOL TARTRATE 1 MG/ML inj 5 MG IVP ×3 (10:31→22:30)
[2025-02-25] MEDS: POTASSIUM CHLORIDE 10 MEQ/100 ML PIGGYBACK 100 MEQ IVPB (10:33)
--- NOTE | 2025-02-25 13:39 | P.GSPN_ITS ---
Subjective Subjective Date Seen: 02/25/25 Interval history: Patient is stable postoperatively. She ambulated in the morning. Said in the chair. Her abdominal pain is controlled. NG did not put out any fluid. Exam Narrative: Exam Narrative: Abdomen is soft, not distended, minimally tender to palpation in bilateral mid abdomen. Midline laparotomy incision is covered with clean and dry dressing. Const: Vital Signs, click to edit/add: Vital Signs - 24 hr 02/24/25 18:38 02/24/25 22:17 02/25/25 02:40 Temperature 97.9 F 97.6 F 97 F L Pulse Rate 74 Pulse Rate [Pulse Oximeter] 86 85 Pulse Rate [Right Pulse Oximeter] Respiratory Rate 16 18 16 Blood Pressure 183/86 H Blood Pressure [Ri ght Arm] Blood Pressure [Ri ght Upper Arm] 190/98 H 185/105 H Pulse Oximetry 98 98 100 Oxygen Delivery Me thod Room Air Room Air Room Air Oxygen Flow Rate 02/25/25 02:45 02/25/25 02:50 02/25/25 02:55 Temperature Pulse Rate 68 69 65 Pulse Rate [Pulse Oximeter] Pulse Rate [Right Pulse Oximeter] Respiratory Rate 17 19 17 Blood Pressure 166/81 H 155/74 H 164/78 H Blood Pressure [Ri ght Arm] Blood Pressure [Ri ght Upper Arm] Pulse Oximetry 90 98 99 Oxygen Delivery Me thod Nasal Cannula Oxygen Flow Rate 5 02/25/25 03:00 02/25/25 03:05 02/25/25 03:10 Temperature 97.5 F L Pulse Rate 67 65 66 Pulse Rate [Pulse Oximeter] Pulse Rate [Right Pulse Oximeter] Respiratory Rate 18 16 18 Blood Pressure 161/78 H 165/81 H 162/78 H Blood Pressure [Ri ght Arm] Blood Pressure [Ri ght Upper Arm] Pulse Oximetry 99 99 99 Oxygen Delivery Me thod Room Air Oxygen Flow Rate 2 02/25/25 03:23 02/25/25 03:38 02/25/25 03:53 Temperature 96.9 F L 96.9 F L 97.2 F L Pulse Rate Pulse Rate [Pulse Oximeter] Pulse Rate [Right Pulse Oximeter] 75 72 72 Respiratory Rate 14 16 16 Blood Pressure Blood Pressure [Ri ght Arm] 164/81 H 161/80 H 172/88 H Blood Pressure [Ri ght Upper Arm] Pulse Oximetry 93 93 93 Oxygen Delivery Me thod Nasal Cannula Nasal Cannula Nasal Cannula Oxygen Flow Rate 1 1 1 02/25/25 03:58 02/25/25 03:58 02/25/25 04:00 Temperature 96.9 F L Pulse Rate 70 Pulse Rate [Pulse Oximeter] Pulse Rate [Right Pulse Oximeter] 75 Respiratory Rate 14 14 Blood Pressure Blood Pressure [Ri ght Arm] 167/85 H Blood Pressure [Ri ght Upper Arm] Pulse Oximetry 95 95 Oxygen Delivery Me thod Nasal Cannula Nasal Cannula Oxygen Flow Rate 1 1 02/25/25 04:08 02/25/25 04:38 02/25/25 04:40 Temperature 97.5 F L 97.3 F L Pulse Rate Pulse Rate [Pulse Oximeter] Pulse Rate [Right Pulse Oximeter] 70 77 Respiratory Rate 16 16 16 Blood Pressure Blood Pressure [Ri ght Arm] 168/88 H 140/70 H Blood Pressure [Ri ght Upper Arm] Pulse Oximetry 90 85 L 85 L Oxygen Delivery Me thod Room Air Room Air Room Air Oxygen Flow Rate 02/25/25 04:45 02/25/25 05:10 02/25/25 06:08 Temperature 97.3 F L 97.5 F L Pulse Rate Pulse Rate [Pulse Oximeter] Pulse Rate [Right Pulse Oximeter] 84 74 Respiratory Rate 16 16 16 Blood Pressure Blood Pressure [Ri ght Arm] 141/80 H 130/82 Blood Pressure [Ri ght Upper Arm] Pulse Oximetry 90 94 95 Oxygen Delivery Me thod Nasal Cannula Nasal Cannula Nasal Cannula Oxygen Flow Rate 2 1 1 02/25/25 07:00 02/25/25 07:08 02/25/25 08:08 Temperature 97.8 F 97.6 F Pulse Rate Pulse Rate [Pulse Oximeter] Pulse Rate [Right Pulse Oximeter] 88 98 Respiratory Rate 16 Blood Pressure Blood Pressure [Ri ght Arm] 140/98 H 158/96 H Blood Pressure [Ri ght Upper Arm] Pulse Oximetry 96 96 98 Oxygen Delivery Me thod Nasal Cannula Nasal Cannula Nasal Cannula Oxygen Flow Rate 1 1 1 02/25/25 08:23 02/25/25 09:08 02/25/25 11:00 Temperature 97.8 F 98.1 F Pulse Rate 91 Pulse Rate [Pulse Oximeter] Pulse Rate [Right Pulse Oximeter] 100 86 Respiratory Rate 17 16 Blood Pressure Blood Pressure [Ri ght Arm] 155/86 H 153/91 H Blood Pressure [Ri ght Upper Arm] Pulse Oximetry 96 95 Oxygen Delivery Me thod Nasal Cannula Nasal Cannula Oxygen Flow Rate 1 1 Progress Note:A&P Assessment and plan (1) S/P exploratory laparotomy: Status: Acute Plan 89-year-old female s/p exploratory laparotomy and small-bowel resection for small-bowel mass/stricture POD 0. Patient is doing well postoperatively. We will remove her Smith catheter. Will leave NG tube in. Patient is on IV fluids. I discussed with the patient and he r family that she should continue ambulating.
--- NOTE | 2025-02-25 14:43 | PC.NURSE ---
pt is alert and oriented. Abdominal dressing dry and intact. NG tube is in place, less that 5ml output. richmond removed at 1340, procedure tolerated well. NPO.? Pt denies pain and the need for pain medication prior to activity. pt is a one assist with walker.?
--- NOTE | 2025-02-25 15:55 | REH.OT ---
OT consult order received. 3 attempts made for evaluation and pt. was sound asleep. Will reattempt tomorrow.
[2025-02-25] MEDS: LACTATED RINGERS 1000 ML 1,000 ML 75 ML IV (16:24)
--- NOTE | 2025-02-25 17:38 | CRLHL7_ITS ---
For Patients: As a result of the Cures Act, medical imaging exams and procedure reports are released immediately into your electronic medical record. You may view this report before your referring provider. If you have questions, please contact your health care provider. INDICATION: NG placement TECHNIQUE: Abdominal radiograph 1 view COMPARISON: 02/24/2025, CT 02/24/2025 FINDINGS: Bowel: The bowel gas pattern is normal without evidence of bowel obstruction but most of the lower abdomen and pelvis are excluded. NG tube present with tip in the gastric body. Soft tissue: Pneumoperitoneum is present below the right hemidiaphragm which may be due to recent surgery. No suspicious calcifications noted. Bone: Dextroscoliosis of the lumbar spine is partially visualized. IMPRESSIONS: 1. NG tube present with tip in the gastric body. 2. Pneumoperitoneum is present below the right hemidiaphragm which may be due to recent surgery. The finding was verbally communicated with charge nurse, Jia Fink, at 6:18 PM who confirmed that the patient had surgery today. Dictated by Radhames Marie MD @ 02/25/2025 6:18:06 PM Dictated by: Radhames Marie MD @ 02/25/2025 18:20:03 (Electronically Signed)
[2025-02-25] MEDS: phenoL 1.4 % THROAT SPRAY 1 SPRAY MUCOUS MEM ×2 (18:09→21:30)
[2025-02-25] MEDS: BENZOCAINE/MENTHOL 1 EACH LOZENGE MUCOUS MEM (22:31)
--- NOTE | 2025-02-25 22:55 | PC.NURSE ---
end of shift: pt. is AOx4. VSS. Initial assessment of NG is 52 cm, 4.5 pH, updated surgeon. X ray obtained, MD present; placement confirmed. Pt. amb x2; tolerated well. Pt. reported throat discomfort, managed w/ lozenge and spray; see EMAR. Pt. reported pain after amb, pain med given and active ice applied. Pt. daughters bedside for visiting. Ice chips. Denies nausea.
[2025-02-26] VITALS (10 sets, daily range): BP systolic 135–183; BP diastolic 75–101; PULSE 83–96; RESP 16–18; TEMP 36.4–37.6; O2SAT 93–96; BMI 23.8
[2025-02-26] MEDS: BENZOCAINE/MENTHOL 1 EACH LOZENGE MUCOUS MEM (03:52)
[2025-02-26] MEDS: METOPROLOL TARTRATE 1 MG/ML inj 5 MG IVP ×6 (03:54→23:50)
[2025-02-26] MEDS: SODIUM CHLORIDE 0.9 % (FLUSH) 10 ML SYRINGE 5 ML IVF (03:54)
[2025-02-26] MEDS: LACTATED RINGERS 1000 ML 1,000 ML 75 ML IV ×2 (05:00→18:35)
[2025-02-26 06:21] LABS: Hematocrit* 35.4 % (33.0-51.0); Hemoglobin* 12.1 gm/dL (12.0-16.0); Immature Granulocytes Abs Auto 0.07 K/uL (0.00-0.30); Immature Granulocytes Pct Auto 0.8 %; Mean Corpuscular HGB Conc 34 gm/dL (32-36); Mean Corpuscular Hemoglobin 29 pg (26-34); Mean Corpuscular Volume 86 fL (80-100); RDW Coefficient of Variation % 12.7 % (11.5-15.5); Red Blood Count* 4.11 m/uL (4.00-5.20); White Blood Count* 8.45 K/uL (4.50-11.00)
[2025-02-26 06:22] LABS: Lymphocytes Absolute Auto 0.90 K/uL (0.90-2.90); Slide Review Reflex No
[2025-02-26 06:33] LABS: Albumin* 3.4 g/dL (3.3-5.0); Chloride* 103 mmol/L (96-114); Sodium* 133 mmol/L (135-149)
[2025-02-26 06:34] LABS: Potassium* 4.1 mmol/L (3.6-5.1)
[2025-02-26 06:36] LABS: Alanine Aminotransferase* 12 U/L (4-35); Alkaline Phosphatase* 48 U/L (40-150); Anion Gap 4 mEq/L (7-15); Aspartate Amino Transferase* 24 U/L (12-35); Bilirubin Total* 0.9 mg/dL (0.1-1.5); Blood Urea Nitrogen* 17 mg/dL (7-30); Carbon Dioxide* 26 mmol/L (20-32); Creatinine* 0.8 mg/dL (0.5-1.5); Est. Creatinine Clearance* 29.91; Estimated Glomerular Filt Rate 71 ml/min; Total Protein* 5.9 g/dL (6.0-8.3)
[2025-02-26 06:37] LABS: Calcium* 8.5 mg/dL (8.4-10.6); Glucose* 107 mg/dL (60-115)
--- NOTE | 2025-02-26 07:40 | PC.NURSE ---
Pt is alert and oriented x3. Afebrile. Pt reports / Sore throat managed with PRN lozenges. Pt's NG tube is patent and draining, pt had 100ml of brown/yellow output overnight. Pt's abdominal dressing is CDI. Pt is up SBA with walker and IV pole. Pt in bed and with call light within reach.
[2025-02-26] MEDS: PANTOPRAZOLE SODIUM 40 MG INJ IVP (08:23)
[2025-02-26] MEDS: phenoL 1.4 % THROAT SPRAY 1 SPRAY MUCOUS MEM ×4 (08:28→22:36)
--- NOTE | 2025-02-26 09:36 | PM.GSPN ---
Subjective Subjective Date Seen: 02/26/25 Interval history: Patient is doing well postoperatively. She had 1 bloody stool today in the morning. She is not passing gas otherwise. She denies nausea vomiting. Her NG is putting out minimal amount of fluid. Exam Narrative: Exam Narrative: Abdomen is soft, minimally distended, tender to palpation in bilateral mid abdomen with no peritoneal signs. Midline laparotomy incision is with clean kerri. There is ecchymosis surrounding the staple line. Const: Vital Signs, click to edit/add: Vital Signs - 24 hr 02/25/25 11:00 02/25/25 15:00 02/25/25 15:00 Temperature 98.1 F Pulse Rate Pulse Rate [Right Pulse Oximeter] 86 100 Respiratory Rate 16 16 16 Blood Pressure [Ri ght Arm] 153/91 H Pulse Oximetry 95 95 Oxygen Delivery Me thod Nasal Cannula Room Air Oxygen Flow Rate 1 02/25/25 15:00 02/25/25 16:23 02/25/25 19:00 Temperature 97.9 F 98.2 F Pulse Rate 94 Pulse Rate [Right Pulse Oximeter] 100 90 Respiratory Rate 16 14 Blood Pressure [Ri ght Arm] 143/79 H 137/70 Pulse Oximetry 95 97 Oxygen Delivery Me thod Room Air Room Air Oxygen Flow Rate 02/26/25 00:00 02/26/25 00:00 02/26/25 03:52 Temperature 99.1 F 98.9 F Pulse Rate Pulse Rate [Right Pulse Oximeter] 90 91 Respiratory Rate 16 16 16 Blood Pressure [Ri ght Arm] 148/80 H 152/87 H Pulse Oximetry 94 94 93 Oxygen Delivery Me thod Room Air Room Air Room Air Oxygen Flow Rate 02/26/25 07:00 02/26/25 07:00 Temperature 98.1 F Pulse Rate 83 Pulse Rate [Right Pulse Oximeter] 93 Respiratory Rate 16 Blood Pressure [Ri ght Arm] 140/82 H Pulse Oximetry 94 Oxygen Delivery Me thod Room Air Oxygen Flow Rate Progress Note:A&P Assessment and plan (1) S/P exploratory laparotomy: Status: Acute Plan A 9-year-old female s/p exploratory laparotomy with small-bowel resection POD 1. Will continue with NG tube and NPO. Since patient had 1 bloody stool, I would continue holding off on Lovenox for DVT prophylaxis. Patient is ambulating and will continue with that.
--- NOTE | 2025-02-26 11:30 | PM.IMPN1 ---
Assessment and Plan Assessment and plan (1) Small intestine obstruction: Problem comment: - s/p exploratory laparotomy and small bowel resection with Dr. Escobar of General Surgery on 02/25/25 - NG tube in place, NPO - awaiting return of bowel function - likely start Lovenox on 02/27/2025 Status: Acute (2) Hypertension: Problem comment: - home med metoprolol 100 mg daily -holding. Discontinued verapamil in 10/2024 secondary to constipation - increasing IV metoprolol to 5 mg q.4 hours for improved blood pressure and rate control as discussed with pharmacy Status: Acute (3) History of ventricular tachycardia: Problem comment: - nonsustained ventricular tachycardia April 2024, treated with amiodarone bolus and DC cardioversion - per EP consult: Favor outflow tract tachycardia. Started with verapamil daily - [discontinued in October due to constipation]. Could consider ablation in the future - TTE 04/2024: Apical hypokinesis - CT angiogram April 2024: Nonobstructive CAD. 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 Moderate concentric LVH with myocardial mass at upper limits of normal, no hypertrophic CM or amyloid, tiny discrete basilar anterior lateral MS consistent with tiny embolic infarction - was following with [facility] [place] but in process of switching to [facility] due to insurance coverage - per EMR, has had good success with metoprolol 100 mg daily - on hold. As above, increased IV metoprolol to q.4 hours for improved rate control. Telemetry Status: Acute (4) Bladder cancer: Problem comment: - Dx 04/2022, resected by cystoscopy - completed BCG - no evidence of recurrent disease on surveillance with [facility] Status: Acute (5) Gastroesophageal reflux disease: Problem comment: - uses prn Tums as an outpatient Status: Acute (6) DJD (degenerative joint disease) of cervical spine: Problem comment: - typically on Meloxicam as an outpatient, will use Lidocaine patches prn, Tylenol with tolerating po intake - also on prn narcotics postoperatively Status: Acute Total Time Spent Total Time Spent: Today I spent 55 minutes seeing the patient, reviewing Expanse and EPIC notes/diagnostics, discussing the care plan with our care time that includes social work, PT/OT, pharmacy, RT, care home and documenting my impressions and plan in the medical record. Subjective Date Seen: 02/26/25 Interval history: Patient is seen sitting up in a chair this morning, daughter at bedside. Reports feeling pretty well. Postoperative abdominal pain is managed while at rest, increases with movement. Passed blood overnight but has not yet had a bowel movement. Not passing gas. No nausea. Denies headache or dizziness. Denies chest pain or shortness of breath. Has been up and ambulating as of yesterday. General surgery continuing to manage. Hospitalists following. CBC rather unremarkable, sodium mildly low at 133 Afebrile Remains hypertensive Pulse postoperatively 90-100 Exam Narrative: Exam Narrative: PHYSICAL EXAM General: Pleasant, conversant, NAD HEENT: Normocephalic, atraumatic, sclera white, EOMI Cardiovascular: RRR, S1S2. No pitting edema Pulmonary: CTA bilaterally without rhonchi, rales, expiratory wheezes. No dyspnea Abdominal: Mild distension, appropriate postoperative tenderness. NGT in place Neurological: Alert, answering questions appropriately, cranial nerves intact, no focal findings Extremities: No gross joint deformity or swelling. AROMI. Neurovascularly intact Skin: Warm, dry. Const: Vital Signs, click to edit/add: Vital Signs - 24 hr 02/25/25 15:00 02/25/25 15:00 02/25/25 15:00 Temperature Pulse Rate 94 Pulse Rate [Right Pulse Oximeter] 100 Respiratory Rate 16 16 Blood Pressure [Ri ght Arm] Pulse Oximetry 95 Oxygen Delivery Me thod Room Air 02/25/25 16:23 02/25/25 19:00 02/26/25 00:00 Temperature 97.9 F 98.2 F Pulse Rate Pulse Rate [Right Pulse Oximeter] 100 90 Respiratory Rate 16 14 16 Blood Pressure [Ri ght Arm] 143/79 H 137/70 Pulse Oximetry 95 97 94 Oxygen Delivery Me thod Room Air Room Air Room Air 02/26/25 00:00 02/26/25 03:52 02/26/25 07:00 Temperature 99.1 F 98.9 F 98.1 F Pulse Rate Pulse Rate [Right Pulse Oximeter] 90 91 93 Respiratory Rate 16 16 16 Blood Pressure [Ri ght Arm] 148/80 H 152/87 H 140/82 H Pulse Oximetry 94 93 94 Oxygen Delivery Me thod Room Air Room Air Room Air 02/26/25 07:00 02/26/25 07:00 02/26/25 07:00 Temperature Pulse Rate 83 Pulse Rate [Right Pulse Oximeter] 93 Respiratory Rate Blood Pressure [Ri ght Arm] Pulse Oximetry 94 Oxygen Delivery Me thod Room Air Labs Labs: Laboratory Results - last 24 hr 02/26/25 06:00 WBC 8.45 RBC 4.11 Hgb 12.1 Hct 35.4 MCV 86 MCH 29 MCHC 34 RDW Coeff of Pati 12.7 Plt Count 172 Neut % (Auto) 80.3 H Lymph % (Auto) 10.3 L [place] % (Auto) 7.1 Eos % (Auto) 1.4 Baso % (Auto) 0.1 Neut # (Auto) 6.80 Lymph # (Auto) 0.90 Power # (Auto) 0.60 Eos # (Auto) 0.12 Baso # (Auto) 0.01 Abs Immat Gran (auto) 0.07 Imm/Tot Granulo (auto) 0.8 Sodium 133 L Potassium 4.1 Chloride 103 Carbon Dioxide 26 Anion Gap 4 L BUN 17 Creatinine 0.8 Estimated Creat Clear 29.91 Estimated GFR 71 Glucose 107 Calcium 8.5 Total Bilirubin 0.9 AST 24 ALT 12 Alkaline Phosphatase 48 Total Protein 5.9 L Albumin 3.4
--- NOTE | 2025-02-26 16:20 | PC.SOCIAL ---
Social Service Consult: food preparation worker attempted to do the Initial Psychosocial Assessment with the pt this afternoon, but she was sleeping. Provider on duty notes there are no social work needs at this time. Pt should be able to return home with family assistance at discharge. Social work to follow-up if needed.
--- NOTE | 2025-02-26 19:24 | PC.NURSE ---
End of shift Note CCU3? Patient has been very pleasant and cooperative throughout shift. Ng is patent, placement is 52, low continuous suction. Patient states a little discomfort, and pain level has remained 2-3. She moves very well with walker and SBA. No bowel movement or flatus was reported during this shift. Continuous LR fluids left AC. Patient complains of throat pain and has a PRN throat spray. ?
[2025-02-27] VITALS (9 sets, daily range): BP systolic 133–180; BP diastolic 72–86; PULSE 69–112; RESP 16–20; TEMP 36.2–37; O2SAT 91–97
[2025-02-27] MEDS: BENZOCAINE/MENTHOL 1 EACH LOZENGE MUCOUS MEM (00:02)
[2025-02-27] MEDS: METOPROLOL TARTRATE 1 MG/ML inj 5 MG IVP ×2 (04:05→08:44)
--- NOTE | 2025-02-27 06:19 | PC.NURSE ---
Addendum entered by Tripp Garza RN 02/27/25 06:47: The patient defecated at 0640. Dark red particles accumulated on the bottom of the toilet. There were also solid, small globs of a dark red coloration present in a small amount. The texture of these globs appeared not to be oily but dry. Left in toilet for morning MD assessment. Original Note: Patient is alert and oriented and vitally stable. Blood pressure has been high; 156/91 at 1950. Heart rate is regular but tachycardic. Sitting in the 90s while active but in the 80s while at rest.? Weak incentive spirometer ability with a max inflow of 250. Lung sounds clear. No shortness of breath reported. Abdominal sounds are active. Reports not passing gas on initial assessment but I did smell flatus while in the room at this time. Later that night reported she may have begun to produce gas. Midline incision is intact. The skin around the bottom and to the left of the incision shows a mild, dark discoloration. The tissue around the kerri appear a bright pink. Hard, bulbous protrusion on big toe joint of normal skin coloration. NG tube in place on low intermittent suction producing small amounts of dark, brown-green fluid. NG location is pinched to enter in at 52. No nausea reported. The patient does report great discomfort of the throat relieved well with the available PRN throat spray. Ambulating frequently with stand by assistance and the use of a four wheel walker.?IV on left arm began to leak and bleed while running LR. Removed and replaced on right wrist; 22 gauge. Over 12 hours there was 100ml of NG output: green, brown liquid output with thick chunks and pink, red froth.
[2025-02-27 07:32] LABS: Hematocrit* 37.1 % (33.0-51.0); Hemoglobin* 12.6 gm/dL (12.0-16.0); Immature Granulocytes Abs Auto 0.00 K/uL (0.00-0.30); Immature Granulocytes Pct Auto 0.0 %; Lymphocytes Absolute Auto 0.90 K/uL (0.90-2.90); Mean Corpuscular HGB Conc 34 gm/dL (32-36); Mean Corpuscular Hemoglobin 30 pg (26-34); Mean Corpuscular Volume 87 fL (80-100); RDW Coefficient of Variation % 12.7 % (11.5-15.5); Red Blood Count* 4.25 m/uL (4.00-5.20); White Blood Count* 8.92 K/uL (4.50-11.00)
[2025-02-27 07:33] LABS: Slide Review Reflex No
[2025-02-27 07:44] LABS: Chloride* 105 mmol/L (96-114); Sodium* 135 mmol/L (135-149)
[2025-02-27 07:45] LABS: Potassium* 3.7 mmol/L (3.6-5.1)
[2025-02-27 07:48] LABS: Anion Gap 6 mEq/L (7-15); Blood Urea Nitrogen* 13 mg/dL (7-30); Calcium* 8.6 mg/dL (8.4-10.6); Carbon Dioxide* 24 mmol/L (20-32); Creatinine* 0.8 mg/dL (0.5-1.5); Est. Creatinine Clearance* 29.91; Estimated Glomerular Filt Rate 71 ml/min; Glucose* 84 mg/dL (60-115)
[2025-02-27] MEDS: PANTOPRAZOLE SODIUM 40 MG INJ IVP (08:43)
--- NOTE | 2025-02-27 09:00 | PM.GSPN ---
Subjective Subjective Date Seen: 02/27/25 Interval history: Patient is doing well. Her abdominal pain is controlled with pain medications. She denies nausea vomiting. Her NG tube had minimal amount of fluid out. She is passing gas. She had a small bowel movement in the morning with blood. Exam Narrative: Exam Narrative: Abdomen is soft, not distended, tender to palpation in bilateral mid abdomen as previously. No peritoneal signs. Midline laparotomy incision is with intact kerri with no surrounding erythema. Const: Vital Signs, click to edit/add: Vital Signs - 24 hr 02/26/25 11:00 02/26/25 15:00 02/26/25 15:00 Temperature 99 F 98.8 F Pulse Rate Pulse Rate [Right Pulse Oximeter] 86 96 Respiratory Rate 18 18 Blood Pressure [Ri ght Arm] 179/101 H 183/89 H Pulse Oximetry 96 95 95 Oxygen Delivery Me thod Room Air Room Air Room Air 02/26/25 17:27 02/26/25 19:55 02/26/25 22:40 Temperature 97.5 F L 99.6 F Pulse Rate Pulse Rate [Right Pulse Oximeter] 90 93 Respiratory Rate 16 18 Blood Pressure [Ri ght Arm] 135/75 156/91 H 160/83 H Pulse Oximetry 93 95 Oxygen Delivery Me thod Room Air Room Air 02/26/25 22:59 02/26/25 23:00 02/26/25 23:00 Temperature Pulse Rate 96 Pulse Rate [Right Pulse Oximeter] 93 Respiratory Rate 18 Blood Pressure [Ri ght Arm] Pulse Oximetry 95 Oxygen Delivery Me thod Room Air 02/27/25 03:39 02/27/25 04:00 Temperature 98.5 F Pulse Rate Pulse Rate [Right Pulse Oximeter] 86 Respiratory Rate 16 Blood Pressure [Ri ght Arm] 133/72 142/79 H Pulse Oximetry 91 Oxygen Delivery Me thod Room Air Progress Note:A&P Assessment and plan (1) S/P exploratory laparotomy: Status: Acute Plan 89-year-old female s/p exploratory laparotomy and small-bowel resection POD 2. Will remove her NG tube today. Patient can have sips of clears and see how she tolerates those throughout the day. Patient had 1 small bowel movement with blood. Her hemoglobin is stable. I think would be reasonable to start DVT prophylaxis and continue monitoring her hemoglobin. Patient is working with therapy and is doing great with ambulating. Not ready to discharge home.
--- NOTE | 2025-02-27 09:43 | PM.IMPN1 ---
Assessment and Plan Assessment and plan (1) S/P exploratory laparotomy: Problem comment: - s/p exploratory laparotomy and small bowel resection with Dr. 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 Started with verapamil daily - [discontinued October 2024 due to constipation]. Could consider ablation in the future - TTE 04/2024: Apical hypokinesis - CT angiogram April 2024: Nonobstructive CAD. 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 Moderate concentric LVH with myocardial mass at upper limits of normal, no hypertrophic CM or amyloid, tiny discrete basilar anterior lateral [place] consistent with tiny embolic infarction - was following with [facility] but in process of switching to [facility] due to insurance coverage - per EMR, has had good success with metoprolol 100 mg daily, restarting this orally 02/27 Status: Acute (4) Gastroesophageal reflux disease: Problem comment: - uses prn Tums as an outpatient, IV PPI during stay Status: Acute (5) Bladder cancer: Problem comment: - Dx 04/2022, resected by cystoscopy - completed BCG - no evidence of recurrent disease on surveillance with [facility] Status: Acute (6) DJD (degenerative joint disease) of cervical spine: Problem comment: - typically on Meloxicam as an outpatient, holding for now - Tylenol and Lidocaine patches prn Status: Acute Plan - per above; advancement of diet per General Surgery - Lovenox and SCDs for prophylaxis Subjective Date Seen: 02/27/25 Interval history: Johana is an 89 yo female who presented to the ER in the evening of 02/24/25 with abdominal pain; ER imaging revealed a high grade closed loop SBO. She is s/p exploratory laparotomy and small bowel resection with Dr. Escobar of General Surgery on 02/25/25. Preliminary pathology c/w log grade lymphoma, further identification pending. Hospitalist team following given comorbidities: Essential HTN, SVT, nonsustained Vtach (04/2024, s/p treatment with Amiodarone and d/c Cardioversion), mild concentric LVH (noted on cardiac MRI 04/2024, no evidence of hypertrophic cardiomyopathy or amyloid), bladder cancer (04/2022, s/p resection via cystoscopy and BCG treatments), GERD. NG removed this morning, Johana has started sips of clears and tolerating this. No nausea or vomiting. Has had two episode of hematochezia over the past 24 hours. Hgb stable at 12.6 Ambulating well with therapies. Johana has no concerns for hospitalist team this morning. Exam Narrative: Exam Narrative: GEN: Alert HEENT: Normal external ears, EOMIs bilaterally, no scleral icterus CV: RRR, No concerning murmurs, rubs, or gallops R: LCTA bilaterally without concerning wheezing, rales, or rhonchi Ext: wwp, no concerning edema Skin: No concerning skin lesions or rashes on exposed skin Neuro: Nonfocal Psych: Appropriate Const: Vital Signs, click to edit/add: Vital Signs - 24 hr 02/26/25 11:00 02/26/25 15:00 02/26/25 15:00 Temperature 99 F 98.8 F Pulse Rate Pulse Rate [Right Pulse Oximeter] 86 96 Respiratory Rate 18 18 Blood Pressure [Ri ght Arm] 179/101 H 183/89 H Pulse Oximetry 96 95 95 Oxygen Delivery Me thod Room Air Room Air Room Air 02/26/25 17:27 02/26/25 19:55 02/26/25 22:40 Temperature 97.5 F L 99.6 F Pulse Rate Pulse Rate [Right Pulse Oximeter] 90 93 Respiratory Rate 16 18 Blood Pressure [Ri ght Arm] 135/75 156/91 H 160/83 H Pulse Oximetry 93 95 Oxygen Delivery Me thod Room Air Room Air 02/26/25 22:59 02/26/25 23:00 02/26/25 23:00 Temperature Pulse Rate 96 Pulse Rate [Right Pulse Oximeter] 93 Respiratory Rate 18 Blood Pressure [Ri ght Arm] Pulse Oximetry 95 Oxygen Delivery Me thod Room Air 02/27/25 03:39 02/27/25 04:00 02/27/25 07:00 Temperature 98.5 F Pulse Rate Pulse Rate [Right Pulse Oximeter] 86 112 H Respiratory Rate 16 18 Blood Pressure [Ri ght Arm] 133/72 142/79 H 135/78 Pulse Oximetry 91 95 Oxygen Delivery Me thod Room Air Room Air 02/27/25 07:00 02/27/25 07:00 Temperature Pulse Rate Pulse Rate [Right Pulse Oximeter] 112 H Respiratory Rate Blood Pressure [Ri ght Arm] Pulse Oximetry 95 Oxygen Delivery Me thod Room Air Labs Labs: Laboratory Results - last 24 hr 02/27/25 07:25 WBC 8.92 RBC 4.25 Hgb 12.6 Hct 37.1 MCV 87 MCH 30 MCHC 34 RDW Coeff of Pati 12.7 Plt Count 182 Neut % (Auto) 82.1 H Lymph % (Auto) 10.1 L [place] % (Auto) 7.6 Eos % (Auto) 0.0 Baso % (Auto) 0.2 Neut # (Auto) 7.30 H Lymph # (Auto) 0.90 [place] # (Auto) 0.70 Eos # (Auto) 0.00 Baso # (Auto) 0.02 Abs Immat Gran (auto) 0.00 Imm/Tot Granulo (auto) 0.0 Sodium 135 Potassium 3.7 Chloride 105 Carbon Dioxide 24 Anion Gap 6 L BUN 13 Creatinine 0.8 Estimated Creat Clear 29.91 Estimated GFR 71 Glucose 84 Calcium 8.6 Magnesium 1.8
[2025-02-27] MEDS: LACTATED RINGERS 1000 ML 1,000 ML 50 ML IV (10:37)
[2025-02-27] MEDS: METOPROLOL SUCCINATE (XL) 100 MG TAB PO (10:37)
--- NOTE | 2025-02-27 18:54 | PC.NURSE ---
End of shift Note (CCU3)? ? Patient has been very pleasant and cooperative throughout the shift. She was admitted 02/25 for SBO w/ resection. NG tube was discontinued (08:50 am) after patient began passing flatus and has a BM. She has been vitally stable, afebrile, and diet has been advanced to clear liquids. Diet change has been tolerated well. Patient has been ambulating frequently SBA with walker. Surgery site (mid-abdomen) is dry, well approximated, kerri in place. Patient reports no pain.
[2025-02-27] MEDS: ENOXAPARIN 40 MG/0.4 ML INJ SUBCUT (20:29)
[2025-02-28] VITALS (8 sets, daily range): BP systolic 154–179; BP diastolic 83–99; PULSE 67–79; RESP 16–20; TEMP 36.4–37.1; O2SAT 93–96
--- NOTE | 2025-02-28 06:12 | PC.NURSE ---
Addendum entered by Tripp Garza RN 02/28/25 06:41: Stool produced at 0635. This was soft brown stool which disintegrated into particles at the bottom of bowl. Original Note: This is my second night with the patient. They appear to be very well. NG tube no longer in place and their persistent throat pain has since ceased. No pain or discomfort of the abdomen. No nausea. They report stooling frequently over the day and to have tolerated their clear liquid diet. The need to drink in moderation, small amounts over the whole night, was reinforced. Abdominal sounds are hypoactive. Vitally stable. Tele shows a normal sinus rhythm with a slight QT elongation. No major developments overnight. ?
[2025-02-28] MEDS: LACTATED RINGERS 1000 ML 1,000 ML 50 ML IV (06:35)
--- NOTE | 2025-02-28 07:24 | PM.IMPN1 ---
Assessment and Plan Assessment and plan (1) S/P exploratory laparotomy: Problem comment: - s/p exploratory laparotomy and small bowel resection with Dr. 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 Started with verapamil daily - [discontinued October 2024 due to constipation]. Could consider ablation in the future - TTE 04/2024: Apical hypokinesis - CT angiogram April 2024: Nonobstructive CAD. 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 Moderate concentric LVH with myocardial mass at upper limits of normal, no hypertrophic CM or amyloid, tiny discrete basilar anterior lateral [place] consistent with tiny embolic infarction - was following with [facility] but in process of switching to [facility] due to insurance coverage - on home dose of oral Metoprolol (100mg XL daily) Status: Acute (4) Gastroesophageal reflux disease: Problem comment: - uses prn Tums as an outpatient, IV PPI during stay Status: Acute (5) Bladder cancer: Problem comment: - Dx 04/2022, resected by cystoscopy - completed BCG - no evidence of recurrent disease on surveillance with [place] [facility] Status: Acute (6) DJD (degenerative joint disease) of cervical spine: Problem comment: - typically on Meloxicam as an outpatient, holding for now - Tylenol and Lidocaine patches prn Status: Acute Plan - per above - daughter Ora updated bedside, questions answered - likely home with when appropriate Subjective Date Seen: 02/28/25 Interval history: Johana is an 89 yo female who presented to the ER in the evening of 02/24/25 with abdominal pain; ER imaging revealed a high grade closed loop SBO. She is s/p exploratory laparotomy and small bowel resection with Dr. Escobar of General Surgery on 02/25/25. Preliminary pathology c/w low grade lymphoma, further identification pending. Hospitalist team following given comorbidities: Essential HTN, SVT, nonsustained Vtach (04/2024, s/p treatment with Amiodarone and d/c Cardioversion), mild concentric LVH (noted on cardiac MRI 04/2024, no evidence of hypertrophic cardiomyopathy or amyloid), bladder cancer (04/2022, s/p resection via cystoscopy and BCG treatments), GERD. NG removed 02/27. Johana has started sips of clears, advancing to full liquids today. Hasn't had any nausea or vomiting. Had two episodes of hematochezia postoperatively, this has resolved. Hgb 11.4, following. On IV PPI. Receiving K and Mg replacements. Ambulating well with therapies. Johana has no concerns for hospitalist team this morning. Exam Narrative: Exam Narrative: GEN: Alert and oriented, nontoxic. Sitting comfortably in bedside chair HEENT: EOMIs bilaterally, no scleral icterus CV: RRR, No concerning murmurs R: LCTA bilaterally Ab: Soft, no concerning distention, incision healing well without oozing or drainage Ext: wwp, trace ankle edema Skin: No concerning skin lesions or rashes on exposed skin Neuro: Nonfocal Psych: Appropriate Const: Vital Signs, click to edit/add: Vital Signs - 24 hr 02/27/25 11:00 02/27/25 15:00 02/27/25 15:00 Temperature 98.6 F Pulse Rate Pulse Rate [Right Pulse Oximeter] 83 83 Respiratory Rate 20 18 18 Blood Pressure [Ri ght Arm] 169/86 H Pulse Oximetry 94 96 Oxygen Delivery Me thod Room Air Room Air 02/27/25 15:00 02/27/25 15:00 02/27/25 19:45 Temperature 97.2 F L 97.8 F Pulse Rate 95 Pulse Rate [Right Pulse Oximeter] 79 73 Respiratory Rate 18 18 Blood Pressure [Ri ght Arm] 180/85 H 155/83 H Pulse Oximetry 96 97 Oxygen Delivery Me thod Room Air Room Air 02/27/25 22:15 02/27/25 22:33 02/27/25 23:00 Temperature 98.3 F Pulse Rate 69 Pulse Rate [Right Pulse Oximeter] 70 73 Respiratory Rate 18 18 Blood Pressure [Ri ght Arm] 155/83 H Pulse Oximetry 94 Oxygen Delivery Me thod Room Air 02/27/25 23:00 02/28/25 02:34 Temperature 97.5 F L Pulse Rate Pulse Rate [Right Pulse Oximeter] 69 Respiratory Rate 18 18 Blood Pressure [Ri ght Arm] 159/85 H Pulse Oximetry 92 96 Oxygen Delivery Me thod Room Air Room Air Labs Labs: Laboratory Results - last 24 hr 02/27/25 07:25 WBC 8.92 RBC 4.25 Hgb 12.6 Hct 37.1 MCV 87 MCH 30 MCHC 34 RDW Coeff of Pati 12.7 Plt Count 182 Neut % (Auto) 82.1 H Lymph % (Auto) 10.1 L [place] % (Auto) 7.6 Eos % (Auto) 0.0 Baso % (Auto) 0.2 Neut # (Auto) 7.30 H Lymph # (Auto) 0.90 [place] # (Auto) 0.70 Eos # (Auto) 0.00 Baso # (Auto) 0.02 Abs Immat Gran (auto) 0.00 Imm/Tot Granulo (auto) 0.0 Sodium 135 Potassium 3.7 Chloride 105 Carbon Dioxide 24 Anion Gap 6 L BUN 13 Creatinine 0.8 Estimated Creat Clear 29.91 Estimated GFR 71 Glucose 84 Calcium 8.6 Magnesium 1.8
[2025-02-28 07:52] LABS: Hematocrit* 33.4 % (33.0-51.0); Hemoglobin* 11.4 gm/dL (12.0-16.0); Immature Granulocytes Abs Auto 0.01 K/uL (0.00-0.30); Immature Granulocytes Pct Auto 0.2 %; Mean Corpuscular HGB Conc 34 gm/dL (32-36); Mean Corpuscular Hemoglobin 30 pg (26-34); Mean Corpuscular Volume 87 fL (80-100); RDW Coefficient of Variation % 12.5 % (11.5-15.5); Red Blood Count* 3.85 m/uL (4.00-5.20); White Blood Count* 5.43 K/uL (4.50-11.00)
[2025-02-28 07:53] LABS: Lymphocytes Absolute Auto 0.90 K/uL (0.90-2.90)
[2025-02-28 07:54] LABS: Slide Review Reflex No
[2025-02-28 08:02] LABS: Chloride* 104 mmol/L (96-114)
[2025-02-28 08:03] LABS: Potassium* 3.5 mmol/L (3.6-5.1); Sodium* 135 mmol/L (135-149)
[2025-02-28 08:06] LABS: Anion Gap 8 mEq/L (7-15); Blood Urea Nitrogen* 11 mg/dL (7-30); Calcium* 8.4 mg/dL (8.4-10.6); Carbon Dioxide* 23 mmol/L (20-32); Creatinine* 0.7 mg/dL (0.5-1.5); Est. Creatinine Clearance* 29.91; Estimated Glomerular Filt Rate 84 ml/min; Glucose* 70 mg/dL (60-115)
[2025-02-28] MEDS: METOPROLOL SUCCINATE (XL) 100 MG TAB PO (08:08)
[2025-02-28] MEDS: PANTOPRAZOLE SODIUM 40 MG INJ IVP (08:09)
--- NOTE | 2025-02-28 08:47 | PM.GSPN ---
Subjective Subjective Date Seen: 02/28/25 Interval history: Patient is doing well. She had liquid watery stools with no blood. She denies nausea or vomiting. She had some clears and tolerated that well. She is ambulating. Exam Narrative: Exam Narrative: Abdomen is soft, not distended, drier take off tender to palpation in bilateral mid abdomen but improved from yesterday, midline incision is with intact kerri and julissa-incisional ecchymosis but no erythema. Const: Vital Signs, click to edit/add: Vital Signs - 24 hr 02/27/25 11:00 02/27/25 15:00 02/27/25 15:00 Temperature 98.6 F Pulse Rate Pulse Rate [Right Pulse Oximeter] 83 83 Respiratory Rate 20 18 18 Blood Pressure [Ri ght Arm] 169/86 H Pulse Oximetry 94 96 Oxygen Delivery Me thod Room Air Room Air 02/27/25 15:00 02/27/25 15:00 02/27/25 19:45 Temperature 97.2 F L 97.8 F Pulse Rate 95 Pulse Rate [Right Pulse Oximeter] 79 73 Respiratory Rate 18 18 Blood Pressure [Ri ght Arm] 180/85 H 155/83 H Pulse Oximetry 96 97 Oxygen Delivery Me thod Room Air Room Air 02/27/25 22:15 02/27/25 22:33 02/27/25 23:00 Temperature 98.3 F Pulse Rate 69 Pulse Rate [Right Pulse Oximeter] 70 73 Respiratory Rate 18 18 Blood Pressure [Ri ght Arm] 155/83 H Pulse Oximetry 94 Oxygen Delivery Me thod Room Air 02/27/25 23:00 02/28/25 02:34 02/28/25 07:00 Temperature 97.5 F L Pulse Rate 67 Pulse Rate [Right Pulse Oximeter] 69 Respiratory Rate 18 18 Blood Pressure [Ri ght Arm] 159/85 H Pulse Oximetry 92 96 Oxygen Delivery Me thod Room Air Room Air 02/28/25 07:00 02/28/25 07:00 Temperature 98 F Pulse Rate Pulse Rate [Right Pulse Oximeter] 72 Respiratory Rate 16 Blood Pressure [Ri ght Arm] 169/96 H Pulse Oximetry 93 93 Oxygen Delivery Me thod Room Air Room Air Progress Note:A&P Assessment and plan (1) S/P exploratory laparotomy: Status: Acute Plan 89-year-old female s/p exploratory laparotomy small-bowel resection POD 3. Patient is doing well. We will advance her to full liquid diet today. I also discussed with the patient to drink Ensure throughout the day. Patient's hemoglobin is 11.4 from 12 yesterday. She is on Lovenox for DVT prophylaxis. She had no bloody stools and this anemia is most likely combination of dilutional anemia and mild acute blood loss anemia postoperatively. Will continue with DVT prophylaxis. We will also check her magnesium and ensure it is above 2 due to her prolonged QT.
[2025-02-28] MEDS: POTASSIUM CHLORIDE 10 MEQ CAPSULE ER 20 MEQ PO (10:32)
[2025-02-28] MEDS: MAGNESIUM SULF 1 G/100 ML 1 GM/100 ML PIGGYBACK IVPB (10:38)
--- NOTE | 2025-02-28 19:03 | PC.NURSE ---
End of shift Note (CCU3)? ? Patient has been very pleasant and cooperative throughout the shift. She was admitted 02/25 for SBO w/ resection. Patient last BM (loose, clear) was this AM. Diet has been advanced to full liquids. Nutritional supplement was taken with lunch and tolerated well.? She has been vitally stable, afebrile, and pain free.? Patient has been ambulating frequently SBA with walker. Surgery site (mid-abdomen) is dry, well approximated, kerri in place. IV right forearm.??
[2025-02-28] MEDS: ENOXAPARIN 40 MG/0.4 ML INJ SUBCUT (20:32)
[2025-03-01] VITALS (12 sets, daily range): BP systolic 143–166; BP diastolic 80–95; PULSE 70–97; RESP 16–20; TEMP 36.1–36.9; O2SAT 94–96
[2025-03-01] MEDS: LACTATED RINGERS 1000 ML 1,000 ML 50 ML IV (04:18)
--- NOTE | 2025-03-01 06:27 | PC.NURSE ---
The patient is alert and oriented and vitally stable. Hypertensive at their baseline. Appears to be in a good state of health. Relative weakness with ambulation but steady on her feet. Active bowel noises. Stooling with urination every two hours or so. Small amounts of dark brown stool in semi-formed states that then disintegrate. Tolerating full liquid diet. No further developments overnight. ?
[2025-03-01 06:36] LABS: Hematocrit* 37.4 % (33.0-51.0); Hemoglobin* 12.7 gm/dL (12.0-16.0); Immature Granulocytes Abs Auto 0.04 K/uL (0.00-0.30); Immature Granulocytes Pct Auto 0.7 %; Mean Corpuscular HGB Conc 34 gm/dL (32-36); Mean Corpuscular Hemoglobin 29 pg (26-34); Mean Corpuscular Volume 86 fL (80-100); RDW Coefficient of Variation % 12.2 % (11.5-15.5); Red Blood Count* 4.35 m/uL (4.00-5.20); White Blood Count* 5.69 K/uL (4.50-11.00)
[2025-03-01 06:40] LABS: Lymphocytes Absolute Auto 0.90 K/uL (0.90-2.90); Slide Review Reflex No
[2025-03-01 06:52] LABS: Chloride* 101 mmol/L (96-114); Potassium* 3.7 mmol/L (3.6-5.1); Sodium* 136 mmol/L (135-149)
[2025-03-01 06:55] LABS: Anion Gap 7 mEq/L (7-15); Blood Urea Nitrogen* 10 mg/dL (7-30); Calcium* 9.2 mg/dL (8.4-10.6); Carbon Dioxide* 28 mmol/L (20-32); Creatinine* 0.7 mg/dL (0.5-1.5); Est. Creatinine Clearance* 29.91; Estimated Glomerular Filt Rate 84 ml/min; Glucose* 91 mg/dL (60-115)
[2025-03-01] MEDS: PANTOPRAZOLE SODIUM 40 MG INJ IVP (09:20)
--- NOTE | 2025-03-01 09:44 | PM.GSPN ---
Subjective Subjective Date Seen: 03/01/25 Interval history: Patient is doing great. She continues to pass gas and had multiple liquid stools every time she went to the bathroom to urinate. She ambulated yesterday. She denies nausea vomiting. She tolerated some full liquid diet. Her pain is improving. Exam Narrative: Exam Narrative: Abdomen is soft, not distended, minimal tenderness to palpation in bilateral mid abdomen, improved from yesterday. Elidia are intact with julissa-incisional ecchymosis. Const: Vital Signs, click to edit/add: Vital Signs - 24 hr 02/28/25 11:00 02/28/25 15:00 02/28/25 15:00 Temperature 98.7 F 98.4 F Pulse Rate Pulse Rate [Right Pulse Oximeter] 78 79 Respiratory Rate 18 20 Blood Pressure [Ri ght Arm] 179/97 H 178/97 H Pulse Oximetry 96 96 96 Oxygen Delivery Me thod Room Air Room Air Room Air 02/28/25 15:00 02/28/25 15:00 02/28/25 19:00 Temperature 98.1 F Pulse Rate 77 Pulse Rate [Right Pulse Oximeter] 79 76 Respiratory Rate 20 18 Blood Pressure [Ri ght Arm] 154/83 H Pulse Oximetry Oxygen Delivery Me thod 02/28/25 22:10 02/28/25 23:00 02/28/25 23:24 Temperature Pulse Rate 70 Pulse Rate [Right Pulse Oximeter] 77 Respiratory Rate 16 16 Blood Pressure [Ri ght Arm] 175/99 H Pulse Oximetry 96 96 Oxygen Delivery Me thod Room Air Room Air 03/01/25 02:47 03/01/25 07:28 Temperature 97.4 F L Pulse Rate 75 Pulse Rate [Right Pulse Oximeter] 72 Respiratory Rate 16 Blood Pressure [Ri ght Arm] 166/93 H Pulse Oximetry 95 Oxygen Delivery Me thod Room Air Progress Note:A&P Assessment and plan (1) S/P exploratory laparotomy: Status: Acute Plan 89-year-old female s/p exploratory laparotomy small-bowel resection POD 4. I discussed with the patient that we will advance her diet to regular. If therapies clear her for discharge, patient can discharge as early as tonight or tomorrow morning. Okay to discharge from surgery standpoint
[2025-03-01] MEDS: METOPROLOL SUCCINATE (XL) 100 MG TAB PO (10:12)
--- NOTE | 2025-03-01 13:03 | P.IMPN_ITS ---
Assessment and Plan Assessment and plan (1) S/P exploratory laparotomy: Problem comment: - s/p exploratory laparotomy and small bowel resection with Dr. 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 Started with verapamil daily - [discontinued October 2024 due to constipation]. Could consider ablation in the future - TTE 04/2024: Apical hypokinesis - CT angiogram April 2024: Nonobstructive CAD. 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 Moderate concentric LVH with myocardial mass at upper limits of normal, no hypertrophic CM or amyloid, tiny discrete basilar anterior lateral FL consistent with tiny embolic infarction - was following with [facility] but in process of switching to [facility] due to insurance coverage - on home dose of oral Metoprolol (100mg XL daily) Status: Acute (3) Bladder cancer: Problem comment: - Dx 04/2022, resected by cystoscopy - completed BCG - no evidence of recurrent disease on surveillance with [facility] Status: Acute (4) Gastroesophageal reflux disease: Problem comment: - uses prn Tums as an outpatient, PPI during stay Status: Acute (5) DJD (degenerative joint disease) of cervical spine: Problem comment: - typically on Meloxicam as an outpatient, holding for now - Tylenol and Lidocaine patches prn Status: Acute Plan - per above, Lovenox for prophylaxis - Home 1-2 days Subjective Date Seen: 03/01/25 Interval history: Johana is an 89 yo female who presented to the ER in the evening of 02/24/25 with abdominal pain; ER imaging revealed a high grade closed loop SBO. She is s/p exploratory laparotomy and small bowel resection with Dr. Escobar of General Surgery on 02/25/25. Preliminary pathology c/w low grade lymphoma, further identification pending. Hospitalist team following given comorbidities: Essential HTN, SVT, nonsustained Vtach (04/2024, s/p treatment with Amiodarone and d/c Cardioversion), mild concentric LVH (noted on cardiac MRI 04/2024, no evidence of hypertrophic cardiomyopathy or amyloid), bladder cancer (04/2022, s/p resection via cystoscopy and BCG treatments), GERD. NG removed 02/27. Johana has been slowly advancing her diet, tolerating well. Had two episodes of hematochezia postoperatively, this has resolved. WBC and HGb normal, electrolytes normal. Working with therapies, plans to d/c home with home health. Johana and daughter Ora have no concerns for hospitalist team this morning. Exam Narrative: Exam Narrative: GEN: Alert and sitting comfortably in bed, nontoxic HEENT: EOMIs bilaterally, no scleral icterus CV: RRR, No concerning murmurs, rubs, or gallops Ext: wwp, no concerning edema Skin: No concerning skin lesions or rashes on exposed skin Neuro: Nonfocal Psych: Appropriate Const: Vital Signs, click to edit/add: Vital Signs - 24 hr 02/28/25 15:00 02/28/25 15:00 02/28/25 15:00 Temperature 98.4 F Pulse Rate Pulse Rate [Right Pulse Oximeter] 79 79 Respiratory Rate 20 20 Blood Pressure [Ri ght Arm] 178/97 H Pulse Oximetry 96 96 Oxygen Delivery Me thod Room Air Room Air 02/28/25 15:00 02/28/25 19:00 02/28/25 22:10 Temperature 98.1 F Pulse Rate 77 Pulse Rate [Right Pulse Oximeter] 76 77 Respiratory Rate 18 16 Blood Pressure [Ri ght Arm] 154/83 H 175/99 H Pulse Oximetry 96 Oxygen Delivery Me thod Room Air 02/28/25 23:00 02/28/25 23:24 03/01/25 02:47 Temperature 97.4 F L Pulse Rate 70 Pulse Rate [Right Pulse Oximeter] 72 Respiratory Rate 16 16 Blood Pressure [Ri ght Arm] 166/93 H Pulse Oximetry 96 95 Oxygen Delivery Tn thod Room Air Room Air 03/01/25 07:28 03/01/25 10:06 03/01/25 10:10 Temperature 98.2 F Pulse Rate 75 Pulse Rate [Right Pulse Oximeter] 97 Respiratory Rate 18 18 Blood Pressure [Ri ght Arm] 161/95 H Pulse Oximetry 96 96 Oxygen Delivery Me thod Room Air Room Air 03/01/25 12:47 Temperature 98.5 F Pulse Rate Pulse Rate [Right Pulse Oximeter] 79 Respiratory Rate 18 Blood Pressure [Ri ght Arm] 160/86 H Pulse Oximetry 94 Oxygen Delivery Me thod Room Air Labs Labs: Laboratory Results - last 24 hr 03/01/25 06:20 WBC 5.69 RBC 4.35 Hgb 12.7 Hct 37.4 MCV 86 MCH 29 MCHC 34 RDW Coeff of Pati 12.2 Plt Count 212 Neut % (Auto) 74.8 H Lymph % (Auto) 15.1 L Sherman % (Auto) 8.8 Eos % (Auto) 0.2 Baso % (Auto) 0.4 Neut # (Auto) 4.30 Lymph # (Auto) 0.90 Sherman # (Auto) 0.50 Eos # (Auto) 0.01 Baso # (Auto) 0.02 Abs Immat Gran (auto) 0.04 Imm/Tot Granulo (auto) 0.7 Sodium 136 Potassium 3.7 Chloride 101 Carbon Dioxide 28 Anion Gap 7 BUN 10 Creatinine 0.7 Estimated Creat Clear 29.91 Estimated GFR 84 Glucose 91 Calcium 9.2 Magnesium 1.8
--- NOTE | 2025-03-01 18:49 | PC.NURSE ---
End of shift [id number]: Pt AxOx4, cooperative, and pleasant with cares. Indep in room and walking the hallways. Cleared by Physical Therapy to do so indep. BM today. Continent of bladder and bowels. Tolerating reg diet and fluids well. Denies pain the entirety of shift. Midline incision remains CDI, no concern of infection. Awaiting discharge tomorrow, requesting a shower in the AM. Passed along to next nurse. Family at bedside during the day. Call light within reach. Up in chair drinking nutritional supplement.
[2025-03-01] MEDS: ENOXAPARIN 40 MG/0.4 ML INJ SUBCUT (20:33)
[2025-03-02 02:42] VITALS: BP 155/81; PULSE 71; RESP 16; TEMP 36.3; O2SAT 94
[2025-03-02] MEDS: OMEPRAZOLE 20 MG CAPSULE DR PO (06:31)
[2025-03-02 06:39] VITALS: PULSE 92
--- NOTE | 2025-03-02 06:53 | PC.NURSE ---
The patient is alert and oriented and vitally stable. Ambulating independently and urinating frequently. No problem passing stool. No pain. Midline appears intact without discharge. The surrounding tissue does appear pink and blotchy in-line with allergic reactions I have seen. The patient does not report any itching sensation from this area. No other developments overnight.?
[2025-03-02 07:45] VITALS: BP 152/84; PULSE 82; RESP 16; TEMP 36.9; O2SAT 97
[2025-03-02] MEDS: METOPROLOL SUCCINATE (XL) 100 MG TAB PO (08:52)
--- NOTE | 2025-03-02 09:34 | PM.DS1 ---
DS: Providers Provider Date Seen: 03/02/25 Date of admission: 02/25/25 03:45 Primary care physician: Dawit Reynolds MD Admitting Clinician: Bernadette Escobar MD Consults: 02/25/25 03:23 Consult to Occupational Therapy [CONS] Routine Comment: Reason(s) for OT Consult:: ADLs Prior to Discharge Any Restrictions?:: No Restrictions Consult to Physical Therapy [CONS] Routine Comment: Reason(s) for PT Consult:: Evaluate Ambulation Any Restrictions?:: No Restrictions Attending Physician on discharge: Bernadette Escobar MD DS: Diagnosis Discharge Diagnosis (1) S/P exploratory laparotomy: Status: Acute Problem details: - s/p exploratory laparotomy and small bowel resection with Dr. Escobar of General Surgery on 02/25/25 - preliminary pathology lymphoma; further studies pending upon d/c DS: Summary Hospital Course Hospital Course: Johana is an 89 yo female who presented to the ER in the evening of 02/24/25 with abdominal pain; ER imaging revealed a high grade closed loop SBO. She is s/p exploratory laparotomy and small bowel resection with Dr. Escobar of General Surgery on 02/25/25. Preliminary pathology c/w low grade lymphoma, further identification pending upon discharge 03/02 Hospitalist team followed during stay given comorbidities of Essential HTN, SVT, nonsustained Vtach (04/2024, s/p treatment with Amiodarone and d/c Cardioversion), mild concentric LVH (noted on cardiac MRI 04/2024, no evidence of hypertrophic cardiomyopathy or amyloid), bladder cancer (04/2022, s/p resection via cystoscopy and BCG treatments), GERD. NG removed 02/27, able to advance diet well. Two episodes of hematochezia postoperatively, resolved with stable Hgb. Seen by therapies, appropriate for d/c home with home health on 03/02/25. She will see her PCP (Dr. Reynolds) in f/u, will discuss further pathology at that time. Time Spent with Patient Time attestation: Total time spent providing and/or coordinating discharge services: Exam Narrative: Exam Narrative: Abdomen is soft, protuberant, minimal discomfort to palpation in the right mid abdomen, midline laparotomy incision is with intact kerri with surrounding ecchymosis but no erythema. No peritoneal signs. Const: Vital Signs, click to edit/add: Vital Signs - 24 hr 03/01/25 10:06 03/01/25 10:10 03/01/25 12:47 Temperature 98.2 F 98.5 F Pulse Rate Pulse Rate [Right Pulse Oximeter] 97 79 Respiratory Rate 18 18 18 Blood Pressure [Ri ght Arm] 161/95 H 160/86 H Pulse Oximetry 96 96 94 Oxygen Delivery Me thod Room Air Room Air Room Air 03/01/25 15:00 03/01/25 16:20 03/01/25 16:21 Temperature 98.4 F Pulse Rate 87 Pulse Rate [Right Pulse Oximeter] 86 Respiratory Rate 18 18 Blood Pressure [Ri ght Arm] 161/82 H Pulse Oximetry 96 96 Oxygen Delivery Me thod Room Air Room Air 03/01/25 19:00 03/01/25 22:33 03/01/25 23:00 Temperature 98.3 F Pulse Rate 73 Pulse Rate [Right Pulse Oximeter] 81 Respiratory Rate 18 16 Blood Pressure [Ri ght Arm] 143/80 H Pulse Oximetry 96 96 Oxygen Delivery Me thod Room Air Room Air 03/01/25 23:15 03/02/25 02:42 03/02/25 06:39 Temperature 97 F L 97.4 F L Pulse Rate 92 Pulse Rate [Right Pulse Oximeter] 70 71 Respiratory Rate 20 16 Blood Pressure [Ri ght Arm] 153/81 H 155/81 H Pulse Oximetry 94 94 Oxygen Delivery Me thod Room Air Room Air 03/02/25 07:45 03/02/25 07:45 03/02/25 07:45 Temperature 98.4 F Pulse Rate Pulse Rate [Right Pulse Oximeter] 82 82 Respiratory Rate 16 16 16 Blood Pressure [Ri ght Arm] 152/84 H Pulse Oximetry 97 97 Oxygen Delivery Me thod Room Air Room Air Discharge Plan Discharge Disposition: Home, Self-Care Date of Admission: 02/25/25 03:45 Attending Provider on Discharge: Anisa Bustamante Primary Care Provider: Dawit Reynolds Condition: Improved Anticipated Discharge Date/Time: 03/02/25 06:59 Discharge Medications: New hydrocodone-acetaminophen 5-325 mg tablet 1 tab PO Q6H PRN (Reason: pain) Qty: 20 0RF omeprazole 20 mg Capsule,Delayed Release(Dr/Ec) 20 mg PO DAILY 30 Days Qty: 30 0RF Continued multivitamin [Multiple Vitamins] Tablet 1 tab PO DAILY docusate sodium [Colace] 100 mg capsule 100 mg PO HS acetaminophen [Acetaminophen Pain Relief] 500 mg tablet 500 mg PO HS PRN biotin 1 mg capsule 1 mg PO DAILY metoprolol succinate 100 mg tablet extended release 24 hr 100 mg PO DAILY Held meloxicam 15 mg tablet 15 mg PO DAILY Qty: 90 3RF Hold Instructions: hold until f/u with Dr. Reynolds, then you can discuss restarting Discharge Orders: Discharge Order (Routine); Ordered 03/02/25 Ordered By: Anisa Bustamante Patient Education: Hydrocodone/Acetaminophen (By mouth), Omeprazole (By mouth), Bowel Obstruction (DC), NH+C Laparoscopy Discharge Instructions Activity Level: No strenuous activity Activity Detail: Showering okay. Avoid swimming or submerging her incision under water for 2 weeks. Discharge Diet: Regular Follow Up Appointments: Bernadette Escobar MD [Staff Physician, General Surgery] - 03/12/25 10:00 am Referral Note: Follow-up at [facility] for staple removal Dawit Reynolds MD [Primary Care Provider, Family Practice] - 03/09/25 9:45 am Referral Note: Forms: Patient Belongings, [facility] Info Instructions
--- NOTE | 2025-03-02 11:31 | P.DS_ITS ---
DS: Providers Provider Date Seen: 03/02/25 Date of admission: 02/25/25 03:45 Primary care physician: Dawit Reynolds MD Admitting Clinician: Bernadette Escobar MD Consults: OT, PT, Hospitalist Attending Physician on discharge: Anisa Bustamante MD Date of Discharge: 03/02/25 DS: Diagnosis Discharge Diagnosis (1) S/P exploratory laparotomy: Status: Acute Problem details: - s/p exploratory laparotomy and small bowel resection with Dr. Escobar of General Surgery on 02/25/25 - preliminary pathology lymphoma; further studies pending upon d/c (2) Hypertension: Status: Acute Problem details: - Metoprolol 100mg XR daily, restarting this 02/27 given NG removal (was on IV Metoprolol postoperatively until tolerating po) - discontinued verapamil in 10/2024 secondary to constipation - age appropriate BP control and HR upon discharge 03/02 (3) Gastroesophageal reflux disease: Status: Acute Problem details: - uses prn Tums as an outpatient, PPI during stay and upon d/c (4) Bladder cancer: Status: Acute Problem details: - Dx 04/2022, resected by cystoscopy - completed BCG - no evidence of recurrent disease on surveillance with [facility] (5) History of ventricular tachycardia: Status: Acute Problem details: - nonsustained ventricular tachycardia April 2024, treated with amiodarone bolus and DC cardioversion - per EP consult: Favor outflow tract tachycardia. Started with verapamil daily - [discontinued October 2024 due to constipation]. Could consider ablation in the future - TTE 04/2024: Apical hypokinesis - CT angiogram April 2024: Nonobstructive CAD. 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 Moderate concentric LVH with myocardial mass at upper limits of normal, no hypertrophic CM or amyloid, tiny discrete basilar anterior lateral [place] consistent with tiny embolic infarction - was following with [facility] but in process of switching to [facility] due to insurance coverage - stable during stay on home dose of oral Metoprolol (100mg XL daily) (6) DJD (degenerative joint disease) of cervical spine: Status: Acute Problem details: - typically on Meloxicam as an outpatient, held during stay - Tylenol and Lidocaine patches prn DS: Summary Hospital Course Hospital Course: Johana is an 89 yo female who presented to the ER in the evening of 02/24/25 with abdominal pain; ER imaging revealed a high grade closed loop SBO. She is s/p exploratory laparotomy and small bowel resection with Dr. Escobar of General Surgery on 02/25/25. Preliminary pathology c/w low grade lymphoma, further identification pending upon discharge 03/02 Hospitalist team followed during stay given comorbidities of Essential HTN, SVT, nonsustained Vtach (04/2024, s/p treatment with Amiodarone and d/c Cardioversion), mild concentric LVH (noted on cardiac MRI 04/2024, no evidence of hypertrophic cardiomyopathy or amyloid), bladder cancer (04/2022, s/p resection via cystoscopy and BCG treatments), GERD. NG removed 02/27, able to advance diet well. Two episodes of hematochezia postoperatively, resolved with stable Hgb. Seen by therapies, appropriate for d/c home with home health on 03/02/25. She will see her PCP (Dr. Reynolds) in f/u, will discuss further pathology at that time. Status at Discharge Functional status at discharge: independent ambulation Overall status at discharge: patient is progressing back to baseline Time Spent with Patient Time attestation: Total time spent providing and/or coordinating discharge services: Time spent: Greater than 30 minutes Specific discharge activities: Multidisciplinary team discussion, collaboration with General Surgery team, [facility] Exam Narrative: Exam Narrative: GEN: Alert and oriented, sitting comfortably at bedside table HEENT: Normal external ears, EOMIs bilaterally, no scleral icterus CV: RRR, No concerning murmurs R: Breathing comfortably Ext: wwp, no concerning edema Neuro: Nonfocal Psych: Appropriate Const: Vital Signs, click to edit/add: Vital Signs - 24 hr 03/01/25 12:47 03/01/25 15:00 03/01/25 16:20 Temperature 98.5 F 98.4 F Pulse Rate 87 Pulse Rate [Right Pulse Oximeter] 79 86 Respiratory Rate 18 18 Blood Pressure [Ri ght Arm] 160/86 H 161/82 H Pulse Oximetry 94 96 Oxygen Delivery Me thod Room Air Room Air 03/01/25 16:21 03/01/25 19:00 03/01/25 22:33 Temperature 98.3 F Pulse Rate Pulse Rate [Right Pulse Oximeter] 81 Respiratory Rate 18 18 16 Blood Pressure [Ri ght Arm] 143/80 H Pulse Oximetry 96 96 96 Oxygen Delivery Me thod Room Air Room Air Room Air 03/01/25 23:00 03/01/25 23:15 03/02/25 02:42 Temperature 97 F L 97.4 F L Pulse Rate 73 Pulse Rate [Right Pulse Oximeter] 70 71 Respiratory Rate 20 16 Blood Pressure [Ri ght Arm] 153/81 H 155/81 H Pulse Oximetry 94 94 Oxygen Delivery Me thod Room Air Room Air 03/02/25 06:39 03/02/25 07:45 03/02/25 07:45 Temperature 98.4 F Pulse Rate 92 Pulse Rate [Right Pulse Oximeter] 82 Respiratory Rate 16 16 Blood Pressure [Ri ght Arm] 152/84 H Pulse Oximetry 97 97 Oxygen Delivery Me thod Room Air Room Air 03/02/25 07:45 Temperature Pulse Rate Pulse Rate [Right Pulse Oximeter] 82 Respiratory Rate 16 Blood Pressure [Ri ght Arm] Pulse Oximetry Oxygen Delivery Me thod Discharge Plan Discharge Disposition: Home, Self-Care Date of Admission: 02/25/25 03:45 Attending Provider on Discharge: Anisa Bustamante Primary Care Provider: Dawit Reynolds Condition: Improved Anticipated Discharge Date/Time: 03/02/25 06:59 Discharge Medications: New hydrocodone-acetaminophen 5-325 mg tablet 1 tab PO Q6H PRN (Reason: pain) Qty: 20 0RF omeprazole 20 mg Capsule,Delayed Release(Dr/Ec) 20 mg PO DAILY 30 Days Qty: 30 0RF Continued multivitamin [Multiple Vitamins] Tablet 1 tab PO DAILY docusate sodium [Colace] 100 mg capsule 100 mg PO HS acetaminophen [Acetaminophen Pain Relief] 500 mg tablet 500 mg PO HS PRN biotin 1 mg capsule 1 mg PO DAILY metoprolol succinate 100 mg tablet extended release 24 hr 100 mg PO DAILY Held meloxicam 15 mg tablet 15 mg PO DAILY Qty: 90 3RF Hold Instructions: hold until f/u with Dr. Reynolds, then you can discuss restarting Discharge Orders: Discharge Order (Routine); Ordered 03/02/25 Ordered By: Anisa Bustamante Patient Education: Hydrocodone/Acetaminophen (By mouth), Omeprazole (By mouth), Bowel Obstruction (DC), NH+C Laparoscopy Discharge Instructions Activity Level: No strenuous activity Activity Detail: Showering okay. Avoid swimming or submerging her incision under water for 2 weeks. Discharge Diet: Regular Follow Up Appointments: Bernadette Escobar MD [Staff Physician, General Surgery] - 03/12/25 10:00 am Referral Note: Follow-up at [facility] for staple removal Dawit Reynolds MD [Primary Care Provider, Family Practice] - 03/09/25 9:45 am Referral Note: Forms: [facility] Bel[facility]ings, [facility] Info Instructions
--- NOTE | 2025-03-02 11:57 | PC.SOCIAL ---
Discharge planning: late entry: Met with pt and dtrs on 03/01/25 regarding d/c planning. Pt will be returning to deana own home in [place] where she lives alone. Pt and dtrs agree with MD order for home health nursing, PT/OT and bath aid. Provided pt and dtrs with list of home health agencies serving her area. Dtr requested social work arrange this with any agency contracted with pt's insurance as they have not used any agency for this in the past. Dtr requested psychiatric social worker contact [facility] first. Called [facility] and was informed they are not contracted with pt's insurance, Called [facility] and spoke with Faisal who confirmed availability. Secure emauled referral to [facility]. Called Home health care in on 03/02/25 and confirmed they will open pt to services. Met with pt and dtr and provided contact information for [facility] and answered questions about home care follow up.
--- NOTE | 2025-03-02 12:49 | PC.NURSE ---
discharge. Pt AxOx4, cooperative, and she is very pleasant. no pain. she up ab kevin in room and walking the hallways. she is eating, drinking and voiding with no problems. Midline incision open to air with kerri intact. no concern of infection. shower in the AM. Family at bedside during the day. Call light within reach. Up in chair drinking nutritional supplement. went over discharge packet with pt and daughter. went over medications,. appointments, education and instructions. pt went over and signed the personal belonging sheet. SL was d/c intact she got a w/c ride out with all belongings
--- NOTE | 2025-03-03 13:16 | PC.SOCIAL ---
Discharge planning: NIR faxed discharge summary to [facility].
== END 2025-03-02 12:30 | disposition home or self-care (01) | DRG 330 ==
LOC: ED 22:25 → OR 02-25 00:24 → MEDSURG 02-25 03:34 → OR 02-25 03:46 → MEDSURG 02-25 09:20
PROVIDERS: Family Medicine; Admitting Provider Surgery; Emergency Provider Emergency Medicine; PCP Family Medicine; Visit Provider Surgery
PROC: (CPT 49000; principal; 2025-02-24 23:00)
DX: K56.699 Other intestinal obstruction unspecified as to partial versus complete obstruction (principal); C82.89 Other types of follicular lymphoma, extranodal and solid organ sites; K92.1 Melena; I47.10 Supraventricular tachycardia, unspecified; G89.18 Other acute postprocedural pain; I11.9 Hypertensive heart disease without heart failure; K21.9 Gastro-esophageal reflux disease without esophagitis; M48.061 Spinal stenosis, lumbar region without neurogenic claudication; M54.16 Radiculopathy, lumbar region; M47.892 Other spondylosis, cervical region; Z85.51 Personal history of malignant neoplasm of bladder; Z85.828 Personal history of other malignant neoplasm of skin
CPT/HCPCS: 00840; 36415; 74018; 74177; 76942; 80048; 80053; 81001; 82565; 83605; 83690; 83735; 85025; 86140; 87086; 88309; 88341; 88342; 88360; 93005; 97110; 97112; 97116; 97161; 97165; 97530; 97535; 99100; 99140; 99285; A4314; A9270; J0330; J0665; J0666; J1171; J1650; J2371; J2470; J2543; J2704; J3010; J3475; J3480; J3490; J7120; Q9967

== ENCOUNTER 2025-03-06 15:38 | Inpatient (IN) | payer OTHER, SELFPAY ==
--- OUTSIDE RECORDS SUMMARY | 2021-08-24 11:14 | XMS_ITS | Continuity of Care Document ---
Author Organization [facility] Cli [facility] Address [address] [place] [phone] Phone Care Team Providers Care Anesthesia Attending Name Role Phone Will MD WALTERS, Francisco Unavailable Unavailabl e Advance Directives Directive Yes / No Effective Date File Name No Information Encounters Encounter Description Practice Location Reason(s) For Visit Diagnoses Date Provider Providers Copied on Encounter [facility], [address] [place] [address] [place], [place], [id number], [place] tel:[phone] [facility] Pain [facility] No Information Will Francisco. [address] [facility] [place], [place], [id number], [place]. tel:[phone] Family History Family Member Type Diagnosis Age At Onset No Information Payers Payer name Insurance type Covered libertarian ID Authoriza tion(s) No Information Social History Type Description Quantity Date Captured Comments Sex Female Smoking Status No Information Chief Complaint And Reason For Visit No Information Reason For Referral Reason For Referral No Information History Of Present Illness Encounter Date Complaint History Of Prese nt Illness No Information Functional Status Date Functional Assessmen t No Information Instructions Date Instruction Additional Infor mation No Information Assessments Type Assessment Date No Information Patient Care Teams Name Effective Dates (start - stop) Status Members No Information
--- OUTSIDE RECORDS SUMMARY | 2021-08-24 11:14 | XMS_ITS | Continuity of Care Document ---
Author Organization [facility] Cli [facility] Address [address] [place] [phone] Phone Care Team Providers Care Design Coordinator Name Role Phone Will MD WALTERS, Francisco Unavailable Unavailabl e Advance Directives Directive Yes / No Effective Date File Name No Information Encounters Encounter Description Practice Location Reason(s) For Visit Diagnoses Date Provider Providers Copied on Encounter [facility], [address] [place] [address] [place], [place], [id number], [place] tel:[phone] [facility] Pain [facility] No Information Will Rfancisco. [address] [facility] [place], [place], [id number], [place]. tel:[phone] Family History Family Member Type Diagnosis Age At Onset No Information Payers Payer name Insurance type Covered democrat ID Authoriza tion(s) No Information Social History [...]
--- OUTSIDE RECORDS SUMMARY | 2025-03-06 15:40 | XMS_ITS | Clinical Summary ---
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 Gender Identity Not on file Sexual Orientation Not on file Obstetrics History Last Filed Vital Signs Vital Sign Reading Time Taken Comments Blood Pressure 132/77 06/16/2024 10:08 AM ORNAMENTAL PAINTER Pulse 79 06/16/2024 9:30 AM ORNAMENTAL PAINTER Temperature 36.6 C (97.9 F) 04/26/2024 8:00 AM CDT Respiratory Rate 16 04/26/2024 8:00 AM CDT Oxygen Saturation 97% 06/16/2024 9:30 AM ORNAMENTAL PAINTER Inhaled Oxygen Concentration - - Weight 61.6 kg (135 lb 14.4 oz) 06/16/2024 9:30 AM ORNAMENTAL PAINTER Height 162.6 cm (5' 4) 04/22/2024 10:2 [...] this topic Medical Devices Implanted Type Area Charge Attendant Device Identifier Shelf Expiration Date Model / Serial / Lot Stent Uret [id number] Contour - [id number] Implanted:Qty: 1 on 04/10/2022 by Justino Edwards MD at [facility] Right: Ureter [facility] 05/02/2024 [id number] / / [id number] Stent Uret [id number] Contour - [id number] Implanted:Qty: 1 on 04/10/2022 by Justino Edwards MD at [facility] Left: Ureter [facility] 01/25/2025 [id number] / / [id number] Insurance MEDICARE PART A HB ONLY [employer] [...] Preferences, Provider to review later Care Teams Paving Contractor Relationship Specialty Start Date End Date Pcp, No . PCP - General 04/23/24
--- OUTSIDE RECORDS SUMMARY | 2025-03-06 15:40 | XMS_ITS | Clinical Summary ---
Author Organization [facility] Address [address] [place] [id number] Care Team Providers Care Cigarette Filter Inspector Name Role Phone Mario Reynolds MD Primary Care Provider [phone] Allergies No known active allergies Medications MELOXICAM [...] on file Legal Sex Female 4:30 AM BAGMAN/WOMAN Gender Identity Not on file Sexual Orientation Not on file Last Filed Vital Signs Vital Sign Reading Time Taken Comments Blood Pressure 168/97 06/10/2013 4:08 PM BAGMAN/WOMAN Pulse - - Temperature 35.9 C (96.6 F) 06/10/2013 12:44 PM BAGMAN/WOMAN Respiratory Rate 16 06/10/2013 4:08 PM BAGMAN/WOMAN Oxygen Saturation 99% 06/10/2013 4:08 PM BAGMAN/WOMAN Inhaled Oxygen Concentration - - Weight 66.4 kg (146 lb 6.4 oz) 06/10/2013 12:44 PM BAGMAN/WOMAN Height 154.9 cm (5' 1) 06/10/2013 12:44 PM BAGMAN/WOMAN Body Mass Index 27.66 06/10/2013 12:44 PM BAGMAN/WOMAN Plan of Treatment Not on file Medical Devices Implanted Type Area Lead Injection Mold Technician Device Identifier Shelf Expiration Date Model / Serial / Lot Eye Kit Lacrimal Intubation Stent [id number] Implanted:Qty: 1 on 10/24/2012 by Kael Ang MD at [facility] Right: Lacrimal Duct [employer] 07/06/2015 [id number] / / [id number] Eye Kit Lacrimal Intubation Stent [id number] Implanted:Qty: 1 on 06/10/2013 by Kael Ang MD at [facility] 10/06/2015 [id number] / / [id number] Insurance [employer] MEDICARE ADVANTAGE Care Teams Cigarette Filter Inspector Relationship Specialty Start Date End Date Mario Reynolds MD PCP - General Family Practice 10/14/12
[2025-03-06 15:47] VITALS: BP 179/81; PULSE 80; RESP 18; TEMP 36.6; O2SAT 99; BMI 24.4
--- NOTE | 2025-03-06 16:05 | ED_ITS ---
HPI - Abdominal Pain General Chief Complaint: Abdominal Pain Stated Complaint: Post Surgery Complications Time Seen by Provider: 03/06/25 15:52 History of Present Illness HPI narrative: This 89-year-old female comes in reporting abdominal pain today and difficulty passing urine. She has a history of bladder cancer diagnosed 2 years ago but has been doing well in that regard. She did have a bowel obstruction and had partial bowel removal 5 days ago. She states that she has been doing well until today when she had mild constant abdominal pain and difficulty passing urine. She has been passing soft stools and most recent 1 was diarrhea. She does not have any nausea or vomiting but states that she feels like she would feel better if she could vomit. She has been taking Tylenol occasionally for pain but states that prior to today she did not have much pain. Related Data Home Medications ?Medication ?Instructions ?Recorded ?Confirmed multivitamin (Multiple Vitamins 1 tab PO DAILY 2 03/06/25 tablet) docusate sodium 100 mg capsule 100 mg PO HS 02/24/25 0 03/06/25 (Colace) acetaminophen 500 mg tablet 500 mg PO HS PRN 02/25/25 03/06/25 (Acetaminophen Pain Relief) biotin 1 mg capsule 1 mg PO DAILY 02/25/2503/06 metoprolol succinate 100 mg 100 mg PO DAILY 02/25/25 0 03/06/25 tablet,extended release 24 hr Previous Rx's ?Medication ?Instructions ?Recorded hydrocodone 5 mg-acetaminophen 325 1 tab PO Q6H PRN pa in #20 tabs 03/01/25 mg tablet omeprazole 20 mg capsule,delayed 20 mg PO DAILY 30 day s #30 caps 03/02/25 release Allergies Allergy/AdvReac Type Severity Reaction Status Date / Time No Known Allergies Allergy Unknown Verified 03/06/25 18:38 Review of Systems Status of ROS Reports: 10 or more systems reviewed and unremarkable except as noted in History and below Narrative Constitutional: No fevers, no weight gain or loss. Eyes: No discharge. No vision changes. HENT: No congestion, no sore throat, no ear pain. Cardiovascular: No chest pain, no palpitations. Respiratory: No shortness of breath, no wheezes, no cough. Gastrointestinal: Abdominal pain as described above. One episode of diarrhea. No vomiting. Genitourinary: Urinary retention. Musculoskeletal: Normal range of motion. Skin: No rashes, no pruritis. Neurological: No dizziness, weakness, sensory change, speech change. Endo/Heme/Allergies: No bruising or bleeding. No polydipsia. Pysch: no suicidality, no anxiety, no insomnia. All other systems reviewed and are negative. PFSH PFSH Medical History Hypertension ?I10 - Essential (primary) hypertension (ICD-10) SVT (supraventricular tachycardia) ?I47.10 - Supraventricular tachycardia, unspecified (ICD-10) History of ventricular tachycardia ?Z86.79 - Personal history of other diseases of the circulatory system (ICD- 10) Bladder cancer ?C67.9 - Malignant neoplasm of bladder, unspecified (ICD-10) Gastroesophageal reflux disease ?K21.9 - Gastro-esophageal reflux disease without esophagitis (ICD-10) Basal cell carcinoma of skin ?C44.91 - Basal cell carcinoma of skin, unspecified (ICD-10) DJD (degenerative joint disease) of cervical spine ?M47.812 - Spondylosis without myelopathy or radiculopathy, cervical region (ICD-10) Pulmonary nodule ?R91.1 - Solitary pulmonary nodule (ICD-10) DJD (degenerative joint disease) of knee ?M17.9 - Osteoarthritis of knee, unspecified (ICD-10) Dysphonia ?R49.0 - Dysphonia (ICD-10) Health care directive on file ?Z78.9 - Other specified health status (ICD-10) Surgical History (Updated 03/04/25 @ 00:00 by Background Daemon) Status post cystoscopy ?Z98.890 - Other specified postprocedural states (ICD-10) Status post blepharoplasty ?Z98.890 - Other specified postprocedural states (ICD-10) Status post tonsillectomy ?Z90.89 - Acquired absence of other organs (ICD-10) Status post bunionectomy (10/12/09) ?Z98.890 - Other specified postprocedural states (ICD-10) Social History Smoking Status: Never smoker Do you use any of these nicotine containing products: None How often do you have a drink containing alcohol: never AUDIT-C Alcohol total score: 0 Non-prescribed substance use: denies use Exam Narrative: Exam Narrative: Constitutional: Well-developed, well-nourished, no acute distress. HEENT: Normocephalic, atraumatic. Neck: Normal range of motion. Nontender. Supple. Heart: Regular. No murmurs. Normal rate. Intact distal pulses. Lungs: Clear to auscultation. No chest discomfort. No wheezes, rhonchi, or rales. Abdomen: Normal bowel sounds. Diffuse tenderness. No rebound tenderness. Surgical kerri in place with normal wound healing and no sign of infection or drainage. No palpable hematoma or seroma around the surgical site. Genitalia: Deferred. Back: No midline tenderness. Normal range of motion. Extremities: Normal range of motion. No injury. Skin: Intact. No rash. Warm. No erythema or pallor. Neurologic: No altered sensation. No weakness. Alert and oriented. Psychiatric: No suicidality. No anxiety or depression. No insomnia. Nursing notes and vitals signs are reviewed. Const: Vital Signs, click to edit/add: Vital Signs - 24 hr 03/06/25 15:47 03/06/25 18:57 Temperature 97.8 F 97.6 F Pulse Rate [Right Pulse Oximeter] 80 86 Respiratory Rate 18 18 Blood Pressure [Ri ght Upper Arm] 179/81 H 189/92 H Pulse Oximetry 99 97 Oxygen Delivery Me thod Room Air Room Air Course Vital Signs Vital signs: Initial Vital Signs Temperature 97.8 F 03/06/25 15:47 Temperature Source Temporal Artery Scan 03/06/25 15:47 Pulse Rate 80 03/06/25 15:47 Pulse Rhythm Regular 03/06/25 15:47 Pulse Strength 3+ Normal 03/06/25 15:47 Respiratory Rate 18 03/06/25 15:47 Blood Pressure 179/81 H 03/06/25 15:47 Blood Pressure Mean 113 H 03/06/25 15:47 Blood Pressure Position Sitting 03/06/25 15:47 Pulse Oximetry 99 03/06/25 15:47 Oxygen Delivery Method Room Air 03/06/25 15:47 Vital Signs Temperature 97.8 F 03/06/25 15:47 Pulse Rate 80 03/06/25 15:47 Respiratory Rate 18 03/06/25 15:47 Blood Pressure 179/81 H 03/06/25 15:47 Pulse Oximetry 99 03/06/25 15:47 Oxygen Delivery Method Room Air 03/06/25 15:47 Temperature 97.6 F 03/06/25 18:57 Pulse Rate 86 03/06/25 18:57 Respiratory Rate 18 03/06/25 18:57 Blood Pressure 189/92 H 03/06/25 18:57 Pulse Oximetry 97 03/06/25 18:57 Oxygen Delivery Method Room Air 03/06/25 18:57 MDM - Abdominal Pain MDM Narrative Medical decision making narrative: This patient comes in with abdominal pain as described above. She also is reporting some suspicion for urinary retention. A bladder scan only showed about 20 mL of urine and urinalysis shows no sign of infection. I did obtain a CT scan of her abdomen and pelvis which does show evidence of a new small bowel obstruction. The patient did have a bowel resection about a week ago and was doing well until today. I did speak with the hospitalist on-call, Dr. De Leon, who will follow with the patient and recommended admission with IV fluids and NPO status. I did speak with the hospitalist on-call who agrees also with this plan. Lab Data Labs: Lab Results 03/06/25 03/06/25 Range/Units 16:54 17:52 WBC 5.94 (4.50-11.00) K/uL RBC 4.18 (4.00-5.20) m/uL Hgb 12.3 (12.0-16.0) gm/dL Hct 36.4 (33.0-51.0) % MCV 87 (80-100) fL MCH 29 (26-34) pg MCHC 34 (32-36) gm/dL RDW Coeff of Pati 12.9 (11.5-15.5) % Plt Count 360 (140-440) K/uL Neut % (Auto) 67.9 (42.0-72.0) % Lymph % (Auto) 18.2 L (20-44) % [place] % (Auto) 8.2 (0.0-11.0) % Eos % (Auto) 4.9 (0.0-7.0) % Baso % (Auto) 0.5 (0.0-3.0) % Neut # (Auto) 4.03 (1.7-7.0) K/uL Lymph # (Auto) 1.10 (0.90-2.90) K/uL [place] # (Auto) 0.50 (0.00-0.90) K/UL Eos # (Auto) 0.29 (0.00-0.50) K/uL Baso # (Auto) 0.03 (0.00-0.30) K/uL Abs Immat Gran (auto) 0.02 (0.00-0.30) K/uL Imm/Tot Granulo (auto) 0.3 % Sodium 138 (135-149) mmol/L Potassium 4.4 (3.6-5.1) mmol/L Chloride 104 (96-114) mmol/L Carbon Dioxide 28 (20-32) mmol/L Anion Gap 6 L (7-15) mEq/L BUN 12 (7-30) mg/dL Creatinine 0.8 (0.5-1.5) mg/dL Estimated Creat Clear 28.47 Estimated GFR 71 ml/min Glucose 93 (60-115) mg/dL Calcium 9.5 (8.4-10.6) mg/dL Urine Color Yellow (Yellow) Urine Appearance Clear (Clear) Urine pH 7.0 (5.0-8.5) Ur Specific [place] 1.015 (1.000-1.030) Urine Protein Negative (Negative) Urine Glucose (UA) Negative (Negative) Urine Ketones Trace A (Negative) Urine Blood Negative (Negative) Urine Nitrite Negative (Negative) Urine Bilirubin Negative (Negative) Urine Urobilinogen 0.2 (0.2-1.0) Ur Leukocyte Esterase Negative (Negative) Urine RBC 0-2 (0-2) Urine WBC 0-2 (0-5) Ur Squamous Epith Cells None (None-Few) Urine Bacteria Few A (None) Imaging Data CT scan - abdomen: Radiologist's impression: 1. New small-bowel obstruction with transition point in the right lower quadrant. 2. Interval bowel resection for previously seen obstruction. Discharge Plan Discharge Clinical Impression: Small bowel obstruction Patient Disposition: Admitted As Observation Condition: Unchanged
[2025-03-06 17:03] LABS: Appearance Urine Clear (Clear)
--- NOTE | 2025-03-06 17:37 | CRLHL7_ITS ---
For Patients: As a result of the Century Cures Act, medical imaging exams and procedure reports are released immediately into your electronic medical record. You may view this report before your referring provider. If you have questions, please contact your health care provider. INDICATION: Abdominal pain, bowel resection 5 days ago TECHNIQUE: CT abdomen and pelvis acquired with 62 mL Isovue 370 IV contrast. COMPARISON: 02/24/[address] FINDINGS: Lower chest: Cardiomegaly. Pectus excavatum. Liver: Right hepatic lobe cyst. Gallbladder and bile ducts: Unremarkable. No stones or inflammation. No biliary dilatation. Pancreas: Unremarkable. No mass or inflammation. Spleen: Unremarkable. Normal in size. No masses. Adrenal glands: Unremarkable. No nodules. Kidneys: Bilateral cysts. GI tract: New anastomosis in the small bowel in the right abdomen. There is another small bowel obstruction with transition point in the right lower quadrant on image 24 of series 4. Vasculature: Mildly ectatic iliac arteries. Atherosclerosis. Mesenteric arteries are patent. Lymph nodes: No lymphadenopathy. Omentum/Peritoneum/Abdominal Wall: Mesenteric edema and small amount of free fluid. Midline ventral surgical wound with kerri. Pelvis: Uterine fibroids. Bones: Unremarkable for age. IMPRESSION: 1. New small-bowel obstruction with transition point in the right lower quadrant. 2. Interval bowel resection for previously seen obstruction. Please note that all CT scans at this facility use dose modulation, iterative reconstruction, and/or weight-based dosing when appropriate to reduce radiation dose to as low as reasonably achievable. Dictated by Flaco Ibrahim MD @ 03/06/2025 7:02:07 PM (Electronically Signed)
[2025-03-06 18:17] LABS: Hematocrit 36.4 % (33.0-51.0); Hemoglobin* 12.3 gm/dL (12.0-16.0); Immature Granulocytes Abs Auto 0.02 K/uL (0.00-0.30); Immature Granulocytes Pct Auto 0.3 %; Mean Corpuscular HGB Conc 34 gm/dL (32-36); Mean Corpuscular Hemoglobin 29 pg (26-34); Mean Corpuscular Volume 87 fL (80-100); RDW Coefficient of Variation % 12.9 % (11.5-15.5); Red Blood Count 4.18 m/uL (4.00-5.20); White Blood Count* 5.94 K/uL (4.50-11.00)
[2025-03-06 18:29] LABS: Chloride* 104 mmol/L (96-114)
[2025-03-06 18:30] LABS: Potassium* 4.4 mmol/L (3.6-5.1); Sodium* 138 mmol/L (135-149)
[2025-03-06 18:31] LABS: Lymphocytes Absolute Auto 1.10 K/uL (0.90-2.90); Slide Review Reflex No
[2025-03-06 18:32] LABS: Blood Urea Nitrogen* 12 mg/dL (7-30); Creatinine* 0.8 mg/dL (0.5-1.5); Est. Creatinine Clearance* 28.47; Estimated Glomerular Filt Rate 71 ml/min
[2025-03-06 18:33] LABS: Anion Gap 6 mEq/L (7-15); Calcium* 9.5 mg/dL (8.4-10.6); Carbon Dioxide* 28 mmol/L (20-32); Glucose* 93 mg/dL (60-115)
[2025-03-06 18:57] VITALS: BP 189/92; PULSE 86; RESP 18; TEMP 36.4; O2SAT 97
--- NOTE | 2025-03-06 19:40 | P.IMHP_ITS ---
Assessment and Plan Assessment and plan (1) Small bowel obstruction: Problem comment: - CT shows New small-bowel obstruction with transition point in the right lower quadrant - previous SBO left lower quadrant - NPO, IVF, pain management as needed - would consider NGT if increasing pain with nausea and vomiting - general surgery consult Status: Acute (2) S/P exploratory laparotomy: Problem comment: - s/p exploratory laparotomy and small bowel resection with Dr. 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 Outpatient evaluation Status: Acute (4) Hypertension: Problem comment: - Metoprolol 100mg XR daily - hold while NPO - IV metoprolol scheduled until tolerating orals Status: Acute (5) Gastroesophageal reflux disease: Problem comment: - hold oral PPI, IV PPI while NPO Status: Acute Total Time Spent Total Time Spent: Today I spent 75 minutes seeing the patient, reviewing Expanse and EPIC notes/diagnostics, discussing the care plan with our care time that includes social work, PT/OT, pharmacy, RT, senior care and documenting my impressions and plan in the medical record. Hospitalist- H&P: HPI History of Present Illness Date Seen: 03/06/25 Chief complaint: Post Surgery Complications Narrative: Johana Barton is a 89 year old female past medical history significant for hypertension, SVT/VT, GERD, history of bladder cancer diagnosed 2 years ago, status post exploratory laparotomy and small-bowel resection on 02/25/2025 (Dr. Efrem Escobar) is admitted to the medical floor from the ED with a small-bowel obstruction POD#9. Patient is seen with daughter at bedside and reports increasing abdominal discomfort overnight, difficulty sleeping, now unresolving. Reports difficulty passing urine initially but has since had good urine output. Has had soft stools including a watery diarrhea stool this morning prior to 9:00 a.m.. None since. Is no longer passing gas. Has not necessarily been nauseous, has had no vomiting, but reports no appetite today. Believes she would feel better if she could vomit. Postoperatively, has been taking Tylenol rarely for postoperative discomfort. Appetite had slowly been improving. Was having some throat and tongue pain following surgery but this has slowly improved. Denies headache or dizziness. Denies chest pain or shortness of breath. No recent fevers. In the ED, CT abdomen shows new small bowel obstruction with transition point in the right lower quadrant. Previous obstruction requiring resection was in the left lower quadrant. Labs are rather unremarkable. ED provider discussed with General surgery, Dr. De Leon, recommending admission for observation, NPO, IVF. Nonsmoker. Denies alcohol use. PCP is Dr. Reynolds. Review of Systems Status of ROS: Reports: 10 or more systems reviewed and unremarkable except as noted in History and below Medical Decision Making Medical Decision Making Has patient completed a Health Care Directive: Yes PFSH PFSH Medical History History of ventricular tachycardia ?Z86.79 - Personal history of other diseases of the circulatory system (ICD- 10) Hypertension ?I10 - Essential (primary) hypertension (ICD-10) SVT (supraventricular tachycardia) ?I47.10 - Supraventricular tachycardia, unspecified (ICD-10) Bladder cancer ?C67.9 - Malignant neoplasm of bladder, unspecified (ICD-10) Gastroesophageal reflux disease ?K21.9 - Gastro-esophageal reflux disease without esophagitis (ICD-10) Basal cell carcinoma of skin ?C44.91 - Basal cell carcinoma of skin, unspecified (ICD-10) DJD (degenerative joint disease) of cervical spine ?M47.812 - Spondylosis without myelopathy or radiculopathy, cervical region (ICD-10) Pulmonary nodule ?R91.1 - Solitary pulmonary nodule (ICD-10) DJD (degenerative joint disease) of knee ?M17.9 - Osteoarthritis of knee, unspecified (ICD-10) Dysphonia ?R49.0 - Dysphonia (ICD-10) Health care directive on file ?Z78.9 - Other specified health status (ICD-10) Surgical History (Updated 03/06/25 @ 20:09 by Karen Asencio PA-C) Status post cystoscopy ?Z98.890 - Other specified postprocedural states (ICD-10) Status post blepharoplasty ?Z98.890 - Other specified postprocedural states (ICD-10) Status post tonsillectomy ?Z90.89 - Acquired absence of other organs (ICD-10) Status post bunionectomy (10/12/09) ?Z98.890 - Other specified postprocedural states (ICD-10) Social History Smoking Status: Never smoker Do you use any of these nicotine containing products: None How often do you have a drink containing alcohol: never AUDIT-C Alcohol total score: 0 Non-prescribed substance use: denies use Meds Home Medications and Allergies Home Medications ?Medication ?Instructions ?Recorded ?Confirmed ?Type multivitamin (Multiple Vitamins 1 tab PO DAILY 2 03/06/25 History tablet) docusate sodium 100 mg capsule 100 mg PO HS 02/24/25 0 03/06/25 History (Colace) acetaminophen 500 mg tablet 500 mg PO HS PRN 02/25/25 03/06/25 History (Acetaminophen Pain Relief) biotin 1 mg capsule 1 mg PO DAILY 02/25/2503/06 History metoprolol succinate 100 mg 100 mg PO DAILY 02/25/25 0 03/06/25 History tablet,extended release 24 hr hydrocodone 5 mg-acetaminophen 325 1 tab PO Q6H PRN pa in #20 tabs 03/01/25 03/06/25 Rx mg tablet omeprazole 20 mg capsule,delayed 20 mg PO DAILY 30 day s #30 caps 03/02/25 03/06/25 Rx release Allergies Allergy/AdvReac Type Severity Reaction Status Date / Time No Known Allergies Allergy Unknown Verified 03/06/25 18:38 Exam Narrative: Exam Narrative: PHYSICAL EXAM General: Very pleasant, conversant, NAD HEENT: Normocephalic, atraumatic, sclera white, EOMI, oral mucosa moist no ulcerations or plaques Cardiovascular: RRR, S1S2. No pitting edema Pulmonary: CTA bilaterally without rhonchi, rales, expiratory wheezes. No dyspnea Abdominal: Mildly distended, soft, generalized tenderness, no guarding. kerri in place, wound appears to be healing appropriately Neurological: Alert, answering questions appropriately, cranial nerves intact, no focal findings Extremities: No gross joint deformity or swelling. AROMI. Neurovascularly intact Skin: Warm, dry. Const: Vital Signs, click to edit/add: Vital Signs - 24 hr 03/06/25 15:47 03/06/25 18:57 Temperature 97.8 F 97.6 F Pulse Rate [Right Pulse Oximeter] 80 86 Respiratory Rate 18 18 Blood Pressure [Ri ght Upper Arm] 179/81 H 189/92 H Pulse Oximetry 99 97 Oxygen Delivery Me thod Room Air Room Air Hospitalist - H&P: Result Labs Labs: Short CBC 03/06/25 Range/Units 17:52 WBC 5.94 (4.50-11.00) K/uL Hgb 12.3 (12.0-16.0) gm/dL Hct 36.4 (33.0-51.0) % Plt Count 360 (140-440) K/uL BMP 03/06/25 17:52 Sodium 138 Potassium 4.4 Chloride 104 Carbon Dioxide 28 BUN 12 Creatinine 0.8 Glucose 93 Calcium 9.5 Urine 03/06/25 Range/Units 16:54 Urine Color Yellow (Yellow) Urine Appearance Clear (Clear) Urine pH 7.0 (5.0-8.5) Ur Specific [place] 1.015 (1.000-1.030) Urine Protein Negative (Negative) Urine Glucose (UA) Negative (Negative) Imaging CT scan - abdomen: Attestation: I have reviewed the pertinent imaging results. Radiologist's impression: Lower chest: Cardiomegaly. Pectus excavatum. Liver: Right hepatic lobe cyst. Gallbladder and bile ducts: Unremarkable. No stones or inflammation. No biliary dilatation. Pancreas: Unremarkable. No mass or inflammation. Spleen: Unremarkable. Normal in size. No masses. Adrenal glands: Unremarkable. No nodules. Kidneys: Bilateral cysts. GI tract: New anastomosis in the small bowel in the right abdomen. There is another small bowel obstruction with transition point in the right lower quadrant on image 24 of series 4. Vasculature: Mildly ectatic iliac arteries. Atherosclerosis. Mesenteric arteries are patent. Lymph nodes: No lymphadenopathy. Omentum/Peritoneum/Abdominal Wall: Mesenteric edema and small amount of free fluid. Midline ventral surgical wound with kerri. Pelvis: Uterine fibroids. Bones: Unremarkable for age. IMPRESSION: 1. New small-bowel obstruction with transition point in the right lower quadrant. 2. Interval bowel resection for previously seen obstruction.
[2025-03-06 20:30] VITALS: BP 197/119; PULSE 99; RESP 16; TEMP 36.1; O2SAT 96; BMI 23.8
[2025-03-06] MEDS: SODIUM CHLORIDE 0.9 % (FLUSH) 10 ML SYRINGE 5 ML IVF (20:59)
[2025-03-06 21:00] VITALS: PULSE 104
[2025-03-06] MEDS: ENOXAPARIN 40 MG/0.4 ML INJ SUBCUT (21:25)
[2025-03-06] MEDS: METOPROLOL TARTRATE 1 MG/ML inj 5 MG IVP (21:25)
[2025-03-06 23:00] VITALS: BP 195/96; PULSE 84; RESP 16; TEMP 36.5; O2SAT 96
[2025-03-07] VITALS (13 sets, daily range): BP systolic 129–165; BP diastolic 73–91; PULSE 65–82; RESP 16; TEMP 35.8–36.6; O2SAT 94–98
[2025-03-07] MEDS: METOPROLOL TARTRATE 1 MG/ML inj 5 MG IVP ×4 (03:18→20:15)
[2025-03-07 06:30] LABS: Hematocrit 34.1 % (33.0-51.0); Hemoglobin* 11.5 gm/dL (12.0-16.0); Mean Corpuscular HGB Conc 34 gm/dL (32-36); Mean Corpuscular Hemoglobin 29 pg (26-34); Mean Corpuscular Volume 87 fL (80-100); Red Blood Count 3.94 m/uL (4.00-5.20); White Blood Count* 5.50 K/uL (4.50-11.00)
[2025-03-07 06:36] LABS: Slide Review Reflex No
--- NOTE | 2025-03-07 06:46 | PC.NURSE ---
Pt arrived to the floor at 2030, alert oriented and VSS, though hypertensive. Tele reads NSR. Pt stated pain in abdomen rated 8/10, prn morphine given and pt stated improvement. Midline abdominal surgical site C/D/I, kerri open to air. Bowel sounds hyperactive, pt stated flatus and denies nausea. NPO. Up with SBA, tolerates well. Pt in bed, appears to be resting, call light within reach.?
[2025-03-07 06:56] LABS: Chloride* 106 mmol/L (96-114); Potassium* 3.6 mmol/L (3.6-5.1); Sodium* 136 mmol/L (135-149)
[2025-03-07 06:59] LABS: Anion Gap 4 mEq/L (7-15); Blood Urea Nitrogen* 10 mg/dL (7-30); Calcium* 8.4 mg/dL (8.4-10.6); Carbon Dioxide* 26 mmol/L (20-32); Creatinine* 0.6 mg/dL (0.5-1.5); Est. Creatinine Clearance* 28.47; Estimated Glomerular Filt Rate 87 ml/min; Glucose* 98 mg/dL (60-115)
[2025-03-07] MEDS: PANTOPRAZOLE SODIUM 40 MG INJ IVP (08:58)
[2025-03-07] MEDS: SODIUM CHLORIDE 0.9 % (FLUSH) 10 ML SYRINGE 5 ML IVF ×2 (09:04→20:19)
--- NOTE | 2025-03-07 14:00 | PM.IMPN1 ---
Assessment and Plan Assessment and plan (1) Small bowel obstruction: Problem comment: - CT shows New small-bowel obstruction with transition point in the right lower quadrant - previous SBO left lower quadrant - NPO, IVF, pain management as needed - consider NGT if increasing pain with nausea and vomiting - general surgery consult - I spoke with Dr. De Leon, who will see this patient today. Status: Acute (2) S/P exploratory laparotomy: Problem comment: - s/p exploratory laparotomy and small bowel resection with Dr. 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 Outpatient evaluation Status: Acute (4) Hypertension: Problem comment: - Metoprolol 100mg XR daily - hold while NPO - IV metoprolol scheduled until tolerating orals - 03/07 BP and HR good control with current IV metoprolol dosing, no change. Status: Chronic (5) Gastroesophageal reflux disease: Problem comment: - hold oral PPI, IV PPI while NPO Status: Chronic Subjective Time Seen by Provider: 08:16 Date Seen: 03/07/25 Interval history: Johana was able to get some sleep overnight. She denies nausea or vomiting overnight. Now that she is awake this morning, she notes her pain is starting to get worse again. She endorses small amounts of flatus overnight, no BM. She usually has a BM at 6am every morning, but none today. Exam Narrative: Exam Narrative: General: No acute distress. Awake, alert, oriented. No pallor. No jaundice. Oropharynx: Clear. Mucous membranes moist. Cardiovascular: Regular rate and rhythm. No murmurs, gallops, or rubs. Respiratory: Clear to auscultation bilaterally. No wheezes or crackles. Abdomen: Previous surgical wound is healing with mild erythema around the inferior portion of the incision, without tenderness, drainage or induration. Bowel sounds hypoactive. Soft, mildly distended, tender to palpation on the far right and far left of the mid abdomen, no guarding, no rebound tenderness. Extremities: No lower extremity edema. Const: Vital Signs, click to edit/add: Vital Signs - 24 hr 03/06/25 15:47 03/06/25 18:57 03/06/25 20:30 Temperature 97.8 F 97.6 F 97.0 F L Pulse Rate Pulse Rate [Pulse Oximeter] 99 Pulse Rate [Right Pulse Oximeter] 80 86 Respiratory Rate 18 18 16 Blood Pressure [Le ft Arm] Blood Pressure [Ri ght Arm] 197/119 H Blood Pressure [Ri ght Upper Arm] 179/81 H 189/92 H Pulse Oximetry 99 97 96 Oxygen Delivery [place] thod Room Air Room Air Room Air 03/06/25 20:30 03/06/25 21:00 03/06/25 23:00 Temperature 97.7 F Pulse Rate 104 H Pulse Rate [Pulse Oximeter] 84 Pulse Rate [Right Pulse Oximeter] Respiratory Rate 16 16 Blood Pressure [Le ft Arm] Blood Pressure [Ri ght Arm] 195/96 H Blood Pressure [Ri ght Upper Arm] Pulse Oximetry 96 96 Oxygen Delivery [place] thod Room Air Room Air 03/06/25 23:00 03/07/25 00:06 03/07/25 03:00 Temperature 97.7 F Pulse Rate 77 Pulse Rate [Pulse Oximeter] 84 79 Pulse Rate [Right Pulse Oximeter] Respiratory Rate 16 16 Blood Pressure [Le ft Arm] Blood Pressure [Ri ght Arm] 165/91 H Blood Pressure [Ri ght Upper Arm] Pulse Oximetry 95 Oxygen Delivery [place] thod Room Air 03/07/25 07:00 03/07/25 07:00 03/07/25 07:50 Temperature 97.3 F L Pulse Rate 73 Pulse Rate [Pulse Oximeter] 67 79 Pulse Rate [Right Pulse Oximeter] Respiratory Rate 16 16 Blood Pressure [Le ft Arm] Blood Pressure [Ri ght Arm] 152/84 H Blood Pressure [Ri ght Upper Arm] Pulse Oximetry 96 Oxygen Delivery [place] thod Room Air 03/07/25 10:41 03/07/25 12:11 Temperature 97.5 F L 97.1 F L Pulse Rate Pulse Rate [Pulse Oximeter] 67 82 Pulse Rate [Right Pulse Oximeter] Respiratory Rate 16 16 Blood Pressure [Le ft Arm] 145/77 H 130/73 Blood Pressure [Ri ght Arm] Blood Pressure [Ri ght Upper Arm] Pulse Oximetry 97 94 Oxygen Delivery [place] thod Room Air Room Air Labs Labs: Laboratory Results - last 24 hr 03/06/25 03/06/25 03/07/25 16:54 17:52 06:07 WBC 5.94 5.50 RBC 4.18 3.94 L Hgb 12.3 11.5 L Hct 36.4 34.1 MCV 87 87 MCH 29 29 MCHC 34 34 RDW Coeff of Pati 12.9 Plt Count 360 291 Neut % (Auto) 67.9 Lymph % (Auto) 18.2 L [place] % (Auto) 8.2 Eos % (Auto) 4.9 Baso % (Auto) 0.5 Neut # (Auto) 4.03 Lymph # (Auto) 1.10 [place] # (Auto) 0.50 Eos # (Auto) 0.29 Baso # (Auto) 0.03 Abs Immat Gran (auto) 0.02 Imm/Tot Granulo (auto) 0.3 Sodium 138 136 Potassium 4.4 3.6 Chloride 104 106 Carbon Dioxide 28 26 Anion Gap 6 L 4 L BUN 12 10 Creatinine 0.8 0.6 Estimated Creat Clear 28.47 28.47 Estimated GFR 71 87 Glucose 93 98 Calcium 9.5 8.4 Urine Color Yellow Urine Appearance Clear Urine pH 7.0 Ur Specific [place] 1.015 Urine Protein Negative Urine Glucose (UA) Negative Urine Ketones Trace A Urine Blood Negative Urine Nitrite Negative Urine Bilirubin Negative Urine Urobilinogen 0.2 Ur Leukocyte Esterase Negative Urine RBC 0-2 Urine WBC 0-2 Ur Squamous Epith Cells None Urine Bacteria Few A
--- NOTE | 2025-03-07 14:41 | PM.GSCN ---
History of Present Illness Consult details Date Seen: 03/07/25 Consult date: 03/07/25 Narrative: The patient is an 89-year-old female who presented to the emergency department last night with abdominal pain. She underwent exploratory laparotomy on 02/25/2025 for a high-grade closed-loop small-bowel obstruction. There was a firm mass noted and this was resected. Postoperatively she had return of bowel function and was discharged home. 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 She was discharged home on Saturday. She states that she was not able to eat very much but her appetite was quite poor. She denied any nausea or vomiting after eating. She still denies nausea and vomiting. She did have some discomfort with eating however on Saturday she developed fairly severe abdominal pain. This was a 9/10 which was much higher than her usual 2 to 3/10. She had been having multiple soft bowel movements and then had a liquidy bowel movement yesterday. She came to the ER and was found to have concerns for a bowel obstruction with a transition point in the right lower quadrant. She also complained urinary retention. She states that she was trying to push fluids but did not have much urine output. Urine output today she states is improved. She is passing a small amount of gas today from below and is also belching. She did get morphine this morning she states that she wanted to ?stay ahead of the pain. ? However now she is not having any significant pain. Her past medical history is significant for hypertension, SVT, nonsustained V-tach in 2023, treated with amiodarone and cardioversion, and bladder cancer, GERD. [facility] History History of ventricular tachycardia ?Z86.79 - Personal history of other diseases of the circulatory system (ICD-10) Hypertension ?I10 - Essential (primary) hypertension (ICD-10) SVT (supraventricular tachycardia) ?I47.10 - Supraventricular tachycardia, unspecified (ICD-10) Bladder cancer ?C67.9 - Malignant neoplasm of bladder, unspecified (ICD-10) Gastroesophageal reflux disease ?K21.9 - Gastro-esophageal reflux disease without esophagitis (ICD-10) Basal cell carcinoma of skin ?C44.91 - Basal cell carcinoma of skin, unspecified (ICD-10) DJD (degenerative joint disease) of cervical spine ?M47.812 - Spondylosis without myelopathy or radiculopathy, cervical region (ICD-10) Pulmonary nodule ?R91.1 - Solitary pulmonary nodule (ICD-10) DJD (degenerative joint disease) of knee ?M17.9 - Osteoarthritis of knee, unspecified (ICD-10) Dysphonia ?R49.0 - Dysphonia (ICD-10) Health care directive on file ?Z78.9 - Other specified health status (ICD-10) Surgical History (Updated 03/06/25 @ 20:09 by Karen Aesncio PA-C) Status post cystoscopy ?Z98.890 - Other specified postprocedural states (ICD-10) Status post blepharoplasty ?Z98.890 - Other specified postprocedural states (ICD-10) Status post tonsillectomy ?Z90.89 - Acquired absence of other organs (ICD-10) Status post bunionectomy (10/12/09) ?Z98.890 - Other specified postprocedural states (ICD-10) Social History What is your current living situation?: I presently have a place to live Problems where you live: no known problems In the past 12 months, utilities in danger of being shut off: no In past 12 months, lack of transportation kept you from medical appts, meetings, work, or getting things needed for daily living: no In the past 12 mos, have been you worried that your food would run out before you had money to buy more?: never true In the past 12 mos, the food you bought just didn't last and you didn't have money to buy more?: never true Highest level of school completed/degree received: high school graduate Smoking Status: Never smoker Do you use any of these nicotine containing products: None How often do you have a drink containing alcohol: never How often do you have six or more drinks on one occasion: Never AUDIT-C Alcohol total score: 0 Non-prescribed substance use: denies use Caffeine: No How often does anyone, including family, friends and others, physically hurt you: never How often does anyone, including family, friends and others, insult or talk down to you: never How often does anyone, including family, friends and others, threaten you with harm: never How often does anyone, including family, friends and others, scream or curse at you: never Meds Home Medications and Allergies Home Medications ?Medication ?Instructions ?Recorded ?Confirmed ?Type multivitamin (Multiple Vitamins 1 tab PO DAILY 03/05/22 03/06/25 History tablet) docusate sodium 100 mg capsule 100 mg PO HS 02/24/25 03/06/25 History (Colace) acetaminophen 500 mg tablet 500 mg PO HS PRN 02/25/25 03/06/25 History (Acetaminophen Pain Relief) biotin 1 mg capsule 1 mg PO DAILY 02/25/25 03/06/25 History metoprolol succinate 100 mg 100 mg PO DAILY 02/25/25 03/06/25 History tablet,extended release 24 hr hydrocodone 5 mg-acetaminophen 325 1 tab PO Q6H PRN pain #20 tabs 03/01/25 03/06/25 Rx mg tablet omeprazole 20 mg capsule,delayed 20 mg PO DAILY 30 days #30 caps 03/02/25 03/06/25 Rx release Allergies Allergy/AdvReac Type Severity Reaction Status Date / Time No Known Allergies Allergy Unknown Verified 03/06/25 18:38 Exam Narrative: Exam Narrative: General: No acute distress Abdomen: Soft. Mildly tender around the incision. No guarding or rebound. She does have a silver dollar sized area of redness which is faint at the midportion of the incision. Const: Vital Signs, click to edit/add: Vital Signs - 24 hr 03/06/25 15:47 03/06/25 18:57 03/06/25 20:30 Temperature 97.8 F 97.6 F 97.0 F L Pulse Rate Pulse Rate [Pulse Oximeter] 99 Pulse Rate [Right Pulse Oximeter] 80 86 Respiratory Rate 18 18 16 Blood Pressure [Le ft Arm] Blood Pressure [Ri ght Arm] 197/119 H Blood Pressure [Ri ght Upper Arm] 179/81 H 189/92 H Pulse Oximetry 99 97 96 Oxygen Delivery Me thod Room Air Room Air Room Air 03/06/25 20:30 03/06/25 21:00 03/06/25 23:00 Temperature 97.7 F Pulse Rate 104 H Pulse Rate [Pulse Oximeter] 84 Pulse Rate [Right Pulse Oximeter] Respiratory Rate 16 16 Blood Pressure [Le ft Arm] Blood Pressure [Ri ght Arm] 195/96 H Blood Pressure [Ri ght Upper Arm] Pulse Oximetry 96 96 Oxygen Delivery Me thod Room Air Room Air 03/06/25 23:00 03/07/25 00:06 03/07/25 03:00 Temperature 97.7 F Pulse Rate 77 Pulse Rate [Pulse Oximeter] 84 79 Pulse Rate [Right Pulse Oximeter] Respiratory Rate 16 16 Blood Pressure [Le ft Arm] Blood Pressure [Ri ght Arm] 165/91 H Blood Pressure [Ri ght Upper Arm] Pulse Oximetry 95 Oxygen Delivery Me thod Room Air 03/07/25 07:00 03/07/25 07:00 03/07/25 07:50 Temperature 97.3 F L Pulse Rate 73 Pulse Rate [Pulse Oximeter] 67 79 Pulse Rate [Right Pulse Oximeter] Respiratory Rate 16 16 Blood Pressure [Le ft Arm] Blood Pressure [Ri ght Arm] 152/84 H Blood Pressure [Ri ght Upper Arm] Pulse Oximetry 96 Oxygen Delivery [place] thod Room Air 03/07/25 10:41 03/07/25 12:11 Temperature 97.5 F L 97.1 F L Pulse Rate Pulse Rate [Pulse Oximeter] 67 82 Pulse Rate [Right Pulse Oximeter] Respiratory Rate 16 16 Blood Pressure [Le ft Arm] 145/77 H 130/73 Blood Pressure [Ri ght Arm] Blood Pressure [Ri ght Upper Arm] Pulse Oximetry 97 94 Oxygen Delivery Me thod Room Air Room Air Results Labs Labs: White blood cell count yesterday and today was within normal limits. Electrolytes within normal limits. Imaging Abdomen CT scan report/results: report reviewed and image reviewed Additional studies: INDICATION: Abdominal pain, bowel resection 5 days ago TECHNIQUE: CT abdomen and pelvis acquired with 62 mL Isovue 370 IV contrast. COMPARISON: 02/24/[address] FINDINGS: Lower chest: Cardiomegaly. Pectus excavatum. Liver: Right hepatic lobe cyst. Gallbladder and bile ducts: Unremarkable. No stones or inflammation. No biliary dilatation. Pancreas: Unremarkable. No mass or inflammation. Spleen: Unremarkable. Normal in size. No masses. Adrenal glands: Unremarkable. No nodules. Kidneys: Bilateral cysts. GI tract: New anastomosis in the small bowel in the right abdomen. There is another small bowel obstruction with transition point in the right lower quadrant on image 24 of series 4. Vasculature: Mildly ectatic iliac arteries. Atherosclerosis. Mesenteric arteries are patent. Lymph nodes: No lymphadenopathy. Omentum/Peritoneum/Abdominal Wall: Mesenteric edema and small amount of free fluid. Midline ventral surgical wound with kerri. Pelvis: Uterine fibroids. Bones: Unremarkable for age. IMPRESSION: 1. New small-bowel obstruction with transition point in the right lower quadrant. 2. Interval bowel resection for previously seen obstruction. Please note that all CT scans at this facility use dose modulation, iterative reconstruction, and/or weight-based dosing when appropriate to reduce radiation dose to as low as reasonably achievable. Dictated by Flaco Ibrahim MD @ 03/06/2025 7:02:07 PM Progress Note:A&P Assessment and plan (1) History of ventricular tachycardia: Status: Acute (2) Small bowel obstruction: Status: Acute (3) Lymphoma of small intestine: Status: Acute (4) S/P exploratory laparotomy: Status: Acute Plan The patient is an 89-year-old female who is here with a small bowel obstruction 10 days after exploratory laparotomy and small-bowel resection for bowel obstruction which was found to be follicular lymphoma on pathology. -currently her pain is much improved and her abdomen is soft. -- we discussed that Generally early postop small bowel obstructions are managed conservatively as risk of injuring the bowel on reoperation is much higher given the inflammation in the abdomen. Therefore I would recommend NPO status and if she fails to have return of bowel function she may even need TPN temporarily. If she develops worsening pain, nausea or vomiting I recommend NG decompression, however given her current exam I think it is okay to hold off on this for now. -I discussed with the patient and her daughter her pathology findings of follicular lymphoma. This is a low-grade lymphoma and further workup will be needed to determine what treatment may be recommended. The patient states she does not want any radiation or chemotherapy, however, I think it discussion with oncology is at least warranted. This should be a fairly low grade tumor, therefore I do not think the 2nd obstruction is secondary to tumor progression, though certainly this should be kept in mind.
--- NOTE | 2025-03-07 14:42 | PC.NURSE ---
Pt is doing well today. VSS. Pain is minimal and well controlled with PRN morphine, rest and ambulation. Pt has not passed gas on this shift, bowel sounds are active. Pt's abdomen is distended, however denies pain, nausea or vomiting. Pt has been NPO. Resting well at this time.
--- NOTE | 2025-03-07 18:25 | PC.NURSE ---
End of Shift([id number]) Patient pleasant and cooperative, A&O. VSS, afebrile. SpO2 maintained above 90% on RA. Bowel sounds active, denies nausea. SBA to BR. Patient appears to be resting comfortably in the chair with the call light within reach. NPO.?
[2025-03-07] MEDS: ENOXAPARIN 40 MG/0.4 ML INJ SUBCUT (20:17)
[2025-03-07] MEDS: ACETAMINOPHEN 325 MG TABLET 975 MG PO (20:18)
[2025-03-07] MEDS: MELATONIN 3 MG TABLET PO (20:18)
[2025-03-08] VITALS (8 sets, daily range): BP systolic 128–173; BP diastolic 73–104; PULSE 60–85; RESP 16–18; TEMP 36–36.7; O2SAT 96–98
[2025-03-08] MEDS: METOPROLOL TARTRATE 1 MG/ML inj 5 MG IVP ×4 (02:08→20:29)
--- NOTE | 2025-03-08 06:02 | PC.NURSE ---
Pt rested well this night. Reporting no pain. No N/V. Pt states she has passed gas. Up SBA/IND. Walking halls. Sx incision midline stapled CDI with slight redness around kerri. Alert and oriented. VS unremarkable. Afebrile. NPO. Sips with meds.
--- NOTE | 2025-03-08 06:32 | PC.NURSE ---
Pt did have a small BM this morning. RN was not able to observe.
[2025-03-08 06:50] LABS: Hematocrit 32.6 % (33.0-51.0); Hemoglobin* 11.0 gm/dL (12.0-16.0); Mean Corpuscular HGB Conc 34 gm/dL (32-36); Mean Corpuscular Hemoglobin 29 pg (26-34); Mean Corpuscular Volume 87 fL (80-100); Red Blood Count 3.76 m/uL (4.00-5.20); White Blood Count* 5.51 K/uL (4.50-11.00)
[2025-03-08 06:53] LABS: Slide Review Reflex No
[2025-03-08 07:06] LABS: Chloride* 109 mmol/L (96-114); Potassium* 3.4 mmol/L (3.6-5.1); Sodium* 138 mmol/L (135-149)
[2025-03-08 07:08] LABS: Blood Urea Nitrogen* 10 mg/dL (7-30); Creatinine* 0.7 mg/dL (0.5-1.5); Est. Creatinine Clearance* 28.47; Estimated Glomerular Filt Rate 84 ml/min
[2025-03-08 07:09] LABS: Anion Gap 7 mEq/L (7-15); Calcium* 8.3 mg/dL (8.4-10.6); Carbon Dioxide* 22 mmol/L (20-32); Glucose* 67 mg/dL (60-115)
[2025-03-08] MEDS: PANTOPRAZOLE SODIUM 40 MG INJ IVP (08:49)
--- NOTE | 2025-03-08 11:19 | P.GSPN_ITS ---
Subjective Subjective Date Seen: 03/08/25 Interval history: Vin is doing well. She denies any pain. She had a bowel movement. Is not passing much gas. She states that she is still belching. Exam Narrative: Exam Narrative: General: No acute distress Abdomen: Still with some redness at the midportion of the incision. This is somewhat firm. Feels almost like a small hematoma. Abdomen is soft and nontender. Const: Vital Signs, click to edit/add: Vital Signs - 24 hr 03/07/25 12:11 03/07/25 15:00 03/07/25 15:00 Temperature 97.1 F L 97.8 F Pulse Rate 65 Pulse Rate [Pulse Oximeter] 82 76 Respiratory Rate 16 16 Blood Pressure [Le ft Arm] 130/73 129/83 Pulse Oximetry 94 95 Oxygen Delivery Me thod Room Air Room Air 03/07/25 15:00 03/07/25 19:21 03/07/25 19:35 Temperature 96.7 F L Pulse Rate 73 Pulse Rate [Pulse Oximeter] 76 81 Respiratory Rate 16 16 Blood Pressure [Le ft Arm] 153/91 H Pulse Oximetry 98 Oxygen Delivery [place] thod Room Air 03/07/25 20:18 03/07/25 22:28 03/07/25 22:31 Temperature 96.7 F L 96.5 F L Pulse Rate Pulse Rate [Pulse Oximeter] 68 68 Respiratory Rate 16 16 Blood Pressure [Le ft Arm] 147/85 H Pulse Oximetry 98 [facility] 03/07/25 22:32 03/08/25 02:13 03/08/25 07:00 Temperature 96.5 F L 96.9 F L Pulse Rate 60 Pulse Rate [Pulse Oximeter] 68 73 Respiratory Rate 16 16 Blood Pressure [Le ft Arm] 147/85 H 149/78 H Pulse Oximetry 98 96 [facility] 03/08/25 07:50 03/08/25 07:50 Temperature 97.0 F L Pulse Rate Pulse Rate [Pulse Oximeter] 80 80 Respiratory Rate 16 16 Blood Pressure [Le ft Arm] 128/73 Pulse Oximetry 96 [facility] Labs/Imaging Labs Labs: White blood cell count is normal. Potassium mildly low at 3.4. Progress Note:A&P Assessment and plan (1) Small bowel obstruction: Status: Acute (2) Lymphoma of small intestine: Status: Acute (3) S/P exploratory laparotomy: Status: Acute Plan The patient is an 89-year-old female with an early postop bowel obstruction after ex lap and bowel resection for obstruction from lymphoma. Today she is doing much better. She has some bowel function and her pain has resolved. I recommend a very cautious clear liquid diet as she is still belching somewhat but has no nausea. If she does well with this then consider advancing her diet tomorrow.
--- NOTE | 2025-03-08 12:23 | PM.IMPN1 ---
Assessment and Plan Assessment and plan (1) Small bowel obstruction: Problem comment: - CT shows New small-bowel obstruction with transition point in the right lower quadrant - previous SBO left lower quadrant - initially NPO, IVF, pain management as needed, tolerating ambulation about nurse's station - with conditions stabilizing, on 03/08/2025 saline lock IV and clear liquids as tolerated with ongoing symptom management - consider NGT if increasing pain with nausea and vomiting - general surgery consult, Dr. 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 Outpatient evaluation Status: Acute (3) S/P exploratory laparotomy: Problem comment: - s/p exploratory laparotomy and small bowel resection with Dr. Escobar of General Surgery on 02/25/25 - preliminary pathology lymphoma Status: Acute Plan 1. I reviewed my impression, plans, recommendations with the patient 2. Answered her questions 3. She is agreeable with above stated plans and recommendations 4. Continue work with general surgeon Total Time Spent Total Time Spent: 30 minutes Subjective Date Seen: 03/08/25 Interval history: 03/06/2025, admission history of present illness: ?89 year old female past medical history significant for hypertension, SVT/VT, GERD, history of bladder cancer diagnosed 2 years ago, status post exploratory laparotomy and small-bowel resection on 02/25/2025 (Dr. Efrem Escobar) is admitted to the medical floor from the ED with a small-bowel obstruction POD#9. ?Patient is seen with daughter at bedside and reports increasing abdominal discomfort overnight, difficulty sleeping, now unresolving. Reports difficulty passing urine initially but has since had good urine output. Has had soft stools including a watery diarrhea stool this morning prior to 9:00 a.m.. None since. Is no longer passing gas. Has not necessarily been nauseous, has had no vomiting, but reports no appetite today. Believes she would feel better if she could vomit. Postoperatively, has been taking Tylenol rarely for postoperative discomfort. Appetite had slowly been improving. Was having some throat and tongue pain following surgery but this has slowly improved. Denies headache or dizziness. Denies chest pain or shortness of breath. No recent fevers. ?In the ED, CT abdomen shows new small bowel obstruction with transition point in the right lower quadrant. Previous obstruction requiring resection was in the left lower quadrant. Labs are rather unremarkable. ED provider discussed with General surgery, Dr. De Leon, recommending admission for observation, NPO, IVF. ?Nonsmoker. Denies alcohol use. PCP is Dr. Reynolds.? 03/08/2025, hospital day 3. Feels a little better today than yesterday. Abdominal discomfort less intense. Greater interest in and ability to move about. Denies nausea or vomiting. Passing some flatus and had a very small bowel movement this morning. IV fluids still running. Exam Narrative: Exam Narrative: Examined patient in her hospital room. She is sitting on the recliner chair next to her hospital bed. Appears comfortable and in no acute distress. Vision and hearing are adequate. Neck is supple. No head and neck lymphadenopathy. Lungs are clear to auscultation. Heart tones with regular rhythm. Abdomen with active bowel sounds, soft. Independent with transfer, station, gait. No complaint of orthostasis. Const: Vital Signs, click to edit/add: Vital Signs - 24 hr 03/07/25 15:00 03/07/25 15:00 03/07/25 15:00 Temperature 97.8 F Pulse Rate 65 Pulse Rate [Pulse Oximeter] 76 76 Respiratory Rate 16 16 Blood Pressure [Le ft Arm] 129/83 Pulse Oximetry 95 [facility] 03/07/25 19:21 03/07/25 19:35 03/07/25 20:18 Temperature 96.7 F L 96.7 F L Pulse Rate 73 Pulse Rate [Pulse Oximeter] 81 Respiratory Rate 16 Blood Pressure [Le ft Arm] 153/91 H Pulse Oximetry 98 Oxygen Delivery [facility] Room Air 03/07/25 22:28 03/07/25 22:31 03/07/25 22:32 Temperature 96.5 F L 96.5 F L Pulse Rate Pulse Rate [Pulse Oximeter] 68 68 68 Respiratory Rate 16 16 16 Blood Pressure [Le ft Arm] 147/85 H 147/85 H Pulse Oximetry 98 98 Oxygen Delivery [facility] Room Air Room Air 03/08/25 02:13 03/08/25 07:00 03/08/25 07:50 Temperature 96.9 F L 97.0 F L Pulse Rate 60 Pulse Rate [Pulse Oximeter] 73 80 Respiratory Rate 16 16 Blood Pressure [Le ft Arm] 149/78 H 128/73 Pulse Oximetry 96 96 Oxygen Delivery Me thod Room Air Room Air 03/08/25 07:50 Temperature Pulse Rate Pulse Rate [Pulse Oximeter] 80 Respiratory Rate 16 Blood Pressure [Le ft Arm] Pulse Oximetry Oxygen Delivery Me thod Labs Labs: Laboratory Results - last 24 hr 03/08/25 06:43 WBC 5.51 RBC 3.76 L Hgb 11.0 L Hct 32.6 L MCV 87 MCH 29 MCHC 34 Plt Count 291 Sodium 138 Potassium 3.4 L Chloride 109 Carbon Dioxide 22 Anion Gap 7 BUN 10 Creatinine 0.7 Estimated Creat Clear 28.47 Estimated GFR 84 Glucose 67 Calcium 8.3 L
--- NOTE | 2025-03-08 14:45 | PC.NURSE ---
End of Shift: Patient pleasant and cooperative, A&O. VSS, afebrile. Denies pain this shift. Denies nausea and vomiting. Bowel sounds active, no BM this shift. SBA with IV pole
--- NOTE | 2025-03-08 18:58 | PC.NURSE ---
End of Shift ([id number]): Patient pleasant and cooperative. Afebrile. Denies pain. Bowel sounds active and passing flatus. Up walking in hallway with SBA. Tolerating clear liquids with no nausea.
[2025-03-08] MEDS: ENOXAPARIN 40 MG/0.4 ML INJ SUBCUT (20:30)
[2025-03-08] MEDS: SODIUM CHLORIDE 0.9 % (FLUSH) 10 ML SYRINGE 5 ML IVF (20:30)
--- NOTE | 2025-03-08 22:44 | PC.NURSE ---
End of shift report [id number]: VSS. Afebrile. Martínez pain. Denies n/v. Reports passing flatus. Ambulates SBA. Pt is resting in bed, call light within reach.
[2025-03-09] VITALS (9 sets, daily range): BP systolic 135–183; BP diastolic 82–94; PULSE 65–84; RESP 16–18; TEMP 35.9–36.7; O2SAT 96–98; BMI 24.2
[2025-03-09] MEDS: METOPROLOL TARTRATE 1 MG/ML inj 5 MG IVP ×2 (02:24→08:05)
[2025-03-09] MEDS: SODIUM CHLORIDE 0.9 % (FLUSH) 10 ML SYRINGE 5 ML IVF ×3 (02:24→20:36)
--- NOTE | 2025-03-09 05:59 | PC.NURSE ---
Shift note: Patient is doing well. Alert and oriented. Denied abdominal pain, nausea and vomiting. No fever recorded. Vitally stable. Patient had urinally frequency but no incontinence. Ambulated with SBA. General condition stable.
[2025-03-09 06:32] LABS: Hematocrit 32.7 % (33.0-51.0); Hemoglobin* 11.0 gm/dL (12.0-16.0); Mean Corpuscular HGB Conc 34 gm/dL (32-36); Mean Corpuscular Hemoglobin 29 pg (26-34); Mean Corpuscular Volume 87 fL (80-100); Red Blood Count 3.78 m/uL (4.00-5.20); White Blood Count* 5.54 K/uL (4.50-11.00)
[2025-03-09 06:38] LABS: Slide Review Reflex No
[2025-03-09 06:52] LABS: Chloride* 109 mmol/L (96-114); Potassium* 3.7 mmol/L (3.6-5.1); Sodium* 136 mmol/L (135-149)
[2025-03-09 06:55] LABS: Anion Gap 11 mEq/L (7-15); Blood Urea Nitrogen* 7 mg/dL (7-30); Calcium* 8.5 mg/dL (8.4-10.6); Carbon Dioxide* 16 mmol/L (20-32); Creatinine* 0.6 mg/dL (0.5-1.5); Est. Creatinine Clearance* 28.47; Estimated Glomerular Filt Rate 87 ml/min; Glucose* 57 mg/dL (60-115)
[2025-03-09] MEDS: PANTOPRAZOLE SODIUM 40 MG INJ IVP (08:00)
--- NOTE | 2025-03-09 08:43 | PM.IMPN1 ---
Assessment and Plan Assessment and plan (1) Small bowel obstruction: Problem comment: - CT shows New small-bowel obstruction with transition point in the right lower quadrant - previous SBO left lower quadrant - initially NPO, IVF, pain management as needed, tolerating ambulation about nurse's station - with conditions stabilizing, on 03/08/2025 saline lock IV and clear liquids as tolerated with ongoing symptom management. Will not advance diet the morning of 03/09/2025 due to patient still not having adequate passage of stool - consider NGT if increasing pain with nausea and vomiting - general surgery consult, Dr. 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 Outpatient evaluation Status: Acute (3) S/P exploratory laparotomy: Problem comment: - s/p exploratory laparotomy and small bowel resection with Dr. Escobar of General Surgery on 02/25/25 - preliminary pathology lymphoma Status: Acute Plan 1. Reviewed impression, plans, recommendations with patient 2. Answered her questions are satisfaction 3. Patient agreeable with above stated plans and recommendations Total Time Spent Total Time Spent: 25 minutes Subjective Date Seen: 03/09/25 Interval history: 03/06/2025, admission history of present illness: ?89 year old female past medical history significant for hypertension, SVT/VT, GERD, history of bladder cancer diagnosed 2 years ago, status post exploratory laparotomy and small-bowel resection on 02/25/2025 (Dr. Efrem Escobar) is admitted to the medical floor from the ED with a small-bowel obstruction POD#9. ?Patient is seen with daughter at bedside and reports increasing abdominal discomfort overnight, difficulty sleeping, now unresolving. Reports difficulty passing urine initially but has since had good urine output. Has had soft stools including a watery diarrhea stool this morning prior to 9:00 a.m.. None since. Is no longer passing gas. Has not necessarily been nauseous, has had no vomiting, but reports no appetite today. Believes she would feel better if she could vomit. Postoperatively, has been taking Tylenol rarely for postoperative discomfort. Appetite had slowly been improving. Was having some throat and tongue pain following surgery but this has slowly improved. Denies headache or dizziness. Denies chest pain or shortness of breath. No recent fevers. ?In the ED, CT abdomen shows new small bowel obstruction with transition point in the right lower quadrant. Previous obstruction requiring resection was in the left lower quadrant. Labs are rather unremarkable. ED provider discussed with General surgery, Dr. De Leon, recommending admission for observation, NPO, IVF. ?Nonsmoker. Denies alcohol use. PCP is Dr. Reynolds.? 03/08/2025, hospital day 3. Feels a little better today than yesterday. Abdominal discomfort less intense. Greater interest in and ability to move about. Denies nausea or vomiting. Passing some flatus and had a very small bowel movement this morning. IV fluids still running. 03/09/2025, hospital day 4. Continues to pass flatus. No further stooling. Tolerating sips of clear liquids. IV fluids are now saline locked. Abdominal discomfort intermittent but improved. Denies nausea vomiting. No dyspnea, cough, chest heaviness, pressure, tightness, or pain, syncope or near syncope. Tolerating ambulation in the halls by the nurse's station. Exam Narrative: Exam Narrative: Examined patient in the hallway and in her room. Ambulating independently in the halls. Appears comfortable no acute distress. Vision and hearing are adequate. Alert and oriented x4. Lungs clear to auscultation. Heart tones with regular rhythm. Abdomen benign with active bowel sounds. Independent with transfer, station, gait. Weight today 56.2 kg, yesterday was 56.6 kg. Const: Vital Signs, click to edit/add: Vital Signs - 24 hr 03/08/25 11:00 03/08/25 14:57 03/08/25 15:00 Temperature 96.8 F L 97.7 F Pulse Rate Pulse Rate [Pulse Oximeter] 66 61 61 Respiratory Rate 18 16 16 Blood Pressure [Le ft Arm] 173/91 H 169/80 H Blood Pressure [Ri ght Arm] Pulse Oximetry 98 97 Oxygen Delivery Me thod Room Air Room Air 03/08/25 15:00 03/08/25 19:00 03/08/25 23:00 Temperature 98.1 F Pulse Rate 61 Pulse Rate [Pulse Oximeter] 80 78 Respiratory Rate 16 16 Blood Pressure [Le ft Arm] 142/104 H Blood Pressure [Ri ght Arm] Pulse Oximetry 97 Oxygen Delivery Me thod Room Air 03/08/25 23:00 03/08/25 23:00 03/09/25 02:18 Temperature 97 F L 97 F L Pulse Rate 85 Pulse Rate [Pulse Oximeter] 78 80 Respiratory Rate 16 16 Blood Pressure [Le ft Arm] Blood Pressure [Ri ght Arm] 161/85 H 177/93 H Pulse Oximetry 98 97 Oxygen Delivery Sc thod Room Air Room Air 03/09/25 07:45 03/09/25 07:45 Temperature 97.6 F Pulse Rate 77 Pulse Rate [Pulse Oximeter] 82 Respiratory Rate 16 Blood Pressure [Le ft Arm] Blood Pressure [Ri ght Arm] 135/82 Pulse Oximetry 98 Oxygen Delivery Sc thod Room Air Labs Labs: Laboratory Results - last 24 hr 03/09/25 06:20 WBC 5.54 RBC 3.78 L Hgb 11.0 L Hct 32.7 L MCV 87 MCH 29 MCHC 34 Plt Count 292 Sodium 136 Potassium 3.7 Chloride 109 Carbon Dioxide 16 L Anion Gap 11 BUN 7 Creatinine 0.6 Estimated Creat Clear 28.47 Estimated GFR 87 Glucose 57 L Calcium 8.5
--- NOTE | 2025-03-09 09:56 | PM.GSPN ---
Subjective Subjective Date Seen: 03/09/25 Interval history: Vin seems to be doing well today. She states that her appetite is very poor. Denies nausea or vomiting. She had Jell-O which went down okay but she only had a few spoonfuls. She states that she tried to have broth yesterday but it did not go well. She states simply it did not taste good to her. She passed a lot of gas last night and had a large amount of urine output. IV fluids were saline locked today. She is not belching as much today. Denies abdominal pain. Exam Narrative: Exam Narrative: General: No acute distress Abdomen: Soft, nontender. Const: Vital Signs, click to edit/add: Vital Signs - 24 hr 03/08/25 11:00 03/08/25 14:57 03/08/25 15:00 Temperature 96.8 F L 97.7 F Pulse Rate Pulse Rate [Pulse Oximeter] 66 61 61 Respiratory Rate 18 16 16 Blood Pressure [Le ft Arm] 173/91 H 169/80 H Blood Pressure [Ri ght Arm] Pulse Oximetry 98 97 Oxygen Delivery Me od Room Air Room Air 03/08/25 15:00 03/08/25 19:00 03/08/25 23:00 Temperature 98.1 F Pulse Rate 61 Pulse Rate [Pulse Oximeter] 80 78 Respiratory Rate 16 16 Blood Pressure [Le ft Arm] 142/104 H Blood Pressure [Ri ght Arm] Pulse Oximetry 97 [facility] 03/08/25 23:00 03/08/25 23:00 03/09/25 02:18 Temperature 97 F L 97 F L Pulse Rate 85 Pulse Rate [Pulse Oximeter] 78 80 Respiratory Rate 16 16 Blood Pressure [Le ft Arm] Blood Pressure [Ri ght Arm] 161/85 H 177/93 H Pulse Oximetry 98 97 [facility] Room Air 03/09/25 07:45 03/09/25 07:45 Temperature 97.6 F Pulse Rate 77 Pulse Rate [Pulse Oximeter] 82 Respiratory Rate 16 Blood Pressure [Le ft Arm] Blood Pressure [Ri ght Arm] 135/82 Pulse Oximetry 98 Oxygen Delivery Mn thod Room Air Labs/Imaging Labs Labs: White blood cell count is normal Electrolytes are normal She does have a non anion gap metabolic acidosis today. Likely from saline IV fluids. 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 She was readmitted with pain and CT findings concerning for bowel obstruction, however she has continued to have antegrade bowel function throughout her hospital stay. -will advance diet to full liquids today as she has no nausea and vomiting. Her appetite is poor but mostly because she does not feel like eating. -agree with saline locking IV fluids. Encouraged her to take in liquids p.o.. -recommended she cancel her primary care appointment tomorrow as she will possibly discharge tomorrow though she can reschedule this for next week. -staple removal may be able to be done prior to discharge from the hospital.
--- NOTE | 2025-03-09 11:02 | PC.SOCIAL ---
Addendum entered by CYNDEE Greenfield 03/09/25 11:30: Discharge planning: Correction to assessment question #5: Pt has a POLST and HCD. Social work to follow-up as needed. Original Note: Discharge Planning: Furnace Stock Inspector completed the Initial Psychosocial Assessment with the pt in her room this morning... Initial Psychosocial Assessment: 1.? Assessment completed with: Patient, Spouse, Child, Friend, Other: Patient. 2.? Pt lives at address and phone number on face sheet? Own home; facility , Other: Lives alone in a twin home. Daughter checks on her often and has been staying with her since she last discharged from the hospital. 3.?Insurance information? on face sheet is correct? Yes. 4.?Contacts? on face sheet are correct? Yes. 5.? Does pt have a Healthcare Directive, POLST or Guardian? POA. 6.? Who is the pt?s main source/sources of emotional/physical support? Two daughters. 7.? Prior to admission did pt need assistance? Yes/No Pt had home care set-up through [facility] 8.? Who provided and what was the assistance needed? [facility] 9.? Was Home Health being provided, by what agency? [facility] PT/OT and snf. 10. Does pt use/have medical equipment at home already? What? 2ww if needed. 11. Will there be a need for additional assistance at discharge and is this available in previous setting? Shouldn't be. 12. If pt needs to go to a higher level of care, are they open to this and do they have facilities they are interested in? N/A. 13. How would pt plan to transport at discharge? Daughter can transport. 14. Is there anyone pt would like healthcare social worker to contact to discuss discharge plans? Daughters. Pt would like to continue with [facility] services after this hospital discharge and will need resumption of care orders at discharge. Social work to follow-up as needed.
[2025-03-09] MEDS: METOPROLOL SUCCINATE (XL) 100 MG TAB PO (14:40)
--- NOTE | 2025-03-09 14:48 | PC.NURSE ---
Pt is doing well today. Pleasant to care for. A&Ox4. VSS. Denies pain. Denies nausea. Abdomen is round, soft to touch, pt reports minor tenderness. Abdominal incision is clean, dry, intact. Pt reports passing flatus and had one small, soft and formed bowel movement today. Pt is walking the halls frequently, ambulating independently. Pt does not have much appetite today, however tolerating a full liquid diet and agreed to a protein drink this afternoon. Pt is resting well at this time.
[2025-03-09] MEDS: ENOXAPARIN 40 MG/0.4 ML INJ SUBCUT (20:35)
--- NOTE | 2025-03-09 23:22 | PC.NURSE ---
end of shift: Pt is AOx4. VSS. Pt is pleasant and proactive in their cares. Pt. AMB hallways and around nurse's station x3. Pt. denies pain. Pt denies nausea. Pt. requested SCDs be placed concern of edema in lower extremities. Education provided on coagulation therapies, AMB , diet, and medications. Pt. had one BM and passing gas. Pt is resting comfortably in bed, call light w/i reach.
[2025-03-10] VITALS (9 sets, daily range): BP systolic 120–165; BP diastolic 78–93; PULSE 63–86; RESP 16–18; TEMP 36–36.7; O2SAT 94–97
--- NOTE | 2025-03-10 05:15 | PC.NURSE ---
Pt rested well this night. Up IND in room and walking halls as well. Pt did have a BM last evening (formed). Reporting zero pain, zero N/V. VS unremarkable. Pleasant and cooperative. Midline Wound CDI.
[2025-03-10 06:01] LABS: Hematocrit 32.3 % (33.0-51.0); Hemoglobin* 11.1 gm/dL (12.0-16.0); Mean Corpuscular HGB Conc 34 gm/dL (32-36); Mean Corpuscular Hemoglobin 29 pg (26-34); Mean Corpuscular Volume 85 fL (80-100); Red Blood Count 3.81 m/uL (4.00-5.20); White Blood Count* 6.10 K/uL (4.50-11.00)
[2025-03-10 06:07] LABS: Slide Review Reflex No
[2025-03-10 06:16] LABS: Chloride* 107 mmol/L (96-114); Sodium* 137 mmol/L (135-149)
[2025-03-10 06:17] LABS: Potassium* 3.3 mmol/L (3.6-5.1)
[2025-03-10 06:19] LABS: Blood Urea Nitrogen* 7 mg/dL (7-30); Creatinine* 0.7 mg/dL (0.5-1.5); Est. Creatinine Clearance* 28.47; Estimated Glomerular Filt Rate 84 ml/min
[2025-03-10 06:20] LABS: Anion Gap 5 mEq/L (7-15); Calcium* 8.8 mg/dL (8.4-10.6); Carbon Dioxide* 25 mmol/L (20-32); Glucose* 89 mg/dL (60-115)
[2025-03-10] MEDS: OMEPRAZOLE 20 MG CAPSULE DR PO (07:38)
[2025-03-10] MEDS: POTASSIUM CHLORIDE 10 MEQ CAPSULE ER 40 MEQ PO (09:27)
[2025-03-10] MEDS: SODIUM CHLORIDE 0.9 % (FLUSH) 10 ML SYRINGE 5 ML IVF ×2 (09:28→21:11)
[2025-03-10] MEDS: METOPROLOL SUCCINATE (XL) 100 MG TAB PO (09:28)
[2025-03-10] MEDS: PANTOPRAZOLE SODIUM 40 MG INJ IVP (09:28)
--- NOTE | 2025-03-10 11:22 | PM.GSPN ---
Subjective Subjective Date Seen: 03/10/25 Interval history: Patient is doing well. She had several bowel movements. She denies vomiting. She denies abdominal pain. She had molt-a-meal in the morning but only ate half of the bowel. Exam Narrative: Exam Narrative: Abdomen is soft, not distended, some discomfort to palpation in the right mid abdomen, midline laparotomy incision with mild erythema around the kerri. No evidence of cellulitis. The kerri were removed today. Const: Vital Signs, click to edit/add: Vital Signs - 24 hr 03/09/25 15:24 03/09/25 15:27 03/09/25 19:10 Temperature 98 F 98.1 F Pulse Rate 84 Pulse Rate [Pulse Oximeter] 79 82 Respiratory Rate 18 18 Blood Pressure [Le ft Arm] Blood Pressure [Ri ght Arm] 156/83 H 150/89 H Pulse Oximetry 98 97 Oxygen Delivery Me thod Room Air 03/09/25 22:56 03/09/25 23:04 03/09/25 23:10 Temperature 96.6 F L Pulse Rate 68 Pulse Rate [Pulse Oximeter] 65 Respiratory Rate 16 16 Blood Pressure [Le ft Arm] 164/94 H Blood Pressure [Ri ght Arm] Pulse Oximetry 98 Oxygen Delivery Me thod Room Air 03/10/25 02:57 03/10/25 07:00 03/10/25 08:55 Temperature 96.8 F L 97.1 F L Pulse Rate 86 Pulse Rate [Pulse Oximeter] 63 68 Respiratory Rate 16 18 Blood Pressure [Le ft Arm] 145/89 H Blood Pressure [Ri ght Arm] 165/93 H Pulse Oximetry 97 96 Oxygen Delivery Me thod Room Air Room Air Progress Note:A&P Assessment and plan (1) Small bowel obstruction: Status: Acute Plan 89-year-old female s/p exploratory laparotomy on 02/25/2025 readmitted with abdominal pain and concern for small bowel obstruction. Patient is doing well with conservative treatment. We advanced her diet to regular today. I discussed with the patient to increase her protein intake and drink in sugars. Most likely discharge home tomorrow.
--- NOTE | 2025-03-10 13:41 | PM.IMPN1 ---
Assessment and Plan Assessment and plan (1) Small bowel obstruction: Problem comment: - CT shows New small-bowel obstruction with transition point in the right lower quadrant - previous SBO left lower quadrant - initially NPO, IVF, pain management as needed, tolerating ambulation about nurse's station - with conditions stabilizing, on 03/08/2025 saline lock IV and clear liquids as tolerated with ongoing symptom management. - tolerating advancing diet - consider NGT if increasing pain with nausea and vomiting - general surgery consult, Dr. 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 Outpatient evaluation Status: Acute (3) Hypertension: Problem comment: - Metoprolol 100mg XR daily - hold while NPO - IV metoprolol scheduled until tolerating orals - 03/07 BP and HR good control with current IV metoprolol dosing, no change. Status: Chronic (4) History of ventricular tachycardia: Problem comment: - nonsustained ventricular tachycardia April 2024, treated with amiodarone bolus and DC cardioversion - per EP consult: Favor outflow tract tachycardia. Started with verapamil daily - [discontinued October 2024 due to constipation]. Could consider ablation in the future - TTE 04/2024: Apical hypokinesis - CT angiogram April 2024: Nonobstructive CAD. 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 Moderate concentric LVH with myocardial mass at upper limits of normal, no hypertrophic CM or amyloid, tiny discrete basilar anterior lateral [place] consistent with tiny embolic infarction - was following with [facility] but in process of switching to [facility] due to insurance coverage - stable during stay on home dose of oral Metoprolol (100mg XL daily) Status: Acute (5) Hypokalemia: Problem comment: - supplement and monitor Status: Acute Plan 1. Reviewed impression, plans, recommendations with patient, daughter, Dr. Escobar 2. Dr. Shaffer prefers patient stay 1 more night for continued monitoring 3. Will continue to follow patient while in hospital 4. Answered patient's and daughter's questions to their satisfaction 5. They are agreeable with above stated plans and recommendations Total Time Spent Total Time Spent: 25 minutes Subjective Date Seen: 03/10/25 Interval history: 03/06/2025, admission history of present illness: ?89 year old female past medical history significant for hypertension, SVT/VT, GERD, history of bladder cancer diagnosed 2 years ago, status post exploratory laparotomy and small-bowel resection on 02/25/2025 (Dr. Efrem Escobar) is admitted to the medical floor from the ED with a small-bowel obstruction POD#9. ?Patient is seen with daughter at bedside and reports increasing abdominal discomfort overnight, difficulty sleeping, now unresolving. Reports difficulty passing urine initially but has since had good urine output. Has had soft stools including a watery diarrhea stool this morning prior to 9:00 a.m.. None since. Is no longer passing gas. Has not necessarily been nauseous, has had no vomiting, but reports no appetite today. Believes she would feel better if she could vomit. Postoperatively, has been taking Tylenol rarely for postoperative discomfort. Appetite had slowly been improving. Was having some throat and tongue pain following surgery but this has slowly improved. Denies headache or dizziness. Denies chest pain or shortness of breath. No recent fevers. ?In the ED, CT abdomen shows new small bowel obstruction with transition point in the right lower quadrant. Previous obstruction requiring resection was in the left lower quadrant. Labs are rather unremarkable. ED provider discussed with General surgery, Dr. De Leon, recommending admission for observation, NPO, IVF. ?Nonsmoker. Denies alcohol use. PCP is Dr. Reynolds.? 03/08/2025, hospital day 3. Feels a little better today than yesterday. Abdominal discomfort less intense. Greater interest in and ability to move about. Denies nausea or vomiting. Passing some flatus and had a very small bowel movement this morning. IV fluids still running. 03/09/2025, hospital day 4. Continues to pass flatus. No further stooling. Tolerating sips of clear liquids. IV fluids are now saline locked. Abdominal discomfort intermittent but improved. Denies nausea vomiting. No dyspnea, cough, chest heaviness, pressure, tightness, or pain, syncope or near syncope. Tolerating ambulation in the halls by the nurse's station. 03/09/2025, hospital day 5. Patient finally starting to feel little closer to normal. Past another stool this morning. Tolerating increased activities. Tolerating increased diet. Exam Narrative: Exam Narrative: Examined patient in her hospital room and in the hallways of hospital brian. Appears comfortable and in no acute distress. Vision and hearing are adequate. Alert and oriented x4. Friendly, articulate, cooperative. Lungs clear to auscultation. Heart tones with regular rhythm. Abdomen with active bowel sounds, soft. Independent transfer, station, gait. No focal motor neurologic deficits. Eating and drinking independently. Skin is warm, dry, intact. I do not examine her surgical incision site, which the surgeon addressed. Const: Vital Signs, click to edit/add: Vital Signs - 24 hr 03/09/25 15:24 03/09/25 15:27 03/09/25 19:10 Temperature 98 F 98.1 F Pulse Rate 84 Pulse Rate [Pulse Oximeter] 79 82 Respiratory Rate 18 18 Blood Pressure [Le ft Arm] Blood Pressure [Ri ght Arm] 156/83 H 150/89 H Pulse Oximetry 98 97 Oxygen Delivery Me thod Room Air 03/09/25 22:56 03/09/25 23:04 03/09/25 23:10 Temperature 96.6 F L Pulse Rate 68 Pulse Rate [Pulse Oximeter] 65 Respiratory Rate 16 16 Blood Pressure [Le ft Arm] 164/94 H Blood Pressure [Ri ght Arm] Pulse Oximetry 98 Oxygen Delivery Hi thod Room Air 03/10/25 02:57 03/10/25 07:00 03/10/25 08:55 Temperature 96.8 F L 97.1 F L Pulse Rate 86 Pulse Rate [Pulse Oximeter] 63 68 Respiratory Rate 16 18 Blood Pressure [Le ft Arm] 145/89 H Blood Pressure [Ri ght Arm] 165/93 H Pulse Oximetry 97 96 Oxygen Delivery Hi thod Room Air Room Air 03/10/25 11:00 Temperature 97.5 F L Pulse Rate Pulse Rate [Pulse Oximeter] 69 Respiratory Rate 18 Blood Pressure [Le ft Arm] Blood Pressure [Ri ght Arm] 156/92 H Pulse Oximetry 94 Oxygen Delivery Hi thod Room Air Labs Labs: Laboratory Results - last 24 hr 03/10/25 05:45 WBC 6.10 RBC 3.81 L Hgb 11.1 L Hct 32.3 L MCV 85 MCH 29 MCHC 34 Plt Count 295 Sodium 137 Potassium 3.3 L Chloride 107 Carbon Dioxide 25 Anion Gap 5 L BUN 7 Creatinine 0.7 Estimated Creat Clear 28.47 Estimated GFR 84 Glucose 89 Calcium 8.8
--- NOTE | 2025-03-10 15:17 | PC.NURSE ---
Pt is alert and oriented. Denies pain. bowel sounds active. [place] removed from abdominal midline incision, open to air. pt is independent.
--- NOTE | 2025-03-10 19:05 | PC.NURSE ---
End of Shift ([id number]): Patient pleasant and cooperative. Afebrile. Denies pain. Tolerating regular diet with no nausea. Bowel sounds active and passing flatus. Up walking in hallway several times this shift.
[2025-03-10] MEDS: ENOXAPARIN 40 MG/0.4 ML INJ SUBCUT (21:11)
[2025-03-11 05:37] VITALS: RESP 18
[2025-03-11] MEDS: OMEPRAZOLE 20 MG CAPSULE DR PO (05:49)
[2025-03-11 06:14] LABS: Hematocrit 31.8 % (33.0-51.0); Hemoglobin* 10.9 gm/dL (12.0-16.0); Mean Corpuscular HGB Conc 34 gm/dL (32-36); Mean Corpuscular Hemoglobin 29 pg (26-34); Mean Corpuscular Volume 85 fL (80-100); Red Blood Count 3.73 m/uL (4.00-5.20); White Blood Count* 6.44 K/uL (4.50-11.00)
[2025-03-11 06:16] LABS: Slide Review Reflex No
[2025-03-11 06:23] LABS: Chloride* 109 mmol/L (96-114); Potassium* 3.7 mmol/L (3.6-5.1); Sodium* 139 mmol/L (135-149)
[2025-03-11 06:26] LABS: Anion Gap 4 mEq/L (7-15); Blood Urea Nitrogen* 19 mg/dL (7-30); Calcium* 8.7 mg/dL (8.4-10.6); Carbon Dioxide* 26 mmol/L (20-32); Creatinine* 0.7 mg/dL (0.5-1.5); Est. Creatinine Clearance* 28.47; Estimated Glomerular Filt Rate 84 ml/min; Glucose* 109 mg/dL (60-115)
--- NOTE | 2025-03-11 06:29 | PC.NURSE ---
End of shift report [id number]: VSS. Pt was on restful night vitals overnight. Denies pain. Afebrile. Bowel sounds are active. Pt reports passing gas. The abdominal incision is C/D/I. Pt had a BM this morning. Pt was also walking the halls this morning.?Pt is independent in room, call light within reach. ?
[2025-03-11 07:00] VITALS: PULSE 71
[2025-03-11 07:55] VITALS: BP 157/86; PULSE 80; RESP 16; TEMP 36.6; O2SAT 98
[2025-03-11] MEDS: MAGNESIUM SULF 1 G/100 ML 1 GM/100 ML PIGGYBACK IVPB (07:57)
[2025-03-11] MEDS: SODIUM CHLORIDE 0.9 % (FLUSH) 10 ML SYRINGE 5 ML IVF (07:57)
--- NOTE | 2025-03-11 10:51 | PC.SOCIAL ---
Addendum entered by JAMES Escalante 03/11/25 16:25: Faxed Discharge summary to [facility] [phone]. Called and confirmed receipt with intake Josy [phone]. Josy requested H&P be sent. Faxed H&P to [facility]. Addendum entered by CYNDEE Greenfield 03/11/25 14:34: Discharge planning: structural steel worker spoke to Josy in intake at [facility]. #[phone] again today who confirmed resumption of home care orders in the discharge summary will be sufficient for them to resume services with the pt. structural steel worker explained that the discharge summary will be faxed over this afternoon after the discharge summary has been completed. Social work to follow-up as needed. Addendum entered by CYNDEE Greenfield 03/11/25 12:50: Discharge planning: structural steel worker explained the Important Message from Medicare form to the pt and she has no concerns with discharging from the hospital or plans to appeal. Social work to follow-up as needed. Original Note: Discharge planning: structural steel worker spoke with the pt this morning and she is very excited to return home. Her daughter will pick her up around 11am. structural steel worker explained that resumption of home care orders will be sent to [facility]. and to expect a follow-up call from them to schedule a home visit appointment time. Pt has no concerns about discharging. Social work to follow-up as needed.
--- NOTE | 2025-03-11 12:45 | PC.NURSE ---
Pt quiet delightful; she is pleasant, cooperative, and conversational about her involved and supportive family. Up independently in room and out in nguyen. Use of bathroom independently, per pt BM this morning. Tolerates regular diet but states appetite is low. Denies nausea. Offered to find other food options but pt states she has had enough for now. IV DC'd, cath tip intact. DC instructions given verbally and in writing to pt and daughter. Questions answered. Follow up plan discussed, PCP & general Surgery follow up appointment made. Family to discuss and research oncology follow up. DC via w/c with daughter to return home @ 1220.
--- NOTE | 2025-03-11 14:52 | P.DS_ITS ---
DS: Providers Provider Date Seen: 03/11/25 Date of admission: 03/06/25 20:35 Primary care physician: Dawit Reynolds MD Admitting Clinician: Bhavna Shaffer MD Consults: 03/06/25 20:34 Consult to Physician [CONS] Urgent Comment: Consulting Provider: Dana De Leon Has provider been notified: No Attending Physician on discharge: Albin Dickerson MD Date of Discharge: 03/11/25 DS: Diagnosis Discharge Diagnosis (1) Small bowel obstruction: Status: Acute Problem details: - CT shows New small-bowel obstruction with transition point in the right lower quadrant - previous SBO left lower quadrant - initially NPO, IVF, pain management as needed, tolerating ambulation about nurse's station - with conditions stabilizing, on 03/08/2025 saline lock IV and clear liquids as tolerated with ongoing symptom management. - tolerating advancing diet - consider NGT if increasing pain with nausea and vomiting - general surgery consult, Dr. Escobar (2) Lymphoma of small intestine: Status: Acute Problem details: - Dx 02/2025, preliminary pathology following SBO surgery. Outpatient evaluation (3) S/P exploratory laparotomy: Status: Acute Problem details: - s/p exploratory laparotomy and small bowel resection with Dr. Escobar of General Surgery on 02/25/25 - preliminary pathology lymphoma (4) Hypokalemia: Status: Acute Problem details: - supplement and monitor (5) Hypomagnesemia: Status: Acute (6) History of ventricular tachycardia: Status: Acute Problem details: - nonsustained ventricular tachycardia April 2024, treated with amiodarone bolus and DC cardioversion - per EP consult: Favor outflow tract tachycardia. Started with verapamil daily - [discontinued October 2024 due to constipation]. Could consider ablation in the future - TTE 04/2024: Apical hypokinesis - CT angiogram April 2024: Nonobstructive CAD. 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 Moderate concentric LVH with myocardial mass at upper limits of normal, no hypertrophic CM or amyloid, tiny discrete basilar anterior lateral ID consistent with tiny embolic infarction - was following with [facility] but in process of switching to [facility] due to insurance coverage - stable during stay on home dose of oral Metoprolol (100mg XL daily) DS: Summary Hospital Course Hospital Course: 03/06/2025, admission history of present illness: ?89 year old female past medical history significant for hypertension, SVT/VT, GERD, history of bladder cancer diagnosed 2 years ago, status post exploratory laparotomy and small-bowel resection on 02/25/2025 (Dr. Efrem Escobar) is admitted to the medical floor from the ED with a small-bowel obstruction POD#9. ?Patient is seen with daughter at bedside and reports increasing abdominal discomfort overnight, difficulty sleeping, now unresolving. Reports difficulty passing urine initially but has since had good urine output. Has had soft stools including a watery diarrhea stool this morning prior to 9:00 a.m.. None since. Is no longer passing gas. Has not necessarily been nauseous, has had no vomiting, but reports no appetite today. Believes she would feel better if she could vomit. Postoperatively, has been taking Tylenol rarely for postoperative discomfort. Appetite had slowly been improving. Was having some throat and tongue pain following surgery but this has slowly improved. Denies headache or dizziness. Denies chest pain or shortness of breath. No recent fevers. ?In the ED, CT abdomen shows new small bowel obstruction with transition point in the right lower quadrant. Previous obstruction requiring resection was in the left lower quadrant. Labs are rather unremarkable. ED provider discussed with General surgery, Dr. De Leon, recommending admission for observation, NPO, IVF. ?Nonsmoker. Denies alcohol use. PCP is Dr. Reynolds.? Patient treated conservatively for this readmission to the hospital including IV fluids, analgesics, antiemetics. Did not require NG tube placement. Gradually her bowel obstruction resolved with flatus and bowel movements and tolerating increase oral intake. Her surgeon opted to keep her in the hospital until today to make certain she would not have a recurrence as she did previously. Status at Discharge Overall status at discharge: patient is progressing back to baseline Time Spent with Patient Time attestation: Total time spent providing and/or coordinating discharge services: Time spent: Greater than 30 minutes Exam Narrative: Exam Narrative: Examined patient in her hospital room and in the hallways of hospital brian. Appears comfortable and in no acute distress. Vision and hearing are adequate. Alert and oriented x4. Friendly, articulate, cooperative. Lungs clear to auscultation. Heart tones with regular rhythm. Abdomen with active bowel sounds, soft. Independent transfer, station, gait. No focal motor neurologic deficits. Eating and drinking independently. Skin is warm, dry, intact. Const: Vital Signs, click to edit/add: Vital Signs - 24 hr 03/10/25 15:00 03/10/25 15:00 03/10/25 15:00 Temperature 98.1 F Pulse Rate 86 Pulse Rate [Pulse Oximeter] 85 85 Respiratory Rate 16 16 Blood Pressure [Ri ght Arm] 120/78 Pulse Oximetry 95 Oxygen Delivery Me thod Room Air 03/10/25 19:00 03/10/25 19:56 03/10/25 22:02 Temperature 98 F Pulse Rate 70 Pulse Rate [Pulse Oximeter] 81 81 Respiratory Rate 16 16 Blood Pressure [Ri ght Arm] 142/83 H Pulse Oximetry 96 Oxygen Delivery Me thod Room Air 03/10/25 23:25 03/11/25 05:37 03/11/25 07:00 Temperature Pulse Rate 71 Pulse Rate [Pulse Oximeter] Respiratory Rate 18 18 Blood Pressure [Ri ght Arm] Pulse Oximetry Oxygen Delivery Me thod 03/11/25 07:55 03/11/25 07:55 Temperature 98 F Pulse Rate Pulse Rate [Pulse Oximeter] 80 80 Respiratory Rate 16 16 Blood Pressure [Ri ght Arm] 157/86 H Pulse Oximetry 98 Oxygen Delivery Me thod Room Air DS: Data Data Completed and Pending Labs on day of discharge: Labs from last 24 hours 03/11/25 05:39 WBC 6.44 RBC 3.73 L Hgb 10.9 L Hct 31.8 L MCV 85 MCH 29 MCHC 34 Plt Count 339 Sodium 139 Potassium 3.7 Chloride 109 Carbon Dioxide 26 Anion Gap 4 L BUN 19 Creatinine 0.7 Estimated Creat Clear 28.47 Estimated GFR 84 Glucose 109 Calcium 8.7 Magnesium 1[address] scan - abdomen: Attestation: I have reviewed the pertinent imaging results. Radiologist's impression: IMPRESSION: 1. New small-bowel obstruction with transition point in the right lower quadrant. 2. Interval bowel resection for previously seen obstruction. Discharge Plan Discharge Disposition: Home, Self-Care Date of Admission: 03/06/25 20:35 Consulting Providers: Dana De Leon Primary Care Provider: Dawit Reynolds Condition: Improved Anticipated Discharge Date/Time: 03/11/25 10:30 Discharge Medications: New magnesium oxide 400 mg (241.3 mg magnesium) Tablet 400 mg PO DAILY 30 Days Qty: 30 2RF Continued multivitamin [Multiple Vitamins] Tablet 1 tab PO DAILY docusate sodium [Colace] 100 mg capsule 100 mg PO HS acetaminophen [Acetaminophen Pain Relief] 500 mg tablet 500 mg PO HS PRN biotin 1 mg capsule 1 mg PO DAILY metoprolol succinate 100 mg tablet extended release 24 hr 100 mg PO DAILY hydrocodone-acetaminophen 5-325 mg tablet 1 tab PO Q6H PRN (Reason: pain) Qty: 20 0RF omeprazole 20 mg Capsule,Delayed Release(Dr/Ec) 20 mg PO DAILY 30 Days Qty: 30 0RF Discharge Orders: Discharge Order (Routine); Ordered 03/11/25 Ordered By: Albin Dickerson Patient Education: Magnesium (By mouth), Low Fiber Diet (DC), Bowel Obstruction (DC) Additional Instructions: 1. Follow-up with primary care physician in 1-2 weeks 2. Follow-up with general surgeon as specified by general surgeon 2 two weeks 3. Keep consultation with oncologist Activity Level: Activity as Tolerated and Other Activity Detail: Adhere to limitations specified by your surgeon Discharge Diet: Heart Healthy (2 gm sodium, low fat) and Low Fiber Diet Detail: low fiber diet for next 1 week, then resume usual diet Follow Up Appointments: Bernadette Escobar MD [Staff Physician, General Surgery] - 03/24/25 2:30 pm Referral Note: [facility] for hospital follow-up. Dawit Reynolds MD [Primary Care Provider, Family Practice] - 03/19/25 9:45 am Referral Note: [facility] for hospital follow-up. Forms: Patient Belongings, [facility] Info Instructions
== END 2025-03-11 12:20 | disposition home health service (06) | DRG 389 ==
LOC: ED 19:34 → MEDSURG 20:14
PROVIDERS: Internal Medicine; Admitting Provider Physician Assistant; Emergency Provider Emergency Medicine Emergency Medical Services; PCP Family Medicine; Visit Provider Family Medicine
DX: K91.30 Postprocedural intestinal obstruction, unspecified as to partial versus complete (principal); C82.99 Follicular lymphoma, unspecified, extranodal and solid organ sites; E87.6 Hypokalemia; E83.42 Hypomagnesemia; I10 Essential (primary) hypertension; K21.9 Gastro-esophageal reflux disease without esophagitis; Z86.79 Personal history of other diseases of the circulatory system; Z85.828 Personal history of other malignant neoplasm of skin; Z85.51 Personal history of malignant neoplasm of bladder
CPT/HCPCS: 36415; 74177; 80048; 81001; 83735; 85025; 85027; 87086; 99285; A9270; J1650; J2270; J2470; J3475; J7030; Q9967

== ENCOUNTER 2025-03-17 15:45 | Inpatient (IN) | payer OTHER, SELFPAY ==
--- OUTSIDE RECORDS SUMMARY | 2021-08-24 11:14 | XMS_ITS | Continuity of Care Document ---
Author Organization [facility] Cli [facility] Address [address] [place] [phone] Phone Care Team Providers Care Wire Border Assembler Name Role Phone Will MD WALTERS, Francisco Unavailable Unavailabl e Advance Directives Directive Yes / No Effective Date File Name No Information Encounters Encounter Description Practice Location Reason(s) For Visit Diagnoses Date Provider Providers Copied on Encounter [facility], [address] [place] [address] [place], [place], [id number], [place] tel:[phone] [facility] No Information Will Francisco. [address] [facility] [place], [place], [id number], [place]. tel:[phone] Family History Family Member Type Diagnosis Age At Onset No Information Payers Payer name Insurance type Covered alliance party ID Authoriza tion(s) No Information Social [...]
--- OUTSIDE RECORDS SUMMARY | 2021-08-24 11:14 | XMS_ITS | Continuity of Care Document ---
Author Organization [facility] Cli [facility] Address [address] [place] [phone] Phone Care Team Providers Care Weigher And Mixer Name Role Phone Will MD WALTERS, Francisco Unavailable Unavailabl e Advance Directives Directive Yes / No Effective Date File Name No Information Encounters Encounter Description Practice Location Reason(s) For Visit Diagnoses Date Provider Providers Copied on Encounter [facility], [address] [place] [address] [place], [place], [id number], [place] tel:[phone] [facility] No Information Will Francisco. [address] [facility] [place], [place], [id number], [place]. tel:[phone] Family History Family Member Type Diagnosis Age [...]
--- OUTSIDE RECORDS SUMMARY | 2025-03-17 15:48 | XMS_ITS | Clinical Summary ---
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 Gender Identity Not on file Sexual Orientation Not on file Obstetrics History Last Filed Vital Signs Vital Sign Reading Time Taken Comments Blood Pressure 132/77 06/16/2024 10:08 AM FIELD AUTO APPRAISER Pulse 79 06/16/2024 9:30 AM FIELD AUTO APPRAISER Temperature 36.6 C (97.9 F) 04/26/2024 8:00 AM CDT Respiratory Rate 16 04/26/2024 8:00 AM CDT Oxygen Saturation 97% 06/16/2024 9:30 AM FIELD AUTO APPRAISER Inhaled Oxygen Concentration - - Weight 61.6 kg (135 lb 14.4 oz) 06/16/2024 9:30 AM FIELD AUTO APPRAISER Height 162.6 cm (5' 4) 04/22/2024 10:2 [...] 1-dose 75+ series) 2012 COVID-19 vaccine series (2024- season) 2025 06/26/2021, 09/06/2020, 08/16/2020 Influenza Vaccine (#1) 2025 Hepatitis B series for 19+ Aged Out N o longer eligible based on patient's age to complete this topic Medical Devices Implanted Type Area Observer Gravity Prospecting Device Identifier Shelf Expiration Date Model / Serial / Lot Stent Uret [id number] Contour - [id number] Implanted:Qty: 1 on 04/10/2022 by Justino Edwards MD at [facility] Right: Ureter [facility] 05/02/2024 [id number] / / [id number] Stent Uret [id number] Contour - [id number] Implanted:Qty: 1 on 04/10/2022 by Justino Edwards MD at [facility] Left: Ureter [facility] 01/25/2025 [id number] / / [id number] Insurance MEDICARE PART A HB ONLY [employer] [...] Preferences, Provider to review later Care Teams Elevator Repair Mechanic Relationship Specialty Start Date End Date Pcp, No . PCP - General 04/23/24
--- OUTSIDE RECORDS SUMMARY | 2025-03-17 15:48 | XMS_ITS | Clinical Summary ---
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 DESIGNER Gender Identity Not on file Sexual Orientation Not on file Last Filed Vital Signs Vital Sign Reading Time Taken Comments Blood Pressure 168/97 06/10/2013 4:08 PM DESIGNER Pulse - - Temperature 35.9 C (96.6 F) 06/10/2013 12:44 PM DESIGNER Respiratory Rate 16 06/10/2013 4:08 PM DESIGNER Oxygen Saturation 99% 06/10/2013 4:08 PM DESIGNER Inhaled Oxygen Concentration - - Weight 66.4 kg (146 lb 6.4 oz) 06/10/2013 12:44 PM DESIGNER Height 154.9 cm (5' 1) 06/10/2013 12:44 PM DESIGNER Body Mass Index 27.66 06/10/2013 12:44 PM DESIGNER Plan of Treatment Not on file Medical Devices Implanted Type Area Cylinder Sander Operator Device Identifier Shelf Expiration Date Model / Serial / Lot Eye Kit Lacrimal Intubation Stent [id number] Implanted:Qty: 1 on 10/24/2012 by Kael Ang MD at [facility] Right: Lacrimal Duct [employer] 07/06/2015 [id number] / / [id number] Eye Kit Lacrimal Intubation Stent [id number] Implanted:Qty: 1 on 06/10/2013 by Kael Ang MD at [facility] 10/06/2015 [id number] / / [id number] Insurance [employer] MEDICARE ADVANTAGE Care Teams Epic Cadence Analyst Relationship Specialty Start Date End Date Mario Reynolds MD PCP - General Family Practice 10/14/12
[2025-03-17 15:52] VITALS: BP 143/80; PULSE 92; RESP 18; TEMP 37.6; O2SAT 96
--- NOTE | 2025-03-17 16:13 | CRLHL7_ITS ---
For Patients: As a result of the Century Cures Act, medical imaging exams and procedure reports are released immediately into your electronic medical record. You may view this report before your referring provider. If you have questions, please contact your health care provider. Indication: ABD PAIN, HX BLADDER CANCER, LUMP MID ABD RT SIDE Technique: CT abdomen/pelvis with IV contrast utilizing 59 mL Isovue 370 Comparison: CT abdomen/pelvis with IV contrast on March 06, 2025 Findings: Lower thorax: Trace bibasilar linear atelectasis/scarring. 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 Stable cyst in the right hepatic lobe. The gallbladder and biliary system are unremarkable. The spleen, pancreas, and adrenal glands are unremarkable. The kidneys are normal in size and perfused in a normal fashion. No suspicious enhancing renal masses or lesions. Stable renal cysts bilaterally. No renal calculi or hydroureteronephrosis. The bladder is unremarkable. Stable uterine fibroids. No suspicious adnexal lesions. There is no evidence of bowel obstruction. Redemonstration of an enteroenteric anastomosis in the right lower abdomen anteriorly with re-demonstration of anastomotic suture material seen just deep to the anastomosis which shows extensive mesenteric fat stranding suggestive of phlegmon with likely developing region of peripheral enhancement, concerning for developing abscess measuring approximately 2.5 centimeters AP x 1.7 centimeters transverse by 2.8 centimeters craniocaudal (series number 2, image 60; series number 4, image 25). There are few surrounding small lymph nodes, which are likely reactive. No free air. Mild calcific atherosclerosis of the aortoiliac system. Soft tissue/musculoskeletal: Diastasis recti small fat containing ventral abdominal wall hernias. Midline abdominal incision without complication. No acute fracture or malalignment. Multilevel degenerative changes throughout the spine. No suspicious osseous lesions. Impression: 1. Redemonstration of an enteroenteric anastomosis in the right lower abdomen anteriorly with re-demonstration of anastomotic suture material seen just deep to the anastomosis which shows extensive mesenteric fat stranding concerning for phlegmon and likely developing abscess formation. 2. No evidence of bowel obstruction. No free air. Please note that all CT scans at this facility use dose modulation, iterative reconstruction, and/or weight-based dosing when appropriate to reduce radiation dose to as low as reasonably achievable. Dictated by Andreas Mcfadden MD @ 03/17/2025 6:01:53 PM (Electronically Signed)
--- NOTE | 2025-03-17 16:13 | CRLHL7_ITS ---
For Patients: As a result of the Century Cures Act, medical imaging exams and procedure reports are released immediately into your electronic medical record. You may view this report before your referring provider. If you have questions, please contact your health care provider. INDICATION: Leg pain and swelling. TECHNIQUE: Ultrasound venous duplex lower left extremity. Compression venous exam was performed using espinosa-scale, color Doppler, and spectral Doppler analysis. COMPARISON: None. FINDINGS: Deep veins: Sonographic imaging demonstrates the left common femoral, deep femoral, superficial femoral, popliteal, posterior tibial and the contralateral right common femoral veins to be fully compressible with normal color Doppler blood flow. Superficial veins: Greater saphenous vein is fully compressible. A popliteal cyst is present measuring 3.1 x 0.8 x 1.4 centimeters. IMPRESSION: Normal left lower extremity venous ultrasound, no sign of deep venous thrombosis. Dictated by My Marshall MD @ 03/17/2025 5:35:34 PM (Electronically Signed)
--- NOTE | 2025-03-17 16:16 | ED.GENADULT ---
HPI - General Adult General Chief complaint: Abdominal Pain Stated complaint: swollen Left leg, lump on R side of stomach Time Seen by Provider: 03/17/25 16:04 Source: patient Mode of arrival: ambulatory Limitations: no limitations History of Present Illness HPI narrative: Patient is a jayesh 89-year-old female coming in today with 2 concerns. Her 1st concern is that her left lower extremity is swollen and painful. She states that she knows the swollen foot about 2 days ago and now she has swelling all the way up to the knee with knee pain. She had a hard time walking today secondary to discomfort. She denies any shortness of breath or chest pain. She has not been coughing. She denies any fevers or chills. Her 2nd concern today is that she had a lump in her lower right abdomen that she noticed this morning. The area is tender. 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 She was then readmitted on March 06 for a recurrent small-bowel obstruction, this was conservatively treated. She states she has had continued abdominal discomfort since then. However the discomfort today was in a new location and right over a new bump on the right lower abdomen. She denies nausea or vomiting. She has been having fairly consistent bowel movements. Related Data Home Medications ?Medication ?Instructions ?Recorded ?Confirmed multivitamin (Multiple Vitamins 1 tab PO DAILY 03/05/22 03/06/25 tablet) docusate sodium 100 mg capsule 100 mg PO HS 02/24/25 03/06/25 (Colace) acetaminophen 500 mg tablet 500 mg PO HS PRN 02/25/25 03/06/25 (Acetaminophen Pain Relief) biotin 1 mg capsule 1 mg PO DAILY 02/25/25 03/06/25 metoprolol succinate 100 mg 100 mg PO DAILY 02/25/25 03/06/25 tablet,extended release 24 hr Previous Rx's ?Medication ?Instructions ?Recorded hydrocodone 5 mg-acetaminophen 325 1 tab PO Q6H PRN pain #20 tabs 03/01/25 mg tablet omeprazole 20 mg capsule,delayed 20 mg PO DAILY 30 days #30 caps 03/02/25 release magnesium oxide 400 mg (241.3 mg 400 mg PO DAILY 30 days #30 tabs 09/04/25 magnesium) tablet Allergies Allergy/AdvReac Type Severity Reaction Status Date / Time No Known Allergies Allergy Unknown Verified 03/17/25 17:08 Review of Systems Status of ROS: Reports: 10 or more systems reviewed and unremarkable except as noted in History and below PFSH PFSH Medical History History of ventricular tachycardia ?Z86.79 - Personal history of other diseases of the circulatory system (ICD-10) Hypertension ?I10 - Essential (primary) hypertension (ICD-10) SVT (supraventricular tachycardia) ?I47.10 - Supraventricular tachycardia, unspecified (ICD-10) Bladder cancer ?C67.9 - Malignant neoplasm of bladder, unspecified (ICD-10) Gastroesophageal reflux disease ?K21.9 - Gastro-esophageal reflux disease without esophagitis (ICD-10) Basal cell carcinoma of skin ?C44.91 - Basal cell carcinoma of skin, unspecified (ICD-10) DJD (degenerative joint disease) of cervical spine ?M47.812 - Spondylosis without myelopathy or radiculopathy, cervical region (ICD-10) Pulmonary nodule ?R91.1 - Solitary pulmonary nodule (ICD-10) DJD (degenerative joint disease) of knee ?M17.9 - Osteoarthritis of knee, unspecified (ICD-10) Dysphonia ?R49.0 - Dysphonia (ICD-10) Health care directive on file ?Z78.9 - Other specified health status (ICD-10) Surgical History Status post cystoscopy ?Z98.890 - Other specified postprocedural states (ICD-10) Status post blepharoplasty ?Z98.890 - Other specified postprocedural states (ICD-10) Status post tonsillectomy ?Z90.89 - Acquired absence of other organs (ICD-10) Status post bunionectomy (10/12/09) ?Z98.890 - Other specified postprocedural states (ICD-10) Social History What is your current living situation?: I presently have a place to live Problems where you live: no known problems In the past 12 months, utilities in danger of being shut off: no In past 12 months, lack of transportation kept you from medical appts, meetings, work, or getting things needed for daily living: no In the past 12 mos, have been you worried that your food would run out before you had money to buy more?: never true In the past 12 mos, the food you bought just didn't last and you didn't have money to buy more?: never true Highest level of school completed/degree received: high school graduate Smoking Status: Never smoker Do you use any of these nicotine containing products: None How often do you have a drink containing alcohol: never How often do you have six or more drinks on one occasion: Never AUDIT-C Alcohol total score: 0 Non-prescribed substance use: denies use Caffeine: No How often does anyone, including family, friends and others, physically hurt you: never How often does anyone, including family, friends and others, insult or talk down to you: never How often does anyone, including family, friends and others, threaten you with harm: never How often does anyone, including family, friends and others, scream or curse at you: never service: No Exam Narrative: Exam Narrative: Well-nourished well-developed elderly patient in no acute distress. Alert and oriented x3. Answers questions appropriately. Mood and affect are appropriate. Thoughts are goal oriented and rational. No tangential or magical thinking noted. Patient speaks in full sentences without needing to catch her breath. HEENT: Normocephalic atraumatic. Extraocular muscles are intact. Conjunctivae are moist without any icterus noted. Moist mucous membranes. Cardiovascular: Heart is regular rate and rhythm S1 and S2 are present without any murmurs. Lungs: Clear to auscultation bilaterally no wheezes rhonchi or rales are appreciated. Patient takes deep breaths without any discomfort. Abdomen: Soft and nondistended with normal bowel sounds. No guarding or rebound. Incision healing appropriately. No obvious mass palpated while the patient is lying down. I did not have her stand up secondary to her knee pain. She did have some right lower quadrant tenderness. Extremities: Right lower extremity appears normal. The left lower extremity has swelling without pitting edema from just below the knee all the way down to the foot. She has normal DP and PT pulses. She has tenderness at the calf. She has tenderness at the knee as well, however there is no swelling or joint effusion present at the knee. No skin discoloration. Skin: Well perfused without any obvious rashes. Const: Vital Signs, click to edit/add: Vital Signs - 24 hr 03/17/25 15:52 Temperature 99.7 F H Pulse Rate [Pulse Oximeter] 92 Respiratory Rate 18 Blood Pressure [Ri ght Upper Arm] 143/80 H Pulse Oximetry 96 Oxygen Delivery Me thod Room Air Course Course ED Course: Concerned about a hernia the abdominal wall- will proceed with an abdominal CT. This will also evaluate for recurrent obstruction although, does not sound like this is the issue today. We will draw blood work to rule out other causes of abdominal discomfort. Concerned about DVT given her recent surgeries-will proceed with a venous ultrasound of the lower extremity. Fortunately, the lower extremity ultrasound did not show any evidence of DVT. There is a popliteal cyst present the certainly explain both her discomfort and swelling. CBC does not show elevated white cell count. She does have anemia which is not new for her. Chemistries are unremarkable. Normal lactate. CRP elevated at 17.7. D-dimer elevated at 3.98. Abdominal CT concerning for a developing abscess around the anastomotic site. Discussed patient with Dr. [place] reviewed patient's imaging and recommends IV antibiotics and admission at this time. Zosyn was ordered. Discussed with Dr. Bustamante who accepts the patient for admission. Vital Signs Vital signs: Initial Vital Signs Temperature 99.7 F H 03/17/25 15:52 Temperature Source Temporal Artery Scan 03/17/25 15:52 Pulse Rate 92 03/17/25 15:52 Respiratory Rate 18 03/17/25 15:52 Blood Pressure 143/80 H 03/17/25 15:52 Blood Pressure Mean 101 03/17/25 15:52 Pulse Oximetry 96 03/17/25 15:52 Oxygen Delivery Method Room Air 03/17/25 15:52 Vital Signs Temperature 99.7 F H 03/17/25 15:52 Pulse Rate 92 03/17/25 15:52 Respiratory Rate 18 03/17/25 15:52 Blood Pressure 143/80 H 03/17/25 15:52 Pulse Oximetry 96 03/17/25 15:52 Oxygen Delivery Method Room Air 03/17/25 15:52 Temperature 99.7 F H 03/17/25 15:52 Pulse Rate 92 03/17/25 15:52 Respiratory Rate 18 03/17/25 15:52 Blood Pressure 143/80 H 03/17/25 15:52 Pulse Oximetry 96 03/17/25 15:52 Oxygen Delivery Method Room Air 03/17/25 15:52 Medications Administered Medications: Generic Name Dose Route Start Last Admin Trade Name Samuel PRN Reason Stop Dose Admin Acetaminophen 500 mg 03/17/25 19:13 03/17/25 19:19 Acetaminophen 500 Mg Tablet PO 03/17/25 19:14 500 mg ONCE ONE Administration Discontinued Medications Generic Name Dose Route Start Last Admin Trade Name Samuel PRN Reason Stop Dose Admin Piperacillin Sod/Tazobactam 100 mls @ 200 mls/hr 03/17/25 18:42 03/17/25 18:56 Sod 3.375 gm/ Sodium Chloride IVPB 03/17/25 18:43 200 mls/hr ONCE ONE Administration Medical Decision Making MDM Narrative Medical decision making narrative: 89-year-old female with a probable intra-abdominal abscess. Patient will be admitted for treatment. Lab Data Lab results reviewed: Yes I reviewed the patient's lab results Labs: Lab Results 03/17/25 Range/Units 17:25 WBC 9.02 (4.50-11.00) K/uL RBC 3.73 L (4.00-5.20) m/uL Hgb 10.8 L (12.0-16.0) gm/dL Hct 32.5 L (33.0-51.0) % MCV 87 (80-100) fL MCH 29 (26-34) pg MCHC 33 (32-36) gm/dL RDW Coeff of Pati 13.0 (11.5-15.5) % Plt Count 278 (140-440) K/uL Neut % (Auto) 74.9 H (42.0-72.0) % Lymph % (Auto) 12.5 L (20-44) % [place] % (Auto) 12.2 H (0.0-11.0) % Eos % (Auto) 0.1 (0.0-7.0) % Baso % (Auto) 0.2 (0.0-3.0) % Neut # (Auto) 6.80 (1.7-7.0) K/uL Lymph # (Auto) 1.10 (0.90-2.90) K/uL [place] # (Auto) 1.10 H (0.00-0.90) K/UL Eos # (Auto) 0.01 (0.00-0.50) K/uL Baso # (Auto) 0.02 (0.00-0.30) K/uL Abs Immat Gran (auto) 0.01 (0.00-0.30) K/uL Imm/Tot Granulo (auto) 0.1 % D-Dimer Quant (PE/DVT) 3.98 H (0.00-0.50) ug/ml Sodium 134 L (135-149) mmol/L Potassium 4.2 (3.6-5.1) mmol/L Chloride 99 (96-114) mmol/L Carbon Dioxide 28 (20-32) mmol/L Anion Gap 7 (7-15) mEq/L BUN 13 (7-30) mg/dL Creatinine 0.8 (0.5-1.5) mg/dL Estimated GFR 71 ml/min Glucose 103 (60-115) mg/dL Lactate 0.8 (0.5-1.9) mmol/L Calcium 8.7 (8.4-10.6) mg/dL Total Bilirubin 0.5 (0.1-1.5) mg/dL Direct Bilirubin 0.2 (0.0-0.5) mg/dL AST 23 (12-35) U/L ALT 12 (4-35) U/L Alkaline Phosphatase 69 (40-150) U/L C-Reactive Protein 17.7 H (0.5-1.0) mg/dL NT-Pro-B Natriuret Pep 1430 H (See Note) pg/mL Total Protein 6.9 (6.0-8.3) g/dL Albumin 3.6 (3.3-5.0) g/dL Lipase 79 (23-300) U/L Imaging Data Venous US: Attestation: I have reviewed the pertinent imaging results. Radiologist's impression: TECHNIQUE: Ultrasound venous duplex lower left extremity. Compression venous exam was performed using espinosa-scale, color Doppler, and spectral Doppler analysis. COMPARISON: None. FINDINGS: Deep veins: Sonographic imaging demonstrates the left common femoral, deep femoral, superficial femoral, popliteal, posterior tibial and the contralateral right common femoral veins to be fully compressible with normal color Doppler blood flow. Superficial veins: Greater saphenous vein is fully compressible. A popliteal cyst is present measuring 3.1 x 0.8 x 1.4 centimeters. IMPRESSION: Normal left lower extremity venous ultrasound, no sign of deep venous thrombosis. CT scan - abdomen: Attestation: I have reviewed the pertinent imaging results. Radiologist's impression: Technique: CT abdomen/pelvis with IV contrast utilizing 59 mL Isovue 370 Comparison: CT abdomen/pelvis with IV contrast on March 06, 2025 Findings: Lower thorax: Trace bibasilar linear atelectasis/scarring. 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 Stable cyst in the right hepatic lobe. The gallbladder and biliary system are unremarkable. The spleen, pancreas, and adrenal glands are unremarkable. The kidneys are normal in size and perfused in a normal fashion. No suspicious enhancing renal masses or lesions. Stable renal cysts bilaterally. No renal calculi or hydroureteronephrosis. The bladder is unremarkable. Stable uterine fibroids. No suspicious adnexal lesions. There is no evidence of bowel obstruction. Redemonstration of an enteroenteric anastomosis in the right lower abdomen anteriorly with re-demonstration of anastomotic suture material seen just deep to the anastomosis which shows extensive mesenteric fat stranding suggestive of phlegmon with likely developing region of peripheral enhancement, concerning for developing abscess measuring approximately 2.5 centimeters AP x 1.7 centimeters transverse by 2.8 centimeters craniocaudal (series number 2, image 60; series number 4, image 25). There are few surrounding small lymph nodes, which are likely reactive. No free air. Mild calcific atherosclerosis of the aortoiliac system. Soft tissue/musculoskeletal: Diastasis recti small fat containing ventral abdominal wall hernias. Midline abdominal incision without complication. No acute fracture or malalignment. Multilevel degenerative changes throughout the spine. No suspicious osseous lesions. Impression: 1. Redemonstration of an enteroenteric anastomosis in the right lower abdomen anteriorly with re-demonstration of anastomotic suture material seen just deep to the anastomosis which shows extensive mesenteric fat stranding concerning for phlegmon and likely developing abscess formation. 2. No evidence of bowel obstruction. No free air. Discharge Plan Discharge Clinical Impression: Intra-abdominal abscess, Popliteal cyst Patient Disposition: Admitted As Inpatient Condition: Stable
[2025-03-17 17:31] LABS: Lactate* 0.8 mmol/L (0.5-1.9)
[2025-03-17 17:34] LABS: Hematocrit* 32.5 % (33.0-51.0); Hemoglobin* 10.8 gm/dL (12.0-16.0); Immature Granulocytes Abs Auto 0.01 K/uL (0.00-0.30); Immature Granulocytes Pct Auto 0.1 %; Mean Corpuscular HGB Conc 33 gm/dL (32-36); Mean Corpuscular Hemoglobin 29 pg (26-34); Mean Corpuscular Volume 87 fL (80-100); RDW Coefficient of Variation % 13.0 % (11.5-15.5); Red Blood Count* 3.73 m/uL (4.00-5.20); White Blood Count* 9.02 K/uL (4.50-11.00)
[2025-03-17 17:59] LABS: Lymphocytes Absolute Auto 1.10 K/uL (0.90-2.90); Slide Review Reflex No
[2025-03-17 18:04] LABS: Albumin* 3.6 g/dL (3.3-5.0); Chloride* 99 mmol/L (96-114)
[2025-03-17 18:05] LABS: Potassium* 4.2 mmol/L (3.6-5.1); Sodium* 134 mmol/L (135-149)
[2025-03-17 18:07] LABS: Blood Urea Nitrogen* 13 mg/dL (7-30); Creatinine* 0.8 mg/dL (0.5-1.5); Estimated Glomerular Filt Rate 71 ml/min
[2025-03-17 18:08] LABS: Alanine Aminotransferase* 12 U/L (4-35); Alkaline Phosphatase* 69 U/L (40-150); Anion Gap 7 mEq/L (7-15); Aspartate Amino Transferase* 23 U/L (12-35); Bilirubin Direct* 0.2 mg/dL (0.0-0.5); Bilirubin Total* 0.5 mg/dL (0.1-1.5); Calcium* 8.7 mg/dL (8.4-10.6); Carbon Dioxide* 28 mmol/L (20-32); Glucose* 103 mg/dL (60-115); Total Protein* 6.9 g/dL (6.0-8.3)
[2025-03-17 18:28] LABS: NT Pro B Type NatriureticPept* 1430 pg/mL (See Note)
[2025-03-17] MEDS: PIPERACILLIN/TAZOBACTAM 3.375 GM in 0.9 % SODIUM CHLORIDE Mini-bag 100 ML IVPB (18:56)
[2025-03-17 18:57] LABS: D Dimer Quantitative* 3.98 ug/ml (0.00-0.50)
[2025-03-17] MEDS: ACETAMINOPHEN 500 MG TABLET PO (19:19)
--- NOTE | 2025-03-17 19:45 | PM.IMHP1 ---
Assessment and Plan Assessment and plan (1) Intra-abdominal abscess: Problem comment: - phlegmon/likely developing abscess on CT 03/17/25 - admit on clear liquid diet, IV Zosyn - Dr. Colorado of General Surgery will see in the morning Status: Acute (2) Popliteal cyst: Problem comment: - LLE, painful - Tylenol, prn Oxycodone - PT evaluations; consider corticosteroid injection pending clinical course Status: Acute (3) S/P exploratory laparotomy: Problem comment: - s/p exploratory laparotomy and small bowel resection with Dr. 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 Outpatient f/u Status: Acute (5) Hypertension: Problem comment: - Metoprolol 100mg XR daily, will continue Status: Chronic (6) Bladder cancer: Problem comment: - Dx 04/2022, resected by cystoscopy - completed BCG - no evidence of recurrent disease on surveillance with [facility] Status: Acute (7) History of ventricular tachycardia: Problem comment: - nonsustained ventricular tachycardia April 2024, treated with amiodarone bolus and DC cardioversion - per EP consult: Favor outflow tract tachycardia. Started on verapamil daily - [discontinued October 2024 due to constipation] - TTE 04/2024: Apical hypokinesis - CT angiogram April 2024: Nonobstructive CAD. 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 Moderate concentric LVH with myocardial mass at upper limits of normal, no hypertrophic CM or amyloid, tiny discrete basilar anterior lateral MT consistent with tiny embolic infarction - was following with [facility] but in process of switching to [facility] due to insurance coverage - has remained stable on Metoprolol 100mg daily Status: Acute (8) Gastroesophageal reflux disease: Problem comment: - on daily Omeprazole, will continue Status: Chronic (9) Normocytic anemia: Problem comment: - present since 02/2025, presumably 2/2 blood loss from surgery - 03/17: Hgb stable at 10.8 Status: Acute Plan - per above - daughter Ora updated bedside, questions answered - requires inpatient stay for IV antibiotics, General Surgery evaluation Hospitalist- H&P: HPI History of Present Illness Date Seen: 03/17/25 Chief complaint: swollen Left leg, lump on R side of stomache Narrative: Johana Barton is a 89 year old female who presented to the ER today for left lower extremity in addition persistent abdominal soreness and a bulge on the right side of her abdomen. LLE pain has been present for a 2-3 days, worsened today. Has been ambulating with a walker, but less so over past 1-2 days 2/2 pain. No trauma, no history of DVT. Hospitalized from 02/24/25-03/02/25 for a bowel obstruction requiring exploratory laparotomy and small-bowel resection. Pathology consistent with lymphoma. Had gone home with family, tolerating regular diet upon d/c. Rehospitalized from 03/06/25-03/11/25 for recurrent small-bowel obstruction, did not require surgical intervention at that time. Bulge in R abdomen noted this morning, mild ttp. No nausea or vomiting, but doesn't have much of an appetite since surgery. + weight loss of 2-3kg since first admission. She is having a bowel movement every 2-3 days (prior to SBO, was more regular with daily BMs), using Colace daily. No fevers, chills, cough, or chest pain. ER: - popliteal cyst on LLE ultrasound, no DVT - WBC 9 with 74% PMNs, reassuring electrolytes. Temperature 99.7, rest of VS reassuring - CT of abdomen pelvis revealed enteroenteric anastomosis + area in the right lower abdomen concerning for phlegmon and possible developing abscess, no obstruction or free air - given Zosyn; surgeon consulted by phone and recommends admission for IV antibiotics. General surgery team will see patient tomorrow Admitted for IV abx, monitoring, PT evaluation of LLE popliteal cyst/leg pain. Review of Systems Status of ROS: Reports: 10 or more systems reviewed and unremarkable except as noted in History and below Medical Decision Making Medical Decision Making Code Status: DNR/DNI Has patient completed a Health Care Directive: Yes (DNR) During This Stay, Who Would You Like To Make Decisions For You In The Event You Are Unable To Make Them For Yourself?: Daughter Ora would be first contact [facility] Medical History Normocytic anemia ?D64.9 - Anemia, unspecified (ICD-10) History of ventricular tachycardia ?Z86.79 - Personal history of other diseases of the circulatory system (ICD-10) Hypertension ?I10 - Essential (primary) hypertension (ICD-10) SVT (supraventricular tachycardia) ?I47.10 - Supraventricular tachycardia, unspecified (ICD-10) Bladder cancer ?C67.9 - Malignant neoplasm of bladder, unspecified (ICD-10) Gastroesophageal reflux disease ?K21.9 - Gastro-esophageal reflux disease without esophagitis (ICD-10) Basal cell carcinoma of skin ?C44.91 - Basal cell carcinoma of skin, unspecified (ICD-10) DJD (degenerative joint disease) of cervical spine ?M47.812 - Spondylosis without myelopathy or radiculopathy, cervical region (ICD-10) Pulmonary nodule ?R91.1 - Solitary pulmonary nodule (ICD-10) DJD (degenerative joint disease) of knee ?M17.9 - Osteoarthritis of knee, unspecified (ICD-10) Dysphonia ?R49.0 - Dysphonia (ICD-10) Health care directive on file ?Z78.9 - Other specified health status (ICD-10) Surgical History (Updated 03/17/25 @ 21:02 by Anisa Bustamante MD) Status post cystoscopy ?Z98.890 - Other specified postprocedural states (ICD-10) Status post blepharoplasty ?Z98.890 - Other specified postprocedural states (ICD-10) Status post tonsillectomy ?Z90.89 - Acquired absence of other organs (ICD-10) Status post bunionectomy (10/12/09) ?Z98.890 - Other specified postprocedural states (ICD-10) Social History (Updated 03/17/25 @ 22:26 by Anisa Bustamante MD) Narrative: Lives independently in [place], [place] with robust family support. Nonsmoker, no ETOH. Daughter Ora is MDM. DNR/DNI What is your current living situation?: I presently have a place to live Problems where you live: no known problems In the past 12 months, utilities in danger of being shut off: no In past 12 months, lack of transportation kept you from medical appts, meetings, work, or getting things needed for daily living: no In the past 12 mos, have been you worried that your food would run out before you had money to buy more?: never true In the past 12 mos, the food you bought just didn't last and you didn't have money to buy more?: never true Highest level of school completed/degree received: high school graduate Smoking Status: Never smoker Do you use any of these nicotine containing products: None How often do you have a drink containing alcohol: never How often do you have six or more drinks on one occasion: Never AUDIT-C Alcohol total score: 0 Non-prescribed substance use: denies use Caffeine: No How often does anyone, including family, friends and others, physically hurt you: never How often does anyone, including family, friends and others, insult or talk down to you: never How often does anyone, including family, friends and others, threaten you with harm: never How often does anyone, including family, friends and others, scream or curse at you: never service: No Meds Home Medications and Allergies Home Medications ?Medication ?Instructions ?Recorded ?Confirmed ?Type multivitamin (Multiple Vitamins 1 tab PO DAILY 03/05/22 03/17/25 History tablet) docusate sodium 100 mg capsule 100 mg PO HS 02/24/25 03/17/25 History (Colace) acetaminophen 500 mg tablet 500 mg PO HS PRN 02/25/25 03/17/25 History (Acetaminophen Pain Relief) biotin 1 mg capsule 1 mg PO DAILY 02/25/25 03/17/25 History metoprolol succinate 100 mg 100 mg PO DAILY 02/25/25 03/17/25 History tablet,extended release 24 hr hydrocodone 5 mg-acetaminophen 325 1 tab PO Q6H PRN pain #20 tabs 03/01/25 03/17/25 Rx mg tablet omeprazole 20 mg capsule,delayed 20 mg PO DAILY 30 days #30 caps 03/02/25 03/17/25 Rx release magnesium oxide 400 mg (241.3 mg 400 mg PO DAILY 30 days #30 tabs 03/11/25 03/17/25 Rx magnesium) tablet Allergies Allergy/AdvReac Type Severity Reaction Status Date / Time No Known Allergies Allergy Unknown Verified 03/17/25 17:08 Exam Narrative: Exam Narrative: GEN: Alert and oriented, laying comfortably in bed HEENT: EOMIs bilaterally, no scleral icterus CV: RRR, No concerning murmurs R: LCTA bilaterally Ab: Soft, tolerates palpation, no distention, no obvious masses with light palpation. + BS x4 Ext: Nonpitting edema LLE, small effusion L knee with ttp. No crepitus, no erythema or warmth Skin: No concerning skin lesions or rashes on exposed skin Neuro: No focal deficits Psych: Appropriate Const: Vital Signs, click to edit/add: Vital Signs - 24 hr 03/17/25 15:52 Temperature 99.7 F H Pulse Rate [Pulse Oximeter] 92 Respiratory Rate 18 Blood Pressure [Ri ght Upper Arm] 143/80 H Pulse Oximetry 96 Oxygen Delivery Me thod Room Air Hospitalist - H&P: Result Labs Labs: Short CBC 03/17/25 Range/Units 17:25 WBC 9.02 (4.50-11.00) K/uL Hgb 10.8 L (12.0-16.0) gm/dL Hct 32.5 L (33.0-51.0) % Plt Count 278 (140-440) K/uL BMP 03/17/25 17:25 Sodium 134 L Potassium 4.2 Chloride 99 Carbon Dioxide 28 BUN 13 Creatinine 0.8 Glucose 103 Calcium 8.7 Liver Function 03/17/25 Range/Units 17:25 Total Bilirubin 0.5 (0.1-1.5) mg/dL Direct Bilirubin 0.2 (0.0-0.5) mg/dL AST 23 (12-35) U/L ALT 12 (4-35) U/L Alkaline Phosphatase 69 (40-150) U/L Albumin 3.6 (3.3-5.0) g/dL
[2025-03-17 19:47] VITALS: BP 176/83; PULSE 92; RESP 16; RESP 18; TEMP 36.8; O2SAT 98
[2025-03-17] MEDS: ACETAMINOPHEN 325 MG TABLET 650 MG PO (22:35)
[2025-03-17 22:49] VITALS: BP 157/81; PULSE 90; RESP 16; TEMP 36.8; O2SAT 98
[2025-03-17 23:00] VITALS: PULSE 81; PULSE 90; RESP 16
[2025-03-18] VITALS (8 sets, daily range): BP systolic 118–137; BP diastolic 65–83; PULSE 77–90; RESP 14–18; TEMP 36.6–37; O2SAT 93–97; BMI 23.7
[2025-03-18] MEDS: PIPERACILLIN/TAZOBACTAM 3.375 GM in 0.9 % SODIUM CHLORIDE Mini-bag 100 ML IVPB ×4 (01:16→19:30)
[2025-03-18 06:27] LABS: Hematocrit* 29.1 % (33.0-51.0); Hemoglobin* 9.9 gm/dL (12.0-16.0); Immature Granulocytes Abs Auto 0.02 K/uL (0.00-0.30); Immature Granulocytes Pct Auto 0.2 %; Mean Corpuscular HGB Conc 34 gm/dL (32-36); Mean Corpuscular Hemoglobin 29 pg (26-34); Mean Corpuscular Volume 86 fL (80-100); RDW Coefficient of Variation % 13.0 % (11.5-15.5); Red Blood Count* 3.38 m/uL (4.00-5.20); White Blood Count* 8.47 K/uL (4.50-11.00)
[2025-03-18 06:30] LABS: Lymphocytes Absolute Auto 0.80 K/uL (0.90-2.90); Slide Review Reflex No
[2025-03-18 06:41] LABS: Chloride* 101 mmol/L (96-114); Potassium* 4.0 mmol/L (3.6-5.1); Sodium* 135 mmol/L (135-149)
[2025-03-18 06:44] LABS: Anion Gap 7 mEq/L (7-15); Blood Urea Nitrogen* 10 mg/dL (7-30); Calcium* 8.4 mg/dL (8.4-10.6); Carbon Dioxide* 27 mmol/L (20-32); Creatinine* 0.8 mg/dL (0.5-1.5); Est. Creatinine Clearance* 28.47; Estimated Glomerular Filt Rate 71 ml/min; Glucose* 102 mg/dL (60-115)
--- NOTE | 2025-03-18 07:04 | PC.NURSE ---
End of shift: Pt pleasant, alert and oriented.? VSS. Pt states pain in left knee, managed with prn tylenol. Abd pain minimal throughout shift. 1a with walker and GB. Pt had 1 moderate BM. Pt in bed, appears to be resting, call light within reach.?
[2025-03-18] MEDS: ACETAMINOPHEN 325 MG TABLET 650 MG PO (08:12)
[2025-03-18] MEDS: MAGNESIUM OXIDE 400 MG TABLET PO (08:13)
[2025-03-18] MEDS: METOPROLOL SUCCINATE (XL) 100 MG TAB PO (08:13)
[2025-03-18] MEDS: OMEPRAZOLE 20 MG CAPSULE DR PO (08:13)
[2025-03-18] MEDS: SODIUM CHLORIDE 0.9 % (FLUSH) 10 ML SYRINGE 5 ML IVF ×2 (08:14→20:27)
--- NOTE | 2025-03-18 11:55 | PM.GSCN ---
History of Present Illness Consult details Date Seen: 03/18/25 Consult date: 03/18/25 Narrative: Patient presented to the emergency department last night with abdominal pain, generalized fatigue and a possible lump on her right side. Since she left the hospital 03/11/2025 she ?has not felt like herself?. She has been tolerating a small amount of regular p.o. intake, but overall reports a decrease in appetite. Food does not taste good to her. No nausea or vomiting. She has been having regular bowel movements, last 1 was this morning and she continues to pass gas. No fevers at home. What brought her into the emergency department was when she was laying at home she noticed a little lump in her right lower abdomen/groin. This was the 1st time that she noticed anything like that and was worried about what it could be. No pain or tenderness to the area. Since being in the hospital she has not noticed the lump and does not feel at this morning. Patient has also had swelling of her lower extremities left greater than right. A few days ago she started to have pain in her left knee which then swelled. She also noticed fluid buildup in her ankles bilaterally. This knee has chronically bothered her, but never become this painful. She has been unable to bear weight on it. No overlying redness. Patient has had 2 recent hospitalizations. She 1st underwent an exploratory laparotomy for small bowel obstruction 02/25/2025. 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 She was in the hospital until 03/02/2025. She was then readmitted on 03/07/2025 for early small-bowel obstruction. This was managed conservatively with patient discharging home on 03/11/2025. Review of Systems Status of ROS: Reports: 10 or more systems reviewed and unremarkable except as noted in History and below [facility] Medical History Normocytic anemia ?D64.9 - Anemia, unspecified (ICD-10) History of ventricular tachycardia ?Z86.79 - Personal history of other diseases of the circulatory system (ICD-10) Hypertension ?I10 - Essential (primary) hypertension (ICD-10) SVT (supraventricular tachycardia) ?I47.10 - Supraventricular tachycardia, unspecified (ICD-10) Bladder cancer ?C67.9 - Malignant neoplasm of bladder, unspecified (ICD-10) Gastroesophageal reflux disease ?K21.9 - Gastro-esophageal reflux disease without esophagitis (ICD-10) Basal cell carcinoma of skin ?C44.91 - Basal cell carcinoma of skin, unspecified (ICD-10) DJD (degenerative joint disease) of cervical spine ?M47.812 - Spondylosis without myelopathy or radiculopathy, cervical region (ICD-10) Pulmonary nodule ?R91.1 - Solitary pulmonary nodule (ICD-10) DJD (degenerative joint disease) of knee ?M17.9 - Osteoarthritis of knee, unspecified (ICD-10) Dysphonia ?R49.0 - Dysphonia (ICD-10) Health care directive on file ?Z78.9 - Other specified health status (ICD-10) Surgical History (Updated 03/17/25 @ 21:02 by Anisa Bustamante MD) Status post cystoscopy ?Z98.890 - Other specified postprocedural states (ICD-10) Status post blepharoplasty ?Z98.890 - Other specified postprocedural states (ICD-10) Status post tonsillectomy ?Z90.89 - Acquired absence of other organs (ICD-10) Status post bunionectomy (10/12/09) ?Z98.890 - Other specified postprocedural states (ICD-10) Social History (Updated 03/17/25 @ 22:26 by Anisa Bustamante MD) Narrative: Lives independently in [place], [place] with robust family support. Nonsmoker, no ETOH. Daughter Ora is MDM. DNR/DNI What is your current living situation?: I presently have a place to live Problems where you live: no known problems In the past 12 months, utilities in danger of being shut off: no In past 12 months, lack of transportation kept you from medical appts, meetings, work, or getting things needed for daily living: no In the past 12 mos, have been you worried that your food would run out before you had money to buy more?: never true In the past 12 mos, the food you bought just didn't last and you didn't have money to buy more?: never true Highest level of school completed/degree received: high school graduate Smoking Status: Never smoker Do you use any of these nicotine containing products: None How often do you have a drink containing alcohol: never How often do you have six or more drinks on one occasion: Never AUDIT-C Alcohol total score: 0 Non-prescribed substance use: denies use Caffeine: No How often does anyone, including family, friends and others, physically hurt you: never How often does anyone, including family, friends and others, insult or talk down to you: never How often does anyone, including family, friends and others, threaten you with harm: never How often does anyone, including family, friends and others, scream or curse at you: never service: No Meds Home Medications and Allergies Home Medications ?Medication ?Instructions ?Recorded ?Confirmed ?Type multivitamin (Multiple Vitamins 1 tab PO DAILY 03/05/22 03/17/25 History tablet) docusate sodium 100 mg capsule 100 mg PO HS 02/24/25 03/17/25 History (Colace) acetaminophen 500 mg tablet 500 mg PO HS PRN 02/25/25 03/17/25 History (Acetaminophen Pain Relief) biotin 1 mg capsule 1 mg PO DAILY 02/25/25 03/17/25 History metoprolol succinate 100 mg 100 mg PO DAILY 02/25/25 03/17/25 History tablet,extended release 24 hr hydrocodone 5 mg-acetaminophen 325 1 tab PO Q6H PRN pain #20 tabs 03/01/25 03/17/25 Rx mg tablet omeprazole 20 mg capsule,delayed 20 mg PO DAILY 30 days #30 caps 03/02/25 03/17/25 Rx release magnesium oxide 400 mg (241.3 mg 400 mg PO DAILY 30 days #30 tabs 03/11/25 03/17/25 Rx magnesium) tablet Allergies Allergy/AdvReac Type Severity Reaction Status Date / Time No Known Allergies Allergy Unknown Verified 03/17/25 17:08 Exam Narrative: Exam Narrative: General: Alert and oriented, no acute distress. Patient is sitting comfortably in a chair Respiratory: Equal breath rise bilaterally, maintained on room air CV: Well perfused Abdomen: Soft, mild distention, tender to palpation on the right side with some guarding, no rebound. No signs of peritonitis. Midline incision well healed. Palpation of lower abdomen and groins bilaterally with no masses or hernias appreciated. Patient does have prominent lymphadenopathy in the right groin. Extremities: +1 edema bilaterally at the ankles. Left knee with some swelling over the patella and extending medially, no overlying erythema or induration. Mild tenderness to palpation. Const: Vital Signs, click to edit/add: Vital Signs - 24 hr 03/17/25 15:52 03/17/25 19:47 03/17/25 19:47 Temperature 99.7 F H 98.3 F Pulse Rate Pulse Rate [Pulse Oximeter] 92 92 Respiratory Rate 18 18 16 Blood Pressure [Le ft Arm] 176/83 H Blood Pressure [Ri ght Upper Arm] 143/80 H Pulse Oximetry 96 98 98 Oxygen Delivery Me thod Room Air Room Air Room Air 03/17/25 22:49 03/17/25 23:00 03/17/25 23:00 Temperature 98.2 F Pulse Rate 81 Pulse Rate [Pulse Oximeter] 90 90 Respiratory Rate 16 16 Blood Pressure [Le ft Arm] 157/81 H Blood Pressure [Ri ght Upper Arm] Pulse Oximetry 98 Oxygen Delivery Mi thod Room Air 03/18/25 02:25 03/18/25 07:00 03/18/25 07:00 Temperature 98.2 F 98.6 F Pulse Rate Pulse Rate [Pulse Oximeter] 77 90 90 Respiratory Rate 14 14 18 Blood Pressure [Le ft Arm] 125/68 137/77 Blood Pressure [Ri ght Upper Arm] Pulse Oximetry 93 97 Oxygen Delivery Mi thod Room Air Room Air 03/18/25 07:00 03/18/25 11:00 Temperature Pulse Rate 80 Pulse Rate [Pulse Oximeter] 83 Respiratory Rate 18 Blood Pressure [Le ft Arm] 119/83 Blood Pressure [Ri ght Upper Arm] Pulse Oximetry 96 Oxygen Delivery Mi thod Room Air Results Labs Labs: Abnormal lab results 03/17/25 03/18/25 Range/Units 17:25 06:18 RBC 3.73 L 3.38 L (4.00-5.20) m/uL Hgb 10.8 L 9.9 L (12.0-16.0) gm/dL Hct 32.5 L 29.1 L (33.0-51.0) % Neut % (Auto) 74.9 H 75.8 H (42.0-72.0) % Lymph % (Auto) 12.5 L 9.0 L (20-44) % [place] % (Auto) 12.2 H 14.2 H (0.0-11.0) % Lymph # (Auto) 0.80 L (0.90-2.90) K/uL [place] # (Auto) 1.10 H 1.20 H (0.00-0.90) K/UL D-Dimer Quant (PE/DVT) 3.98 H (0.00-0.50) ug/ml Sodium 134 L (135-149) mmol/L C-Reactive Protein 17.7 H 16.7 H (0.5-1.0) mg/dL NT-Pro-B Natriuret Pep 1430 H (See Note) pg/mL Diabetes panel 03/17/25 03/18/25 Range/Units 17: 06:18 Sodium 134 L 135 (135-149) mmol/L Potassium 4.2 4.0 (3.6-5.1) mmol/L Chloride 99 101 (96-114) mmol/L Carbon Dioxide 28 27 (20-32) mmol/L BUN 13 10 (7-30) mg/dL Creatinine 0.8 0.8 (0.5-1.5) mg/dL Glucose 103 102 (60-115) mg/dL Calcium 8.7 8.4 (8.4-10.6) mg/dL AST 23 (12-35) U/L ALT 12 (4-35) U/L Alkaline Phosphatase 69 (40-150) U/L Total Protein 6.9 (6.0-8.3) g/dL Albumin 3.6 (3.3-5.0) g/dL Calcium panel 03/17/25 03/18/25 Range/Units 17:25 06:18 Calcium 8.7 8.4 (8.4-10.6) mg/dL Albumin 3.6 (3.3-5.0) g/dL Pituitary panel 03/17/25 03/18/25 Range/Units 17:25 06:18 Sodium 134 L 135 (135-149) mmol/L Potassium 4.2 4.0 (3.6-5.1) mmol/L Chloride 99 101 (96-114) mmol/L Carbon Dioxide 28 27 (20-32) mmol/L BUN 13 10 (7-30) mg/dL Creatinine 0.8 0.8 (0.5-1.5) mg/dL Glucose 103 102 (60-115) mg/dL Calcium 8.7 8.4 (8.4-10.6) mg/dL Adrenal panel 03/17/25 03/18/25 Range/Units 17:25 06:18 Sodium 134 L 135 (135-149) mmol/L Potassium 4.2 4.0 (3.6-5.1) mmol/L Chloride 99 101 (96-114) mmol/L Carbon Dioxide 28 27 (20-32) mmol/L BUN 13 10 (7-30) mg/dL Creatinine 0.8 0.8 (0.5-1.5) mg/dL Glucose 103 102 (60-115) mg/dL Calcium 8.7 8.4 (8.4-10.6) mg/dL Total Bilirubin 0.5 (0.1-1.5) mg/dL AST 23 (12-35) U/L ALT 12 (4-35) U/L Alkaline Phosphatase 69 (40-150) U/L Total Protein 6.9 (6.0-8.3) g/dL Albumin 3.6 (3.3-5.0) g/dL All other labs normal. Imaging Abdomen CT scan report/results: report reviewed and image reviewed Progress Note:A&P Assessment and plan (1) Intra-abdominal abscess: Status: Acute (2) Popliteal cyst: Status: Acute Plan Patient is status post exploratory laparotomy for small-bowel resection on 02/25/25 and new diagnosis of follicular lymphoma. This is the patient's 3rd hospitalization in a month. On workup she does have elevation of her CRP (14--16). No leukocytosis, but with a left shift. A CT scan was obtained which shows a developing phlegmon adjacent to the small-bowel anastomosis, within the mesentery. There is no drainable fluid collection at this time and additionally this is a difficult anatomic location for IR to access. This likely explains the patient's poor appetite, right-sided abdominal tenderness and elevated inflammatory markers. Low concern for anastomotic leak. Will start with conservative management of IV antibiotics. Patient has reported poor p.o. intake over the last several weeks, but is tolerating some regular diet and has continued bowel function. Her nutritional markers (albumin and protein) are within normal limits. In reviewing her weight over the last month she has only lost 5 lb. Patient is at risk for an ileus given the intra-abdominal infection, but will start her on a regular diet at this time with her continuing to pass gas and having a bowel movement this morning. If she is unable to tolerate p.o. intake may consider TPN for nutrition. An ultrasound was obtained to evaluate her left lower extremity swelling. No evidence of DVT, but she does have a popliteal cyst present. No concern on examination for infection of this joint. In regards to the patient's mass that she noticed on the right side. No evidence of hernia or mass on examination or CT imaging. She does have prominent right inguinal lymphadenopathy, likely related to her lymphoma diagnosis. -regular diet -p.o. pain meds as needed -encourage ambulation -IV Zosyn -trend fever curve -daily CRP and WBC All other cares per hospitalist. Please call with any questions or concerns.
--- NOTE | 2025-03-18 13:12 | P.IMPN_ITS ---
Assessment and Plan Assessment and plan (1) Intra-abdominal abscess: Problem comment: - phlegmon/likely developing abscess on CT 03/17/25. In the area of previous bowel resection and lymphoma - admit on regular diet, IV Zosyn - co manage with General surgery Status: Acute (2) Chronic fatigue: Problem comment: Likely multifactorial. Metoprolol could contribute some to fatigue but not likely to explain her prominent poor energy, even at rest. Poor nutrition may contribute. Status: Acute (3) Anorexia: Problem comment: Likely a chronic problem that has gotten worse with recent bowel obstructions in surgery. Status: Acute (4) Malnutrition: Problem comment: Recent 5 lb weight loss in connection with bowel obstruction and surgery. Ongoing poor appetite and poor oral intake for the last 2 weeks remains concerning. Monitor closely. Nutrition consult. Status: Acute (5) Small bowel obstruction: Problem comment: - 03/06/25. Resolved with discharge on 03/11. 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 Does not appear to have large burden of lymphoma. Status: Acute (7) Osteoarthritis of left knee: Problem comment: Chronic left knee pain with mild left knee effusion and popliteal cyst. Steroid injection if this becomes disabling Status: Acute (8) Popliteal cyst: Problem comment: - LLE, painful - Tylenol, prn Oxycodone - PT evaluations; consider corticosteroid injection pending clinical course Likely underlying osteoarthritis causing knee effusion and and cyst Status: Acute (9) Normocytic anemia: Problem comment: - present since 02/2025, presumably 2/2 blood loss from surgery - 03/17: Hgb stable at 10.8 Check iron studies and retic count Status: Acute Plan Patient is admitted to the hospital for management of intra-abdominal infection. IV antibiotics. Monitoring of vital signs. Monitoring of bowel function. Monitoring of nutrition. Total Time Spent Total Time Spent: Total time spent today is 70 minutes in reviewing outside records, coordination of care, discussion with patient and family ongoing evaluation management of multiple problems above Subjective Date Seen: 03/18/25 Interval history: 89-year-old female admitted to the hospital with worsening abdominal pain in the last day. She has not had fever or vomiting. Bowel function has been normal without diarrhea or blood in her stool. She was hospitalized with a small-bowel obstruction on 02/24/2025. She underwent exploratory laparotomy with small-bowel resection for a small bowel mass and stricture on February [address] Escobar. Pathology showed a follicular lymphoma. She was discharged home March 02. 03/06/2025 she was admitted to the hospital with a new small-bowel obstruction with a transition point in the right lower quadrant. She was treated conservatively with NG tube IV fluids. She was able to tolerate p.o. food and fluid and was discharged on March 11. Since discharge on March 11 she reports that she has had a very poor appetite. She does have some interested food and then eats a very small portion and then Route loses her appetite. She has not really been having abdominal pain nausea or vomiting. Her bowel function has been normal. When asked her further about her poor appetite she indicates that this is a longstanding problem predating her bowel obstruction. Overall it sounds like her nutrition with suboptimal before surgery and has been very poor in the subsequent days including to periods of time where she was not eating at all, after surgery and with her small-bowel obstruction and NG tube. Family have been working hard to get her to drink nutritional supplements and eat. She reports prominent fatigue. She reports feeling low energy, exercise intolerance, feeling of non restorative sleep. She dates this back to April 2024 when she had ventricular tachycardia. At that time she was treated [facility]. She had amiodarone and cardioversion. She was placed on verapamil. In October of 2023 she was switched from verapamil to metoprolol to help with constipation. She continues to report prominent fatigue. She attributed to metoprolol. She said it did help some to switch the metoprolol to bedtime. In reviewing her records I see that she has never achieved to beta- blockade. Pulses typically are in the 70-90 range. She was also on losartan for blood pressure control but has stopped that. She has been trending with elevated blood pressures. Her evaluation at the time of ventricular tachycardia included a cardiac MRI, echocardiogram and CTA. These were all quite unremarkable. The echocardiogram did show a small area of apical hypokinesis. She had bladder cancer treated with TURBT x2 most recently 3 years ago. No recent urinary symptoms or abnormal urinalysis to suggest recurrence. Exam Narrative: Exam Narrative: She is alert and appears in no distress. She gives her own history. She is oriented to her circumstances. No facial asymmetry. Oropharynx is normal. Respirations are clear to auscultation. Breathing is unlabored. Cardiovascular: S1, S2, regular rate and rhythm. No murmur gallop or rub. Abdomen: Bowel sounds present. Abdomen is soft with mild right lower quadrant tenderness. Some fullness in the right lower quadrant without discrete mass. External genitalia normal. Extremities without edema. She moves all 4 extremities well. No rash. Const: Vital Signs, click to edit/add: Vital Signs - 24 hr 03/17/25 15:52 03/17/25 19:47 03/17/25 19:47 Temperature 99.7 F H 98.3 F Pulse Rate Pulse Rate [Pulse Oximeter] 92 92 Respiratory Rate 18 18 16 Blood Pressure [Le ft Arm] 176/83 H Blood Pressure [Ri ght Upper Arm] 143/80 H Pulse Oximetry 96 98 98 Oxygen Delivery Me thod Room Air Room Air Room Air 03/17/25 22:49 03/17/25 23:00 03/17/25 23:00 Temperature 98.2 F Pulse Rate 81 Pulse Rate [Pulse Oximeter] 90 90 Respiratory Rate 16 16 Blood Pressure [Le ft Arm] 157/81 H Blood Pressure [Ri ght Upper Arm] Pulse Oximetry 98 Oxygen Delivery Me thod Room Air 03/18/25 02:25 03/18/25 07:00 03/18/25 07:00 Temperature 98.2 F 98.6 F Pulse Rate Pulse Rate [Pulse Oximeter] 77 90 90 Respiratory Rate 14 14 18 Blood Pressure [Le ft Arm] 125/68 137/77 Blood Pressure [Ri ght Upper Arm] Pulse Oximetry 93 97 Oxygen Delivery Me thod Room Air Room Air 03/18/25 07:00 03/18/25 11:00 Temperature Pulse Rate 80 Pulse Rate [Pulse Oximeter] 83 Respiratory Rate 18 Blood Pressure [Le ft Arm] 119/83 Blood Pressure [Ri ght Upper Arm] Pulse Oximetry 96 Oxygen Delivery Me thod Room Air Documenting provider has reviewed patient's vital signs: yes Labs Labs: Laboratory Results - last 24 hr 03/17/25 03/17/25 03/18/25 17:25 21:09 06:18 WBC 9.02 8.47 RBC 3.73 L 3.38 L Hgb 10.8 L 9.9 L Hct 32.5 L 29.1 L MCV 87 86 MCH 29 29 MCHC 33 34 RDW Coeff of Pati 13.0 13.0 Plt Count 278 253 Neut % (Auto) 74.9 H 75.8 H Lymph % (Auto) 12.5 L 9.0 L [place] % (Auto) 12.2 H 14.2 H Eos % (Auto) 0.1 0.6 Baso % (Auto) 0.2 0.2 Neut # (Auto) 6.80 6.40 Lymph # (Auto) 1.10 0.80 L [place] # (Auto) 1.10 H 1.20 H Eos # (Auto) 0.01 0.05 Baso # (Auto) 0.02 0.02 Abs Immat Gran (auto) 0.01 0.02 Imm/Tot Granulo (auto) 0.1 0.2 D-Dimer Quant (PE/DVT) 3.98 H Sodium 134 L 135 Potassium 4.2 4.0 Chloride 99 101 Carbon Dioxide 28 27 Anion Gap 7 7 BUN 13 10 Creatinine 0.8 0.8 Estimated Creat Clear 28.47 Estimated GFR 71 71 Glucose 103 102 Lactate 0.8 Calcium 8.7 8.4 Magnesium 1.9 Total Bilirubin 0.5 Direct Bilirubin 0.2 AST 23 ALT 12 Alkaline Phosphatase 69 C-Reactive Protein 17.7 H 16.7 H NT-Pro-B Natriuret Pep 1430 H Total Protein 6.9 Albumin 3.6 Lipase 79 Lab Acknowledgement Test Added
--- NOTE | 2025-03-18 17:14 | PC.SOCIAL ---
Discharge planning: Pt has home care through [facility] PT/OT and snf. Social work to follow-up as needed.
--- NOTE | 2025-03-18 19:33 | PC.NURSE ---
Nursing Care Hours: [id number] Pt this shift calm and cooperative, alert and oriented. Pain to knee reported, 10/ with ambulation. However when pt got up for bathroom, pt states it feels better the more she moves it. [place] encouraged ankle pumps and ambulation throughout the day. Heating pad also effective this morning at relieving pain to knee. Treated with meds x1 this AM otherwise not requiring. Pt ADAT to regular. Tolerating well, no nausea or increase abdominal pain. Pt reports sm BM today. IV ABX infused per order. VSS.
[2025-03-18] MEDS: DOCUSATE SODIUM 100 MG CAPSULE PO (20:27)
[2025-03-19] VITALS (9 sets, daily range): BP systolic 113–149; BP diastolic 68–83; PULSE 74–90; RESP 16–24; TEMP 36.6–37.6; O2SAT 94–98
[2025-03-19] MEDS: PIPERACILLIN/TAZOBACTAM 3.375 GM in 0.9 % SODIUM CHLORIDE Mini-bag 100 ML IVPB ×2 (00:24→05:56)
[2025-03-19] MEDS: SODIUM CHLORIDE 0.9 % (FLUSH) 10 ML SYRINGE 5 ML IVF ×3 (05:56→21:36)
--- NOTE | 2025-03-19 06:00 | PC.NURSE ---
Shift note: Patient is alert and oriented. Vitally stable. Patient had adequate sleep. SBA with walker to the BR. No abdominal pain and fever recorded.
[2025-03-19 06:27] LABS: Hematocrit* 30.6 % (33.0-51.0); Hemoglobin* 10.3 gm/dL (12.0-16.0); Immature Granulocytes Abs Auto 0.03 K/uL (0.00-0.30); Immature Granulocytes Pct Auto 0.4 %; Mean Corpuscular HGB Conc 34 gm/dL (32-36); Mean Corpuscular Hemoglobin 29 pg (26-34); Mean Corpuscular Volume 87 fL (80-100); RDW Coefficient of Variation % 13.1 % (11.5-15.5); Red Blood Count* 3.53 m/uL (4.00-5.20); White Blood Count* 8.50 K/uL (4.50-11.00)
[2025-03-19 06:29] LABS: Lymphocytes Absolute Auto 1.30 K/uL (0.90-2.90); Slide Review Reflex No
[2025-03-19 06:36] LABS: Chloride* 103 mmol/L (96-114); Potassium* 3.7 mmol/L (3.6-5.1); Sodium* 137 mmol/L (135-149)
[2025-03-19 06:40] LABS: Anion Gap 6 mEq/L (7-15); Blood Urea Nitrogen* 7 mg/dL (7-30); Calcium* 8.5 mg/dL (8.4-10.6); Carbon Dioxide* 28 mmol/L (20-32); Creatinine* 0.9 mg/dL (0.5-1.5); Est. Creatinine Clearance* 28.47; Estimated Glomerular Filt Rate 62 ml/min; Glucose* 96 mg/dL (60-115)
[2025-03-19 08:20] LABS: Immature Reticulocyte Fraction 14.6 % (3.0-15.9); Reticulocyte Hemoglobin Equivi 22.2 pg (29.0-35.0); Reticulocytes Absolute 0.02 # (0.03-0.08)
[2025-03-19] MEDS: METOPROLOL SUCCINATE (XL) 50 MG TAB PO (09:08)
[2025-03-19] MEDS: OMEPRAZOLE 20 MG CAPSULE DR PO (09:09)
[2025-03-19] MEDS: MAGNESIUM OXIDE 400 MG TABLET PO (09:09)
--- NOTE | 2025-03-19 10:19 | PM.IMPN1 ---
Assessment and Plan Assessment and plan (1) Intra-abdominal abscess: Problem comment: CT on 03/17/2025 shows area of phlegmon possible developing abscess. Treated with Zosyn and now switched to ertapenem. Clinically improving. Possible discharge to home for outpatient IV ertapenem on March 20. Status: Acute (2) Early satiety: Problem comment: Patient reports eating very small meals. She reports having an appetite but after eating a very small portion she feels full. She does not have abdominal pain. She does not have nausea. She has lost 5 lb in the last 3 weeks which is not an expected since she had small-bowel surgery and was NPO for many days of the past 3 weeks. Prior to that she had lost 10 lb in 10 months suggesting a chronic problem affecting her appetite and oral intake. Outpatient follow that is recommended Status: Acute (3) Chronic fatigue: Problem comment: Likely multifactorial. Metoprolol could contribute some to fatigue but not likely to explain her prominent poor energy, even at rest. Poor nutrition may contribute. Status: Acute (4) Malnutrition: Problem comment: Recent 5 lb weight loss in connection with bowel obstruction and surgery. Ongoing poor appetite and poor oral intake for the last 2 weeks remains concerning. Monitor closely. Nutrition consult. Status: Acute (5) Small bowel obstruction: Problem comment: - 03/06/25. Resolved with discharge on 03/11. 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 Does not appear to have large burden of lymphoma on CT imaging. Status: Acute (7) Osteoarthritis of left knee: Problem comment: Chronic left knee pain with mild left knee effusion and popliteal cyst. Steroid injection if this becomes disabling Status: Acute (8) Popliteal cyst: Problem comment: - LLE, painful - Tylenol, prn Oxycodone - PT evaluations; consider corticosteroid injection pending clinical course Likely underlying osteoarthritis causing knee effusion and and cyst Status: Acute (9) Normocytic anemia: Problem comment: - present since 02/2025, presumably 2/2 blood loss from surgery - 03/17: Hgb stable at 10.8 Normal ferritin. Relatively low reticulocyte count indicating inadequate response to anemia Status: Acute (10) Weight loss, unintentional: Problem comment: Patient has lost 15 lb since April 2024. Approximately 5 lb weight loss in the last 3 weeks since surgery for bowel obstruction and recurrent bowel obstruction. This weight loss is not unexpected. 10 lb of weight loss between April and February is unexplained. Patient does note longstanding poor appetite and early satiety. Status: Acute Plan Continue in hospital for 1 more day. If she can maintain adequate oral intake and continues to clinically improve with her abdominal infection can likely be discharged to home for outpatient IV antibiotics pending follow-up with Dr. Escobar next Saturday in clinic. Total Time Spent Total Time Spent: Total time spent today is 60 minutes in coordination of care and discussing with patient family and other providers ongoing evaluation management of acute on chronic weight loss, abdominal infection and other medical problems as noted above Subjective Date Seen: 03/19/25 Interval history: 89-year-old female admitted to the hospital with worsening abdominal pain in the last day. She has not had fever or vomiting. Bowel function has been normal without diarrhea or blood in her stool. She was hospitalized with a small-bowel obstruction on 02/24/2025. She underwent exploratory laparotomy with small-bowel resection for a small bowel mass and stricture on February [address] Escobar. Pathology showed a follicular lymphoma. She was discharged home March 02. 03/06/2025 she was admitted to the hospital with a new small-bowel obstruction with a transition point in the right lower quadrant. She was treated conservatively with NG tube IV fluids. She was able to tolerate p.o. food and fluid and was discharged on March 11. Since discharge on March 11 she reports that she has had a very poor appetite. She does have some interested food and then eats a very small portion and then Route loses her appetite. She has not really been having abdominal pain nausea or vomiting. Her bowel function has been normal. When asked her further about her poor appetite she indicates that this is a longstanding problem predating her bowel obstruction. Overall it sounds like her nutrition with suboptimal before surgery and has been very poor in the subsequent days including to periods of time where she was not eating at all, after surgery and with her small-bowel obstruction and NG tube. Family have been working hard to get her to drink nutritional supplements and eat. She reports prominent fatigue. She reports feeling low energy, exercise intolerance, feeling of non restorative sleep. She dates this back to April 2024 when she had ventricular tachycardia. At that time she was treated [facility]. She had amiodarone and cardioversion. She was placed on verapamil. In October of 2023 she was switched from verapamil to metoprolol to help with constipation. She continues to report prominent fatigue. She attributed to metoprolol. She said it did help some to switch the metoprolol to bedtime. In reviewing her records I see that she has never achieved to beta-blockade. Pulses typically are in the 70-90 range. She was also on losartan for blood pressure control but has stopped that. She has been trending with elevated blood pressures. Her evaluation at the time of ventricular tachycardia included a cardiac MRI, echocardiogram and CTA. These were all quite unremarkable. The echocardiogram did show a small area of apical hypokinesis. She had bladder cancer treated with TURBT x2 most recently 3 years ago. No recent urinary symptoms or abnormal urinalysis to suggest recurrence. 03/19/2025: Patient reports feeling better today. She did have some breakfast but again experienced early satiety and stopped eating. No nausea or abdominal pain. I spoke at length with the patient and her family. We discussed both acute and chronic problems. Acute: Since February 24 is had bowel obstruction with surgery for bowel resection. Got better then had recurrent early small-bowel obstruction on March 06. Treated conservatively. Now back with what is likely an infection in the area of the surgery with inflammatory changes on CT. On antibiotics she is getting better. With this she has had weight loss of about 5 lb. Chronic: For the last year she is reporting prominent fatigue and poor appetite with early satiety. She has lost about 1 lb per month from April 2024 to February 2025. The cause for this is uncertain. This is going to require ongoing outpatient evaluation. We discussed how her previous history of skin cancer and bladder cancer and recent diagnosis of follicular lymphoma from her surgery could be playing a role but none of these malignancies appear to be active. CT does not show significant lymphadenopathy. Further evaluation of this is likely going to have to wait until she has recovered from her recent surgery and small bowel obstruction. Exam Narrative: Exam Narrative: She is alert and appears in no distress. Abdomen bowel sounds are very active. Abdomen is soft with mild right lower quadrant tenderness. No mass. Extremities without edema. Const: Vital Signs, click to edit/add: Vital Signs - 24 hr 03/18/25 11:00 03/18/25 12:16 03/18/25 15:00 Temperature 97.8 F Pulse Rate Pulse Rate [Pulse Oximeter] 83 88 87 Respiratory Rate 18 18 18 Blood Pressure [Le ft Arm] 119/83 Blood Pressure [Ri ght Arm] 118/68 123/73 Pulse Oximetry 96 97 97 Oxygen Delivery Me thod Room Air Room Air Room Air 03/18/25 16:40 03/18/25 19:00 03/18/25 23:00 Temperature Pulse Rate 86 86 Pulse Rate [Pulse Oximeter] 88 Respiratory Rate 16 Blood Pressure [Le ft Arm] Blood Pressure [Ri ght Arm] 133/65 Pulse Oximetry 96 Oxygen Delivery Me thod Room Air 03/18/25 23:00 03/19/25 02:44 03/19/25 07:36 Temperature 98.2 F 99.1 F Pulse Rate Pulse Rate [Pulse Oximeter] 88 80 83 Respiratory Rate 16 16 24 Blood Pressure [Le ft Arm] 114/75 149/74 H Blood Pressure [Ri ght Arm] Pulse Oximetry 96 94 Oxygen Delivery Me thod Room Air Room Air 03/19/25 07:36 03/19/25 09:39 Temperature Pulse Rate 80 Pulse Rate [Pulse Oximeter] 83 Respiratory Rate 24 Blood Pressure [Le ft Arm] Blood Pressure [Ri ght Arm] Pulse Oximetry Oxygen Delivery Me thod Documenting provider has reviewed patient's vital signs: yes Labs Labs: Laboratory Results - last 24 hr 03/19/25 06:04 WBC 8.50 RBC 3.53 L Hgb 10.3 L Hct 30.6 L MCV 87 MCH 29 MCHC 34 RDW Coeff of Pati 13.1 Plt Count 274 Neut % (Auto) 68.1 Lymph % (Auto) 15.5 L Boyle % (Auto) 11.3 H Eos % (Auto) 4.5 Baso % (Auto) 0.2 Neut # (Auto) 5.79 Lymph # (Auto) 1.30 Boyle # (Auto) 1.00 H Eos # (Auto) 0.38 Baso # (Auto) 0.02 Abs Immat Gran (auto) 0.03 Imm/Tot Granulo (auto) 0.4 Absolute Retic 0.02 L Percent Retic 0.7 Immature Retic Fraction 14.6 Retic Hgb Equivalent 22.2 L Sodium 137 Potassium 3.7 Chloride 103 Carbon Dioxide 28 Anion Gap 6 L BUN 7 Creatinine 0.9 Estimated Creat Clear 28.47 Estimated GFR 62 Glucose 96 Calcium 8.5 Ferritin 212.0 C-Reactive Protein 20.5 H
--- NOTE | 2025-03-19 12:02 | PM.GSPN ---
Subjective Subjective Date Seen: 03/19/25 Interval history: Patient feels ?much better? this morning. She was able to get some sleep last night. Her abdominal pain is improved. She also feels like she was able to eat more for breakfast. She had 2 pieces of hernandez and have a muffin. No nausea or vomiting. She continues to pass gas. She had 1 small bowel movement this morning. She is walking the halls without difficulty. Exam Narrative: Exam Narrative: Abdomen: Soft, tender to palpation right upper quadrant right lower quadrant with some guarding, no rebound. Slightly less tender compared to yesterday. No peritonitis. Midline incision well healed. Const: Vital Signs, click to edit/add: Vital Signs - 24 hr 03/18/25 12:16 03/18/25 15:00 03/18/25 16:40 Temperature 97.8 F Pulse Rate 86 Pulse Rate [Pulse Oximeter] 88 87 Respiratory Rate 18 18 Blood Pressure [Le ft Arm] Blood Pressure [Ri ght Arm] 118/68 123/73 Pulse Oximetry 97 97 Oxygen Delivery Me thod Room Air Room Air 03/18/25 19:00 03/18/25 23:00 03/18/25 23:00 Temperature Pulse Rate 86 Pulse Rate [Pulse Oximeter] 88 88 Respiratory Rate 16 16 Blood Pressure [Le ft Arm] Blood Pressure [Ri ght Arm] 133/65 Pulse Oximetry 96 Oxygen Delivery Me thod Room Air 03/19/25 02:44 03/19/25 07:36 03/19/25 07:36 Temperature 98.2 F 99.1 F Pulse Rate Pulse Rate [Pulse Oximeter] 80 83 83 Respiratory Rate 16 24 24 Blood Pressure [Le ft Arm] 114/75 149/74 H Blood Pressure [Ri ght Arm] Pulse Oximetry 96 94 Oxygen Delivery Me thod Room Air Room Air 03/19/25 09:39 03/19/25 11:59 Temperature 99.6 F Pulse Rate 80 Pulse Rate [Pulse Oximeter] 87 Respiratory Rate 24 Blood Pressure [Le ft Arm] 130/69 Blood Pressure [Ri ght Arm] Pulse Oximetry 94 Oxygen Delivery Me thod Room Air Labs/Imaging Labs Labs: No leukocytosis, CRP up trending 20 Progress Note:A&P Assessment and plan (1) Intra-abdominal abscess: Status: Acute (2) Popliteal cyst: Status: Acute Plan Patient is status post exploratory laparotomy for small-bowel resection on 02/25/25 and new diagnosis of follicular lymphoma. CT scan demonstrating a phlegmon adjacent to the small bowel anastomosis within the mesentery. She was admitted and started on IV antibiotics. Clinically she feels like she is improving. On exam she continues to be tender on the right side, but is less tender compared to yesterday. She is tolerating a regular diet and having regular bowel movements. No fevers recorded overnight or this morning. Labs demonstrate no leukocytosis. Her CRP is continuing to trend up (14--16--20). Recommend she stay for continued IV antibiotics. Continue to trend fever curve and inflammatory markers. Anticipate patient could discharge to home tomorrow. Would recommend 7 days of IV ertapenem as an outpatient with follow-up in general surgery clinic, Dr. Escobar, next week. -regular diet -p.o. pain meds as needed -encourage ambulation -IV Zosyn. Recommend IV ertapenem as an outpatient -trend fever curve -daily CRP and WBC All other cares per hospitalist. Please call with any questions or concerns.
[2025-03-19] MEDS: ERTAPENEM 1 GM in 0.9 % SODIUM CHLORIDE Mini-bag 100 ML IVPB (12:03)
--- NOTE | 2025-03-19 16:30 | PC.SOCIAL ---
Discharge planning: Pt's daughter, Ora, requested this worker provide her with several names of non-emergent medical transport companies, as the pt will need to come to the hospital everyday from [place] for IV Antibiotics for the next 14 days(Pt will most likely discharge sometime over the weekend). Pt's daughter thought the transportation would be paid for with a doctor's order and this worker explained that she would need to check with the pt's insurance company on what they provide if anything for transportation coverage. private household worker provided Ora with the phone number for [employer] #[phone] and [employer] #[phone]. Ora will also call the customer service number on the back of the pt's insurance card. Resumption of home care orders will need to be faxed to [facility] at fax number #[phone] if pt discharges over the weekend. Home care orders to be resumed are PT/OT and [facility]. Social work to follow-up as needed.
--- NOTE | 2025-03-19 18:00 | PC.NURSE ---
End of Shift: Patient pleasant and cooperative, alert and oriented. Patient vitally stable, lungs clear, BS WNL, IV SL and intact. Patient denies abdominal pain. Patient is independent and walks the halls with a walker. Patient is urinating well, and had a small soft BM. Patient is tolerating regular diet.Tele=NSR.
[2025-03-19] MEDS: METOPROLOL SUCCINATE (XL) 100 MG TAB PO (21:37)
[2025-03-20 03:44] VITALS: BP 143/81; PULSE 80; RESP 18; TEMP 37; O2SAT 94
[2025-03-20 06:02] LABS: Hematocrit* 29.3 % (33.0-51.0); Hemoglobin* 9.8 gm/dL (12.0-16.0); Immature Granulocytes Abs Auto 0.01 K/uL (0.00-0.30); Immature Granulocytes Pct Auto 0.1 %; Mean Corpuscular HGB Conc 33 gm/dL (32-36); Mean Corpuscular Hemoglobin 29 pg (26-34); Mean Corpuscular Volume 86 fL (80-100); RDW Coefficient of Variation % 13.1 % (11.5-15.5); Red Blood Count* 3.40 m/uL (4.00-5.20); White Blood Count* 7.58 K/uL (4.50-11.00)
[2025-03-20 06:20] LABS: Chloride* 106 mmol/L (96-114)
[2025-03-20 06:21] LABS: Potassium* 3.6 mmol/L (3.6-5.1); Sodium* 138 mmol/L (135-149)
[2025-03-20 06:23] LABS: Blood Urea Nitrogen* 7 mg/dL (7-30); Creatinine* 0.7 mg/dL (0.5-1.5); Est. Creatinine Clearance* 28.47; Estimated Glomerular Filt Rate 84 ml/min
[2025-03-20 06:24] LABS: Anion Gap 6 mEq/L (7-15); Calcium* 8.5 mg/dL (8.4-10.6); Carbon Dioxide* 26 mmol/L (20-32); Glucose* 100 mg/dL (60-115); Lymphocytes Absolute Auto 1.10 K/uL (0.90-2.90)
[2025-03-20 06:25] LABS: Slide Review Reflex No
--- NOTE | 2025-03-20 07:05 | PC.NURSE ---
End of shift [id number]: Pt AxOx3, cooperative, and pleasant with cares. Denies pain throughout the shift. SBA with transfers. BM today. Continent of the bladder and bowels. Pt in bed resting with call light in reach. ?
[2025-03-20 07:18] VITALS: PULSE 86
[2025-03-20 07:57] VITALS: BP 128/73; PULSE 88; RESP 22; TEMP 37.4; O2SAT 96
[2025-03-20] MEDS: OMEPRAZOLE 20 MG CAPSULE DR PO (08:55)
[2025-03-20] MEDS: MAGNESIUM OXIDE 400 MG TABLET PO (08:55)
[2025-03-20] MEDS: SODIUM CHLORIDE 0.9 % (FLUSH) 10 ML SYRINGE 5 ML IVF (08:56)
--- NOTE | 2025-03-20 10:23 | PM.DS1 ---
DS: Providers Provider Time Seen by Provider: 09:58 Date Seen: 03/20/25 Date of admission: 03/17/25 21:17 Primary care physician: Dawit Reynolds MD Admitting Clinician: Anisa Bustamante MD Consults: 03/17/25 21:06 Consult to Nutrition [CONS] Routine Comment: Reason for consult:: Weight Loss Comment: recent SBO Consult to Physical Therapy [CONS] Routine Comment: Reason(s) for PT Consult:: Evaluate and Treat Any Restrictions?:: Wt Bearing as Tolerated Comment: L popliteal cyst, + knee pain Attending Physician on discharge: Nataliia Lorenzo MD Date of Discharge: 03/20/25 DS: Diagnosis Discharge Diagnosis (1) Intra-abdominal abscess: Status: Acute Problem details: CT on 03/17/2025 shows area of phlegmon possible developing abscess. Treated with Zosyn and now switched to ertapenem. Clinically improving. Discharge to home for outpatient IV ertapenem, see Dr. Escobar in clinic next Saturday, to be determined at that time if he will transition to oral antibiotics for 7 more days. (2) Early satiety: Status: Acute Problem details: Patient reports eating very small meals. She reports having an appetite but after eating a very small portion she feels full. She does not have abdominal pain. She does not have nausea. She has lost 5 lb in the last 3 weeks which is not an expected since she had small-bowel surgery and was NPO for many days of the past 3 weeks. Prior to that she had lost 10 lb in 10 months suggesting a chronic problem affecting her appetite and oral intake. Outpatient follow that is recommended (3) Chronic fatigue: Status: Acute Problem details: Likely multifactorial. Metoprolol could contribute some to fatigue but not likely to explain her prominent poor energy, even at rest. Poor nutrition may contribute. (4) Malnutrition: Status: Acute Problem details: Recent 5 lb weight loss in connection with bowel obstruction and surgery. Ongoing poor appetite and poor oral intake for the last 2 weeks remains concerning. Monitor closely. Nutrition consult done 03/18/25: Premier protein once daily, small frequent meals. (5) Small bowel obstruction: Status: Acute Problem details: - 03/06/25. Resolved with discharge on 03/11. (6) Lymphoma of small intestine: Status: Acute Problem details: - Dx 02/2025, preliminary pathology following SBO surgery. Does not appear to have large burden of lymphoma on CT imaging. (7) Osteoarthritis of left knee: Status: Acute Problem details: Chronic left knee pain with mild left knee effusion and popliteal cyst. Steroid injection if this becomes disabling (8) Popliteal cyst: Status: Acute Problem details: - LLE, painful - Tylenol, prn Oxycodone - PT evaluations; consider corticosteroid injection pending clinical course Likely underlying osteoarthritis causing knee effusion and and cyst (9) Normocytic anemia: Status: Acute Problem details: - present since 02/2025, presumably 2/2 blood loss from surgery - 03/17: Hgb stable at 10.8 - /: Hgb stable around 9.8-10.3 Normal ferritin. Relatively low reticulocyte count indicating inadequate response to anemia (10) Weight loss, unintentional: Status: Acute Problem details: Patient has lost 15 lb since April 2024. Approximately 5 lb weight loss in the last 3 weeks since surgery for bowel obstruction and recurrent bowel obstruction. This weight loss is not unexpected. 10 lb of weight loss between April and February is unexplained. Patient does note longstanding poor appetite and early satiety. DS: Summary Hospital Course Hospital Course: Per H&P: 89-year-old female admitted to the hospital with worsening abdominal pain in the last day. She has not had fever or vomiting. Bowel function has been normal without diarrhea or blood in her stool. She was hospitalized with a small-bowel obstruction on 02/24/2025. She underwent exploratory laparotomy with small-bowel resection for a small bowel mass and stricture on February [address] Escobar. Pathology showed a follicular lymphoma. She was discharged home March 02. 03/06/2025 she was admitted to the hospital with a new small-bowel obstruction with a transition point in the right lower quadrant. She was treated conservatively with NG tube IV fluids. She was able to tolerate p.o. food and fluid and was discharged on March 11. Since discharge on March 11 she reports that she has had a very poor appetite. She does have some interested food and then eats a very small portion and then Route loses her appetite. She has not really been having abdominal pain nausea or vomiting. Her bowel function has been normal. When asked her further about her poor appetite she indicates that this is a longstanding problem predating her bowel obstruction. Overall it sounds like her nutrition with suboptimal before surgery and has been very poor in the subsequent days including to periods of time where she was not eating at all, after surgery and with her small-bowel obstruction and NG tube. Family have been working hard to get her to drink nutritional supplements and eat. She reports prominent fatigue. She reports feeling low energy, exercise intolerance, feeling of non restorative sleep. She dates this back to April 2024 when she had ventricular tachycardia. At that time she was treated [facility]. She had amiodarone and cardioversion. She was placed on verapamil. In October of 2023 she was switched from verapamil to metoprolol to help with constipation. She continues to report prominent fatigue. She attributed to metoprolol. She said it did help some to switch the metoprolol to bedtime. In reviewing her records I see that she has never achieved to beta-blockade. Pulses typically are in the 70-90 range. She was also on losartan for blood pressure control but has stopped that. She has been trending with elevated blood pressures. Her evaluation at the time of ventricular tachycardia included a cardiac MRI, echocardiogram and CTA. These were all quite unremarkable. The echocardiogram did show a small area of apical hypokinesis. She had bladder cancer treated with TURBT x2 most recently 3 years ago. No recent urinary symptoms or abnormal urinalysis to suggest recurrence. 03/19/2025: Patient reports feeling better today. She did have some breakfast but again experienced early satiety and stopped eating. No nausea or abdominal pain. I spoke at length with the patient and her family. We discussed both acute and chronic problems. Acute: Since February 24 is had bowel obstruction with surgery for bowel resection. Got better then had recurrent early small-bowel obstruction on March 06. Treated conservatively. Now back with what is likely an infection in the area of the surgery with inflammatory changes on CT. On antibiotics she is getting better. With this she has had weight loss of about 5 lb. Chronic: For the last year she is reporting prominent fatigue and poor appetite with early satiety. She has lost about 1 lb per month from April 2024 to February 2025. The cause for this is uncertain. This is going to require ongoing outpatient evaluation. We discussed how her previous history of skin cancer and bladder cancer and recent diagnosis of follicular lymphoma from her surgery could be playing a role but none of these malignancies appear to be active. CT does not show significant lymphadenopathy. Further evaluation of this is likely going to have to wait until she has recovered from her recent surgery and small bowel obstruction. She is discharged home in improving condition on daily ertapenem with f/u next week with Dr. Escobar. Time Spent with Patient Time attestation: Total time spent providing and/or coordinating discharge services: Today I spent 45 minutes seeing the patient, discussing with the patient and her daughter, discharging the patient, reviewing Expanse and EPIC notes/diagnostics/labs, discussing the care plan with our care team that includes social work, PT/OT, pharmacy, RT, long term and documenting my impressions and plan in the medical record. Exam Narrative: Exam Narrative: General: No acute distress. Awake, alert, oriented. No pallor. No jaundice. Oropharynx: Clear. Mucous membranes moist. Cardiovascular: Regular rate and rhythm. No murmurs, gallops, or rubs. Respiratory: Clear to auscultation bilaterally. No wheezes or crackles. Abdomen: Bowel sounds present. Soft, nondistended, nontender. Extremities: No lower extremity edema. Const: Vital Signs, click to edit/add: Vital Signs - 24 hr 03/19/25 11:59 03/19/25 16:11 03/19/25 16:11 Temperature 99.6 F 97.9 F Pulse Rate Pulse Rate [Pulse Oximeter] 87 87 87 Respiratory Rate 24 24 24 Blood Pressure [Le ft Arm] 130/69 149/83 H Blood Pressure [Ri ght Arm] Pulse Oximetry 94 95 Oxygen Delivery Me thod Room Air Room Air 03/19/25 16:20 03/19/25 19:23 03/19/25 22:42 Temperature 98.3 F Pulse Rate 84 74 Pulse Rate [Pulse Oximeter] 90 Respiratory Rate 18 Blood Pressure [Le ft Arm] Blood Pressure [Ri ght Arm] 113/68 Pulse Oximetry 98 Oxygen Delivery Me thod Room Air 03/20/25 03:44 03/20/25 07:18 03/20/25 07:57 Temperature 98.6 F 99.3 F Pulse Rate 86 Pulse Rate [Pulse Oximeter] 80 88 Respiratory Rate 18 22 Blood Pressure [Le ft Arm] 143/81 H 128/73 Blood Pressure [Ri ght Arm] Pulse Oximetry 94 96 Oxygen Delivery Nj thod Room Air Room Air 03/20/25 07:57 Temperature Pulse Rate Pulse Rate [Pulse Oximeter] 88 Respiratory Rate 22 Blood Pressure [Le ft Arm] Blood Pressure [Ri ght Arm] Pulse Oximetry Oxygen Delivery Me thod DS: Data Data Completed and Pending Completed studies during hospitalization: Ordering Physician: Mariluz Riley M.D. Date of Service: 03/17/25 Procedure(s): CT abdomen pelvis w con Accession Number(s): [id number] cc: Mariluz Riley M.D.; Dawit Reynolds M.D.~ ADDENDUM Indication: ABD PAIN, HX BLADDER CANCER, LUMP MID ABD RT SIDE Technique: CT abdomen/pelvis with IV contrast utilizing 59 mL Isovue 370 Comparison: CT abdomen/pelvis with IV contrast on March 06, 2025 Findings: Lower thorax: Trace bibasilar linear atelectasis/scarring. 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 Stable cyst in the right hepatic lobe. The gallbladder and biliary system are unremarkable. The spleen, pancreas, and adrenal glands are unremarkable. The kidneys are normal in size and perfused in a normal fashion. No suspicious enhancing renal masses or lesions. Stable renal cysts bilaterally. No renal calculi or hydroureteronephrosis. The bladder is unremarkable. Stable uterine fibroids. No suspicious adnexal lesions. There is no evidence of bowel obstruction. Redemonstration of an enteroenteric anastomosis in the right lower abdomen anteriorly with re-demonstration of anastomotic suture material seen just deep to the anastomosis which shows extensive mesenteric fat stranding suggestive of phlegmon with likely developing region of peripheral enhancement, concerning for developing abscess measuring approximately 2.5 centimeters AP x 1.7 centimeters transverse by 2.8 centimeters craniocaudal (series number 2, image 60; series number 4, image 25). There are few surrounding small lymph nodes, which are likely reactive. No free air. Mild calcific atherosclerosis of the aortoiliac system. Soft tissue/musculoskeletal: Diastasis recti small fat containing ventral abdominal wall hernias. Midline abdominal incision without complication. No acute fracture or malalignment. Multilevel degenerative changes throughout the spine. No suspicious osseous lesions. Impression: 1. Redemonstration of an enteroenteric anastomosis in the right lower abdomen anteriorly with re-demonstration of anastomotic suture material seen just deep to the anastomosis which shows extensive mesenteric fat stranding concerning for phlegmon and likely developing abscess formation. 2. No evidence of bowel obstruction. No free air. Please note that all CT scans at this facility use dose modulation, iterative reconstruction, and/or weight-based dosing when appropriate to reduce radiation dose to as low as reasonably achievable. Dictated by Andreas Mcfadden MD @ 03/17/2025 6:01:53 PM ----- ADDENDUM ----- Report was received by Dr. Mariluz Riley @ 6:04 pm on 03/17/2025. Dictated by Andreas Mcfadden MD @ Mar 17 2025 6:05PM (Electronically Signed) For Patients: As a result of the Century Cures Act, medical imaging exams and procedure reports are released immediately into your electronic medical record. You may view this report before your referring provider. If you have questions, please contact your health care provider. Indication: ABD PAIN, HX BLADDER CANCER, LUMP MID ABD RT SIDE Technique: CT abdomen/pelvis with IV contrast utilizing 59 mL Isovue 370 Comparison: CT abdomen/pelvis with IV contrast on March 06, 2025 Findings: Lower thorax: Trace bibasilar linear atelectasis/scarring. 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 Stable cyst in the right hepatic lobe. The gallbladder and biliary system are unremarkable. The spleen, pancreas, and adrenal glands are unremarkable. The kidneys are normal in size and perfused in a normal fashion. No suspicious enhancing renal masses or lesions. Stable renal cysts bilaterally. No renal calculi or hydroureteronephrosis. The bladder is unremarkable. Stable uterine fibroids. No suspicious adnexal lesions. There is no evidence of bowel obstruction. Redemonstration of an enteroenteric anastomosis in the right lower abdomen anteriorly with re-demonstration of anastomotic suture material seen just deep to the anastomosis which shows extensive mesenteric fat stranding suggestive of phlegmon with likely developing region of peripheral enhancement, concerning for developing abscess measuring approximately 2.5 centimeters AP x 1.7 centimeters transverse by 2.8 centimeters craniocaudal (series number 2, image 60; series number 4, image 25). There are few surrounding small lymph nodes, which are likely reactive. No free air. Mild calcific atherosclerosis of the aortoiliac system. Soft tissue/musculoskeletal: Diastasis recti small fat containing ventral abdominal wall hernias. Midline abdominal incision without complication. No acute fracture or malalignment. Multilevel degenerative changes throughout the spine. No suspicious osseous lesions. Impression: 1. Redemonstration of an enteroenteric anastomosis in the right lower abdomen anteriorly with re-demonstration of anastomotic suture material seen just deep to the anastomosis which shows extensive mesenteric fat stranding concerning for phlegmon and likely developing abscess formation. 2. No evidence of bowel obstruction. No free air. Please note that all CT scans at this facility use dose modulation, iterative reconstruction, and/or weight-based dosing when appropriate to reduce radiation dose to as low as reasonably achievable. Dictated by Andreas Mcfadden MD @ 03/17/2025 6:01:53 PM (Electronically Signed) Ordering Physician: Mariluz Riley M.D. Date of Service: 03/17/25 Procedure(s): US venous LE LT Accession Number(s): [id number] cc: Mariluz Riley M.D.; Dawit Reynolsd M.D.~ For Patients: As a result of the Century Cures Act, medical imaging exams and procedure reports are released immediately into your electronic medical record. You may view this report before your referring provider. If you have questions, please contact your health care provider. INDICATION: Leg pain and swelling. TECHNIQUE: Ultrasound venous duplex lower left extremity. Compression venous exam was performed using espinosa-scale, color Doppler, and spectral Doppler analysis. COMPARISON: None. FINDINGS: Deep veins: Sonographic imaging demonstrates the left common femoral, deep femoral, superficial femoral, popliteal, posterior tibial and the contralateral right common femoral veins to be fully compressible with normal color Doppler blood flow. Superficial veins: Greater saphenous vein is fully compressible. A popliteal cyst is present measuring 3.1 x 0.8 x 1.4 centimeters. IMPRESSION: Normal left lower extremity venous ultrasound, no sign of deep venous thrombosis. Dictated by My Marshall MD @ 03/17/2025 5:35:34 PM (Electronically Signed) Labs on day of discharge: Labs from last 24 hours 03/20/25 03/19/25 03/19/25 05:42 11:44 06:04 WBC 7.58 RBC 3.40 L Hgb 9.8 L Hct 29.3 L MCV 86 MCH 29 MCHC 33 RDW Coeff of Pati 13.1 Plt Count 248 Neut % (Auto) 67.9 Lymph % (Auto) 14.6 L [place] % (Auto) 10.9 Eos % (Auto) 6.1 Baso % (Auto) 0.4 Neut # (Auto) 5.14 Lymph # (Auto) 1.10 [place] # (Auto) 0.80 Eos # (Auto) 0.46 Baso # (Auto) 0.03 Abs Immat Gran (auto) 0.01 Imm/Tot Granulo (auto) 0.1 Sodium 138 Potassium 3.6 Chloride 106 Carbon Dioxide 26 Anion Gap 6 L BUN 7 Creatinine 0.7 Estimated Creat Clear 28.47 Estimated GFR 84 Glucose 100 Calcium 8.5 C-Reactive Protein 16.9 H TSH 7.080 H Lab Acknowledgement Test Added Discharge Plan Discharge Disposition: Home, Self-Care Date of Admission: 03/17/25 21:17 Attending Provider on Discharge: Nataliia Lorenzo Primary Care Provider: Dawit Reynolds Condition: Stable Anticipated Discharge Date/Time: 03/20/25 12:00 Discharge Medications: Continued multivitamin [Multiple Vitamins] Tablet 1 tab PO DAILY docusate sodium [Colace] 100 mg capsule 100 mg PO HS acetaminophen [Acetaminophen Pain Relief] 500 mg tablet 500 mg PO HS PRN biotin 1 mg capsule 1 mg PO DAILY metoprolol succinate 100 mg tablet extended release 24 hr 100 mg PO DAILY hydrocodone-acetaminophen 5-325 mg tablet 1 tab PO Q6H PRN (Reason: pain) Qty: 20 0RF omeprazole 20 mg Capsule,Delayed Release(Dr/Ec) 20 mg PO DAILY 30 Days Qty: 30 0RF magnesium oxide 400 mg (241.3 mg magnesium) Tablet 400 mg PO DAILY 30 Days Qty: 30 2RF Discharge Orders: Discharge Order (Routine); Ordered 03/20/25 Ordered By: Nataliia Lorenzo Patient Education: Abdominal Pain (DC) Additional Instructions: You will return to the hospital daily for Ertapenem through next Saturday when Dr. Escobar will order further antibiotics based on your improvement. Nutritional shake once daily, small frequent meals. Activity Level: Activity as Tolerated Activity Detail: You have an appointment made with Dr. Escobar next week. Please call the clinic nurse at [phone] if you have worsening abdominal pain, inability to eat/drink or develop fevers. This may mean that you need to be seen sooner. Discharge Diet: Regular Follow Up Appointments: Bernadette Escobar MD [Staff Physician, General Surgery] - 03/24/25 2:30 pm Referral Note: 4 days, Saturday afternoon. Previously scheduled Dawit Reynolds MD [Primary Care Provider, Family Practice] - 03/29/25 12:45 pm Referral Note: [facility] for follow up with PCP Forms: Patient Belongings, [facility] Info Instructions
[2025-03-20] MEDS: ERTAPENEM 1 GM in 0.9 % SODIUM CHLORIDE Mini-bag 100 ML IVPB (11:10)
[2025-03-20 11:11] VITALS: BP 132/71; PULSE 80; RESP 20; TEMP 37.4; O2SAT 95
--- NOTE | 2025-03-20 12:40 | PC.NURSE ---
Discharge: Patient pleasant and cooperative. Patient vitally stable, lungs clear, BS WNL, IV left in place as she will be returning tomorrow for Abx infusion. IV was wrapped coban and tubi advertising assistant applied. Patient is independent with walker. Patient denies pain, is urinating well, and had one watery stool this morning. Patient has an appetite but gets full very quickly, meals entail taking some bites of food, but she did consume about half of her breakfast (oatmeal and mini cinnamon roll). Patient signed belongs sheet and discharge form. Patient's questions and family members questions regarding discharge were answered. Patient left the floor by wheelchair to home with her children and belongings at 1228.
== END 2025-03-20 12:28 | disposition home health service (06) | DRG 862 ==
LOC: ED 19:23 → MEDSURG 19:39
PROVIDERS: Family Medicine; Admitting Provider Family Medicine; Emergency Provider Family Medicine; PCP Family Medicine; Visit Provider Family Medicine
DX: T81.43XA Infection following a procedure, organ and space surgical site, initial encounter (principal); K65.1 Peritoneal abscess; C82.99 Follicular lymphoma, unspecified, extranodal and solid organ sites; E46 Unspecified protein-calorie malnutrition; M71.22 Synovial cyst of popliteal space [Baker], left knee; M17.12 Unilateral primary osteoarthritis, left knee; D64.9 Anemia, unspecified; R53.82 Chronic fatigue, unspecified; Z68.23 Body mass index [BMI] 23.0-23.9, adult; R68.81 Early satiety; R63.4 Abnormal weight loss; I10 Essential (primary) hypertension; K21.9 Gastro-esophageal reflux disease without esophagitis; Z86.79 Personal history of other diseases of the circulatory system; Z85.51 Personal history of malignant neoplasm of bladder
CPT/HCPCS: 36415; 74177; 80048; 80076; 82728; 83605; 83690; 83735; 83880; 84443; 85025; 85045; 85379; 86140; 93971; 97110; 97161; 97530; 99285; A9270; J1335; J2543; J7050; Q9967

== ENCOUNTER 2025-03-24 14:49 | Outpatient (CLI) | payer OTHER, SELFPAY | END 2025-03-24 14:50 | disposition home or self-care (01) | LOC: NFLDREF 03-30 17:15 | PROVIDERS: PCP Family Medicine; Visit Provider Surgery | DX: K65.1 Peritoneal abscess (principal) | CPT/HCPCS: 86140 ==

== ENCOUNTER 2025-03-28 14:21 | Inpatient (IN) | payer OTHER, SELFPAY ==
--- OUTSIDE RECORDS SUMMARY | 2021-08-24 11:14 | XMS_ITS | Continuity of Care Document ---
Author Organization [facility] Cli [facility] Address [address] [place] [phone] Phone Care Team Providers Care Last Puller Name Role Phone Will MD WALTERS, Francisco Unavailable Unavailabl e Advance Directives Directive Yes / No Effective Date File Name No Information Encounters Encounter Description Practice Location Reason(s) For Visit Diagnoses Date Provider Providers Copied on Encounter [facility], [address] [place] [address] [place], [place], [id number], [place] tel:[phone] [facility] No Information Will Francisco. [address] [facility] [place], [place], [id number], [place]. tel:[phone] Family History Family Member Type Diagnosis Age At Onset No Information Payers Payer name Insurance type Covered constitution party ID Authoriza tion(s) No Information Social History [...]
--- OUTSIDE RECORDS SUMMARY | 2021-08-24 11:14 | XMS_ITS | Continuity of Care Document ---
Author Organization [facility] Cli [facility]ena Address [address] [place] [phone] Phone Care Team Providers Care Braider Setter Name Role Phone Will MD WALTERS, Francisco Unavailable Unavailabl e Advance Directives Directive Yes / No Effective Date File Name No Information Encounters Encounter Description Practice Location Reason(s) For Visit Diagnoses Date Provider Providers Copied on Encounter [facility], [address] [place] [address] [place], [place], [id number], [place] tel:[phone] [facility] No Information Will Francisco. [address] [facility] [address] [place], [place], [id number], [place]. tel:[phone] Family History Family Member Type Diagnosis Age At Onset No Information Payers Payer name Insurance type Covered republican ID Authoriza tion(s) No Information Social History [...]
--- OUTSIDE RECORDS SUMMARY | 2025-03-28 14:23 | XMS_ITS | Clinical Summary ---
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 Gender Identity Not on file Sexual Orientation Not on file Last Filed Vital Signs Vital Sign Reading Time Taken Comments Blood Pressure 168/97 06/10/2013 4:08 PM TYPING POOL SUPERVISOR Pulse - - Temperature 35.9 C (96.6 F) 06/10/2013 12:44 PM TYPING POOL SUPERVISOR Respiratory Rate 16 06/10/2013 4:08 PM TYPING POOL SUPERVISOR Oxygen Saturation 99% 06/10/2013 4:08 PM TYPING POOL SUPERVISOR Inhaled Oxygen Concentration - - Weight 66.4 kg (146 lb 6.4 oz) 06/10/2013 12:44 PM TYPING POOL SUPERVISOR Height 154.9 cm (5' 1) 06/10/2013 12:44 PM TYPING POOL SUPERVISOR Body Mass Index 27.66 06/10/2013 12:44 PM TYPING POOL SUPERVISOR Plan of Treatment Not on file Medical Devices Implanted Type Area Body Presser Device Identifier Shelf Expiration Date Model / Serial / Lot Eye Kit Lacrimal Intubation Stent [id number] Implanted:Qty: 1 on 10/24/2012 by Kael Ang MD at [facility] Right: Lacrimal Duct [employer] 07/06/2015 [id number] / / [id number] Eye Kit Lacrimal Intubation Stent [id number] Implanted:Qty: 1 on 06/10/2013 by Kael Ang MD at [facility] 10/06/2015 [id number] / / [id number] Insurance [employer] MED[employer]ARE [employer]VANTAGE Care Teams 2Nd Pressman Relationship Specialty Start Date End Date Mario Reynolds MD PCP - General Family Practice 10/14/12
--- OUTSIDE RECORDS SUMMARY | 2025-03-28 14:23 | XMS_ITS | Clinical Summary ---
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 Gender Identity Not on file Sexual Orientation Not on file Obstetrics History Last Filed Vital Signs Vital Sign Reading Time Taken Comments Blood Pressure 132/77 06/16/2024 10:08 AM LADLE LINER HELPER Pulse 79 06/16/2024 9:30 AM LADLE LINER HELPER Temperature 36.6 C (97.9 F) 04/26/2024 8:00 AM CDT Respiratory Rate 16 04/26/2024 8:00 AM CDT Oxygen Saturation 97% 06/16/2024 9:30 AM LADLE LINER HELPER Inhaled Oxygen Concentration - - Weight 61.6 kg (135 lb 14.4 oz) 06/16/2024 9:30 AM LADLE LINER HELPER Height 162.6 cm (5' 4) 04/22/2024 10:2 [...] this topic Medical Devices Implanted Type Area Medical Lead Device Identifier Shelf Expiration Date Model / Serial / Lot Stent Uret [id number] Contour - [id number] Implanted:Qty: 1 on 04/10/2022 by Justino Edwards MD at [facility] Right: [employer] [facility] 05/02/2024 [id number] / / [id number] Stent Uret [id number] Contour - [id number] Implanted:Qty: 1 on 04/10/2022 by Justino Edwards MD at [facility] Left: [employer] [facility] 01/25/2025 [id number] / / [id number] Insurance MEDICARE PART A HB ONLY [employer] [...] Preferences, Provider to review later Care Teams Disc Ruler Operator Relationship Specialty Start Date End Date Pcp, No . PCP - General 04/23/24
[2025-03-28 14:27] VITALS: BP 177/84; PULSE 73; RESP 18; TEMP 36.7; O2SAT 98; BMI 24.0
--- NOTE | 2025-03-28 15:24 | CRLHL7_ITS ---
For Patients: As a result of the Century Cures Act, medical imaging exams and procedure reports are released immediately into your electronic medical record. You may view this report before your referring provider. If you have questions, please contact your health care provider. INDICATION: Abdominal pain. History of small-bowel resection. History of abscess. TECHNIQUE: CT abdomen and pelvis acquired with 61 cc of Isovue 370 intravenous contrast. Coronal and sagittal reformats were obtained. COMPARISON: CT abdomen/pelvis from 03/17/2025. FINDINGS: Lower chest: Within normal limits. Liver: A simple cyst at the right liver dome. Focal fat within the left anterior liver. Spleen: Within normal limits. Pancreas: Within normal limits. Gallbladder and bile ducts: Within normal limits. Kidneys: Bilateral renal cysts. Adrenal glands: Within normal limits. Bowel: Postop changes of enteroenteric anastomosis. Reduced inflammatory changes compared to the prior exam, with resolution of the previously seen adjacent fluid collections. A loop of dilated small bowel within the mid abdomen and left upper quadrant with air-fluid levels. This loop of bowel appears to be proximal to the anastomosis. No clear transition point is identified. Vascular: Atherosclerotic changes abdominal aorta and branch vessels. Lymph nodes: Within normal limits. Peritoneum: Within normal limits. Pelvis: Calcified fibroid at the uterine fundus. Small left adnexal cyst. Bones: No acute fractures. Diffuse advanced lower thoracic and lumbar spondylosis, with disc degeneration, disc osteophyte complexes and facet arthrosis. No CT visualized high-grade spinal canal stenosis at any imaged level. Multilevel [id number] neural foraminal stenosis throughout the lumbar spine. IMPRESSION: 1. Since prior exam, reduced inflammatory changes about the enteroenteric anastomosis. Resolution of the previously seen julsisa-anastomotic abscess. 2. Interval development of a loop of small bowel which appears to be proximal to the anastomosis. No clear transition point is identified. This is indeterminate and could reflect ileus or an early/partial small bowel obstruction. Please note that all CT scans at this facility use dose modulation, iterative reconstruction, and/or weight-based dosing when appropriate to reduce radiation dose to as low as reasonably achievable. Dictated by Erwin Hoskins MD @ 03/28/2025 5:26:19 PM (Electronically Signed)
--- NOTE | 2025-03-28 15:35 | ED.GENADULT ---
HPI - General Adult General Chief complaint: Abdominal Pain Stated complaint: stomach pains Time Seen by Provider: 03/28/25 15:18 Source: patient Mode of arrival: ambulatory Limitations: no limitations History of Present Illness HPI narrative: 89-year-old female who presents to the ER today with diffuse abdominal discomfort that started this morning. Pain is progressively gotten worse and her abdomen has gotten more tense as the day has progressed. She denies nausea or vomiting. Patient was hospitalized from 02/24/25-03/02/25 for small bowel obstruction require exploratory laparotomy and small-bowel resection. She was rehospitalized on 03/06/25-03/11/25 for recurrent small-bowel obstruction which did not require surgical intervention. She was then hospitalized from 03/17/2025 to 03/20/25 with an intra-abdominal abscess that was treated with antibiotic therapy. She also continues to see a bulge in the right lower quadrant that comes and goes. Has been more prominent today. Related Data Home Medications ?Medication ?Instructions ?Recorded ?Confirmed multivitamin (Multiple Vitamins 1 tab PO DAILY 03/05/22 03/28/25 tablet) docusate sodium 100 mg capsule 100 mg PO HS 02/24/25 03/28/25 (Colace) acetaminophen 500 mg tablet 500 mg PO HS PRN 02/25/25 03/28/25 (Acetaminophen Pain Relief) biotin 1 mg capsule 1 mg PO DAILY 02/25/25 03/28/25 metoprolol succinate 100 mg 100 mg PO DAILY 02/25/25 03/28/25 tablet,extended release 24 hr meloxicam 15 mg tablet 15 mg PO DAILY 03/23/25 03/28/25 Previous Rx's ?Medication ?Instructions ?Recorded hydrocodone 5 mg-acetaminophen 325 1 tab PO Q6H PRN pain #20 tabs 03/01/25 mg tablet omeprazole 20 mg capsule,delayed 20 mg PO DAILY 30 days #30 caps 03/02/25 release magnesium oxide 400 mg (241.3 mg 400 mg PO DAILY 30 days #30 tabs 03/11/25 magnesium) tablet Allergies Allergy/AdvReac Type Severity Reaction Status Date / Time No Known Allergies Allergy Unknown Verified 03/28/25 16:20 Review of Systems Status of ROS: Reports: 10 or more systems reviewed and unremarkable except as noted in History and below PFSH PFSH Medical History Popliteal cyst ?M71.20 - Synovial cyst of popliteal space [Gonzalez], unspecified knee (ICD-10) Early satiety ?R68.81 - Early satiety (ICD-10) Weight loss, unintentional ?R63.4 - Abnormal weight loss (ICD-10) Osteoarthritis of left knee ?M17.12 - Unilateral primary osteoarthritis, left knee (ICD-10) Malnutrition ?E46 - Unspecified protein-calorie malnutrition (ICD-10) Anorexia ?R63.0 - Anorexia (ICD-10) Chronic fatigue ?R53.82 - Chronic fatigue, unspecified (ICD-10) Normocytic anemia ?D64.9 - Anemia, unspecified (ICD-10) History of ventricular tachycardia ?Z86.79 - Personal history of other diseases of the circulatory system (ICD-10) Hypertension ?I10 - Essential (primary) hypertension (ICD-10) SVT (supraventricular tachycardia) ?I47.10 - Supraventricular tachycardia, unspecified (ICD-10) Bladder cancer ?C67.9 - Malignant neoplasm of bladder, unspecified (ICD-10) Gastroesophageal reflux disease ?K21.9 - Gastro-esophageal reflux disease without esophagitis (ICD-10) Basal cell carcinoma of skin ?C44.91 - Basal cell carcinoma of skin, unspecified (ICD-10) DJD (degenerative joint disease) of cervical spine ?M47.812 - Spondylosis without myelopathy or radiculopathy, cervical region (ICD-10) Pulmonary nodule ?R91.1 - Solitary pulmonary nodule (ICD-10) DJD (degenerative joint disease) of knee ?M17.9 - Osteoarthritis of knee, unspecified (ICD-10) Dysphonia ?R49.0 - Dysphonia (ICD-10) Health care directive on file ?Z78.9 - Other specified health status (ICD-10) Surgical History S/P exploratory laparotomy ?Z98.890 - Other specified postprocedural states (ICD-10) Status post cystoscopy ?Z98.890 - Other specified postprocedural states (ICD-10) Status post blepharoplasty ?Z98.890 - Other specified postprocedural states (ICD-10) Status post tonsillectomy ?Z90.89 - Acquired absence of other organs (ICD-10) Status post bunionectomy (10/12/09) ?Z98.890 - Other specified postprocedural states (ICD-10) Social History Narrative: Lives independently in [place], [place] with robust family support. Nonsmoker, no ETOH. Daughter Ora is MDM. DNR/DNI What is your current living situation?: I presently have a place to live Problems where you live: no known problems In the past 12 months, utilities in danger of being shut off: no In past 12 months, lack of transportation kept you from medical appts, meetings, work, or getting things needed for daily living: no In the past 12 mos, have been you worried that your food would run out before you had money to buy more?: never true In the past 12 mos, the food you bought just didn't last and you didn't have money to buy more?: never true Highest level of school completed/degree received: high school graduate Smoking Status: Never smoker Do you use any of these nicotine containing products: None How often do you have a drink containing alcohol: never How often do you have six or more drinks on one occasion: Never AUDIT-C Alcohol total score: 0 Non-prescribed substance use: denies use Caffeine: No How often does anyone, including family, friends and others, physically hurt you: never How often does anyone, including family, friends and others, insult or talk down to you: never How often does anyone, including family, friends and others, threaten you with harm: never How often does anyone, including family, friends and others, scream or curse at you: never service: No Exam Narrative: Exam Narrative: Well-nourished well-developed patient in no acute distress. Alert and oriented. Answers questions appropriately. Mood and affect are appropriate. Thoughts are goal oriented and rational. No tangential or magical thinking noted. Patient speaks in full sentences without needing to catch her breath. Patient does not appear ill or toxic. Appears comfortable. HEENT: Normocephalic atraumatic. Extraocular muscles are intact. Conjunctivae are moist without any icterus noted. Moist mucous membranes. Cardiovascular: Heart is regular rate and rhythm. Lungs: Clear to auscultation bilaterally. Abdomen: Soft and nondistended with hyperactive bowel sounds. Patient does have a small right-sided inguinal hernia that was easily reduced today. However she has pain higher periumbilically on the right side. Skin: Well perfused. Const: Vital Signs, click to edit/add: Vital Signs - 24 hr 03/28/25 14:27 Temperature 98.1 F Pulse Rate [Right Pulse Oximeter] 73 Respiratory Rate 18 Blood Pressure [Ri ght Upper Arm] 177/84 H Pulse Oximetry 98 Oxygen Delivery Me thod Room Air Course Course ED Course: Differential includes worsening abscess, small-bowel obstruction, incarcerated hernia. Blood work was unremarkable. CRP is improving. CT shows a small bowel obstruction and improvement of her abscess. Discussed patient with Dr. Shaffer who recommends admission, NPO and switching to IV ertapenem for her continued antibiotic treatment. Dr. Solorio accepting for admission. Vital Signs Vital signs: Initial Vital Signs Temperature 98.1 F 03/28/25 14:27 Temperature Source Temporal Artery Scan 03/28/25 14:27 Pulse Rate 73 03/28/25 14:27 Pulse Rhythm Regular 03/28/25 14:27 Pulse Strength 3+ Normal 03/28/25 14:27 Respiratory Rate 18 03/28/25 14:27 Blood Pressure 177/84 H 03/28/25 14:27 Blood Pressure Mean 115 H 03/28/25 14:27 Blood Pressure Position Sitting 03/28/25 14:27 Pulse Oximetry 98 03/28/25 14:27 Oxygen Delivery Method Room Air 03/28/25 14:27 Vital Signs Temperature 98.1 F 03/28/25 14:27 Pulse Rate 73 03/28/25 14:27 Respiratory Rate 18 03/28/25 14:27 Blood Pressure 177/84 H 03/28/25 14:27 Pulse Oximetry 98 03/28/25 14:27 Oxygen Delivery Method Room Air 03/28/25 14:27 Temperature 98.1 F 03/28/25 14:27 Pulse Rate 73 03/28/25 14:27 Respiratory Rate 18 03/28/25 14:27 Blood Pressure 177/84 H 03/28/25 14:27 Pulse Oximetry 98 03/28/25 14:27 Oxygen Delivery Method Room Air 03/28/25 14:27 Medical Decision Making MDM Narrative Medical decision making narrative: 89-year-old female with small bowel obstruction. Patient will be admitted for further management. Lab Data Lab results reviewed: Yes I reviewed the patient's lab results Labs: Lab Results 03/28/25 Range/Units 15:25 WBC 6.69 (4.50-11.00) K/uL RBC 3.74 L (4.00-5.20) m/uL Hgb 10.5 L (12.0-16.0) gm/dL Hct 32.6 L (33.0-51.0) % MCV 87 (80-100) fL MCH 28 (26-34) pg MCHC 32 (32-36) gm/dL RDW Coeff of Pati 13.2 (11.5-15.5) % Plt Count 417 (140-440) K/uL Neut % (Auto) 62.6 (42.0-72.0) % Lymph % (Auto) 22.6 (20-44) % [place] % (Auto) 7.5 (0.0-11.0) % Eos % (Auto) 6.6 (0.0-7.0) % Baso % (Auto) 0.4 (0.0-3.0) % Neut # (Auto) 4.19 (1.7-7.0) K/uL Lymph # (Auto) 1.51 (0.90-2.90) K/uL [place] # (Auto) 0.50 (0.00-0.90) K/UL Eos # (Auto) 0.44 (0.00-0.50) K/uL Baso # (Auto) 0.03 (0.00-0.30) K/uL Abs Immat Gran (auto) 0.02 (0.00-0.30) K/uL Imm/Tot Granulo (auto) 0.3 % Sodium 138 (135-149) mmol/L Potassium 4.6 (3.6-5.1) mmol/L Chloride 104 (96-114) mmol/L Carbon Dioxide 26 (20-32) mmol/L Anion Gap 8 (7-15) mEq/L BUN 20 (7-30) mg/dL Creatinine 0.7 (0.5-1.5) mg/dL Estimated Creat Clear 28.47 Estimated GFR 84 ml/min Glucose 88 (60-115) mg/dL Lactate 0.7 (0.5-1.9) mmol/L Calcium 8.8 (8.4-10.6) mg/dL Total Bilirubin 0.2 (0.1-1.5) mg/dL Direct Bilirubin 0.2 (0.0-0.5) mg/dL AST 32 (12-35) U/L ALT 13 (4-35) U/L Alkaline Phosphatase 70 (40-150) U/L C-Reactive Protein 1.6 H (0.5-1.0) mg/dL Total Protein 6.9 (6.0-8.3) g/dL Albumin 3.5 (3.3-5.0) g/dL Lipase 112 (23-300) U/L Imaging Data CT scan - abdomen: Attestation: I have reviewed the pertinent imaging results. Radiologist's impression: TECHNIQUE: CT abdomen and pelvis acquired with 61 cc of Isovue 370 intravenous contrast. Coronal and sagittal reformats were obtained. COMPARISON: CT abdomen/pelvis from 03/17/2025. FINDINGS: Lower chest: Within normal limits. Liver: A simple cyst at the right liver dome. Focal fat within the left anterior liver. Spleen: Within normal limits. Pancreas: Within normal limits. Gallbladder and bile ducts: Within normal limits. Kidneys: Bilateral renal cysts. Adrenal glands: Within normal limits. Bowel: Postop changes of enteroenteric anastomosis. Reduced inflammatory changes compared to the prior exam, with resolution of the previously seen adjacent fluid collections. A loop of dilated small bowel within the mid abdomen and left upper quadrant with air-fluid levels. This loop of bowel appears to be proximal to the anastomosis. No clear transition point is identified. Vascular: Atherosclerotic changes abdominal aorta and branch vessels. Lymph nodes: Within normal limits. Peritoneum: Within normal limits. Pelvis: Calcified fibroid at the uterine fundus. Small left adnexal cyst. Bones: No acute fractures. Diffuse advanced lower thoracic and lumbar spondylosis, with disc degeneration, disc osteophyte complexes and facet arthrosis. No CT visualized high-grade spinal canal stenosis at any imaged level. Multilevel [id number] neural foraminal stenosis throughout the lumbar spine. IMPRESSION: 1. Since prior exam, reduced inflammatory changes about the enteroenteric anastomosis. Resolution of the previously seen julissa-anastomotic abscess. 2. Interval development of a loop of small bowel which appears to be proximal to the anastomosis. No clear transition point is identified. This is indeterminate and could reflect ileus or an early/partial small bowel obstruction. Discharge Plan Discharge Clinical Impression: Small bowel obstruction Patient Disposition: Admitted As Inpatient Condition: Stable
[2025-03-28 15:56] LABS: Lactate* 0.7 mmol/L (0.5-1.9)
[2025-03-28 15:59] LABS: Hematocrit* 32.6 % (33.0-51.0); Hemoglobin* 10.5 gm/dL (12.0-16.0); Immature Granulocytes Abs Auto 0.02 K/uL (0.00-0.30); Immature Granulocytes Pct Auto 0.3 %; Lymphocytes Absolute Auto 1.51 K/uL (0.90-2.90); Mean Corpuscular HGB Conc 32 gm/dL (32-36); Mean Corpuscular Hemoglobin 28 pg (26-34); Mean Corpuscular Volume 87 fL (80-100); RDW Coefficient of Variation % 13.2 % (11.5-15.5); Red Blood Count* 3.74 m/uL (4.00-5.20); White Blood Count* 6.69 K/uL (4.50-11.00)
[2025-03-28 16:00] LABS: Slide Review Reflex No
[2025-03-28 16:11] LABS: Albumin* 3.5 g/dL (3.3-5.0); Chloride* 104 mmol/L (96-114); Sodium* 138 mmol/L (135-149)
[2025-03-28 16:12] LABS: Potassium* 4.6 mmol/L (3.6-5.1)
[2025-03-28 16:14] LABS: Alanine Aminotransferase* 13 U/L (4-35); Alkaline Phosphatase* 70 U/L (40-150); Anion Gap 8 mEq/L (7-15); Aspartate Amino Transferase* 32 U/L (12-35); Bilirubin Direct* 0.2 mg/dL (0.0-0.5); Bilirubin Total* 0.2 mg/dL (0.1-1.5); Blood Urea Nitrogen* 20 mg/dL (7-30); Calcium* 8.8 mg/dL (8.4-10.6); Carbon Dioxide* 26 mmol/L (20-32); Creatinine* 0.7 mg/dL (0.5-1.5); Est. Creatinine Clearance* 28.47; Estimated Glomerular Filt Rate 84 ml/min; Glucose* 88 mg/dL (60-115); Total Protein* 6.9 g/dL (6.0-8.3)
--- NOTE | 2025-03-28 17:58 | P.IMHP_ITS ---
Assessment and Plan Assessment and plan (1) Small bowel obstruction: Problem comment: Recurrent probably partial small-bowel obstruction following surgery for small- bowel obstruction February 24. Status: Acute (2) Intra-abdominal abscess: Problem comment: CT on 03/17/2025 shows area of phlegmon possible developing abscess. She has received IV antibiotics now for 11 days and intra-abdominal imaging and physical examination are reassuring for resolution of infection Status: Acute (3) Early satiety: Problem comment: Patient reports eating very small meals. She reports having an appetite but after eating a very small portion she feels full. She does not have abdominal pain. She does not have nausea. She has lost 5 lb in the last 3 weeks which is not an expected since she had small-bowel surgery and was NPO for many days of the past 3 weeks. Prior to that she had lost 10 lb in 10 months suggesting a chronic problem affecting her appetite and oral intake. Outpatient follow that is recommended Status: Acute (4) Chronic fatigue: Problem comment: Likely multifactorial. Metoprolol could contribute some to fatigue but not likely to explain her prominent poor energy, even at rest. Poor nutrition may contribute. Status: Acute (5) Weight loss, unintentional: Problem comment: Patient has lost 15 lb since April 2024. Approximately 5 lb weight loss in the last 3 weeks since surgery for bowel obstruction and recurrent bowel obstruction. This weight loss is not unexpected. 10 lb of weight loss between April and February is unexplained. Patient does note longstanding poor appetite and early satiety. Status: Acute Plan Patient is admitted to the hospital for ongoing management of recurrent small- bowel obstruction and recent abdominal infection following surgery on February 24. Management with IV fluids and antibiotics and conservative management. Surgery consult. Total Time Spent Total Time Spent: Total time spent today is 60 minutes in coordination of care and discussion with patient and her family about ongoing management of the recurrent abdominal problems. Hospitalist- H&P: HPI History of Present Illness Date Seen: 03/28/25 Chief complaint: stomach pains Narrative: Johana Barton is a 89 year old female admitted to the hospital with worsening abdominal pain in the last day. She has not had fever or vomiting. Bowel function has been normal without diarrhea or blood in her stool. She had 2 soft stools this morning and 1 very small stool this afternoon. This is her 4th admission in the past month for small-bowel obstruction and abdominal abscess. She was hospitalized with a small-bowel obstruction on 02/24/2025. She underwent exploratory laparotomy with small-bowel resection for a small bowel mass and stricture on February [address] Escobar. Pathology showed a follicular lymphoma. She was discharged home March 02. 03/06/2025 she was admitted to the hospital with a new small-bowel obstruction with a transition point in the right lower quadrant. She was treated conservatively with NG tube IV fluids. She was able to tolerate p.o. food and fluid and was discharged on March 11. 03/17/2025 she was readmitted to the hospital with with an intra abdominal infection in the area of her anastomosis from her small-bowel resection. She was hospitalized for 3 days and discharged on outpatient ertapenem on March 20. She remains on outpatient ertapenem getting her last dose this afternoon. When asked her further about her poor appetite she indicates that this is a longstanding problem predating her bowel obstruction. Overall it sounds like her nutrition with suboptimal before surgery and has been very poor in the subsequent days including to periods of time where she was not eating at all, after surgery and with her small-bowel obstruction and NG tube. Family have been working hard to get her to drink nutritional supplements and eat. She reports prominent fatigue. She reports feeling low energy, exercise intolerance, feeling of non restorative sleep. She dates this back to April 2024 when she had ventricular tachycardia. At that time she was treated [facility]. She had amiodarone and cardioversion. She was placed on verapamil. In October of 2023 she was switched from verapamil to metoprolol to help with constipation. She continues to report prominent fatigue. She attributed to metoprolol. She said it did help some to switch the metoprolol to bedtime. In reviewing her records I see that she has never achieved to beta- blockade. Pulses typically are in the 70-90 range. She was also on losartan for blood pressure control but has stopped that. She has been trending with elevated blood pressures. Her evaluation at the time of ventricular tachycardia included a cardiac MRI, echocardiogram and CTA. These were all quite unremarkable. The echocardiogram did show a small area of apical hypokinesis. Overall she reports that her appetite has improved and she was happy to advance her diet from primary liquids to a full regular diet yesterday. Her weight has stabilized. She is down about 3 lb from prior to her surgery 1 month ago but weight has not substantially changed in the past week. Review of Systems Narrative: She reports ongoing fatigue and sleepiness. She has been trying to do her exercise and go for walks but she reports that she gets fatigued quickly. She has been eating and reports a good appetite at times but she eats and then gets full fairly quickly. She has been taking about 3 naps a day. Medical Decision Making Medical Decision Making Has patient completed a Health Care Directive: Yes (DNR) PFSH PFSH Medical History Popliteal cyst ?M71.20 - Synovial cyst of popliteal space [Gonzalez], unspecified knee (ICD-10) Early satiety ?R68.81 - Early satiety (ICD-10) Weight loss, unintentional ?R63.4 - Abnormal weight loss (ICD-10) Osteoarthritis of left knee ?M17.12 - Unilateral primary osteoarthritis, left knee (ICD-10) Malnutrition ?E46 - Unspecified protein-calorie malnutrition (ICD-10) Anorexia ?R63.0 - Anorexia (ICD-10) Chronic fatigue ?R53.82 - Chronic fatigue, unspecified (ICD-10) Normocytic anemia ?D64.9 - Anemia, unspecified (ICD-10) History of ventricular tachycardia ?Z86.79 - Personal history of other diseases of the circulatory system (ICD- 10) Hypertension ?I10 - Essential (primary) hypertension (ICD-10) SVT (supraventricular tachycardia) ?I47.10 - Supraventricular tachycardia, unspecified (ICD-10) Bladder cancer ?C67.9 - Malignant neoplasm of bladder, unspecified (ICD-10) Gastroesophageal reflux disease ?K21.9 - Gastro-esophageal reflux disease without esophagitis (ICD-10) Basal cell carcinoma of skin ?C44.91 - Basal cell carcinoma of skin, unspecified (ICD-10) DJD (degenerative joint disease) of cervical spine ?M47.812 - Spondylosis without myelopathy or radiculopathy, cervical region (ICD-10) Pulmonary nodule ?R91.1 - Solitary pulmonary nodule (ICD-10) DJD (degenerative joint disease) of knee ?M17.9 - Osteoarthritis of knee, unspecified (ICD-10) Dysphonia ?R49.0 - Dysphonia (ICD-10) Health care directive on file ?Z78.9 - Other specified health status (ICD-10) Surgical History S/P exploratory laparotomy ?Z98.890 - Other specified postprocedural states (ICD-10) Status post cystoscopy ?Z98.890 - Other specified postprocedural states (ICD-10) Status post blepharoplasty ?Z98.890 - Other specified postprocedural states (ICD-10) Status post tonsillectomy ?Z90.89 - Acquired absence of other organs (ICD-10) Status post bunionectomy (10/12/09) ?Z98.890 - Other specified postprocedural states (ICD-10) Social History Narrative: Lives independently in [place], [place] with robust family support. Nonsmoker, no ETOH. Daughter Ora is MDM. DNR/DNI What is your current living situation?: I presently have a place to live Problems where you live: no known problems In the past 12 months, utilities in danger of being shut off: no In past 12 months, lack of transportation kept you from medical appts, meetings, work, or getting things needed for daily living: no In the past 12 mos, have been you worried that your food would run out before you had money to buy more?: never true In the past 12 mos, the food you bought just didn't last and you didn't have money to buy more?: never true Highest level of school completed/degree received: high school graduate Smoking Status: Never smoker Do you use any of these nicotine containing products: None How often do you have a drink containing alcohol: never How often do you have six or more drinks on one occasion: Never AUDIT-C Alcohol total score: 0 Non-prescribed substance use: denies use Caffeine: No How often does anyone, including family, friends and others, physically hurt you : never How often does anyone, including family, friends and others, insult or talk down to you: never How often does anyone, including family, friends and others, threaten you with harm: never How often does anyone, including family, friends and others, scream or curse at you: never service: No Meds Home Medications and Allergies Home Medications ?Medication ?Instructions ?Recorded ?Confirmed ?Type multivitamin (Multiple Vitamins 1 tab PO DAILY 2 03/28/25 History tablet) docusate sodium 100 mg capsule 100 mg PO HS 02/24/25 0 03/28/25 History (Colace) acetaminophen 500 mg tablet 500 mg PO HS PRN 02/25/25 03/28/25 History (Acetaminophen Pain Relief) biotin 1 mg capsule 1 mg PO DAILY 02/25/2503/28 History metoprolol succinate 100 mg 100 mg PO DAILY 02/25/25 0 03/28/25 History tablet,extended release 24 hr hydrocodone 5 mg-acetaminophen 325 1 tab PO Q6H PRN pa in #20 tabs 03/01/25 03/28/25 Rx mg tablet omeprazole 20 mg capsule,delayed 20 mg PO DAILY 30 day s #30 caps 03/02/25 03/28/25 Rx release magnesium oxide 400 mg (241.3 mg 400 mg PO DAILY 30 da ys #30 tabs 03/11/25 03/28/25 Rx magnesium) tablet meloxicam 15 mg tablet 15 mg PO DAILY 03/23/2503/09 History Home Medication Comments: She has stop the meloxicam Allergies Allergy/AdvReac Type Severity Reaction Status Date / Time No Known Allergies Allergy Unknown Verified 03/28/25 16:20 Exam Narrative: Exam Narrative: She is alert and appears in no distress. She gives her own history. Eyes normal. Oropharynx normal. Neck is supple without mass or adenopathy. Respirations are clear to auscultation. No wheezing rales or rhonchi. Cardiovascular: S1, S2, regular rate rhythm. No murmur gallop or rub. Abdomen: Bowel sounds are active. Laparotomy incision is well healed. Abdomen is soft without tenderness or mass. She had reported a right lower quadrant mass? I do not palpate an incisional hernia or inguinal hernia on exam tonight. External genitalia normal. Extremities with intact pulses. She moves all 4 extremities well. She has 1+ edema in her ankles. Const: Vital Signs, click to edit/add: Vital Signs - 24 hr 03/28/25 14:27 Temperature 98.1 F Pulse Rate [Right Pulse Oximeter] 73 Respiratory Rate 18 Blood Pressure [Ri ght Upper Arm] 177/84 H Pulse Oximetry 98 Oxygen Delivery Me thod Room Air Documenting provider has reviewed patient's vital signs: yes Hospitalist - H&P: Result Labs Labs: Short CBC 03/28/25 Range/Units 15:25 WBC 6.69 (4.50-11.00) K/uL Hgb 10.5 L (12.0-16.0) gm/dL Hct 32.6 L (33.0-51.0) % Plt Count 417 (140-440) K/uL BMP 03/28/25 15:25 Sodium 138 Potassium 4.6 Chloride 104 Carbon Dioxide 26 BUN 20 Creatinine 0.7 Glucose 88 Calcium 8.8 Liver Function 03/28/25 Range/Units 15:25 Total Bilirubin 0.2 (0.1-1.5) mg/dL Direct Bilirubin 0.2 (0.0-0.5) mg/dL AST 32 (12-35) U/L ALT 13 (4-35) U/L Alkaline Phosphatase 70 (40-150) U/L Albumin 3.5 (3.3-5.0) g/dL Imaging CT scan - abdomen: Radiologist's impression: INDICATION: Abdominal pain. History of small-bowel resection. History of abscess. TECHNIQUE: CT abdomen and pelvis acquired with 61 cc of Isovue 370 intravenous contrast. Coronal and sagittal reformats were obtained. COMPARISON: CT abdomen/pelvis from 03/17/2025. FINDINGS: Lower chest: Within normal limits. Liver: A simple cyst at the right liver dome. Focal fat within the left anterior liver. Spleen: Within normal limits. Pancreas: Within normal limits. Gallbladder and bile ducts: Within normal limits. Kidneys: Bilateral renal cysts. Adrenal glands: Within normal limits. Bowel: Postop changes of enteroenteric anastomosis. Reduced inflammatory changes compared to the prior exam, with resolution of the previously seen adjacent fluid collections. A loop of dilated small bowel within the mid abdomen and left upper quadrant with air-fluid levels. This loop of bowel appears to be proximal to the anastomosis. No clear transition point is identified. Vascular: Atherosclerotic changes abdominal aorta and branch vessels. Lymph nodes: Within normal limits. Peritoneum: Within normal limits. Pelvis: Calcified fibroid at the uterine fundus. Small left adnexal cyst. Bones: No acute fractures. Diffuse advanced lower thoracic and lumbar spondylosis, with disc degeneration, disc osteophyte complexes and facet arthrosis. No CT visualized high-grade spinal canal stenosis at any imaged level. Multilevel [id number] neural foraminal stenosis throughout the lumbar spine. IMPRESSION: 1. Since prior exam, reduced inflammatory changes about the enteroenteric anastomosis. Resolution of the previously seen julissa-anastomotic abscess. 2. Interval development of a loop of small bowel which appears to be proximal to the anastomosis. No clear transition point is identified. This is indeterminate and could reflect ileus or an early/partial small bowel obstruction.
[2025-03-28 18:03] VITALS: BP 193/103; PULSE 76; RESP 18; TEMP 36.3; O2SAT 99
[2025-03-28 18:58] VITALS: BP 191/95; PULSE 77; RESP 16; TEMP 36.3; O2SAT 97; BMI 3436.3; BMI 3436.6
[2025-03-28] MEDS: LACTATED RINGERS 1000 ML 1,000 ML 75 ML IV (20:55)
[2025-03-28] MEDS: DOCUSATE SODIUM 100 MG CAPSULE PO (20:55)
[2025-03-28] MEDS: ENOXAPARIN 40 MG/0.4 ML INJ SUBCUT (20:55)
[2025-03-28] MEDS: SODIUM CHLORIDE 0.9 % (FLUSH) 10 ML SYRINGE 5 ML IVF (20:56)
[2025-03-28 23:00] VITALS: BP 175/91; PULSE 67; RESP 16; TEMP 36.4; O2SAT 95
--- NOTE | 2025-03-28 23:34 | PC.NURSE ---
Patient alert and orientedx4. Denied pain and nausea this shift. Vital signs WNL. On LR at 75/hr. Transfer with SBA.
[2025-03-29 02:33] VITALS: BP 168/97; PULSE 73; RESP 16; TEMP 36.8; O2SAT 97
--- NOTE | 2025-03-29 06:19 | PC.NURSE ---
End of shift report [id number]: AxOx4. VSS. Afebrile. Denies pain. Denies nausea. Bowel sounds are active, pt reports passing gas. Pt had a BM this shift. Pt ambulates SBA. Pt is tolerating clears. Call light within reach.?
[2025-03-29 06:23] LABS: Hematocrit* 33.7 % (33.0-51.0); Hemoglobin* 11.1 gm/dL (12.0-16.0); Immature Granulocytes Abs Auto 0.01 K/uL (0.00-0.30); Immature Granulocytes Pct Auto 0.2 %; Lymphocytes Absolute Auto 1.31 K/uL (0.90-2.90); Mean Corpuscular HGB Conc 33 gm/dL (32-36); Mean Corpuscular Hemoglobin 29 pg (26-34); Mean Corpuscular Volume 86 fL (80-100); RDW Coefficient of Variation % 13.2 % (11.5-15.5); Red Blood Count* 3.90 m/uL (4.00-5.20); White Blood Count* 5.20 K/uL (4.50-11.00)
[2025-03-29 06:31] LABS: Slide Review Reflex No
[2025-03-29 06:44] LABS: Chloride* 103 mmol/L (96-114); Sodium* 139 mmol/L (135-149)
[2025-03-29 06:45] LABS: Potassium* 4.0 mmol/L (3.6-5.1)
[2025-03-29 06:47] LABS: Blood Urea Nitrogen* 13 mg/dL (7-30); Creatinine* 0.7 mg/dL (0.5-1.5); Est. Creatinine Clearance* 34.22; Estimated Glomerular Filt Rate 84 ml/min
[2025-03-29 06:48] LABS: Anion Gap 7 mEq/L (7-15); Calcium* 9.0 mg/dL (8.4-10.6); Carbon Dioxide* 29 mmol/L (20-32); Glucose* 85 mg/dL (60-115)
[2025-03-29 07:00] VITALS: BP 187/97; PULSE 81; RESP 18; TEMP 36.6; O2SAT 98
--- NOTE | 2025-03-29 07:28 | PM.GSCN ---
History of Present Illness Consult details Date Seen: 03/29/25 Consult date: 03/29/25 Narrative: 89-year-old female presented to emergency room with mid abdominal pain. Patient states that the pain started in the morning. Throughout the day the pain progressed and was becoming more severe and after lunch patient was concerned with the severity of pain. She decided to come to the emergency room. She continued to pass gas and had 2 bowel movements yesterday. Patient is s/p exploratory laparotomy and small-bowel resection with findings of follicular lymphoma. She was recently hospitalized with increased inflammation around her anastomosis. She was placed on IV antibiotics and with continued on IV antibiotics as outpatient. I personally reviewed her workup. Patient WBC continues to be normal. Her CRP was decreased from her check on Saturday last week. An abdominal CT was obtained that showed a dilated loop of small intestine left upper quadrant with no evidence of transition point. The fluid collection and inflammation near anastomosis was decreased and there was no evidence of an abscess. Patient states that her pain improved and is now gone. She continues to pass gas. Review of Systems Narrative: General: no fevers HENT: no problems swallowing CV: no shortness of breath Resp: no cough GI: No nausea, vomiting, abdominal pain : no dysuria, no increased urinary frequency, no hematuria Skin: no new rashes Musculoskeletal: no back pain Neuro: no muscle weakness Psyche: no depression, no anxiety PFSH PFSH Medical History Popliteal cyst ?M71.20 - Synovial cyst of popliteal space [Gonzalez], unspecified knee (ICD-10) Early satiety ?R68.81 - Early satiety (ICD-10) Weight loss, unintentional ?R63.4 - Abnormal weight loss (ICD-10) Osteoarthritis of left knee ?M17.12 - Unilateral primary osteoarthritis, left knee (ICD-10) Malnutrition ?E46 - Unspecified protein-calorie malnutrition (ICD-10) Anorexia ?R63.0 - Anorexia (ICD-10) Chronic fatigue ?R53.82 - Chronic fatigue, unspecified (ICD-10) Normocytic anemia ?D64.9 - Anemia, unspecified (ICD-10) History of ventricular tachycardia ?Z86.79 - Personal history of other diseases of the circulatory system (ICD-10) Hypertension ?I10 - Essential (primary) hypertension (ICD-10) SVT (supraventricular tachycardia) ?I47.10 - Supraventricular tachycardia, unspecified (ICD-10) Bladder cancer ?C67.9 - Malignant neoplasm of bladder, unspecified (ICD-10) Gastroesophageal reflux disease ?K21.9 - Gastro-esophageal reflux disease without esophagitis (ICD-10) Basal cell carcinoma of skin ?C44.91 - Basal cell carcinoma of skin, unspecified (ICD-10) DJD (degenerative joint disease) of cervical spine ?M47.812 - Spondylosis without myelopathy or radiculopathy, cervical region (ICD-10) Pulmonary nodule ?R91.1 - Solitary pulmonary nodule (ICD-10) DJD (degenerative joint disease) of knee ?M17.9 - Osteoarthritis of knee, unspecified (ICD-10) Dysphonia ?R49.0 - Dysphonia (ICD-10) Health care directive on file ?Z78.9 - Other specified health status (ICD-10) Surgical History (Updated 03/29/25 @ 07:31 by Bernadette Escobar MD) S/P exploratory laparotomy ?Z98.890 - Other specified postprocedural states (ICD-10) Status post cystoscopy ?Z98.890 - Other specified postprocedural states (ICD-10) Status post blepharoplasty ?Z98.890 - Other specified postprocedural states (ICD-10) Status post tonsillectomy ?Z90.89 - Acquired absence of other organs (ICD-10) Status post bunionectomy (10/12/09) ?Z98.890 - Other specified postprocedural states (ICD-10) Social History Narrative: Lives independently in [place], [place] with robust family support. Nonsmoker, no ETOH. Daughter Ora is MDM. DNR/DNI What is your current living situation?: I presently have a place to live Problems where you live: no known problems In the past 12 months, utilities in danger of being shut off: no In past 12 months, lack of transportation kept you from medical appts, meetings, work, or getting things needed for daily living: no In the past 12 mos, have been you worried that your food would run out before you had money to buy more?: never true In the past 12 mos, the food you bought just didn't last and you didn't have money to buy more?: never true Highest level of school completed/degree received: high school graduate Smoking Status: Never smoker Do you use any of these nicotine containing products: None How often do you have a drink containing alcohol: never How often do you have six or more drinks on one occasion: Never AUDIT-C Alcohol total score: 0 Non-prescribed substance use: denies use Caffeine: No How often does anyone, including family, friends and others, physically hurt you: never How often does anyone, including family, friends and others, insult or talk down to you: never How often does anyone, including family, friends and others, threaten you with harm: never How often does anyone, including family, friends and others, scream or curse at you: never service: No Meds Home Medications and Allergies Home Medications ?Medication ?Instructions ?Recorded ?Confirmed ?Type multivitamin (Multiple Vitamins 1 tab PO DAILY 03/05/22 03/28/25 History tablet) docusate sodium 100 mg capsule 100 mg PO HS 02/24/25 03/28/25 History (Colace) acetaminophen 500 mg tablet 500 mg PO HS PRN 02/25/25 03/28/25 History (Acetaminophen Pain Relief) biotin 1 mg capsule 1 mg PO DAILY 02/25/25 03/28/25 History metoprolol succinate 100 mg 100 mg PO DAILY 02/25/25 03/28/25 History tablet,extended release 24 hr hydrocodone 5 mg-acetaminophen 325 1 tab PO Q6H PRN pain #20 tabs 03/01/25 03/28/25 Rx mg tablet omeprazole 20 mg capsule,delayed 20 mg PO DAILY 30 days #30 caps 03/02/25 03/28/25 Rx release magnesium oxide 400 mg (241.3 mg 400 mg PO DAILY 30 days #30 tabs 03/11/25 03/28/25 Rx magnesium) tablet meloxicam 15 mg tablet 15 mg PO DAILY 03/23/25 03/28/25 History Allergies Allergy/AdvReac Type Severity Reaction Status Date / Time No Known Allergies Allergy Unknown Verified 03/28/25 16:20 Exam Narrative: Exam Narrative: General appearance: Alert, cooperative, and in no distress Pulmonary: Chest symmetric, lungs clear bilaterally Cardiovascular Heart: Regular rate and rhythm, S1, S2, no murmurs/rubs/gallops Gastrointestinal Abdominal: soft, not distended, Minimal discomfort to palpation in the left mid abdomen and right mid abdomen as patient describes it that she can feel it. No peritoneal signs. Midline laparotomy incision is healing well with no surrounding erythema. Skin: Normal skin color, texture, and turgor. No rashes or lesions. Psychiatric: Alert, cooperative, normal affect. Const: Vital Signs, click to edit/add: Vital Signs - 24 hr 03/28/25 14:27 03/28/25 18:03 03/28/25 18:58 Temperature 98.1 F 97.3 F L Pulse Rate [Pulse Oximeter] 77 Pulse Rate [Right Pulse Oximeter] 73 76 Respiratory Rate 18 18 16 Blood Pressure [Ri ght Arm] 191/95 H Blood Pressure [Ri ght Upper Arm] 177/84 H 193/103 H Pulse Oximetry 98 99 97 Oxygen Delivery Me thod Room Air Room Air Room Air 03/28/25 18:58 03/28/25 18:58 03/28/25 23:00 Temperature 97.3 F L 97.5 F L Pulse Rate [Pulse Oximeter] 77 67 Pulse Rate [Right Pulse Oximeter] Respiratory Rate 16 16 Blood Pressure [Ri ght Arm] 191/95 H 175/91 H Blood Pressure [Ri ght Upper Arm] Pulse Oximetry 97 95 Oxygen Delivery Me thod Room Air Room Air Room Air 03/28/25 23:00 03/29/25 02:33 Temperature 98.3 F Pulse Rate [Pulse Oximeter] 67 73 Pulse Rate [Right Pulse Oximeter] Respiratory Rate 16 16 Blood Pressure [Ri ght Arm] 168/97 H Blood Pressure [Ri ght Upper Arm] Pulse Oximetry 97 Oxygen Delivery Me thod Room Air Results Labs Labs: Abnormal lab results 03/28/25 03/29/25 Range/Units 15:25 06:09 RBC 3.74 L 3.90 L (4.00-5.20) m/uL Hgb 10.5 L 11.1 L (12.0-16.0) gm/dL Hct 32.6 L (33.0-51.0) % Eos % (Auto) 8.3 H (0.0-7.0) % C-Reactive Protein 1.6 H 1.4 H (0.5-1.0) mg/dL Diabetes panel 03/28/25 03/29/25 Range/Units 15: 06:09 Sodium 138 139 (135-149) mmol/L Potassium 4.6 4.0 (3.6-5.1) mmol/L Chloride 104 103 (96-114) mmol/L Carbon Dioxide 26 29 (20-32) mmol/L BUN 20 13 (7-30) mg/dL Creatinine 0.7 0.7 (0.5-1.5) mg/dL Glucose 88 85 (60-115) mg/dL Calcium 8.8 9.0 (8.4-10.6) mg/dL AST 32 (12-35) U/L ALT 13 (4-35) U/L Alkaline Phosphatase 70 (40-150) U/L Total Protein 6.9 (6.0-8.3) g/dL Albumin 3.5 (3.3-5.0) g/dL Calcium panel 03/28/25 03/29/25 Range/Units 15: 06:09 Calcium 8.8 9.0 (8.4-10.6) mg/dL Albumin 3.5 (3.3-5.0) g/dL Pituitary panel 03/28/25 03/29/25 Range/Units 15: 06:09 Sodium 138 139 (135-149) mmol/L Potassium 4.6 4.0 (3.6-5.1) mmol/L Chloride 104 103 (96-114) mmol/L Carbon Dioxide 26 29 (20-32) mmol/L BUN 20 13 (7-30) mg/dL Creatinine 0.7 0.7 (0.5-1.5) mg/dL Glucose 88 85 (60-115) mg/dL Calcium 8.8 9.0 (8.4-10.6) mg/dL Adrenal panel 03/28/25 03/29/25 Range/Units 15: 06:09 Sodium 138 139 (135-149) mmol/L Potassium 4.6 4.0 (3.6-5.1) mmol/L Chloride 104 103 (96-114) mmol/L Carbon Dioxide 26 29 (20-32) mmol/L BUN 20 13 (7-30) mg/dL Creatinine 0.7 0.7 (0.5-1.5) mg/dL Glucose 88 85 (60-115) mg/dL Calcium 8.8 9.0 (8.4-10.6) mg/dL Total Bilirubin 0.2 (0.1-1.5) mg/dL AST 32 (12-35) U/L ALT 13 (4-35) U/L Alkaline Phosphatase 70 (40-150) U/L Total Protein 6.9 (6.0-8.3) g/dL Albumin 3.5 (3.3-5.0) g/dL All other labs normal. Progress Note:A&P Assessment and plan (1) S/P exploratory laparotomy: Status: Acute Plan 89-year-old female presents with mid abdominal pain that is concerning for partial small bowel obstruction. I discussed with the patient her CT findings and her laboratory findings. Patient's CT showed that her inflammation near anastomosis is now decreased. She did have a single loop of small intestine that appeared to be dilated on CT scan but there was no transition point. Patient's pain is now resolved. She continues to pass gas and had a small bowel in a movement in the morning. We can advance her diet slowly throughout the day. Patient should have Ensures as she has been at home. If patient continues to do well by tonight, we can consider discharge her home tonight or tomorrow. Patient should continue IV outpatient antibiotics.
[2025-03-29] MEDS: METOPROLOL SUCCINATE (XL) 100 MG TAB PO (08:59)
[2025-03-29] MEDS: OMEPRAZOLE 20 MG CAPSULE DR PO (08:59)
[2025-03-29] MEDS: MAGNESIUM OXIDE 400 MG TABLET PO (08:59)
--- NOTE | 2025-03-29 09:44 | PM.IMPN1 ---
Assessment and Plan Assessment and plan (1) S/P exploratory laparotomy: Problem comment: - s/p exploratory laparotomy and small bowel resection with Dr. 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 Status: Acute (3) Intra-abdominal abscess: Problem comment: - CT on 03/17/2025 shows area of phlegmon possible developing abscess - On IV Ertapenem; intra-abdominal imaging and physical examination are reassuring for resolution of infection Status: Acute Plan - slowly advance diet per above (high risk for recurrence given multiple repeat admissions) - nutrition following - likely home tomorrow - daughter Ora updated bedside, questions answered Subjective Date Seen: 03/29/25 Interval history: Johana was admitted to the hospital on 03/28for recurrent SBO. History of recurrent SBO; first 02/24/25 with resultant small bowel resection with Dr. 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 Admitted for recurrent SBO on 03/06; also admitted 03/17 for concern of developing abscess near anastomosis. Yesterday, presented to ER with diffuse abdominal pain and distention; CT consistent with ileus vs early SBO. This morning, feeling better, starting clear liquids. She is still on daily IV Ertapenem for abdominal abscess diagnosed on 03/17. Labs and VS stable. Exam Narrative: Exam Narrative: GEN: Alert and oriented, sitting comfortably at edge of bed HEENT: Normal external ears, EOMIs bilaterally, no scleral icterus CV: RRR, No concerning murmurs R: LCTA bilaterally Ab: hypoactive bowel sounds, mild distention, tolerates palpation Ext: wwp, no concerning edema Skin: No concerning skin lesions or rashes on exposed skin Neuro: Nonfocal Psych: Appropriate Const: Vital Signs, click to edit/add: Vital Signs - 24 hr 03/28/25 14:27 03/28/25 18:03 03/28/25 18:58 Temperature 98.1 F 97.3 F L Pulse Rate [Pulse Oximeter] 77 Pulse Rate [Right Pulse Oximeter] 73 76 Respiratory Rate 18 18 16 Blood Pressure [Ri ght Arm] 191/95 H Blood Pressure [Ri ght Upper Arm] 177/84 H 193/103 H Pulse Oximetry 98 99 97 Oxygen Delivery Me thod Room Air Room Air Room Air 03/28/25 18:58 03/28/25 18:58 03/28/25 23:00 Temperature 97.3 F L 97.5 F L Pulse Rate [Pulse Oximeter] 77 67 Pulse Rate [Right Pulse Oximeter] Respiratory Rate 16 16 Blood Pressure [Ri ght Arm] 191/95 H 175/91 H Blood Pressure [Ri ght Upper Arm] Pulse Oximetry 97 95 Oxygen Delivery Me thod Room Air Room Air Room Air 03/28/25 23:00 03/29/25 02:33 Temperature 98.3 F Pulse Rate [Pulse Oximeter] 67 73 Pulse Rate [Right Pulse Oximeter] Respiratory Rate 16 16 Blood Pressure [Ri ght Arm] 168/97 H Blood Pressure [Ri ght Upper Arm] Pulse Oximetry 97 Oxygen Delivery Me thod Room Air Labs Labs: Laboratory Results - last 24 hr 03/28/25 03/29/25 15:25 06:09 WBC 6.69 5.20 RBC 3.74 L 3.90 L Hgb 10.5 L 11.1 L Hct 32.6 L 33.7 MCV 87 86 MCH 28 29 MCHC 32 33 RDW Coeff of Pati 13.2 13.2 Plt Count 417 426 Neut % (Auto) 62.6 56.3 Lymph % (Auto) 22.6 25.2 [place] % (Auto) 7.5 9.2 Eos % (Auto) 6.6 8.3 H Baso % (Auto) 0.4 0.8 Neut # (Auto) 4.19 2.93 Lymph # (Auto) 1.51 1.31 [place] # (Auto) 0.50 0.50 Eos # (Auto) 0.44 0.40 Baso # (Auto) 0.03 0.04 Abs Immat Gran (auto) 0.02 0.01 Imm/Tot Granulo (auto) 0.3 0.2 Sodium 138 139 Potassium 4.6 4.0 Chloride 104 103 Carbon Dioxide 26 29 Anion Gap 8 7 BUN 20 13 Creatinine 0.7 0.7 Estimated Creat Clear 28.47 34.22 Estimated GFR 84 84 Glucose 88 85 Lactate 0.7 Calcium 8.8 9.0 Magnesium 1.9 Total Bilirubin 0.2 Direct Bilirubin 0.2 AST 32 ALT 13 Alkaline Phosphatase 70 C-Reactive Protein 1.6 H 1.4 H Total Protein 6.9 Albumin 3.5 Lipase 112
--- NOTE | 2025-03-29 10:51 | P.IMPN_ITS ---
Assessment and Plan Assessment and plan (1) S/P exploratory laparotomy: Problem comment: - s/p exploratory laparotomy and small bowel resection with Dr. 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 Status: Acute (3) Intra-abdominal abscess: Problem comment: - CT on 03/17/2025 shows area of phlegmon possible developing abscess - On IV Ertapenem; intra-abdominal imaging and physical examination are reassuring for resolution of infection Status: Acute Subjective Interval history: Johana was admitted to the hospital on 03/28for recurrent SBO. History of recurrent SBO; first 02/24/25 with resultant small bowel resection with Dr. 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 Admitted for recurrent SBO on 03/06; also admitted 03/17 for concern of developing abscess near anastomosis. Yesterday, presented to ER with diffuse abdominal pain and distention; CT consistent with ileus vs early SBO. This morning, feeling better, starting clear liquids. She is still on daily IV Ertapenem for abdominal abscess diagnosed on 03/17. Labs and VS stable. Exam Const: Vital Signs, click to edit/add: Vital Signs - 24 hr 03/28/25 14:27 03/28/25 18:03 03/28/25 18:58 Temperature 98.1 F 97.3 F L Pulse Rate [Pulse Oximeter] 77 Pulse Rate [Right Pulse Oximeter] 73 76 Respiratory Rate 18 18 16 Blood Pressure [Ri ght Arm] 191/95 H Blood Pressure [Ri ght Upper Arm] 177/84 H 193/103 H Pulse Oximetry 98 99 97 Oxygen Delivery Me thod Room Air Room Air Room Air 03/28/25 18:58 03/28/25 18:58 03/28/25 23:00 Temperature 97.3 F L 97.5 F L Pulse Rate [Pulse Oximeter] 77 67 Pulse Rate [Right Pulse Oximeter] Respiratory Rate 16 16 Blood Pressure [Ri ght Arm] 191/95 H 175/91 H Blood Pressure [Ri ght Upper Arm] Pulse Oximetry 97 95 Oxygen Delivery Me thod Room Air Room Air Room Air 03/28/25 23:00 03/29/25 02:33 03/29/25 07:00 Temperature 98.3 F 97.8 F Pulse Rate [Pulse Oximeter] 67 73 81 Pulse Rate [Right Pulse Oximeter] Respiratory Rate 16 16 18 Blood Pressure [Ri ght Arm] 168/97 H 187/97 H Blood Pressure [Ri ght Upper Arm] Pulse Oximetry 97 98 Oxygen Delivery Me thod Room Air Room Air Labs Labs: Laboratory Results - last 24 hr 03/28/25 03/29/25 15:25 06:09 WBC 6.69 5.20 RBC 3.74 L 3.90 L Hgb 10.5 L 11.1 L Hct 32.6 L 33.7 MCV 87 86 MCH 28 29 MCHC 32 33 RDW Coeff of Pati 13.2 13.2 Plt Count 417 426 Neut % (Auto) 62.6 56.3 Lymph % (Auto) 22.6 25.2 [place] % (Auto) 7.5 9.2 Eos % (Auto) 6.6 8.3 H Baso % (Auto) 0.4 0.8 Neut # (Auto) 4.19 2.93 Lymph # (Auto) 1.51 1.31 [place] # (Auto) 0.50 0.50 Eos # (Auto) 0.44 0.40 Baso # (Auto) 0.03 0.04 Abs Immat Gran (auto) 0.02 0.01 Imm/Tot Granulo (auto) 0.3 0.2 Sodium 138 139 Potassium 4.6 4.0 Chloride 104 103 Carbon Dioxide 26 29 Anion Gap 8 7 BUN 20 13 Creatinine 0.7 0.7 Estimated Creat Clear 28.47 34.22 Estimated GFR 84 84 Glucose 88 85 Lactate 0.7 Calcium 8.8 9.0 Magnesium 1.9 Total Bilirubin 0.2 Direct Bilirubin 0.2 AST 32 ALT 13 Alkaline Phosphatase 70 C-Reactive Protein 1.6 H 1.4 H Total Protein 6.9 Albumin 3.5 Lipase 112
--- NOTE | 2025-03-29 11:02 | NUTR.NU ---
SOLANGE with verbal MD consult. Patient admitted with small bowel obstruction. She has a recent history small bowel obstructions; She was hospitalized with a small-bowel obstruction on 02/24/2025, underwent exploratory laparotomy with small-bowel resection for a small bowel mass and stricture on February 25. She was discharged home March 02. On 03/06/2025 she was admitted with a new small-bowel obstruction. She was treated conservatively and discharged home on March 11. On 03/17/2025 she was readmitted to the hospital with with an intra abdominal infection in the area of her anastomosis from her small-bowel resection. She was hospitalized for 3 days and discharged on March 20. She was upgraded to full liquids this morning. She reports this is going well. Weight loss noted recently, however not significant but unintentional. about 5 lbs lost within 30 days (4%). This is to be expected given the last month of being in and out of the hospital. She was provided diet education how to slowly increase oral intake and high protein, high calorie foods on 03/18/25. No nutrition interventions at this time. Will continue to monitor and follow-up prn.
[2025-03-29] MEDS: LACTATED RINGERS 1000 ML 1,000 ML 75 ML IV (11:41)
[2025-03-29 14:15] VITALS: BP 158/101; PULSE 66; RESP 18; TEMP 36.6; O2SAT 97
[2025-03-29] MEDS: ERTAPENEM 1 GM in 0.9 % SODIUM CHLORIDE Mini-bag 100 ML IVPB (14:42)
[2025-03-29 15:00] VITALS: BP 142/99; PULSE 72; RESP 18; TEMP 36.5; O2SAT 97
--- NOTE | 2025-03-29 15:40 | PC.SOCIAL ---
Discharge planning: Left messages for dtr Ora requesting call back regarding discharge plan. Met with pt, dtr, and dtr Anusha in room. Anusha was talking to Ora by phone and she was put on speaker phone for the length of social services coordinator's visit. Family is planning for pt to go to her own home at discharge. Family shared they have arranged a schedule to meet pt's needs at home and that family members check in frequently with her. Family had tried to stay overnight with pt after last hospital stay, but share that pt did not want this. Pt and family deny any interest in placement or having unmet needs at home. Last week, dtr had called to ask about a intermediate placement from home. Currently family states this is not needed. Offered to provide family with resources in case additional services are needed in the future. Provided handouts and emailed this information to dtr Anusha who will distribute to the rest of the family. Information provided on, [facility], fun house attendant care, Home delivered meals, SNF options contracted with [employer], Home Health options contracted with [facility], Area assisted living facilities, [facility] options. PT and dtrs shared they did not have a good experience with [facility] and have cancelled home care. If home care is needed at discharge, pt requested this be arranged wsith a different [facility]. Family requested any follow up appointments scheduled prior to discharge be made int eh afternoon if possible as this is when family members are able to arrange transportation. Family is pleased with plan to discharge tomorrow after IV abx. Son will be arriving at about 2:30 to be present for discharge instructions and to provide transportation home. reel worker to follow up as needed.
[2025-03-29 19:00] VITALS: BP 148/81; PULSE 68; RESP 18; TEMP 36.4; O2SAT 97
--- NOTE | 2025-03-29 19:09 | PC.NURSE ---
End of shift [id number] ? Pt alert, oriented, cooperative. Up independently in room and observed to ambulate in halls. Family at bedside during shift. Pt tolerating advancement to full liquid diet per MD. Denies pain, n/v. No BM during shift, but pt reports passing gas. Pt appears to be resting comfortably in chair at end of shift with call light within reach. ? ?
[2025-03-29] MEDS: ENOXAPARIN 40 MG/0.4 ML INJ SUBCUT (20:56)
[2025-03-29] MEDS: DOCUSATE SODIUM 100 MG CAPSULE PO (20:56)
[2025-03-29] MEDS: SODIUM CHLORIDE 0.9 % (FLUSH) 10 ML SYRINGE 5 ML IVF (20:56)
[2025-03-29 22:58] VITALS: BP 147/84; PULSE 64; RESP 18; TEMP 36.4; O2SAT 96
[2025-03-30 02:38] VITALS: BP 156/96; PULSE 70; RESP 18; TEMP 36.5; O2SAT 96
--- NOTE | 2025-03-30 04:18 | PC.NURSE ---
Shift note: Patient is doing ambulating independent in room and hallway. Denied abdominal pain or tenderness. Patient has not had BM this shift but confirmed passing gas. Active bowel sound in all quadrants. No fever, Bp elevation continue per baseline. Alert and oriented. Patient had adequate sleep. Tolerated full liquid diet well.
[2025-03-30 06:41] LABS: Hematocrit* 32.3 % (33.0-51.0); Hemoglobin* 10.9 gm/dL (12.0-16.0); Immature Granulocytes Abs Auto 0.02 K/uL (0.00-0.30); Immature Granulocytes Pct Auto 0.4 %; Lymphocytes Absolute Auto 1.48 K/uL (0.90-2.90); Mean Corpuscular HGB Conc 34 gm/dL (32-36); Mean Corpuscular Hemoglobin 29 pg (26-34); Mean Corpuscular Volume 85 fL (80-100); RDW Coefficient of Variation % 13.2 % (11.5-15.5); Red Blood Count* 3.78 m/uL (4.00-5.20); White Blood Count* 5.39 K/uL (4.50-11.00)
[2025-03-30 06:45] LABS: Slide Review Reflex No
[2025-03-30 06:55] LABS: Chloride* 104 mmol/L (96-114); Potassium* 3.9 mmol/L (3.6-5.1); Sodium* 139 mmol/L (135-149)
[2025-03-30 06:58] LABS: Blood Urea Nitrogen* 13 mg/dL (7-30); Creatinine* 0.7 mg/dL (0.5-1.5); Est. Creatinine Clearance* 33.65; Estimated Glomerular Filt Rate 84 ml/min
[2025-03-30 06:59] LABS: Anion Gap 5 mEq/L (7-15); Calcium* 8.9 mg/dL (8.4-10.6); Carbon Dioxide* 30 mmol/L (20-32); Glucose* 85 mg/dL (60-115)
[2025-03-30] MEDS: METOPROLOL SUCCINATE (XL) 100 MG TAB PO (08:12)
[2025-03-30] MEDS: MAGNESIUM OXIDE 400 MG TABLET PO (08:12)
[2025-03-30] MEDS: OMEPRAZOLE 20 MG CAPSULE DR PO (08:12)
[2025-03-30] MEDS: SODIUM CHLORIDE 0.9 % (FLUSH) 10 ML SYRINGE 5 ML IVF (08:14)
[2025-03-30 08:50] VITALS: BP 158/96; PULSE 72; RESP 18; TEMP 36.6; O2SAT 97
--- NOTE | 2025-03-30 09:39 | P.DS_ITS ---
DS: Providers Provider Date Seen: 03/30/25 Date of admission: 03/28/25 18:46 Primary care physician: Dawit Reynolds MD Admitting Clinician: Claudio Solorio MD Consults: 03/28/25 19:59 Consult to Physician [CONS] Routine Comment: Consulting Provider: Bernadette Escobar Has provider been notified: Yes 03/29/25 14:22 Consult to Physical Therapy [CONS] Routine Comment: Reason(s) for PT Consult:: Evaluate and Treat Any Restrictions?:: No Restrictions Attending Physician on discharge: Anisa Bustamante MD Date of Discharge: 03/30/25 DS: Diagnosis Discharge Diagnosis (1) S/P exploratory laparotomy: Status: Acute Problem details: - s/p exploratory laparotomy and small bowel resection with Dr. 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 (3) Intra-abdominal abscess: Status: Acute Problem details: - CT on 03/17/2025 shows area of phlegmon possible developing abscess - On IV Ertapenem for total of 14 days (to complete on 03/31); intra-abdominal imaging and physical examination are reassuring for resolution of infection (4) Hypertension: Status: Acute Problem details: - Metoprolol 100mg XR daily, continue during stay - noted to have significantly elevated BP (180-190/100) during stay, amenable to addition of low-dose lisinopril on 03/29 and tolerated this well, + BP improvement - has not tolerated CCBs in the past 2/2 constipation (5) History of ventricular tachycardia: Status: Acute Problem details: - nonsustained ventricular tachycardia April 2024, treated with amiodarone bolus and DC cardioversion - per EP consult: Favor outflow tract tachycardia. Started on verapamil daily - [discontinued October 2024 due to constipation] - TTE 04/2024: Apical hypokinesis - CT angiogram April 2024: Nonobstructive CAD. 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 Moderate concentric LVH with myocardial mass at upper limits of normal, no hypertrophic CM or amyloid, tiny discrete basilar anterior lateral OK consistent with tiny embolic infarction - was following with [facility] but in process of switching to [facility] due to insurance coverage - has remained stable on Metoprolol 100mg daily DS: Summary Hospital Course Hospital Course: Johana was admitted to the hospital on 03/28 for recurrent SBO. 1st SBO was 02/24/2025, requiring small-bowel resection by General surgery. Pathology consistent with follicular lymphoma. Admitted for recurrent SBO 03/06, resolved without intervention; readmitted to the hospital on 03/17/2025 with concern for developing abscess near anastomosis. Upon this admission, she was having abdominal pain and distension, early satiety. Slowly advanced diet, was tolerating regular diet on the morning of 03/30 and requesting discharge home. Comorbidities with details noted above. Johana remains on IV Ertapeneum until 03/31/25 (this will complete 14 day course of IV abx). Follow-up has been scheduled with General surgery and PCP. Status at Discharge Functional status at discharge: independent ambulation Time Spent with Patient Time attestation: Total time spent providing and/or coordinating discharge services: Time spent: Greater than 30 minutes Specific discharge activities: Multidisciplinary team discussion, medication reconciliation Exam Narrative: Exam Narrative: GEN: Alert and oriented, sitting in bedside chair and nontoxic HEENT: EOMIs bilaterally, no scleral icterus CV: RRR, No concerning murmurs R: LCTA bilaterally Ab: Soft and nontender Ext: wwp, no concerning edema Skin: No concerning skin lesions or rashes on exposed skin Neuro: Nonfocal Psych: Appropriate Const: Vital Signs, click to edit/add: Vital Signs - 24 hr 03/29/25 14:15 03/29/25 15:00 03/29/25 19:00 Temperature 97.8 F 97.7 F 97.6 F Pulse Rate [Pulse Oximeter] 66 72 68 Respiratory Rate 18 18 18 Blood Pressure [Ri ght Arm] 158/101 H 142/99 H 148/81 H Pulse Oximetry 97 97 97 Oxygen Delivery Me thod Room Air Room Air Room Air 03/29/25 22:58 03/29/25 22:58 03/30/25 02:38 Temperature 97.6 F 97.7 F Pulse Rate [Pulse Oximeter] 64 64 70 Respiratory Rate 18 18 18 Blood Pressure [Ri ght Arm] 147/84 H 156/96 H Pulse Oximetry 96 96 Oxygen Delivery Me thod Room Air Room Air 03/30/25 08:50 Temperature 97.8 F Pulse Rate [Pulse Oximeter] 72 Respiratory Rate 18 Blood Pressure [Ri ght Arm] 158/96 H Pulse Oximetry 97 Oxygen Delivery Me thod Room Air DS: Data Data Completed and Pending Completed studies during hospitalization: Procedures Resection of Small Intestine, Open Approach (02/25/25) Labs on day of discharge: Labs from last 24 hours 03/30/25 06:10 WBC 5.39 RBC 3.78 L Hgb 10.9 L Hct 32.3 L MCV 85 MCH 29 MCHC 34 RDW Coeff of Pati 13.2 Plt Count 397 Neut % (Auto) 51.9 Lymph % (Auto) 27.5 [place] % (Auto) 9.6 Eos % (Auto) 10.0 H Baso % (Auto) 0.6 Neut # (Auto) 2.80 Lymph # (Auto) 1.48 [place] # (Auto) 0.50 Eos # (Auto) 0.50 Baso # (Auto) 0.03 Abs Immat Gran (auto) 0.02 Imm/Tot Granulo (auto) 0.4 Sodium 139 Potassium 3.9 Chloride 104 Carbon Dioxide 30 Anion Gap 5 L BUN 13 Creatinine 0.7 Estimated Creat Clear 33.65 Estimated GFR 84 Glucose 85 Calcium 8.9 Discharge Plan Discharge Disposition: Home, Self-Care Date of Admission: 03/28/25 18:46 Attending Provider on Discharge: Anisa Bustamante Consulting Providers: Bernadette Escobar Primary Care Provider: Dawit Reynolds Condition: Stable Anticipated Discharge Date/Time: 03/30/25 09:33 Discharge Medications: New lisinopril 5 mg Tablet 5 mg PO DAILY Qty: 30 0RF ertapenem 1 gram Recon Soln 1 g IV Q24H Rx Instructions: to complete full 14 day course Continued multivitamin [Multiple Vitamins] Tablet 1 tab PO DAILY docusate sodium [Colace] 100 mg capsule 100 mg PO HS acetaminophen [Acetaminophen Pain Relief] 500 mg tablet 500 mg PO HS PRN biotin 1 mg capsule 1 mg PO DAILY metoprolol succinate 100 mg tablet extended release 24 hr 100 mg PO DAILY hydrocodone-acetaminophen 5-325 mg tablet 1 tab PO Q6H PRN (Reason: pain) Qty: 20 0RF omeprazole 20 mg Capsule,Delayed Release(Dr/Ec) 20 mg PO DAILY 30 Days Qty: 30 0RF magnesium oxide 400 mg (241.3 mg magnesium) Tablet 400 mg PO DAILY 30 Days Qty: 30 2RF Held meloxicam 15 mg tablet 15 mg PO DAILY Hold Instructions: continue to hold Meloxicam until f/u with Dr. Reynolds Discharge Orders: Discharge Order (Routine); Ordered 03/30/25 Ordered By: Anisa Bustamante Patient Education: Lisinopril (By mouth), Ertapenem (By injection), Bowel Ob struction (DC) Additional Instructions: NEW medication: LISINOPRIL 5mg for Blood Pressure (this is in addition to your Metoprolol). Take every morning (you had 2 doses in the hospital and tolerated it well). See Dr. Reynolds tomorrow as scheduled. Low fiber diet for at least another 7-10 days. Discharge Diet: Low Fiber Follow Up Appointments: Dawit Reynolds MD [Primary Care Provider, Family Practice] - 03/31/25 3:15 pm Referral Note: [facility] for follow-up. Forms: Patient Belongings, [facility] Info Instructions
--- NOTE | 2025-03-30 11:07 | PM.GSPN ---
Subjective Subjective Date Seen: 03/30/25 Interval history: Patient is doing well. She denies abdominal pain. She is having bowel movements and passing gas. She tolerated diet. Exam Narrative: Exam Narrative: Abdomen is soft, not distended, not tender to palpation. Const: Vital Signs, click to edit/add: Vital Signs - 24 hr 03/29/25 14:15 03/29/25 15:00 03/29/25 19:00 Temperature 97.8 F 97.7 F 97.6 F Pulse Rate [Pulse Oximeter] 66 72 68 Respiratory Rate 18 18 18 Blood Pressure [Ri ght Arm] 158/101 H 142/99 H 148/81 H Pulse Oximetry 97 97 97 Oxygen Delivery Me thod Room Air Room Air Room Air 03/29/25 22:58 03/29/25 22:58 03/30/25 02:38 Temperature 97.6 F 97.7 F Pulse Rate [Pulse Oximeter] 64 64 70 Respiratory Rate 18 18 18 Blood Pressure [Ri ght Arm] 147/84 H 156/96 H Pulse Oximetry 96 96 Oxygen Delivery Me thod Room Air Room Air 03/30/25 08:50 Temperature 97.8 F Pulse Rate [Pulse Oximeter] 72 Respiratory Rate 18 Blood Pressure [Ri ght Arm] 158/96 H Pulse Oximetry 97 Oxygen Delivery Me thod Room Air Progress Note:A&P Assessment and plan (1) S/P exploratory laparotomy: Status: Acute Plan 89-year-old female s/p small bowel resection with final diagnosis of follicular lymphoma admitted to the hospital with abdominal pain with unknown etiology. Patient's pain resolved within 24 hours. Her inflammation and fluid collection near anastomosis are improving. She is tolerating diet. Okay to discharge patient's home any time on continued IV antibiotics. Shortly has an appointment with me next week in clinic.
[2025-03-30] MEDS: ERTAPENEM 1 GM in 0.9 % SODIUM CHLORIDE Mini-bag 100 ML IVPB (13:28)
--- NOTE | 2025-03-30 15:17 | PC.SOCIAL ---
Discharge planning: Prior to discharge, met with pt in room. Pt is pleased with discharge plan home today after her IV antibiotics. Pt is aware of information provided to family on community resources in case they need to arrange for home appliance tech care. Currently family and pt shared that the schedule they have is working well. Pt is living at her home and family visits during the days at times to check in and assist pt. Pt is in agreement that she does not need home health PT/OT at discharge. She is aware that if her condition changes and she would like to be evaluated to receive this care at home, her primary care physician and assess and order if needed. Pt and family are aware of how to contact social economist if additional community resource needs are identified after discharge.
--- NOTE | 2025-03-30 16:36 | PC.NURSE ---
Discharge - Pt alert, oriented, cooperative. Up independently in room and ambulating in halls. Tolerating RA and regular diet with low fiber recommendations. Pt denies pain, SOB, n/v. IV removed with catheter intact. D/C education given to pt and family member regarding follow up, medications, and diet. Pt and family verbalized understanding. Pt d/c to home via wheelchair with family member at approximately 1220.
== END 2025-03-30 12:20 | disposition home or self-care (01) | DRG 388 ==
LOC: ED 17:52 → MEDSURG 18:45
PROVIDERS: Family Medicine; Admitting Provider Family Medicine; Emergency Provider Family Medicine; PCP Family Medicine; Visit Provider Family Medicine
DX: K56.690 Other partial intestinal obstruction (principal); K65.1 Peritoneal abscess; C82.99 Follicular lymphoma, unspecified, extranodal and solid organ sites; T81.43XA Infection following a procedure, organ and space surgical site, initial encounter; I10 Essential (primary) hypertension; K21.9 Gastro-esophageal reflux disease without esophagitis; R53.82 Chronic fatigue, unspecified; R63.4 Abnormal weight loss; R68.81 Early satiety; Z68.24 Body mass index [BMI] 24.0-24.9, adult
CPT/HCPCS: 36415; 74177; 80048; 80076; 83605; 83690; 83735; 85025; 86140; 96365; 99285; G0463; A9270; J1335; J1650; J7120; Q9967

== ENCOUNTER 2025-06-28 11:05 | Outpatient (CLI) | payer OTHER, SELFPAY | END 2025-06-28 11:06 | disposition home or self-care (01) | LOC: NFLDREF 07-03 02:34 | PROVIDERS: PCP Family Medicine; Visit Provider Family Medicine | DX: I10 Essential (primary) hypertension (principal) | CPT/HCPCS: 80048 ==